=== PATIENT | female | born 1955 | race Caucasian/White ===

== ENCOUNTER → 2017-08-27 | Outpatient (REF) | payer MEDICARE, OTHER | LOC: M LAB REF 15:54 | PROVIDERS: ATTEND Nurse Practitioner Family | DX: L08.9 Local infection of the skin and subcutaneous tissue, unspecified (principal) ==

== ENCOUNTER → 2017-10-08 | Outpatient (REF) | payer MEDICARE, OTHER ==
[2017-10-08 20:52] LABS: ESTIMATED AVERAGE GLUCOSE 177 MG/DL (60-110); HEMOGLOBIN A1c 7.8 %
[2017-10-08 20:53] LABS: TOTAL 25(OH) VITAMIN D 22.1 NG/ML (30.0-100.0)
[2017-10-08 21:08] LABS: ALBUMIN 3.3 GM/DL (3.2-5.2); ALBUMIN/GLOBULIN RATIO 0.85 (1.00-1.93); ALKALINE PHOSPHATASE 124 U/L (45-117); ALT/SGPT 14 U/L (12-78); ANION GAP 9 MEQ/L (8-16); AST/SGOT 10 U/L (7-37); BILIRUBIN,TOTAL 0.2 MG/DL (0.2-1.0); BLOOD UREA NITROGEN 14 MG/DL (7-18); CARBON DIOXIDE LEVEL 25 MEQ/L (21-32); CHLORIDE LEVEL 110 MEQ/L (98-107); CHOLESTEROL LEVEL 192 MG/DL (<200); CHOLESTEROL RISK RATIO 3.764 (<5); CREATININE FOR GFR 0.84 MG/DL (0.55-1.02); FREE T4 1.27 NG/DL (0.76-1.46); GLOMERULAR FILTRATION RATE > 60.0 (>45); GLUCOSE, FASTING 120 MG/DL (80-110); HDL CHOLESTEROL 51 MG/DL (>40); NON-HDL-C 141 MG/DL; POTASSIUM SERUM 4.8 MEQ/L (3.5-5.1); SODIUM LEVEL 144 MEQ/L (136-145); TOTAL PROTEIN 7.2 GM/DL (6.4-8.2); TRIGLYCERIDES LEVEL 220 MG/DL (<150)
== END ==
LOC: M SFHCADAM 11:13
DX: E11.628 Type 2 diabetes mellitus with other skin complications (principal); E03.8 Other specified hypothyroidism; E55.9 Vitamin D deficiency, unspecified
CPT/HCPCS: 84443

== ENCOUNTER → 2017-11-28 | Outpatient (REF) | payer MEDICARE, OTHER | LOC: M LAB REF 15:46 | DX: L08.9 Local infection of the skin and subcutaneous tissue, unspecified (principal) | CPT/HCPCS: 87186 ==

== ENCOUNTER → 2018-03-20 | Outpatient (REF) | payer MEDICARE, OTHER | LOC: M LAB REF 16:49 | DX: L08.9 Local infection of the skin and subcutaneous tissue, unspecified (principal) | CPT/HCPCS: 87186 ==

== ENCOUNTER → 2018-04-17 | Outpatient (REF) | payer MEDICARE, OTHER | LOC: M LAB REF 16:13 | DX: L08.9 Local infection of the skin and subcutaneous tissue, unspecified (principal) | CPT/HCPCS: 87186 ==

== ENCOUNTER → 2018-06-13 | Outpatient (CLI) | payer MEDICARE, OTHER | LOC: M ADAMS 10:45 | DX: M25.551 Pain in right hip (principal) | CPT/HCPCS: 72110 ==

== ENCOUNTER 2018-06-18 15:08 | Inpatient (IN) | payer MEDICARE, OTHER ==
[2018-06-18 17:26] LABS: BEDSIDE GLUCOSE 154 MG/DL (80-115)
[2018-06-18 17:36] LABS: BASO % 0.2 % (0.0-1.0); EOS # 0.1 10^3/uL (0.0-0.50); EOS % 0.5 % (0.0-3.0); HEMOGLOBIN 13.4 g/dl (12.0-15.5); IMMATURE GRANULOCYTE % 0.5 % (0-3.0); LYMPH # 1.3 10^3/uL (1.5-4.5); LYMPH % 8.2 % (24.0-44.0); MEAN CORPUSCULAR HEMOGLOBIN 22.1 pg (27.0-33.0); MEAN CORPUSCULAR HGB CONC 31.2 g/dl (32.0-36.5); MONO # 0.8 10^3/uL (0.0-0.8); MONO % 5.2 % (0.0-5.0); NEUTROPHILS % 85.4 % (36.0-66.0); PLATELET COUNT, AUTOMATED 479 10^3/uL (150-450); RED BLOOD COUNT 6.06 10^6/uL (4.00-5.40); RED CELL DISTRIBUTION WIDTH 22.7 % (11.5-14.5); WHITE BLOOD COUNT 15.3 10^3/uL (4.0-10.0)
[2018-06-18 18:11] LABS: ANION GAP 8 MEQ/L (8-16); BLOOD UREA NITROGEN 15 MG/DL (7-18); C REACTIVE PROTEIN QUANTITATIV 7.74 MG/DL (0.00-0.30); CALCIUM LEVEL 9.1 MG/DL (8.8-10.2); CARBON DIOXIDE LEVEL 25 MEQ/L (21-32); CHLORIDE LEVEL 112 MEQ/L (98-107); CREATININE FOR GFR 0.81 MG/DL (0.55-1.30); GLOMERULAR FILTRATION RATE > 60.0 (>45); GLUCOSE, FASTING 145 MG/DL (70-100); POTASSIUM SERUM 4.8 MEQ/L (3.5-5.1); SODIUM LEVEL 145 MEQ/L (136-145)
[2018-06-18 18:17] LABS: ERYTHROCYTE SEDIMENTATION RATE 9 mm/hr (0-30)
[2018-06-19] MEDS: MORPHINE 4 MG/ML 1ML VIAL/SYRINGE (J2270) IV ×3 (01:54→12:33)
[2018-06-19] MEDS ORDERED: GLUCOSE 4 GM CHEW TABLET PO (03:30)
[2018-06-19] MEDS ORDERED: BISACODYL 10 MG SUPP PR (03:30)
[2018-06-19] MEDS ORDERED: GLUCAGON FOR INJ 1 MG VIAL (J1610) SC (03:30)
[2018-06-19] MEDS ORDERED: ONDANSETRON 4MG/2ML VIAL (J2405) IV (03:30)
[2018-06-19] MEDS ORDERED: DEXTROSE 50% 50 ML SYRINGE IV (03:30)
[2018-06-19] MEDS: D5W 1,000 ML IV ×2 (05:10→12:37)
[2018-06-19] MEDS: HEPARIN SOD (PORCINE) 5000 UNITS/ML VIAL SC ×3 (05:26→21:33)
[2018-06-19] MEDS: LEVOTHYROXINE 125MCG TABLET (0.125MG) PO (05:26)
[2018-06-19 08:02] LABS: BEDSIDE GLUCOSE 171 MG/DL (80-115)
[2018-06-19] MEDS: HumaLOG INSULIN (NovoLOG) PER UNIT SC ×3 (08:16→18:45)
[2018-06-19] MEDS: hydrOXYzine 25 MG TAB PO ×2 (08:17→21:32)
[2018-06-19] MEDS: SERTRALINE 100 MG TAB PO ×2 (08:17→21:32)
[2018-06-19] MEDS: DOCUSATE SODIUM 100 MG CAP PO ×2 (08:17→21:31)
[2018-06-19] MEDS: GABAPENTIN 100 MG CAP PO ×3 (08:17→21:31)
[2018-06-19] MEDS: cloZAPine 100 MG TAB (S0136) PO ×2 (09:23→21:32)
[2018-06-19] MEDS: NYSTATIN 100,000 UNITS/GM TOPICAL PWD 15 GM TOP ×2 (09:23→21:34)
[2018-06-19] MEDS: ZIPRASIDONE 20MG CAPSULE (GEODON) PO ×2 (09:23→21:31)
[2018-06-19 11:26] LABS: BASO % 0.3 % (0.0-1.0); EOS # 0.1 10^3/uL (0.0-0.50); EOS % 0.8 % (0.0-3.0); HEMATOCRIT 42.2 % (36.0-47.0); HEMOGLOBIN 12.9 g/dl (12.0-15.5); IMMATURE GRANULOCYTE % 0.5 % (0-3.0); LYMPH # 1.3 10^3/uL (1.5-4.5); MEAN CORPUSCULAR HGB CONC 30.6 g/dl (32.0-36.5); MONO # 0.8 10^3/uL (0.0-0.8); MONO % 6.6 % (0.0-5.0); NEUTROPHILS # 9.6 10^3/uL (1.8-7.7); NEUTROPHILS % 80.8 % (36.0-66.0); PLATELET COUNT, AUTOMATED 427 10^3/uL (150-450); RED BLOOD COUNT 5.86 10^6/uL (4.00-5.40); WHITE BLOOD COUNT 11.9 10^3/uL (4.0-10.0)
[2018-06-19 11:40] LABS: BEDSIDE GLUCOSE 222 MG/DL (80-115)
[2018-06-19 11:45] LABS: ANION GAP 7 MEQ/L (8-16); BLOOD UREA NITROGEN 11 MG/DL (7-18); CALCIUM LEVEL 8.6 MG/DL (8.8-10.2); CARBON DIOXIDE LEVEL 23 MEQ/L (21-32); CHLORIDE LEVEL 109 MEQ/L (98-107); GLOMERULAR FILTRATION RATE > 60.0 (>45); GLUCOSE, FASTING 217 MG/DL (70-100); SODIUM LEVEL 139 MEQ/L (136-145)
[2018-06-19] MEDS: ACETAMINOPHEN TAB 650MG DOSE (2X325MG) PO ×2 (14:39→21:33)
[2018-06-19 16:58] LABS: BEDSIDE GLUCOSE 211 MG/DL (80-115)
[2018-06-19] MEDS ORDERED: ISOVUE-370 76% 100ML VIAL (Q9967) As Ordered (17:57)
[2018-06-19 18:35] LABS: ALBUMIN 3.1 GM/DL (3.2-5.2); ALBUMIN/GLOBULIN RATIO 0.76 (1.00-1.93); ALKALINE PHOSPHATASE 93 U/L (45-117); ALT/SGPT 22 U/L (12-78); AST/SGOT 68 U/L (7-37); BILIRUBIN,DIRECT < 0.1 MG/DL (0.0-0.2); BILIRUBIN,TOTAL 0.4 MG/DL (0.2-1.0); TOTAL PROTEIN 7.2 GM/DL (6.4-8.2)
[2018-06-19] MEDS: PIPERACILLIN/TAZOBACTAM SOD 3.375 GM in D5W MINI-BAG PLUS 50 ML IV (18:45)
[2018-06-19] MEDS: FLUCONAZOLE 100 MG TAB PO (21:31)
[2018-06-19] MEDS: cloZAPine 25 MG TAB (S0136) PO (21:32)
[2018-06-19] MEDS: LEVEMIR (INSULIN DETEMIR) 1 UNITS/0.01ML SC (21:33)
[2018-06-20 00:19] LABS: BEDSIDE GLUCOSE 157 MG/DL (80-115)
[2018-06-20] MEDS: PIPERACILLIN/TAZOBACTAM SOD 3.375 GM in D5W MINI-BAG PLUS 50 ML IV ×3 (02:00→18:21)
[2018-06-20] MEDS: LEVOTHYROXINE 125MCG TABLET (0.125MG) PO (05:42)
[2018-06-20] MEDS: ACETAMINOPHEN TAB 650MG DOSE (2X325MG) PO ×3 (05:43→16:41)
[2018-06-20] MEDS: HEPARIN SOD (PORCINE) 5000 UNITS/ML VIAL SC ×3 (05:43→21:02)
[2018-06-20 05:50] LABS: BEDSIDE GLUCOSE 146 MG/DL (80-115)
[2018-06-20] MEDS: HumaLOG INSULIN (NovoLOG) PER UNIT SC ×6 (06:00→21:00)
[2018-06-20 06:03] LABS: BEDSIDE GLUCOSE 143 MG/DL (80-115)
[2018-06-20 07:24] LABS: HEMATOCRIT 40.7 % (36.0-47.0); HEMOGLOBIN 12.5 g/dl (12.0-15.5); MEAN CORPUSCULAR HEMOGLOBIN 22.2 pg (27.0-33.0); MEAN CORPUSCULAR HGB CONC 30.7 g/dl (32.0-36.5); MEAN CORPUSCULAR VOLUME 72.4 fl (80.0-96.0); PLATELET COUNT, AUTOMATED 450 10^3/uL (150-450); RED BLOOD COUNT 5.62 10^6/uL (4.00-5.40); RED CELL DISTRIBUTION WIDTH 22.3 % (11.5-14.5)
[2018-06-20 07:42] LABS: ESTIMATED AVERAGE GLUCOSE 146 MG/DL (60-110); HEMOGLOBIN A1c 6.7 %
[2018-06-20 07:51] LABS: ANION GAP 8 MEQ/L (8-16); BLOOD UREA NITROGEN 12 MG/DL (7-18); CALCIUM LEVEL 9.1 MG/DL (8.8-10.2); CARBON DIOXIDE LEVEL 24 MEQ/L (21-32); CHLORIDE LEVEL 112 MEQ/L (98-107); CREATININE FOR GFR 0.75 MG/DL (0.55-1.30); GLOMERULAR FILTRATION RATE > 60.0 (>45); GLUCOSE, FASTING 144 MG/DL (70-100); SODIUM LEVEL 144 MEQ/L (136-145)
[2018-06-20 08:03] LABS: IMMUNOGLOBULIN G 850 MG/DL (681-1648); IMMUNOGLOBULIN M 46 MG/DL (40-230)
[2018-06-20 08:05] LABS: ERYTHROCYTE SEDIMENTATION RATE 46 mm/hr (0-30)
[2018-06-20] MEDS: GABAPENTIN 100 MG CAP PO ×3 (09:36→21:03)
[2018-06-20] MEDS: ZIPRASIDONE 20MG CAPSULE (GEODON) PO ×2 (09:36→21:03)
[2018-06-20] MEDS: cloZAPine 100 MG TAB (S0136) PO ×2 (09:36→21:03)
[2018-06-20] MEDS: hydrOXYzine 25 MG TAB PO ×2 (09:36→21:03)
[2018-06-20] MEDS: DOCUSATE SODIUM 100 MG CAP PO ×2 (09:37→21:00)
[2018-06-20] MEDS: SERTRALINE 100 MG TAB PO ×2 (09:37→21:03)
[2018-06-20] MEDS: NYSTATIN 100,000 UNITS/GM TOPICAL PWD 15 GM TOP ×2 (09:37→21:05)
[2018-06-20] MEDS: MORPHINE 4 MG/ML 1ML VIAL/SYRINGE (J2270) IV ×2 (09:46→12:05)
[2018-06-20] MEDS: MIRALAX *UNIT DOSE* 17GM PACKET PO (11:07)
[2018-06-20 11:26] LABS: HEPATITIS B SURFACE ANTIGEN NEGATIVE (NEGATIVE)
[2018-06-20 11:26] LABS: HEPATITIS C VIRUS ABY INDEX 0.2 INDEX (<0.8)
[2018-06-20 11:46] LABS: BEDSIDE GLUCOSE 236 MG/DL (80-115)
[2018-06-20] MEDS ORDERED: HumaLOG INSULIN (NovoLOG) PER UNIT SC (12:00)
[2018-06-20 16:35] LABS: BEDSIDE GLUCOSE 144 MG/DL (80-115)
[2018-06-20 20:46] LABS: BEDSIDE GLUCOSE 203 MG/DL (80-115)
[2018-06-20] MEDS: BACLOFEN 5MG PER 1/2 TABLET PO (21:03)
[2018-06-20] MEDS: cloZAPine 25 MG TAB (S0136) PO (21:03)
[2018-06-20] MEDS: FLUCONAZOLE 100 MG TAB PO (21:04)
[2018-06-20] MEDS: LEVEMIR (INSULIN DETEMIR) 1 UNITS/0.01ML SC (21:05)
[2018-06-21] MEDS: PIPERACILLIN/TAZOBACTAM SOD 3.375 GM in D5W MINI-BAG PLUS 50 ML IV ×3 (01:42→17:53)
[2018-06-21] MEDS: LEVOTHYROXINE 125MCG TABLET (0.125MG) PO (05:20)
[2018-06-21] MEDS: HEPARIN SOD (PORCINE) 5000 UNITS/ML VIAL SC ×3 (05:20→20:09)
[2018-06-21] MEDS: ACETAMINOPHEN TAB 650MG DOSE (2X325MG) PO (05:21)
[2018-06-21 06:35] LABS: HEMOGLOBIN 12.6 g/dl (12.0-15.5); MEAN CORPUSCULAR HGB CONC 30.7 g/dl (32.0-36.5); MEAN CORPUSCULAR VOLUME 71.6 fl (80.0-96.0); PLATELET COUNT, AUTOMATED 461 10^3/uL (150-450); RED BLOOD COUNT 5.73 10^6/uL (4.00-5.40); RED CELL DISTRIBUTION WIDTH 22.4 % (11.5-14.5); WHITE BLOOD COUNT 9.1 10^3/uL (4.0-10.0)
[2018-06-21 07:00] LABS: ANION GAP 10 MEQ/L (8-16); BLOOD UREA NITROGEN 12 MG/DL (7-18); CALCIUM LEVEL 9.2 MG/DL (8.8-10.2); CARBON DIOXIDE LEVEL 23 MEQ/L (21-32); CHLORIDE LEVEL 112 MEQ/L (98-107); CREATININE FOR GFR 0.82 MG/DL (0.55-1.30); GLOMERULAR FILTRATION RATE > 60.0 (>45); GLUCOSE, FASTING 168 MG/DL (70-100); SODIUM LEVEL 145 MEQ/L (136-145)
[2018-06-21] MEDS: GABAPENTIN 100 MG CAP PO ×3 (08:57→20:10)
[2018-06-21] MEDS: HumaLOG INSULIN (NovoLOG) PER UNIT SC ×4 (08:57→20:11)
[2018-06-21] MEDS: SERTRALINE 100 MG TAB PO ×2 (08:58→20:10)
[2018-06-21] MEDS: NYSTATIN 100,000 UNITS/GM TOPICAL PWD 15 GM TOP ×2 (08:58→20:26)
[2018-06-21] MEDS: hydrOXYzine 25 MG TAB PO ×2 (08:58→20:10)
[2018-06-21] MEDS: ZIPRASIDONE 20MG CAPSULE (GEODON) PO ×2 (08:59→20:10)
[2018-06-21] MEDS: DOCUSATE SODIUM 100 MG CAP PO ×2 (08:59→20:11)
[2018-06-21] MEDS: BACLOFEN 5MG PER 1/2 TABLET PO ×3 (08:59→20:09)
[2018-06-21] MEDS: MIRALAX *UNIT DOSE* 17GM PACKET PO (08:59)
[2018-06-21] MEDS: cloZAPine 100 MG TAB (S0136) PO ×2 (09:09→20:10)
[2018-06-21] MEDS: NORCO, ANEXSIA 5/325MG TABLET (HYDROcodone/ACETAMINOPHEN) PO ×2 (10:50→14:45)
[2018-06-21 11:45] LABS: BEDSIDE GLUCOSE 184 MG/DL (80-115)
[2018-06-21 16:43] LABS: BEDSIDE GLUCOSE 182 MG/DL (80-115)
[2018-06-21] MEDS: cloZAPine 25 MG TAB (S0136) PO (20:10)
[2018-06-21] MEDS: FLUCONAZOLE 100 MG TAB PO (20:10)
[2018-06-21 20:18] LABS: BEDSIDE GLUCOSE 204 MG/DL (80-115)
[2018-06-21] MEDS: LEVEMIR (INSULIN DETEMIR) 1 UNITS/0.01ML SC (20:25)
[2018-06-22] MEDS: PIPERACILLIN/TAZOBACTAM SOD 3.375 GM in D5W MINI-BAG PLUS 50 ML IV ×3 (03:09→17:35)
[2018-06-22] MEDS: HEPARIN SOD (PORCINE) 5000 UNITS/ML VIAL SC ×3 (05:09→21:44)
[2018-06-22] MEDS: LEVOTHYROXINE 125MCG TABLET (0.125MG) PO (05:09)
[2018-06-22 05:52] LABS: HEMATOCRIT 41.4 % (36.0-47.0); HEMOGLOBIN 12.7 g/dl (12.0-15.5); MEAN CORPUSCULAR HEMOGLOBIN 21.9 pg (27.0-33.0); MEAN CORPUSCULAR HGB CONC 30.7 g/dl (32.0-36.5); MEAN CORPUSCULAR VOLUME 71.5 fl (80.0-96.0); PLATELET COUNT, AUTOMATED 454 10^3/uL (150-450); RED BLOOD COUNT 5.79 10^6/uL (4.00-5.40); RED CELL DISTRIBUTION WIDTH 22.4 % (11.5-14.5); WHITE BLOOD COUNT 8.4 10^3/uL (4.0-10.0)
[2018-06-22 06:16] LABS: ANION GAP 8 MEQ/L (8-16); BLOOD UREA NITROGEN 11 MG/DL (7-18); CALCIUM LEVEL 8.8 MG/DL (8.8-10.2); CARBON DIOXIDE LEVEL 25 MEQ/L (21-32); CHLORIDE LEVEL 110 MEQ/L (98-107); CREATININE FOR GFR 0.78 MG/DL (0.55-1.30); GLOMERULAR FILTRATION RATE > 60.0 (>45); GLUCOSE, FASTING 173 MG/DL (70-100); POTASSIUM SERUM 4.2 MEQ/L (3.5-5.1); SODIUM LEVEL 143 MEQ/L (136-145)
[2018-06-22] MEDS: INVOKANA 300 MG PO (07:30)
[2018-06-22] MEDS: SERTRALINE 100 MG TAB PO ×2 (08:15→21:42)
[2018-06-22] MEDS: BACLOFEN 5MG PER 1/2 TABLET PO ×3 (08:15→21:42)
[2018-06-22] MEDS: hydrOXYzine 25 MG TAB PO ×2 (08:15→21:43)
[2018-06-22] MEDS: GABAPENTIN 100 MG CAP PO ×3 (08:15→21:43)
[2018-06-22] MEDS: NORCO, ANEXSIA 5/325MG TABLET (HYDROcodone/ACETAMINOPHEN) PO ×4 (08:16→21:46)
[2018-06-22] MEDS: MIRALAX *UNIT DOSE* 17GM PACKET PO (08:16)
[2018-06-22] MEDS: DOCUSATE SODIUM 100 MG CAP PO ×2 (08:17→21:42)
[2018-06-22] MEDS: HumaLOG INSULIN (NovoLOG) PER UNIT SC ×4 (08:22→21:44)
[2018-06-22] MEDS: ZIPRASIDONE 20MG CAPSULE (GEODON) PO ×2 (08:38→21:42)
[2018-06-22] MEDS: cloZAPine 100 MG TAB (S0136) PO ×2 (08:38→21:43)
[2018-06-22] MEDS: NYSTATIN 100,000 UNITS/GM TOPICAL PWD 15 GM TOP ×3 (08:38→21:55)
[2018-06-22 11:57] LABS: BEDSIDE GLUCOSE 191 MG/DL (80-115)
[2018-06-22 17:12] LABS: BEDSIDE GLUCOSE 183 MG/DL (80-115)
[2018-06-22] MEDS: FLEET ENEMA PR (17:37)
[2018-06-22] MEDS: SENNA 8.6 MG TAB (SENOKOT) PO (21:41)
[2018-06-22] MEDS: FLUCONAZOLE 100 MG TAB PO (21:42)
[2018-06-22] MEDS: LEVEMIR (INSULIN DETEMIR) 1 UNITS/0.01ML SC (21:44)
[2018-06-22] MEDS: cloZAPine 25 MG TAB (S0136) PO (21:54)
[2018-06-23] MEDS: PIPERACILLIN/TAZOBACTAM SOD 3.375 GM in D5W MINI-BAG PLUS 50 ML IV ×2 (01:13→10:40)
[2018-06-23] MEDS: NORCO, ANEXSIA 5/325MG TABLET (HYDROcodone/ACETAMINOPHEN) PO ×3 (05:44→22:37)
[2018-06-23] MEDS: HEPARIN SOD (PORCINE) 5000 UNITS/ML VIAL SC ×3 (05:44→21:23)
[2018-06-23] MEDS: LEVOTHYROXINE 125MCG TABLET (0.125MG) PO (05:44)
[2018-06-23 06:03] LABS: BEDSIDE GLUCOSE 272 MG/DL (80-115)
[2018-06-23 07:51] LABS: HEMATOCRIT 39.4 % (36.0-47.0); MEAN CORPUSCULAR HEMOGLOBIN 21.9 pg (27.0-33.0); MEAN CORPUSCULAR HGB CONC 30.5 g/dl (32.0-36.5); MEAN CORPUSCULAR VOLUME 71.9 fl (80.0-96.0); PLATELET COUNT, AUTOMATED 455 10^3/uL (150-450); RED BLOOD COUNT 5.48 10^6/uL (4.00-5.40); RED CELL DISTRIBUTION WIDTH 22.2 % (11.5-14.5); WHITE BLOOD COUNT 9.2 10^3/uL (4.0-10.0)
[2018-06-23 08:25] LABS: ANION GAP 6 MEQ/L (8-16); BLOOD UREA NITROGEN 15 MG/DL (7-18); CALCIUM LEVEL 9.4 MG/DL (8.8-10.2); CARBON DIOXIDE LEVEL 28 MEQ/L (21-32); CHLORIDE LEVEL 112 MEQ/L (98-107); CREATININE FOR GFR 0.76 MG/DL (0.55-1.30); GLOMERULAR FILTRATION RATE > 60.0 (>45); GLUCOSE, FASTING 167 MG/DL (70-100); POTASSIUM SERUM 4.3 MEQ/L (3.5-5.1); SODIUM LEVEL 146 MEQ/L (136-145)
[2018-06-23] MEDS: MIRALAX *UNIT DOSE* 17GM PACKET PO (09:00)
[2018-06-23] MEDS: INVOKANA 300 MG PO (10:41)
[2018-06-23] MEDS: GABAPENTIN 100 MG CAP PO ×3 (10:42→21:23)
[2018-06-23] MEDS: ZIPRASIDONE 20MG CAPSULE (GEODON) PO ×2 (10:42→21:23)
[2018-06-23] MEDS: SENNA 8.6 MG TAB (SENOKOT) PO ×2 (10:42→21:23)
[2018-06-23] MEDS: DOCUSATE SODIUM 100 MG CAP PO ×2 (10:44→21:24)
[2018-06-23] MEDS: hydrOXYzine 25 MG TAB PO ×2 (10:45→21:23)
[2018-06-23] MEDS: BACLOFEN 5MG PER 1/2 TABLET PO ×3 (10:45→21:23)
[2018-06-23] MEDS: SERTRALINE 100 MG TAB PO ×2 (10:45→21:24)
[2018-06-23] MEDS: NYSTATIN 100,000 UNITS/GM TOPICAL PWD 15 GM TOP ×3 (10:47→21:25)
[2018-06-23] MEDS: HumaLOG INSULIN (NovoLOG) PER UNIT SC ×4 (10:47→21:58)
[2018-06-23 12:22] LABS: BEDSIDE GLUCOSE 211 MG/DL (80-115)
[2018-06-23] MEDS: cloZAPine 100 MG TAB (S0136) PO ×2 (13:33→21:24)
[2018-06-23] MEDS: BACTRIM 160MG/800MG DS TAB PO (13:33)
[2018-06-23 17:51] LABS: BEDSIDE GLUCOSE 148 MG/DL (80-115)
[2018-06-23 21:16] LABS: BEDSIDE GLUCOSE 274 MG/DL (80-115)
[2018-06-23] MEDS: FLUCONAZOLE 100 MG TAB PO (21:23)
[2018-06-23] MEDS: cloZAPine 25 MG TAB (S0136) PO (21:24)
[2018-06-23] MEDS: AUGMENTIN 875 MG TAB PO (21:24)
[2018-06-23] MEDS: CLINDAMYCIN TOP 1% SOLN 60 ML BTL TOP (21:25)
[2018-06-23] MEDS: LEVEMIR (INSULIN DETEMIR) 1 UNITS/0.01ML SC (21:57)
[2018-06-24] MEDS: HEPARIN SOD (PORCINE) 5000 UNITS/ML VIAL SC ×3 (05:45→21:49)
[2018-06-24] MEDS: LEVOTHYROXINE 125MCG TABLET (0.125MG) PO (05:45)
[2018-06-24 07:06] LABS: HEMATOCRIT 40.6 % (36.0-47.0); HEMOGLOBIN 12.3 g/dl (12.0-15.5); MEAN CORPUSCULAR HEMOGLOBIN 21.8 pg (27.0-33.0); MEAN CORPUSCULAR HGB CONC 30.3 g/dl (32.0-36.5); PLATELET COUNT, AUTOMATED 429 10^3/uL (150-450); RED BLOOD COUNT 5.64 10^6/uL (4.00-5.40); RED CELL DISTRIBUTION WIDTH 22.2 % (11.5-14.5); WHITE BLOOD COUNT 9.7 10^3/uL (4.0-10.0)
[2018-06-24 07:22] LABS: ANION GAP 8 MEQ/L (8-16); BLOOD UREA NITROGEN 12 MG/DL (7-18); CALCIUM LEVEL 8.8 MG/DL (8.8-10.2); CARBON DIOXIDE LEVEL 25 MEQ/L (21-32); CHLORIDE LEVEL 110 MEQ/L (98-107); CREATININE FOR GFR 0.81 MG/DL (0.55-1.30); GLOMERULAR FILTRATION RATE > 60.0 (>45); GLUCOSE, FASTING 161 MG/DL (70-100); POTASSIUM SERUM 4.1 MEQ/L (3.5-5.1); SODIUM LEVEL 143 MEQ/L (136-145)
[2018-06-24] MEDS: INVOKANA 300 MG PO (08:15)
[2018-06-24] MEDS: HumaLOG INSULIN (NovoLOG) PER UNIT SC ×4 (08:15→21:55)
[2018-06-24] MEDS: ZIPRASIDONE 20MG CAPSULE (GEODON) PO ×2 (08:45→21:48)
[2018-06-24] MEDS: BACLOFEN 5MG PER 1/2 TABLET PO ×3 (08:45→21:47)
[2018-06-24] MEDS: MIRALAX *UNIT DOSE* 17GM PACKET PO (08:45)
[2018-06-24] MEDS: cloZAPine 100 MG TAB (S0136) PO ×2 (08:46→21:48)
[2018-06-24] MEDS: GABAPENTIN 100 MG CAP PO ×3 (08:46→21:48)
[2018-06-24] MEDS: SENNA 8.6 MG TAB (SENOKOT) PO ×2 (08:46→21:48)
[2018-06-24] MEDS: hydrOXYzine 25 MG TAB PO ×2 (08:46→21:48)
[2018-06-24] MEDS: AUGMENTIN 875 MG TAB PO ×2 (08:46→21:47)
[2018-06-24] MEDS: SERTRALINE 100 MG TAB PO ×2 (08:47→21:48)
[2018-06-24] MEDS: DOCUSATE SODIUM 100 MG CAP PO ×2 (08:47→21:48)
[2018-06-24] MEDS: NYSTATIN 100,000 UNITS/GM TOPICAL PWD 15 GM TOP ×3 (08:48→21:49)
[2018-06-24] MEDS: NORCO, ANEXSIA 5/325MG TABLET (HYDROcodone/ACETAMINOPHEN) PO ×2 (10:46→15:10)
[2018-06-24 12:09] LABS: BEDSIDE GLUCOSE 235 MG/DL (80-115)
[2018-06-24 21:14] LABS: BEDSIDE GLUCOSE 187 MG/DL (80-115)
[2018-06-24] MEDS: cloZAPine 25 MG TAB (S0136) PO (21:48)
[2018-06-24] MEDS: CLINDAMYCIN TOP 1% SOLN 60 ML BTL TOP (21:49)
[2018-06-24] MEDS: LEVEMIR (INSULIN DETEMIR) 1 UNITS/0.01ML SC (21:50)
[2018-06-24] MEDS: ACETAMINOPHEN TAB 650MG DOSE (2X325MG) PO (22:51)
[2018-06-25 03:08] LABS: BEDSIDE GLUCOSE 236 MG/DL (80-115)
[2018-06-25] MEDS: LEVOTHYROXINE 125MCG TABLET (0.125MG) PO (05:20)
[2018-06-25] MEDS: HEPARIN SOD (PORCINE) 5000 UNITS/ML VIAL SC ×3 (05:20→20:34)
[2018-06-25 07:16] LABS: HEMATOCRIT 39.6 % (36.0-47.0); MEAN CORPUSCULAR HGB CONC 30.3 g/dl (32.0-36.5); MEAN CORPUSCULAR VOLUME 72.5 fl (80.0-96.0); PLATELET COUNT, AUTOMATED 444 10^3/uL (150-450); RED BLOOD COUNT 5.46 10^6/uL (4.00-5.40); RED CELL DISTRIBUTION WIDTH 22.2 % (11.5-14.5); WHITE BLOOD COUNT 9.6 10^3/uL (4.0-10.0)
[2018-06-25 07:40] LABS: ANION GAP 6 MEQ/L (8-16); BLOOD UREA NITROGEN 14 MG/DL (7-18); CALCIUM LEVEL 9.1 MG/DL (8.8-10.2); CARBON DIOXIDE LEVEL 28 MEQ/L (21-32); CHLORIDE LEVEL 109 MEQ/L (98-107); CREATININE FOR GFR 0.78 MG/DL (0.55-1.30); GLOMERULAR FILTRATION RATE > 60.0 (>45); GLUCOSE, FASTING 144 MG/DL (70-100); POTASSIUM SERUM 4.1 MEQ/L (3.5-5.1); SODIUM LEVEL 143 MEQ/L (136-145)
[2018-06-25] MEDS: INVOKANA 300 MG PO (07:55)
[2018-06-25] MEDS: HumaLOG INSULIN (NovoLOG) PER UNIT SC ×4 (07:56→21:00)
[2018-06-25] MEDS: NORCO, ANEXSIA 5/325MG TABLET (HYDROcodone/ACETAMINOPHEN) PO ×2 (07:56→20:13)
[2018-06-25] MEDS: MIRALAX *UNIT DOSE* 17GM PACKET PO (08:33)
[2018-06-25] MEDS: hydrOXYzine 25 MG TAB PO ×2 (08:33→20:13)
[2018-06-25] MEDS: FLEET ENEMA PR (08:33)
[2018-06-25] MEDS: DOCUSATE SODIUM 100 MG CAP PO ×2 (08:34→20:12)
[2018-06-25] MEDS: BACLOFEN 5MG PER 1/2 TABLET PO ×3 (08:34→20:12)
[2018-06-25] MEDS: cloZAPine 100 MG TAB (S0136) PO ×2 (08:34→20:13)
[2018-06-25] MEDS: AUGMENTIN 875 MG TAB PO ×2 (08:34→20:13)
[2018-06-25] MEDS: SERTRALINE 100 MG TAB PO ×2 (08:34→20:11)
[2018-06-25] MEDS: ZIPRASIDONE 20MG CAPSULE (GEODON) PO ×2 (08:35→20:13)
[2018-06-25] MEDS: GABAPENTIN 100 MG CAP PO ×3 (08:35→20:12)
[2018-06-25] MEDS: SENNA 8.6 MG TAB (SENOKOT) PO ×2 (08:35→20:11)
[2018-06-25] MEDS: NYSTATIN 100,000 UNITS/GM TOPICAL PWD 15 GM TOP ×3 (08:38→20:17)
[2018-06-25 11:48] LABS: BEDSIDE GLUCOSE 184 MG/DL (80-115)
[2018-06-25 17:23] LABS: BEDSIDE GLUCOSE 197 MG/DL (80-115)
[2018-06-25] MEDS: LEVEMIR (INSULIN DETEMIR) 1 UNITS/0.01ML SC (20:10)
[2018-06-25] MEDS: cloZAPine 25 MG TAB (S0136) PO (20:14)
[2018-06-25] MEDS: CLINDAMYCIN TOP 1% SOLN 60 ML BTL TOP (20:16)
[2018-06-25 20:19] LABS: BEDSIDE GLUCOSE 210 MG/DL (80-115)
[2018-06-26] MEDS: NORCO, ANEXSIA 5/325MG TABLET (HYDROcodone/ACETAMINOPHEN) PO ×2 (05:56→10:19)
[2018-06-26] MEDS: LEVOTHYROXINE 125MCG TABLET (0.125MG) PO (05:56)
[2018-06-26] MEDS: HEPARIN SOD (PORCINE) 5000 UNITS/ML VIAL SC (05:56)
[2018-06-26 07:09] LABS: HEMATOCRIT 40.6 % (36.0-47.0); HEMOGLOBIN 12.4 g/dl (12.0-15.5); MEAN CORPUSCULAR HEMOGLOBIN 22.3 pg (27.0-33.0); MEAN CORPUSCULAR HGB CONC 30.5 g/dl (32.0-36.5); PLATELET COUNT, AUTOMATED 404 10^3/uL (150-450); RED BLOOD COUNT 5.56 10^6/uL (4.00-5.40); RED CELL DISTRIBUTION WIDTH 21.8 % (11.5-14.5); WHITE BLOOD COUNT 9.2 10^3/uL (4.0-10.0)
[2018-06-26 07:24] LABS: ANION GAP 8 MEQ/L (8-16); BLOOD UREA NITROGEN 12 MG/DL (7-18); CARBON DIOXIDE LEVEL 26 MEQ/L (21-32); CHLORIDE LEVEL 111 MEQ/L (98-107); CREATININE FOR GFR 0.73 MG/DL (0.55-1.30); GLOMERULAR FILTRATION RATE > 60.0 (>45); GLUCOSE, FASTING 139 MG/DL (70-100); SODIUM LEVEL 145 MEQ/L (136-145)
[2018-06-26] MEDS: INVOKANA 300 MG PO (08:10)
[2018-06-26] MEDS: HumaLOG INSULIN (NovoLOG) PER UNIT SC ×2 (08:10→12:18)
[2018-06-26] MEDS: ZIPRASIDONE 20MG CAPSULE (GEODON) PO (09:04)
[2018-06-26] MEDS: SENNA 8.6 MG TAB (SENOKOT) PO (09:04)
[2018-06-26] MEDS: hydrOXYzine 25 MG TAB PO (09:04)
[2018-06-26] MEDS: BACLOFEN 5MG PER 1/2 TABLET PO (09:04)
[2018-06-26] MEDS: cloZAPine 100 MG TAB (S0136) PO (09:05)
[2018-06-26] MEDS: AUGMENTIN 875 MG TAB PO (09:05)
[2018-06-26] MEDS: GABAPENTIN 100 MG CAP PO (09:05)
[2018-06-26] MEDS: SERTRALINE 100 MG TAB PO (09:06)
[2018-06-26] MEDS: DOCUSATE SODIUM 100 MG CAP PO (09:07)
[2018-06-26] MEDS: MIRALAX *UNIT DOSE* 17GM PACKET PO (09:08)
[2018-06-26] MEDS: NYSTATIN 100,000 UNITS/GM TOPICAL PWD 15 GM TOP (09:09)
[2018-06-26 11:27] LABS: BEDSIDE GLUCOSE 173 MG/DL (80-115)
== END 2018-06-26 13:47 | disposition home health service (06) | DRG 552 ==
LOC: M ED INP 06-19 02:54 → M ED 15:08 → M MS5PR 06-19 04:04
DX: M48.061 Spinal stenosis, lumbar region without neurogenic claudication (principal); L03.114 Cellulitis of left upper limb; L03.312 Cellulitis of back [any part except buttock and flank]; E11.9 Type 2 diabetes mellitus without complications; L30.4 Erythema intertrigo; E03.9 Hypothyroidism, unspecified; B37.2 Candidiasis of skin and nail; E66.9 Obesity, unspecified; M51.26 Other intervertebral disc displacement, lumbar region; B95.1 Streptococcus, group B, as the cause of diseases classified elsewhere; T40.605A Adverse effect of unspecified narcotics, initial encounter; K59.03 Drug induced constipation; L73.2 Hidradenitis suppurativa; F41.9 Anxiety disorder, unspecified; R53.82 Chronic fatigue, unspecified; F25.9 Schizoaffective disorder, unspecified; Z88.1 Allergy status to other antibiotic agents; Z79.4 Long term (current) use of insulin; Z79.899 Other long term (current) drug therapy; Z68.34 Body mass index [BMI] 34.0-34.9, adult

== ENCOUNTER → 2018-07-02 | Outpatient (REF) | payer MEDICARE, OTHER | LOC: M LAB REF 18:30 | DX: L72.9 Follicular cyst of the skin and subcutaneous tissue, unspecified (principal) | CPT/HCPCS: 88305 ==

== ENCOUNTER 2018-07-05 09:32 | Inpatient (IN) | payer MEDICARE, OTHER ==
[2018-07-05 10:28] LABS: BEDSIDE GLUCOSE 163 MG/DL (80-115)
[2018-07-05] MEDS: ACETAMINOPHEN TAB 650MG DOSE (2X325MG) PO (10:46)
[2018-07-05 10:50] LABS: BASO % 0.3 % (0.0-1.0); EOS # 0.2 10^3/uL (0.0-0.50); EOS % 1.7 % (0.0-3.0); HEMATOCRIT 43.4 % (36.0-47.0); HEMOGLOBIN 13.4 g/dl (12.0-15.5); IMMATURE GRANULOCYTE % 0.5 % (0-3.0); LYMPH # 1.1 10^3/uL (1.5-4.5); LYMPH % 12.3 % (24.0-44.0); MEAN CORPUSCULAR HEMOGLOBIN 22.6 pg (27.0-33.0); MEAN CORPUSCULAR HGB CONC 30.9 g/dl (32.0-36.5); MEAN CORPUSCULAR VOLUME 73.3 fl (80.0-96.0); MONO # 0.6 10^3/uL (0.0-0.8); NEUTROPHILS # 7.4 10^3/uL (1.8-7.7); NEUTROPHILS % 79.2 % (36.0-66.0); PLATELET COUNT, AUTOMATED 448 10^3/uL (150-450); RED BLOOD COUNT 5.92 10^6/uL (4.00-5.40); RED CELL DISTRIBUTION WIDTH 23.4 % (11.5-14.5); WHITE BLOOD COUNT 9.3 10^3/uL (4.0-10.0)
[2018-07-05 11:04] LABS: INR 1.07; PARTIAL THROMBOPLASTIN TIME 27.8 SECONDS (25.4-37.6)
[2018-07-05 11:35] LABS: ANION GAP 9 MEQ/L (8-16); BLOOD UREA NITROGEN 12 MG/DL (7-18); CARBON DIOXIDE LEVEL 23 MEQ/L (21-32); CHLORIDE LEVEL 113 MEQ/L (98-107); CPK CREATINE PHOSPHOKINASE 1332 U/L (26-192); CREATININE FOR GFR 0.79 MG/DL (0.55-1.30); GLOMERULAR FILTRATION RATE > 60.0 (>45); GLUCOSE, FASTING 161 MG/DL (70-100); MAGNESIUM LEVEL 2.3 MG/DL (1.8-2.4); MB/CK RELATIVE INDEX 0.37 (< OR =4); POTASSIUM SERUM 4.2 MEQ/L (3.5-5.1); SODIUM LEVEL 145 MEQ/L (136-145); TROPONIN I 0.03 NG/ML (< 0.10)
[2018-07-05] MEDS: NS 1,000 ML IV ×3 (12:07→18:46)
[2018-07-05] MEDS ORDERED: DEXTROSE 50% 50 ML SYRINGE IV (13:15)
[2018-07-05] MEDS ORDERED: GLUCOSE 4 GM CHEW TABLET PO (13:15)
[2018-07-05] MEDS ORDERED: GLUCAGON FOR INJ 1 MG VIAL (J1610) SC (13:15)
[2018-07-05 18:02] LABS: BEDSIDE GLUCOSE 110 MG/DL (80-115)
[2018-07-05] MEDS: HumaLOG INSULIN (NovoLOG) PER UNIT SC ×3 (18:46→21:00)
[2018-07-05] MEDS: NAPROXEN 250 MG TAB PO (18:48)
[2018-07-05 20:18] LABS: ANION GAP 8 MEQ/L (8-16); BLOOD UREA NITROGEN 11 MG/DL (7-18); CALCIUM LEVEL 8.4 MG/DL (8.8-10.2); CARBON DIOXIDE LEVEL 24 MEQ/L (21-32); CHLORIDE LEVEL 113 MEQ/L (98-107); CPK CREATINE PHOSPHOKINASE 1594 U/L (26-192); CREATININE FOR GFR 0.87 MG/DL (0.55-1.30); GLOMERULAR FILTRATION RATE > 60.0 (>45); GLUCOSE, FASTING 142 MG/DL (70-100); POTASSIUM SERUM 3.9 MEQ/L (3.5-5.1); SODIUM LEVEL 145 MEQ/L (136-145)
[2018-07-05 20:29] LABS: BEDSIDE GLUCOSE 61 MG/DL (80-115)
[2018-07-05] MEDS ORDERED: ENOXAPARIN 40 MG/0.4 ML SYRINGE (J1650) SC (21:00)
[2018-07-05] MEDS: cloZAPine 100 MG TAB (S0136) PO (21:42)
[2018-07-05] MEDS: cloZAPine 25 MG TAB (S0136) PO (21:42)
[2018-07-05] MEDS: ENOXAPARIN 40 MG/0.4 ML SYRINGE (J1650) SC (21:42)
[2018-07-05] MEDS: ZIPRASIDONE 20MG CAPSULE (GEODON) PO (21:42)
[2018-07-05] MEDS: hydrOXYzine 25 MG TAB PO (21:42)
[2018-07-05] MEDS: DOXYCYCLINE HYCLATE 100 MG TAB PO (21:42)
[2018-07-05 21:50] LABS: BEDSIDE GLUCOSE 111 MG/DL (80-115)
[2018-07-05] MEDS: NS 0.45% 1,000 ML IV (23:21)
[2018-07-06 01:27] LABS: BEDSIDE GLUCOSE 138 MG/DL (80-115)
[2018-07-06] MEDS: NAPROXEN 250 MG TAB PO ×2 (02:12→21:27)
[2018-07-06] MEDS: NS 0.45% 1,000 ML IV ×4 (04:22→23:47)
[2018-07-06] MEDS: LEVOTHYROXINE 125MCG TABLET (0.125MG) PO (05:43)
[2018-07-06 06:54] LABS: HEMATOCRIT 36.4 % (36.0-47.0); MEAN CORPUSCULAR HEMOGLOBIN 22.6 pg (27.0-33.0); MEAN CORPUSCULAR HGB CONC 30.2 g/dl (32.0-36.5); MEAN CORPUSCULAR VOLUME 74.7 fl (80.0-96.0); PLATELET COUNT, AUTOMATED 434 10^3/uL (150-450); RED BLOOD COUNT 4.87 10^6/uL (4.00-5.40); WHITE BLOOD COUNT 9.7 10^3/uL (4.0-10.0)
[2018-07-06] MEDS: HumaLOG INSULIN (NovoLOG) PER UNIT SC ×6 (07:30→21:00)
[2018-07-06 07:41] LABS: ANION GAP 6 MEQ/L (8-16); BLOOD UREA NITROGEN 7 MG/DL (7-18); CALCIUM LEVEL 8.3 MG/DL (8.8-10.2); CARBON DIOXIDE LEVEL 23 MEQ/L (21-32); CHLORIDE LEVEL 119 MEQ/L (98-107); CPK CREATINE PHOSPHOKINASE 2386 U/L (26-192); CREATININE FOR GFR 0.76 MG/DL (0.55-1.30); GLOMERULAR FILTRATION RATE > 60.0 (>45); GLUCOSE, FASTING 108 MG/DL (70-100); POTASSIUM SERUM 3.9 MEQ/L (3.5-5.1); SODIUM LEVEL 148 MEQ/L (136-145)
[2018-07-06] MEDS: ASPIRIN 81 MG ENTERIC TAB PO (09:10)
[2018-07-06] MEDS: ZIPRASIDONE 20MG CAPSULE (GEODON) PO ×2 (09:10→21:28)
[2018-07-06] MEDS: SERTRALINE 100 MG TAB PO (09:10)
[2018-07-06] MEDS: DOXYCYCLINE HYCLATE 100 MG TAB PO ×2 (09:11→21:28)
[2018-07-06] MEDS: hydrOXYzine 25 MG TAB PO ×2 (09:14→21:28)
[2018-07-06] MEDS: FLUBLOK(EGG FREE)(QUAD)INFLUENZA VACC 0.5ML SYRINGE (90682)18YRS&OLDER IM (09:23)
[2018-07-06] MEDS: cloZAPine 100 MG TAB (S0136) PO ×2 (09:23→21:28)
[2018-07-06 12:17] LABS: BEDSIDE GLUCOSE 129 MG/DL (80-115)
[2018-07-06 16:38] LABS: BEDSIDE GLUCOSE 172 MG/DL (80-115)
[2018-07-06 20:55] LABS: BEDSIDE GLUCOSE 152 MG/DL (80-115)
[2018-07-06] MEDS: cloZAPine 25 MG TAB (S0136) PO (21:28)
[2018-07-06] MEDS: ENOXAPARIN 40 MG/0.4 ML SYRINGE (J1650) SC (21:29)
[2018-07-07] MEDS: LEVOTHYROXINE 125MCG TABLET (0.125MG) PO (05:50)
[2018-07-07] MEDS: NS 0.45% 1,000 ML IV (05:50)
[2018-07-07 06:05] LABS: HEMATOCRIT 38.4 % (36.0-47.0); HEMOGLOBIN 11.4 g/dl (12.0-15.5); MEAN CORPUSCULAR HEMOGLOBIN 22.2 pg (27.0-33.0); MEAN CORPUSCULAR HGB CONC 29.7 g/dl (32.0-36.5); MEAN CORPUSCULAR VOLUME 74.7 fl (80.0-96.0); PLATELET COUNT, AUTOMATED 456 10^3/uL (150-450); RED BLOOD COUNT 5.14 10^6/uL (4.00-5.40); RED CELL DISTRIBUTION WIDTH 23.5 % (11.5-14.5); WHITE BLOOD COUNT 8.5 10^3/uL (4.0-10.0)
[2018-07-07 06:29] LABS: ANION GAP 7 MEQ/L (8-16); BLOOD UREA NITROGEN 10 MG/DL (7-18); CALCIUM LEVEL 8.3 MG/DL (8.8-10.2); CARBON DIOXIDE LEVEL 23 MEQ/L (21-32); CHLORIDE LEVEL 117 MEQ/L (98-107); CREATININE FOR GFR 0.73 MG/DL (0.55-1.30); GLOMERULAR FILTRATION RATE > 60.0 (>45); GLUCOSE, FASTING 141 MG/DL (70-100); POTASSIUM SERUM 4.2 MEQ/L (3.5-5.1); SODIUM LEVEL 147 MEQ/L (136-145)
[2018-07-07 06:53] LABS: CPK CREATINE PHOSPHOKINASE 2681 U/L (26-192)
[2018-07-07] MEDS: HumaLOG INSULIN (NovoLOG) PER UNIT SC ×5 (07:30→21:00)
[2018-07-07] MEDS: DOXYCYCLINE HYCLATE 100 MG TAB PO ×2 (08:20→21:41)
[2018-07-07] MEDS: ASPIRIN 81 MG ENTERIC TAB PO (08:20)
[2018-07-07] MEDS: hydrOXYzine 25 MG TAB PO ×2 (08:20→21:41)
[2018-07-07] MEDS: ZIPRASIDONE 20MG CAPSULE (GEODON) PO ×2 (08:21→21:41)
[2018-07-07] MEDS: SERTRALINE 100 MG TAB PO (08:21)
[2018-07-07] MEDS: cloZAPine 100 MG TAB (S0136) PO ×2 (08:23→21:41)
[2018-07-07] MEDS: LR 1,000 ML IV ×2 (11:25→18:16)
[2018-07-07] MEDS: NAPROXEN 250 MG TAB PO (11:26)
[2018-07-07 11:49] LABS: BEDSIDE GLUCOSE 167 MG/DL (80-115)
[2018-07-07 16:44] LABS: BEDSIDE GLUCOSE 153 MG/DL (80-115)
[2018-07-07 18:53] LABS: ALBUMIN 3.3 GM/DL (3.2-5.2); ANION GAP 6 MEQ/L (8-16); BLOOD UREA NITROGEN 9 MG/DL (7-18); CALCIUM LEVEL 8.9 MG/DL (8.8-10.2); CARBON DIOXIDE LEVEL 25 MEQ/L (21-32); CHLORIDE LEVEL 113 MEQ/L (98-107); CPK CREATINE PHOSPHOKINASE 2205 U/L (26-192); CREATININE FOR GFR 0.82 MG/DL (0.55-1.30); GLOMERULAR FILTRATION RATE > 60.0 (>45); GLUCOSE, FASTING 189 MG/DL (70-100); NT-PRO BNP 367 PG/ML (<125); PHOSPHORUS LEVEL 3.1 MG/DL (2.5-4.9); POTASSIUM SERUM 4.6 MEQ/L (3.5-5.1); SODIUM LEVEL 144 MEQ/L (136-145)
[2018-07-07 20:39] LABS: BEDSIDE GLUCOSE 234 MG/DL (80-115)
[2018-07-07] MEDS: ENOXAPARIN 40 MG/0.4 ML SYRINGE (J1650) SC (21:41)
[2018-07-07] MEDS: cloZAPine 25 MG TAB (S0136) PO (21:41)
[2018-07-08] MEDS: LR 1,000 ML IV (04:45)
[2018-07-08 05:58] LABS: HEMATOCRIT 36.1 % (36.0-47.0); MEAN CORPUSCULAR HEMOGLOBIN 22.4 pg (27.0-33.0); MEAN CORPUSCULAR HGB CONC 30.5 g/dl (32.0-36.5); MEAN CORPUSCULAR VOLUME 73.4 fl (80.0-96.0); PLATELET COUNT, AUTOMATED 430 10^3/uL (150-450); RED BLOOD COUNT 4.92 10^6/uL (4.00-5.40); RED CELL DISTRIBUTION WIDTH 23.4 % (11.5-14.5); WHITE BLOOD COUNT 11.4 10^3/uL (4.0-10.0)
[2018-07-08] MEDS: LEVOTHYROXINE 125MCG TABLET (0.125MG) PO (06:35)
[2018-07-08 06:40] LABS: ANION GAP 5 MEQ/L (8-16); BLOOD UREA NITROGEN 8 MG/DL (7-18); CALCIUM LEVEL 8.7 MG/DL (8.8-10.2); CARBON DIOXIDE LEVEL 25 MEQ/L (21-32); CHLORIDE LEVEL 117 MEQ/L (98-107); CPK CREATINE PHOSPHOKINASE 1364 U/L (26-192); GLOMERULAR FILTRATION RATE > 60.0 (>45); GLUCOSE, FASTING 157 MG/DL (70-100); POTASSIUM SERUM 4.1 MEQ/L (3.5-5.1); SODIUM LEVEL 147 MEQ/L (136-145)
[2018-07-08] MEDS: SERTRALINE 100 MG TAB PO (08:13)
[2018-07-08] MEDS: DOXYCYCLINE HYCLATE 100 MG TAB PO ×2 (08:13→21:46)
[2018-07-08] MEDS: ZIPRASIDONE 20MG CAPSULE (GEODON) PO ×2 (08:13→21:46)
[2018-07-08] MEDS: cloZAPine 100 MG TAB (S0136) PO ×2 (08:13→21:46)
[2018-07-08] MEDS: ASPIRIN 81 MG ENTERIC TAB PO (08:13)
[2018-07-08] MEDS: hydrOXYzine 25 MG TAB PO ×2 (08:13→21:47)
[2018-07-08] MEDS: HumaLOG INSULIN (NovoLOG) PER UNIT SC ×4 (08:14→21:00)
[2018-07-08 11:17] LABS: BEDSIDE GLUCOSE 190 MG/DL (80-115)
[2018-07-08 16:34] LABS: BEDSIDE GLUCOSE 179 MG/DL (80-115)
[2018-07-08 21:09] LABS: BEDSIDE GLUCOSE 235 MG/DL (80-115)
[2018-07-08] MEDS: ENOXAPARIN 40 MG/0.4 ML SYRINGE (J1650) SC (21:47)
[2018-07-08] MEDS: cloZAPine 25 MG TAB (S0136) PO (21:47)
[2018-07-09] MEDS: LEVOTHYROXINE 125MCG TABLET (0.125MG) PO (05:47)
[2018-07-09 06:14] LABS: BEDSIDE GLUCOSE 174 MG/DL (80-115)
[2018-07-09] MEDS: SERTRALINE 100 MG TAB PO (09:04)
[2018-07-09] MEDS: hydrOXYzine 25 MG TAB PO ×2 (09:04→21:25)
[2018-07-09] MEDS: cloZAPine 100 MG TAB (S0136) PO ×2 (09:04→21:25)
[2018-07-09] MEDS: DOXYCYCLINE HYCLATE 100 MG TAB PO ×2 (09:04→21:25)
[2018-07-09] MEDS: ASPIRIN 81 MG ENTERIC TAB PO (09:04)
[2018-07-09] MEDS: HumaLOG INSULIN (NovoLOG) PER UNIT SC ×4 (09:05→21:00)
[2018-07-09] MEDS: ZIPRASIDONE 20MG CAPSULE (GEODON) PO ×2 (09:05→21:25)
[2018-07-09 10:45] LABS: HEMATOCRIT 39.6 % (36.0-47.0); HEMOGLOBIN 11.9 g/dl (12.0-15.5); MEAN CORPUSCULAR HEMOGLOBIN 22.6 pg (27.0-33.0); MEAN CORPUSCULAR HGB CONC 30.1 g/dl (32.0-36.5); MEAN CORPUSCULAR VOLUME 75.1 fl (80.0-96.0); PLATELET COUNT, AUTOMATED 434 10^3/uL (150-450); RED BLOOD COUNT 5.27 10^6/uL (4.00-5.40); RED CELL DISTRIBUTION WIDTH 23.9 % (11.5-14.5); WHITE BLOOD COUNT 10.1 10^3/uL (4.0-10.0)
[2018-07-09 11:14] LABS: ALBUMIN 3.2 GM/DL (3.2-5.2); ALBUMIN/GLOBULIN RATIO 0.97 (1.00-1.93); ALKALINE PHOSPHATASE 98 U/L (45-117); ALT/SGPT 39 U/L (12-78); ANION GAP 8 MEQ/L (8-16); AST/SGOT 44 U/L (7-37); BILIRUBIN,TOTAL 0.3 MG/DL (0.2-1.0); BLOOD UREA NITROGEN 12 MG/DL (7-18); CARBON DIOXIDE LEVEL 24 MEQ/L (21-32); CHLORIDE LEVEL 113 MEQ/L (98-107); CPK CREATINE PHOSPHOKINASE 454 U/L (26-192); CREATININE FOR GFR 0.77 MG/DL (0.55-1.30); GLOMERULAR FILTRATION RATE > 60.0 (>45); GLUCOSE, FASTING 223 MG/DL (70-100); POTASSIUM SERUM 4.2 MEQ/L (3.5-5.1); SODIUM LEVEL 145 MEQ/L (136-145); TOTAL PROTEIN 6.5 GM/DL (6.4-8.2)
[2018-07-09 12:44] LABS: BEDSIDE GLUCOSE 182 MG/DL (80-115)
[2018-07-09 16:47] LABS: BEDSIDE GLUCOSE 135 MG/DL (80-115)
[2018-07-09 20:33] LABS: BEDSIDE GLUCOSE 195 MG/DL (80-115)
[2018-07-09] MEDS: ENOXAPARIN 40 MG/0.4 ML SYRINGE (J1650) SC (21:25)
[2018-07-09] MEDS: cloZAPine 25 MG TAB (S0136) PO (21:25)
[2018-07-10] MEDS: LEVOTHYROXINE 125MCG TABLET (0.125MG) PO (05:50)
[2018-07-10 06:45] LABS: BEDSIDE GLUCOSE 199 MG/DL (80-115)
[2018-07-10] MEDS: DOXYCYCLINE HYCLATE 100 MG TAB PO (08:03)
[2018-07-10] MEDS: hydrOXYzine 25 MG TAB PO (08:03)
[2018-07-10] MEDS: SERTRALINE 100 MG TAB PO (08:03)
[2018-07-10] MEDS: HumaLOG INSULIN (NovoLOG) PER UNIT SC ×2 (08:03→12:51)
[2018-07-10] MEDS: ASPIRIN 81 MG ENTERIC TAB PO (08:03)
[2018-07-10] MEDS: ZIPRASIDONE 20MG CAPSULE (GEODON) PO (08:04)
[2018-07-10] MEDS: cloZAPine 100 MG TAB (S0136) PO (08:08)
[2018-07-10] MEDS: LORazepam 2 MG/ML VIAL (J2060) IV (10:27)
[2018-07-10 11:02] LABS: ALBUMIN 3.1 GM/DL (3.2-5.2); ALBUMIN/GLOBULIN RATIO 0.97 (1.00-1.93); ALKALINE PHOSPHATASE 97 U/L (45-117); ALT/SGPT 36 U/L (12-78); ANION GAP 6 MEQ/L (8-16); AST/SGOT 26 U/L (7-37); BILIRUBIN,TOTAL 0.3 MG/DL (0.2-1.0); BLOOD UREA NITROGEN 13 MG/DL (7-18); CALCIUM LEVEL 8.9 MG/DL (8.8-10.2); CARBON DIOXIDE LEVEL 24 MEQ/L (21-32); CHLORIDE LEVEL 112 MEQ/L (98-107); CPK CREATINE PHOSPHOKINASE 221 U/L (26-192); CREATININE FOR GFR 0.73 MG/DL (0.55-1.30); GLOMERULAR FILTRATION RATE > 60.0 (>45); GLUCOSE, FASTING 193 MG/DL (70-100); POTASSIUM SERUM 4.4 MEQ/L (3.5-5.1); SODIUM LEVEL 142 MEQ/L (136-145); TOTAL PROTEIN 6.3 GM/DL (6.4-8.2)
[2018-07-10 11:46] LABS: ESTIMATED AVERAGE GLUCOSE 148 MG/DL (60-110); HEMOGLOBIN A1c 6.8 %
[2018-07-10 12:17] LABS: BEDSIDE GLUCOSE 161 MG/DL (80-115)
== END 2018-07-10 13:38 | DRG 92 ==
LOC: M ED 09:32 → M ED INP 16:41 → M MSPAV 17:39
PROVIDERS: Family Medicine
DX: R29.6 Repeated falls (principal); L03.312 Cellulitis of back [any part except buttock and flank]; M62.82 Rhabdomyolysis; M48.061 Spinal stenosis, lumbar region without neurogenic claudication; E11.42 Type 2 diabetes mellitus with diabetic polyneuropathy; E78.5 Hyperlipidemia, unspecified; M62.81 Muscle weakness (generalized); F41.9 Anxiety disorder, unspecified; F60.1 Schizoid personality disorder; L73.2 Hidradenitis suppurativa; E11.649 Type 2 diabetes mellitus with hypoglycemia without coma; E03.9 Hypothyroidism, unspecified; Z79.4 Long term (current) use of insulin; Z79.899 Other long term (current) drug therapy; Z88.8 Allergy status to other drugs, medicaments and biological substances

== ENCOUNTER 2018-07-10 13:45 | Inpatient (IN) | payer MEDICARE, OTHER ==
[2018-07-10] MEDS ORDERED: DEXTROSE 50% 50 ML SYRINGE IV (15:00)
[2018-07-10] MEDS ORDERED: GLUCOSE 4 GM CHEW TABLET PO (15:00)
[2018-07-10] MEDS ORDERED: GLUCAGON FOR INJ 1 MG VIAL (J1610) SC (15:00)
[2018-07-10] MEDS ORDERED: LORazepam 2 MG/ML VIAL (J2060) IM (15:00)
[2018-07-10] MEDS ORDERED: PILL CRUSHER/CUTTER 1 EACH XX (15:30)
[2018-07-10] MEDS: ACETAMINOPHEN TAB 650MG DOSE (2X325MG) PO ×2 (15:41→20:41)
[2018-07-10 17:12] LABS: BEDSIDE GLUCOSE 152 MG/DL (80-115)
[2018-07-10] MEDS: HumaLOG INSULIN (NovoLOG) PER UNIT SC (17:42)
[2018-07-10] MEDS: ZIPRASIDONE 20MG CAPSULE (GEODON) PO (17:46)
[2018-07-10] MEDS: cloZAPine 100 MG TAB (S0136) PO (20:40)
[2018-07-10] MEDS: PANTOPRAZOLE 40MG TAB (PROTONIX) PO (20:40)
[2018-07-10 20:41] LABS: BEDSIDE GLUCOSE 210 MG/DL (80-115)
[2018-07-10] MEDS: SENNA 8.6 MG TAB (SENOKOT) PO (20:41)
[2018-07-10] MEDS: ENOXAPARIN 40 MG/0.4 ML SYRINGE (J1650) SC (20:41)
[2018-07-10] MEDS: hydrOXYzine 25 MG TAB PO (20:41)
[2018-07-10] MEDS: DOXYCYCLINE HYCLATE 100 MG TAB PO (20:41)
[2018-07-10] MEDS: DOCUSATE SODIUM 100 MG CAP PO (20:41)
[2018-07-10] MEDS ORDERED: cloZAPine 100 MG TAB (S0136) PO (21:00)
[2018-07-11] MEDS: LEVOTHYROXINE 125MCG TABLET (0.125MG) PO (06:10)
[2018-07-11] MEDS: ACETAMINOPHEN TAB 650MG DOSE (2X325MG) PO ×4 (06:10→22:17)
[2018-07-11 06:47] LABS: APPEARANCE, URINE HAZY (CLEAR); BACTERIA, URINE AUTO 1+ (NEGATIVE); BILIRUBIN, URINE AUTO NEGATIVE (NEGATIVE); BLOOD, URINE BLOOD NEGATIVE (NEGATIVE); COLOR, URINE YELLOW (YELLOW); GLUCOSE, URINE (UA) AUTO 3+ mg/dL (NEGATIVE); KETONE, URINE AUTO NEGATIVE (NEGATIVE); LEUKOCYTE ESTERASE, URINE AUTO 2+ (NEGATIVE); NITRITE, URINE AUTO NEGATIVE (NEGATIVE); PROTEIN, URINE AUTO NEGATIVE (NEGATIVE); RBC, URINE AUTO 4 /HPF (0-3); SPECIFIC GRAVITY URINE AUTO 1.021 (1.002-1.035); SQUAMOUS EPITHELIAL CELL UR AU 3 /HPF (0-6); UROBILINOGEN, URINE AUTO 0.2 mg/dL (0.0-2.0); WBC, URINE AUTO 18 /HPF (0-3)
[2018-07-11 07:02] LABS: BASO % 0.5 % (0.0-1.0); EOS # 0.3 10^3/uL (0.0-0.50); EOS % 3.3 % (0.0-3.0); HEMATOCRIT 39.7 % (36.0-47.0); HEMOGLOBIN 11.9 g/dl (12.0-15.5); IMMATURE GRANULOCYTE % 0.6 % (0-3.0); LYMPH # 1.9 10^3/uL (1.5-4.5); LYMPH % 22.5 % (24.0-44.0); MEAN CORPUSCULAR HEMOGLOBIN 22.6 pg (27.0-33.0); MEAN CORPUSCULAR VOLUME 75.3 fl (80.0-96.0); MONO # 0.5 10^3/uL (0.0-0.8); MONO % 6.1 % (0.0-5.0); NEUTROPHILS # 5.5 10^3/uL (1.8-7.7); PLATELET COUNT, AUTOMATED 414 10^3/uL (150-450); RED BLOOD COUNT 5.27 10^6/uL (4.00-5.40); RED CELL DISTRIBUTION WIDTH 23.5 % (11.5-14.5); WHITE BLOOD COUNT 8.2 10^3/uL (4.0-10.0)
[2018-07-11 07:32] LABS: ALBUMIN 2.9 GM/DL (3.2-5.2); ALBUMIN/GLOBULIN RATIO 0.74 (1.00-1.93); ALKALINE PHOSPHATASE 88 U/L (45-117); ALT/SGPT 29 U/L (12-78); ANION GAP 6 MEQ/L (8-16); AST/SGOT 15 U/L (7-37); BILIRUBIN,TOTAL 0.4 MG/DL (0.2-1.0); BLOOD UREA NITROGEN 12 MG/DL (7-18); CALCIUM LEVEL 8.9 MG/DL (8.8-10.2); CARBON DIOXIDE LEVEL 25 MEQ/L (21-32); CHLORIDE LEVEL 113 MEQ/L (98-107); CREATININE FOR GFR 0.79 MG/DL (0.55-1.30); GLOMERULAR FILTRATION RATE > 60.0 (>45); GLUCOSE, FASTING 192 MG/DL (70-100); POTASSIUM SERUM 4.1 MEQ/L (3.5-5.1); SODIUM LEVEL 144 MEQ/L (136-145); TOTAL PROTEIN 6.8 GM/DL (6.4-8.2)
[2018-07-11] MEDS: DOCUSATE SODIUM 100 MG CAP PO ×2 (08:35→22:16)
[2018-07-11] MEDS: ENOXAPARIN 40 MG/0.4 ML SYRINGE (J1650) SC (08:35)
[2018-07-11] MEDS: ZINC SULFATE 220 MG CAP PO (08:35)
[2018-07-11] MEDS: ZIPRASIDONE 20MG CAPSULE (GEODON) PO ×2 (08:35→17:20)
[2018-07-11] MEDS: cloZAPine 100 MG TAB (S0136) PO ×2 (08:35→22:16)
[2018-07-11] MEDS: HumaLOG INSULIN (NovoLOG) PER UNIT SC ×3 (08:35→17:22)
[2018-07-11] MEDS: hydrOXYzine 25 MG TAB PO ×2 (08:36→22:17)
[2018-07-11] MEDS: ASPIRIN 81 MG ENTERIC TAB PO (08:36)
[2018-07-11] MEDS: PANTOPRAZOLE 40MG TAB (PROTONIX) PO (08:36)
[2018-07-11] MEDS: DOXYCYCLINE HYCLATE 100 MG TAB PO ×2 (08:36→22:16)
[2018-07-11] MEDS: SERTRALINE 100 MG TAB PO (08:36)
[2018-07-11 12:00] LABS: BEDSIDE GLUCOSE 177 MG/DL (80-115)
[2018-07-11 16:36] LABS: BEDSIDE GLUCOSE 155 MG/DL (80-115)
[2018-07-11 19:30] LABS: BEDSIDE GLUCOSE 192 MG/DL (80-115)
[2018-07-11] MEDS: SENNA 8.6 MG TAB (SENOKOT) PO (22:17)
[2018-07-12] MEDS: LEVOTHYROXINE 125MCG TABLET (0.125MG) PO (05:20)
[2018-07-12] MEDS: ACETAMINOPHEN TAB 650MG DOSE (2X325MG) PO ×3 (05:47→17:32)
[2018-07-12 07:14] LABS: BEDSIDE GLUCOSE 190 MG/DL (80-115)
[2018-07-12] MEDS: ENOXAPARIN 40 MG/0.4 ML SYRINGE (J1650) SC (08:04)
[2018-07-12] MEDS: ZINC SULFATE 220 MG CAP PO (08:04)
[2018-07-12] MEDS: HumaLOG INSULIN (NovoLOG) PER UNIT SC ×3 (08:04→17:28)
[2018-07-12] MEDS: hydrOXYzine 25 MG TAB PO ×2 (08:06→20:14)
[2018-07-12] MEDS: DOXYCYCLINE HYCLATE 100 MG TAB PO ×2 (08:07→20:14)
[2018-07-12] MEDS: PANTOPRAZOLE 40MG TAB (PROTONIX) PO (08:07)
[2018-07-12] MEDS: cloZAPine 100 MG TAB (S0136) PO ×2 (08:07→20:15)
[2018-07-12] MEDS: DOCUSATE SODIUM 100 MG CAP PO ×2 (08:07→20:14)
[2018-07-12] MEDS: ASPIRIN 81 MG ENTERIC TAB PO (08:07)
[2018-07-12] MEDS: ZIPRASIDONE 20MG CAPSULE (GEODON) PO ×2 (08:07→17:28)
[2018-07-12] MEDS: SERTRALINE 100 MG TAB PO (08:07)
[2018-07-12 11:28] LABS: BEDSIDE GLUCOSE 190 MG/DL (80-115)
[2018-07-12 16:27] LABS: BEDSIDE GLUCOSE 218 MG/DL (80-115)
[2018-07-12 19:25] LABS: BEDSIDE GLUCOSE 197 MG/DL (80-115)
[2018-07-12] MEDS: SENNA 8.6 MG TAB (SENOKOT) PO (20:14)
[2018-07-13] MEDS: ACETAMINOPHEN TAB 650MG DOSE (2X325MG) PO ×4 (03:16→20:42)
[2018-07-13] MEDS: LEVOTHYROXINE 125MCG TABLET (0.125MG) PO (05:21)
[2018-07-13 07:04] LABS: BEDSIDE GLUCOSE 171 MG/DL (80-115)
[2018-07-13] MEDS: DOXYCYCLINE HYCLATE 100 MG TAB PO ×2 (08:12→20:43)
[2018-07-13] MEDS: ENOXAPARIN 40 MG/0.4 ML SYRINGE (J1650) SC (08:12)
[2018-07-13] MEDS: ZIPRASIDONE 20MG CAPSULE (GEODON) PO ×2 (08:12→17:36)
[2018-07-13] MEDS: cloZAPine 100 MG TAB (S0136) PO ×2 (08:13→20:43)
[2018-07-13] MEDS: DOCUSATE SODIUM 100 MG CAP PO ×2 (08:13→20:43)
[2018-07-13] MEDS: ASPIRIN 81 MG ENTERIC TAB PO (08:13)
[2018-07-13] MEDS: ZINC SULFATE 220 MG CAP PO (08:13)
[2018-07-13] MEDS: HumaLOG INSULIN (NovoLOG) PER UNIT SC ×3 (08:13→17:36)
[2018-07-13] MEDS: hydrOXYzine 25 MG TAB PO ×2 (08:13→20:43)
[2018-07-13] MEDS: SERTRALINE 100 MG TAB PO (08:14)
[2018-07-13] MEDS: PANTOPRAZOLE 40MG TAB (PROTONIX) PO (08:14)
[2018-07-13 11:37] LABS: BEDSIDE GLUCOSE 239 MG/DL (80-115)
[2018-07-13] MEDS: BACTRIM 160MG/800MG DS TAB PO ×2 (13:10→20:43)
[2018-07-13 16:51] LABS: BEDSIDE GLUCOSE 234 MG/DL (80-115)
[2018-07-13 20:09] LABS: BEDSIDE GLUCOSE 207 MG/DL (80-115)
[2018-07-13] MEDS: SENNA 8.6 MG TAB (SENOKOT) PO (20:43)
[2018-07-14] MEDS: LEVOTHYROXINE 125MCG TABLET (0.125MG) PO (06:07)
[2018-07-14 06:08] LABS: BEDSIDE GLUCOSE 191 MG/DL (80-115)
[2018-07-14] MEDS: ACETAMINOPHEN TAB 650MG DOSE (2X325MG) PO ×4 (06:08→20:21)
[2018-07-14] MEDS: DOCUSATE SODIUM 100 MG CAP PO ×2 (07:43→20:20)
[2018-07-14] MEDS: ZINC SULFATE 220 MG CAP PO (07:43)
[2018-07-14] MEDS: SERTRALINE 100 MG TAB PO (07:43)
[2018-07-14] MEDS: ASPIRIN 81 MG ENTERIC TAB PO (07:43)
[2018-07-14] MEDS: DOXYCYCLINE HYCLATE 100 MG TAB PO ×2 (07:43→20:20)
[2018-07-14] MEDS: hydrOXYzine 25 MG TAB PO ×2 (07:43→20:20)
[2018-07-14] MEDS: PANTOPRAZOLE 40MG TAB (PROTONIX) PO (07:44)
[2018-07-14] MEDS: BACTRIM 160MG/800MG DS TAB PO ×2 (07:44→20:20)
[2018-07-14] MEDS: HumaLOG INSULIN (NovoLOG) PER UNIT SC ×3 (07:44→17:36)
[2018-07-14] MEDS: ZIPRASIDONE 20MG CAPSULE (GEODON) PO ×2 (07:44→17:38)
[2018-07-14] MEDS: cloZAPine 100 MG TAB (S0136) PO ×2 (07:44→20:20)
[2018-07-14] MEDS: ENOXAPARIN 40 MG/0.4 ML SYRINGE (J1650) SC (07:45)
[2018-07-14 12:44] LABS: BEDSIDE GLUCOSE 297 MG/DL (80-115)
[2018-07-14 17:19] LABS: BEDSIDE GLUCOSE 219 MG/DL (80-115)
[2018-07-14 20:15] LABS: BEDSIDE GLUCOSE 214 MG/DL (80-115)
[2018-07-14] MEDS: LEVEMIR (INSULIN DETEMIR) 1 UNITS/0.01ML SC (20:20)
[2018-07-14] MEDS: SENNA 8.6 MG TAB (SENOKOT) PO (20:20)
[2018-07-15] MEDS: CLINDAMYCIN 1% TOP ×3 (00:22→20:36)
[2018-07-15] MEDS: ACETAMINOPHEN TAB 650MG DOSE (2X325MG) PO ×5 (00:40→20:33)
[2018-07-15] MEDS: LEVOTHYROXINE 125MCG TABLET (0.125MG) PO (05:59)
[2018-07-15 07:15] LABS: BASO % 0.4 % (0.0-1.0); EOS # 0.2 10^3/uL (0.0-0.50); EOS % 2.8 % (0.0-3.0); HEMATOCRIT 39.8 % (36.0-47.0); HEMOGLOBIN 11.8 g/dl (12.0-15.5); IMMATURE GRANULOCYTE % 0.3 % (0-3.0); LYMPH # 1.5 10^3/uL (1.5-4.5); LYMPH % 19.6 % (24.0-44.0); MEAN CORPUSCULAR HEMOGLOBIN 22.6 pg (27.0-33.0); MEAN CORPUSCULAR HGB CONC 29.6 g/dl (32.0-36.5); MEAN CORPUSCULAR VOLUME 76.1 fl (80.0-96.0); MONO # 0.4 10^3/uL (0.0-0.8); MONO % 5.7 % (0.0-5.0); NEUTROPHILS # 5.4 10^3/uL (1.8-7.7); NEUTROPHILS % 71.2 % (36.0-66.0); PLATELET COUNT, AUTOMATED 340 10^3/uL (150-450); RED BLOOD COUNT 5.23 10^6/uL (4.00-5.40); RED CELL DISTRIBUTION WIDTH 23.4 % (11.5-14.5); WHITE BLOOD COUNT 7.6 10^3/uL (4.0-10.0)
[2018-07-15 07:29] LABS: ANION GAP 4 MEQ/L (8-16); BLOOD UREA NITROGEN 7 MG/DL (7-18); CALCIUM LEVEL 9.3 MG/DL (8.8-10.2); CARBON DIOXIDE LEVEL 27 MEQ/L (21-32); CHLORIDE LEVEL 111 MEQ/L (98-107); CREATININE FOR GFR 0.78 MG/DL (0.55-1.30); GLOMERULAR FILTRATION RATE > 60.0 (>45); GLUCOSE, FASTING 222 MG/DL (70-100); POTASSIUM SERUM 4.2 MEQ/L (3.5-5.1); SODIUM LEVEL 142 MEQ/L (136-145)
[2018-07-15] MEDS: ENOXAPARIN 40 MG/0.4 ML SYRINGE (J1650) SC (08:45)
[2018-07-15] MEDS: PANTOPRAZOLE 40MG TAB (PROTONIX) PO (08:46)
[2018-07-15] MEDS: hydrOXYzine 25 MG TAB PO ×2 (08:46→20:32)
[2018-07-15] MEDS: HumaLOG INSULIN (NovoLOG) PER UNIT SC ×3 (08:46→17:12)
[2018-07-15] MEDS: ZIPRASIDONE 20MG CAPSULE (GEODON) PO ×2 (08:46→17:11)
[2018-07-15] MEDS: ZINC SULFATE 220 MG CAP PO (08:47)
[2018-07-15] MEDS: cloZAPine 100 MG TAB (S0136) PO ×2 (08:47→20:33)
[2018-07-15] MEDS: DOXYCYCLINE HYCLATE 100 MG TAB PO ×2 (08:47→20:32)
[2018-07-15] MEDS: DOCUSATE SODIUM 100 MG CAP PO ×2 (08:47→20:32)
[2018-07-15] MEDS: ASPIRIN 81 MG ENTERIC TAB PO (08:47)
[2018-07-15] MEDS: BACTRIM 160MG/800MG DS TAB PO ×2 (08:47→20:33)
[2018-07-15] MEDS: SERTRALINE 100 MG TAB PO (08:48)
[2018-07-15 12:26] LABS: BEDSIDE GLUCOSE 196 MG/DL (80-115)
[2018-07-15 16:39] LABS: BEDSIDE GLUCOSE 260 MG/DL (80-115)
[2018-07-15 19:51] LABS: BEDSIDE GLUCOSE 179 MG/DL (80-115)
[2018-07-15] MEDS: SENNA 8.6 MG TAB (SENOKOT) PO (20:32)
[2018-07-15] MEDS: LEVEMIR (INSULIN DETEMIR) 1 UNITS/0.01ML SC (20:34)
[2018-07-16] MEDS: ACETAMINOPHEN TAB 650MG DOSE (2X325MG) PO ×6 (01:25→21:45)
[2018-07-16] MEDS: LEVOTHYROXINE 125MCG TABLET (0.125MG) PO (05:45)
[2018-07-16 06:27] LABS: BEDSIDE GLUCOSE 232 MG/DL (80-115)
[2018-07-16] MEDS: HumaLOG INSULIN (NovoLOG) PER UNIT SC ×3 (08:17→17:11)
[2018-07-16] MEDS: hydrOXYzine 25 MG TAB PO ×2 (08:17→21:47)
[2018-07-16] MEDS: ZINC SULFATE 220 MG CAP PO (08:18)
[2018-07-16] MEDS: DOXYCYCLINE HYCLATE 100 MG TAB PO ×2 (08:18→21:47)
[2018-07-16] MEDS: SERTRALINE 100 MG TAB PO (08:18)
[2018-07-16] MEDS: PANTOPRAZOLE 40MG TAB (PROTONIX) PO (08:18)
[2018-07-16] MEDS: DOCUSATE SODIUM 100 MG CAP PO ×2 (08:18→21:47)
[2018-07-16] MEDS: cloZAPine 100 MG TAB (S0136) PO ×2 (08:18→21:47)
[2018-07-16] MEDS: ASPIRIN 81 MG ENTERIC TAB PO (08:18)
[2018-07-16] MEDS: ZIPRASIDONE 20MG CAPSULE (GEODON) PO ×2 (08:18→17:11)
[2018-07-16] MEDS: ENOXAPARIN 40 MG/0.4 ML SYRINGE (J1650) SC (08:19)
[2018-07-16] MEDS: CLINDAMYCIN 1% TOP ×2 (08:19→21:00)
[2018-07-16 12:22] LABS: BEDSIDE GLUCOSE 284 MG/DL (80-115)
[2018-07-16 17:07] LABS: BEDSIDE GLUCOSE 222 MG/DL (80-115)
[2018-07-16] MEDS: SENNA 8.6 MG TAB (SENOKOT) PO (21:47)
[2018-07-16] MEDS: LEVEMIR (INSULIN DETEMIR) 1 UNITS/0.01ML SC (21:48)
[2018-07-16 21:51] LABS: BEDSIDE GLUCOSE 233 MG/DL (80-115)
[2018-07-17 05:42] LABS: BEDSIDE GLUCOSE 190 MG/DL (80-115)
[2018-07-17] MEDS: LEVOTHYROXINE 125MCG TABLET (0.125MG) PO (06:38)
[2018-07-17] MEDS: HumaLOG INSULIN (NovoLOG) PER UNIT SC (07:51)
[2018-07-17] MEDS: ZIPRASIDONE 20MG CAPSULE (GEODON) PO ×2 (07:51→17:35)
[2018-07-17] MEDS: DOXYCYCLINE HYCLATE 100 MG TAB PO ×2 (08:57→20:49)
[2018-07-17] MEDS: ENOXAPARIN 40 MG/0.4 ML SYRINGE (J1650) SC (08:57)
[2018-07-17] MEDS: SERTRALINE 100 MG TAB PO (08:57)
[2018-07-17] MEDS: cloZAPine 100 MG TAB (S0136) PO ×2 (08:58→20:46)
[2018-07-17] MEDS: ASPIRIN 81 MG ENTERIC TAB PO (08:58)
[2018-07-17] MEDS: DOCUSATE SODIUM 100 MG CAP PO ×2 (08:58→20:49)
[2018-07-17] MEDS: ZINC SULFATE 220 MG CAP PO (08:58)
[2018-07-17] MEDS: PANTOPRAZOLE 40MG TAB (PROTONIX) PO (08:58)
[2018-07-17] MEDS: CLINDAMYCIN 1% TOP ×2 (08:58→20:51)
[2018-07-17] MEDS: hydrOXYzine 25 MG TAB PO ×2 (08:59→20:48)
[2018-07-17] MEDS: ACETAMINOPHEN TAB 650MG DOSE (2X325MG) PO ×3 (09:17→20:48)
[2018-07-17 11:35] LABS: BEDSIDE GLUCOSE 332 MG/DL (80-115)
[2018-07-17] MEDS: NovoLOG MIX 70/30 PER UNIT SC ×2 (12:33→17:34)
[2018-07-17 16:58] LABS: BEDSIDE GLUCOSE 306 MG/DL (80-115)
[2018-07-17] MEDS: SENNA 8.6 MG TAB (SENOKOT) PO (20:49)
[2018-07-17] MEDS: LEVEMIR (INSULIN DETEMIR) 1 UNITS/0.01ML SC (20:50)
[2018-07-17 21:08] LABS: BEDSIDE GLUCOSE 238 MG/DL (80-115)
[2018-07-18] MEDS: ACETAMINOPHEN TAB 650MG DOSE (2X325MG) PO ×5 (02:58→22:30)
[2018-07-18 05:34] LABS: BEDSIDE GLUCOSE 245 MG/DL (80-115)
[2018-07-18] MEDS: LEVOTHYROXINE 125MCG TABLET (0.125MG) PO (06:03)
[2018-07-18] MEDS: SERTRALINE 100 MG TAB PO (09:03)
[2018-07-18] MEDS: NovoLOG MIX 70/30 PER UNIT SC ×3 (09:03→18:06)
[2018-07-18] MEDS: ZINC SULFATE 220 MG CAP PO (09:04)
[2018-07-18] MEDS: hydrOXYzine 25 MG TAB PO ×2 (09:04→20:44)
[2018-07-18] MEDS: DOXYCYCLINE HYCLATE 100 MG TAB PO ×2 (09:04→20:44)
[2018-07-18] MEDS: ASPIRIN 81 MG ENTERIC TAB PO (09:04)
[2018-07-18] MEDS: DOCUSATE SODIUM 100 MG CAP PO ×2 (09:04→20:44)
[2018-07-18] MEDS: PANTOPRAZOLE 40MG TAB (PROTONIX) PO (09:04)
[2018-07-18] MEDS: cloZAPine 100 MG TAB (S0136) PO ×2 (09:04→20:44)
[2018-07-18] MEDS: ZIPRASIDONE 20MG CAPSULE (GEODON) PO ×2 (09:05→18:06)
[2018-07-18] MEDS: ENOXAPARIN 40 MG/0.4 ML SYRINGE (J1650) SC (09:05)
[2018-07-18] MEDS: CLINDAMYCIN 1% TOP ×2 (09:06→20:45)
[2018-07-18 12:34] LABS: BEDSIDE GLUCOSE 316 MG/DL (80-115)
[2018-07-18 16:56] LABS: BEDSIDE GLUCOSE 240 MG/DL (80-115)
[2018-07-18 19:56] LABS: BEDSIDE GLUCOSE 273 MG/DL (80-115)
[2018-07-18] MEDS: LEVEMIR (INSULIN DETEMIR) 1 UNITS/0.01ML SC (20:44)
[2018-07-18] MEDS: SENNA 8.6 MG TAB (SENOKOT) PO (20:44)
[2018-07-19 05:21] LABS: BEDSIDE GLUCOSE 228 MG/DL (80-115)
[2018-07-19] MEDS: ACETAMINOPHEN TAB 650MG DOSE (2X325MG) PO ×4 (05:28→22:06)
[2018-07-19] MEDS: LEVOTHYROXINE 125MCG TABLET (0.125MG) PO (05:30)
[2018-07-19] MEDS: ENOXAPARIN 40 MG/0.4 ML SYRINGE (J1650) SC (08:31)
[2018-07-19] MEDS: SERTRALINE 100 MG TAB PO (08:32)
[2018-07-19] MEDS: DOXYCYCLINE HYCLATE 100 MG TAB PO ×2 (08:32→21:39)
[2018-07-19] MEDS: ZIPRASIDONE 20MG CAPSULE (GEODON) PO ×2 (08:32→17:58)
[2018-07-19] MEDS: NovoLOG MIX 70/30 PER UNIT SC ×3 (08:32→17:58)
[2018-07-19] MEDS: hydrOXYzine 25 MG TAB PO ×2 (08:32→21:39)
[2018-07-19] MEDS: ASPIRIN 81 MG ENTERIC TAB PO (08:33)
[2018-07-19] MEDS: cloZAPine 100 MG TAB (S0136) PO ×2 (08:33→21:38)
[2018-07-19] MEDS: ZINC SULFATE 220 MG CAP PO (08:33)
[2018-07-19] MEDS: PANTOPRAZOLE 40MG TAB (PROTONIX) PO (08:33)
[2018-07-19] MEDS: DOCUSATE SODIUM 100 MG CAP PO ×2 (08:33→21:39)
[2018-07-19] MEDS: CLINDAMYCIN 1% TOP ×2 (08:33→21:40)
[2018-07-19 11:34] LABS: BEDSIDE GLUCOSE 276 MG/DL (80-115)
[2018-07-19] MEDS ORDERED: GLUCAGON FOR INJ 1 MG VIAL (J1610) SC (12:45)
[2018-07-19] MEDS ORDERED: GLUCOSE 4 GM CHEW TABLET PO (12:45)
[2018-07-19] MEDS ORDERED: DEXTROSE 50% 50 ML SYRINGE IV (12:45)
[2018-07-19] MEDS: HumaLOG INSULIN (NovoLOG) PER UNIT SC ×2 (13:09→17:57)
[2018-07-19 16:34] LABS: BEDSIDE GLUCOSE 278 MG/DL (80-115)
[2018-07-19 20:26] LABS: BEDSIDE GLUCOSE 203 MG/DL (80-115)
[2018-07-19] MEDS: SENNA 8.6 MG TAB (SENOKOT) PO (21:39)
[2018-07-19] MEDS: LEVEMIR (INSULIN DETEMIR) 1 UNITS/0.01ML SC (21:39)
[2018-07-20] MEDS: ACETAMINOPHEN TAB 650MG DOSE (2X325MG) PO ×5 (02:19→20:30)
[2018-07-20] MEDS: LEVOTHYROXINE 125MCG TABLET (0.125MG) PO (06:26)
[2018-07-20 06:30] LABS: BEDSIDE GLUCOSE 221 MG/DL (80-115)
[2018-07-20] MEDS: NovoLOG MIX 70/30 PER UNIT SC ×3 (09:21→17:20)
[2018-07-20] MEDS: ENOXAPARIN 40 MG/0.4 ML SYRINGE (J1650) SC (09:22)
[2018-07-20] MEDS: ZIPRASIDONE 20MG CAPSULE (GEODON) PO ×2 (09:22→17:20)
[2018-07-20] MEDS: DOCUSATE SODIUM 100 MG CAP PO ×2 (09:22→20:11)
[2018-07-20] MEDS: HumaLOG INSULIN (NovoLOG) PER UNIT SC ×3 (09:22→17:20)
[2018-07-20] MEDS: ZINC SULFATE 220 MG CAP PO (09:22)
[2018-07-20] MEDS: ASPIRIN 81 MG ENTERIC TAB PO (09:23)
[2018-07-20] MEDS: CLINDAMYCIN 1% TOP ×2 (09:23→20:33)
[2018-07-20] MEDS: hydrOXYzine 25 MG TAB PO ×2 (09:23→20:29)
[2018-07-20] MEDS: PANTOPRAZOLE 40MG TAB (PROTONIX) PO (09:23)
[2018-07-20] MEDS: cloZAPine 100 MG TAB (S0136) PO ×2 (09:23→20:29)
[2018-07-20] MEDS: DOXYCYCLINE HYCLATE 100 MG TAB PO ×2 (09:23→20:30)
[2018-07-20] MEDS: SERTRALINE 100 MG TAB PO (09:23)
[2018-07-20 11:41] LABS: BEDSIDE GLUCOSE 217 MG/DL (80-115)
[2018-07-20 16:42] LABS: BEDSIDE GLUCOSE 169 MG/DL (80-115)
[2018-07-20] MEDS: SENNA 8.6 MG TAB (SENOKOT) PO (20:12)
[2018-07-20 20:19] LABS: BEDSIDE GLUCOSE 207 MG/DL (80-115)
[2018-07-20] MEDS: LEVEMIR (INSULIN DETEMIR) 1 UNITS/0.01ML SC (20:29)
[2018-07-21] MEDS: LEVOTHYROXINE 125MCG TABLET (0.125MG) PO (06:07)
[2018-07-21] MEDS: ACETAMINOPHEN TAB 650MG DOSE (2X325MG) PO ×2 (06:08→10:26)
[2018-07-21 06:58] LABS: BEDSIDE GLUCOSE 177 MG/DL (80-115)
[2018-07-21] MEDS: ZIPRASIDONE 20MG CAPSULE (GEODON) PO (07:46)
[2018-07-21] MEDS: ZINC SULFATE 220 MG CAP PO (07:47)
[2018-07-21] MEDS: DOCUSATE SODIUM 100 MG CAP PO (07:47)
[2018-07-21] MEDS: PANTOPRAZOLE 40MG TAB (PROTONIX) PO (07:47)
[2018-07-21] MEDS: hydrOXYzine 25 MG TAB PO (07:47)
[2018-07-21] MEDS: DOXYCYCLINE HYCLATE 100 MG TAB PO (07:47)
[2018-07-21] MEDS: SERTRALINE 100 MG TAB PO (07:47)
[2018-07-21] MEDS: ASPIRIN 81 MG ENTERIC TAB PO (07:47)
[2018-07-21] MEDS: cloZAPine 100 MG TAB (S0136) PO (07:47)
[2018-07-21] MEDS: NovoLOG MIX 70/30 PER UNIT SC ×2 (07:48→12:11)
[2018-07-21] MEDS: ENOXAPARIN 40 MG/0.4 ML SYRINGE (J1650) SC (07:48)
[2018-07-21] MEDS: HumaLOG INSULIN (NovoLOG) PER UNIT SC ×2 (07:48→12:11)
[2018-07-21] MEDS: CLINDAMYCIN 1% TOP (07:49)
[2018-07-21 11:36] LABS: BEDSIDE GLUCOSE 254 MG/DL (80-115)
== END 2018-07-21 13:35 | disposition home health service (06) | DRG 948 ==
LOC: M PM&R 13:45
PROVIDERS: Physical Medicine & Rehabilitation
DX: R53.81 Other malaise (principal); F60.1 Schizoid personality disorder; M48.061 Spinal stenosis, lumbar region without neurogenic claudication; E11.42 Type 2 diabetes mellitus with diabetic polyneuropathy; E03.9 Hypothyroidism, unspecified; M48.02 Spinal stenosis, cervical region; L73.2 Hidradenitis suppurativa; Z79.82 Long term (current) use of aspirin; Z79.4 Long term (current) use of insulin; Z79.899 Other long term (current) drug therapy; Z88.1 Allergy status to other antibiotic agents; Z88.8 Allergy status to other drugs, medicaments and biological substances

== ENCOUNTER → 2018-11-20 | Outpatient (CLI) | payer MEDICARE, OTHER ==
[~2018-11-20] MED LIST: ACET500L PO; AMOX875T2 PO; ASPI81TAEC PO; BACL10TA2 PO; BACT800T5 PO; CLIN1SOL TOP; CLOZ100T2 PO; CLOZ25TA24 PO; CLOZ25TA3 PO; COLA100C5 PO; DOXY100T16 PO; EQL50TAB4 PO; GABA-1171 PO; GEOD60CA PO; GLYB1TAB67 PO; HUMA100I3 SC; HYDR-3363 PO; INSUDET SC; INSUH10VL SC; INSUHUMDS SC; INSULADS INJ; INSULADS SC; INVO100T PO; INVO300T PO; LANTINJ4 SC; LEVO125T4 PO; LOVE1INJ SC; METRCRM TOP; NAPR-855 PO; NAPR-885 PO; NORCOTAB PO; NOVO70VL SC; NYAM10003 TOP; PANT40TA3 PO; PEG1POW PO; SERT-138 PO; SERT50TA PO; SULF-216 XX; SYNT125T PO; ZINC50TA PO; ZIPR60CA11 PO; [UNRECOGNIZED DRUG - CODE] PO
--- NOTE | 2018-11-20 14:30 | REP ---
Clinical: Hidradenitis. Technique: Real time [place] scale ultrasound examination using linear high frequency transducer. Findings: Directed ultrasound examination along the left gluteal region at the area of maximal swelling demonstrates too small abscess collections connected by a sinus tract which also appears to extend to the skin surface. Focal collections measure 10 x 8 x 23 mm and 27 x 13 x 30 cm. Small amounts of adjacent subcutaneous emphysema and edema noted. Impression: Small abscess collections with sinus tract to the skin with small amount of adjacent edema and emphysema. Electronically Signed by Ayaz Rodriguez MD 11/20/2018 02:20 P
== END ==
LOC: M RAD 13:30
PROVIDERS: ATTEND Dermatology
DX: L02.31 Cutaneous abscess of buttock (principal); L73.2 Hidradenitis suppurativa; R22.2 Localized swelling, mass and lump, trunk

== ENCOUNTER → 2018-11-27 | Outpatient (REF) | payer MEDICARE, OTHER ==
[2018-11-28 11:01] LABS: HEPATITIS B SURFACE ANTIBODY NEGATIVE (POSITIVE); HEPATITIS B SURFACE ANTIGEN NEGATIVE (NEGATIVE); HEPATITIS C VIRUS ABY INDEX < 0.0 INDEX (<0.8)
== END ==
LOC: M SFHCPLAZ 15:40
PROVIDERS: ATTEND Dermatology
DX: Z79.899 Other long term (current) drug therapy (principal)

== ENCOUNTER → 2018-12-10 | Outpatient (REF) | payer MEDICARE, OTHER ==
[2018-12-12 11:51] LABS: HEPATITIS B SURFACE ANTIBODY NEGATIVE (POSITIVE); HEPATITIS B SURFACE ANTIGEN NEGATIVE (NEGATIVE); HEPATITIS C VIRUS ABY INDEX 0.1 INDEX (<0.8); HIV 1&2 SCREEN CENTAUR NEGATIVE (NEGATIVE)
[2018-12-16 00:06] LABS: ANTI-SACCHAROMYCES CEREV. IgA 191.1 Units (0.0-24.9); ANTI-SACCHAROMYCES CEREV. IgG 52.7 Units (0.0-24.9); HEPATITIS B CORE ANTIBODY IGG Negative (Negative)
== END ==
LOC: M SFHCPLAZ 13:22
PROVIDERS: ATTEND Dermatology
DX: Z79.899 Other long term (current) drug therapy (principal); L73.2 Hidradenitis suppurativa

== ENCOUNTER → 2019-01-29 | Outpatient (CLI) | payer MEDICARE, OTHER ==
[~2019-01-29] MED LIST changes: +E-Z-GAS II EFFERVESCENT PACKET (SODIUM BICARB./CITRIC ACID/SIMETHICONE) As Ordered ONE; +E-Z-HD 98% w/w 340GM SUSP BTL As Ordered ONE; +E-Z-PAQUE 96% w/w SUSP 176GM BTL As Ordered ONE; -EQL50TAB4 PO; +HYDR-3715 PO; -NORCOTAB PO; +SERT-141 PO; -SERT50TA PO; +ZINC1TAB2 PO
--- NOTE | 2019-01-30 08:09 | REP ---
Upper GI with SBFT The procedure was performed by TIGIST Salinas, under the direct supervision of Dr. Mcclure. The images were reviewed with Dr. Mcclure. The district leader film shows normal organomegaly or pathological masses. The intestinal gas pattern appears normal. Due to lack of mobility, liquid barium was given in the prone oblique position in order to perform a upper GI examination. During oral and pharyngeal stages of deglutition aspiration with coughing was observed, as well as tertiary contractions. Esophageal transport is efficient and there is no esophagitis, stricture, or mucosal ring noted. There is no evidence of a hiatal hernia, and no gastroesophageal reflux was as are observed. The stomach naranjo are normally outlined. The rugal folds are smooth and regular. There is no gastritis, neoplasm, ulcer disease noted. The duodenal naranjo are normally outlined. The mucosal folds are smooth and regular. There is no duodenitis, peptic ulcer disease, or neoplasm noted. The visualized portion of the proximal small bowel appears normal in course and caliber. The barium column was followed through the small bowel to the level of the terminal ileum. Small bowel transit time was approximately 60 minutes. During fluoroscopy gentle palpation shows all loops are freely mobile and pliable. There are no fixed or angulated loops. The small bowel mucosal pattern is normal in course and caliber. There is no transition to set suggest a partial small-bowel obstruction. Spot filming of the terminal ileum shows it to be unremarkable. Impression; 1. Aspiration with coughing was observed 2. Unremarkable small-bowel follow-through 0.8 minutes of fluoroscopy time was utilized for this procedure. Reviewed by TIGIST Martini 01/29/2019 06:17 P Electronically Signed by Devyn Mcclure MD 01/30/2019 08:00 A
== END ==
LOC: M RAD 09:41
PROVIDERS: ATTEND Internal Medicine Gastroenterology
DX: K50.90 Crohn's disease, unspecified, without complications (principal); R05 Cough

== ENCOUNTER → 2019-10-07 | Outpatient (CLI) | payer MEDICARE, OTHER ==
[~2019-10-07] MED LIST changes: -DOXY100T16 PO; +DOXY100T27 PO; -E-Z-GAS II EFFERVESCENT PACKET (SODIUM BICARB./CITRIC ACID/SIMETHICONE) As Ordered ONE; -E-Z-HD 98% w/w 340GM SUSP BTL As Ordered ONE; -E-Z-PAQUE 96% w/w SUSP 176GM BTL As Ordered ONE; -GLYB1TAB67 PO; +GLYB5TAB12 PO
== END ==
LOC: M LAB 14:06
PROVIDERS: ATTEND Dermatology
DX: Z79.899 Other long term (current) drug therapy (principal)

== ENCOUNTER → 2020-05-06 | Outpatient (REF) | payer MEDICARE, OTHER ==
[~2020-05-06] MED LIST changes: +PANT40TA29 PO; -PANT40TA3 PO
[2020-06-29 18:41] LABS: BLOOD UREA NITROGEN 15 MG/DL (7-18); CALCIUM LEVEL 9.5 MG/DL (8.8-10.2); CARBON DIOXIDE LEVEL 25 MEQ/L (21-32); CHLORIDE LEVEL 110 MEQ/L (98-107); CREATININE FOR GFR 0.98 MG/DL (0.55-1.30); GLOMERULAR FILTRATION RATE > 60.0 (>45); GLUCOSE, FASTING 221 MG/DL (70-100); POTASSIUM SERUM 4.6 MEQ/L (3.5-5.1); SODIUM LEVEL 143 MEQ/L (136-145)
== END ==
LOC: M LABDRWAD 17:20
PROVIDERS: ATTEND Internal Medicine Endocrinology, Diabetes & Metabolism
DX: E11.9 Type 2 diabetes mellitus without complications (principal)

== ENCOUNTER 2020-08-17 11:33 | Inpatient (IN) | payer MEDICARE, OTHER ==
[~2020-08-17] VITALS: Ht 162.6 cm; Wt 124.0 kg
[2020-08-17 12:17] LABS: BASO # 0.1 10^3/uL (0.0-0.2); BASO % 0.7 % (0.0-1.0); EOS % 0.6 % (0.0-3.0); HEMATOCRIT 47.5 % (36.0-47.0); HEMOGLOBIN 14.3 g/dl (12.0-15.5); LYMPH # 1.5 10^3/uL (1.5-5.0); LYMPH % 21.7 % (24.0-44.0); MEAN CORPUSCULAR HEMOGLOBIN 24.7 pg (27.0-33.0); MEAN CORPUSCULAR HGB CONC 30.1 g/dl (32.0-36.5); MONO # 0.5 10^3/uL (0.0-0.8); NEUTROPHILS # 4.7 10^3/uL (1.5-8.5); NEUTROPHILS % 67.6 % (36.0-66.0); PLATELET COUNT, AUTOMATED 154 10^3/uL (150-450); RED BLOOD COUNT 5.79 10^6/uL (4.00-5.40)
--- NOTE | 2020-08-17 12:40 | REP ---
INDICATION: DYSPNEA/COUGH COMPARISON: None. TECHNIQUE: Portable AP view of the chest FINDINGS: Examination is limited by portable technique, underpenetration, and poor inspiratory effort. However, diffuse subtle bilateral interstitial and alveolar infiltrates are suspected. No effusion. No pneumothorax. Skeletal structures intact. IMPRESSION: Subtle diffuse bilateral interstitial and alveolar infiltrates suspected. <Electronically signed by Ayaz Rodriguez > 08/17/20 [id number]
[2020-08-17] MEDS ORDERED: FUROSEMIDE 40MG/4ML VIAL (J1940) IV ONE (13:15)
[2020-08-17] MEDS ORDERED: COMBIVENT RESPIMAT 100-20MCG INHALER 4GM INH ONE (13:15)
[2020-08-17 13:26] LABS: ALBUMIN 2.6 GM/DL (3.2-5.2); ALT/SGPT 55 U/L (12-78); BILIRUBIN,DIRECT 2.5 MG/DL (0.0-0.2); BILIRUBIN,TOTAL 2.9 MG/DL (0.2-1.0); BLOOD UREA NITROGEN 21 MG/DL (7-18); CALCIUM LEVEL 8.9 MG/DL (8.8-10.2); CARBON DIOXIDE LEVEL 28 MEQ/L (21-32); CHLORIDE LEVEL 105 MEQ/L (98-107); CK-MB VALUE MASS 1.3 NG/ML (<3.6); CPK CREATINE PHOSPHOKINASE 60 U/L (26-192); CREATININE FOR GFR 0.96 MG/DL (0.55-1.30); GLOMERULAR FILTRATION RATE > 60.0 (>45); GLUCOSE, FASTING 193 MG/DL (70-100); MB/CK RELATIVE INDEX 2.17 (< OR =4); NT-PRO BNP 1556 PG/ML (<125); POTASSIUM SERUM 3.9 MEQ/L (3.5-5.1); SODIUM LEVEL 141 MEQ/L (136-145); TOTAL PROTEIN 6.7 GM/DL (6.4-8.2); TROPONIN I 0.05 NG/ML (< 0.10)
--- NOTE | 2020-08-17 17:27 | REP ---
INDICATION: constipation COMPARISON: None. TECHNIQUE: Supine views of the abdomen and pelvis. FINDINGS: Bowel gas pattern is nonspecific and without obstruction or perforation. No organomegaly. No abnormal calcifications. Skeletal structures intact. IMPRESSION: Normal abdominal radiograph. <Electronically signed by Ayaz Rodriguez > 08/17/20 [id number]
[2020-08-17] MEDS ORDERED: MAALOX 30 ML SUSP *UDC PO PRN (17:30)
[2020-08-17] MEDS ORDERED: MOM 30ML SUSPENSION UDC PO PRN (17:30)
--- NOTE | 2020-08-17 17:42 | HPEPDOC ---
[facility] [place] Medical History & Physical Date of Admission Aug 17, 2020 Date of Service: Aug 17, 2020 History and Physical CHIEF COMPLAINT: recurrent falls, gait instability HISTORY OF PRESENT ILLNESS: 65 yo F with a hx of DM2, lumbar stenosis (severe at L4/L5), HLD, presenting to ER with recurrent BLE weakness and frequent falls. Per patient she uses a wheelchair and RW at home, but is largely immobile. She has been sliding out of the wheelchair more frequently. She denies trauma, LOC. Patient has a significant history of L4/L5 severe spinal stenosis, was previously seen by Dr. Mena and was referred to specialist in [place] but patient did not follow up. Patient also reports being significantly dyspneic at rest, but does not endorse chest pain, palpitations, subjective fevers, chills, n/v/d. PAST MEDICAL HISTORY: 1. Type 2 DM 2. Hyperlipidemia 3. Anxiety 4. Hypothyroid 5. Schizoid personality disorder 6. Chronic fatigue 7. Lumbar stenosis, severe L4-L5 8. Diabetic neuropathy 9. Sacral pressure injury 10. Hidradenitis suppurative PAST SURGICAL HISTORY: 1. Total hysterectomy 1994 2. Tonsils and adenoids 3. skin biopsy right breast tissue 2007 4. skin biopsy left breast skin, dermatology, 2018 SOCIAL HISTORY: Marital status: . Lives at home Tobacco use:former smoker ETOH: denies Denies illicit drug use FAMILY HISTORY: Father: , kidney disease 78 yo Mother: , 88 yo, crohns, lung cancer 1 brother kidney transplant, 1 sister aneurysm ALLERGIES: Please see below. REVIEW OF SYSTEMS: CONSTITUTIONAL: patient denies fevers, chills HEENT: patient denies blurred vision, loss of vision, headache,. CARDIOVASCULAR: patient denies chest pain, palpitations. RESPIRATORY: Reports shortness of breath at rest. No cough. No sputum. GASTROINTESTINAL: Reports constipation. No BM for 4 days. Passing gas. No abdominal pain GENITOURINARY: patient denies dysuria, discharge. SKIN: She reports sacral pressure ulcers. Hidradenitis supurativa. MUSCULOSKELETAL: patient denies joint pain, neck pain. NEUROLOGICAL: Reports numbness in her bilateral feet. He describes muscle weakness and lower left extremities, left worse than right. This is consistent with prior admissions. PSYCHIATRIC: patient denies SI/HI. ENDOCRINE: patient denies polyuria, heat intolerance, cold intolerance. HEMATOLOGIC/LYMPHATIC: patient denies easy bruising. HOME MEDICATIONS: Please see below. PHYSICAL EXAMINATION: VITAL SIGNS: please see below General: Short of breath at rest HEENT: PERRLA, EOMI, sclerae clear Neck: supple, normal ROM, no JVD Respiratory: lungs CTAB, no wheeze, no rales, no crackles CVS: RRR, normal S1, S2, no murmurs, hypertensive Abdo: soft, no masses, no hepatosplenomegaly, BS+, no rebound tenderness, obese Rectal: absent rectal tone. No perineal anesthesia. Extremities: no edema, pulses 2+, no cyanosis, no heel ulcers MSK: no joint deformities, normal ROM Neuro: Cranial nerves 3-12 intact bilaterally. Muscle strength diminished in the LLE vs RLE at S1. Psych: calm, cooperative, AAO x 3 LABORATORY DATA: See below. IMAGING: CTA PE (08/17/20): IMPRESSION: 1. Bilateral ground-glass pulmonary parenchymal opacities in the upper lung zones bilaterally. Clinical correlation to exclude multifocal pneumonitis, likely viral, suggested. 2. There is no aortic dissection or aneurysm. 3. Mediastinal lymphadenopathy measuring up to 1.2 cm in the left periaortic region. 4. There are no pulmonary emboli. Evaluation limited by suboptimal inspiratory effort. CT abdo pelvis w contrast (08/17/20): IMPRESSION: 1. There is enlargement of the left and caudate lobes of the liver as well as a lobular surface contour of the liver. Findings may indicate the presence of cirrhosis in this patient with no reported history of chronic liver disease. No focal abnormality demonstrated. Hepatomegaly. Hepatic steatosis. 2. There are gallstones present. No evidence of cholecystitis demonstrated. 3. There is moderate splenomegaly with a maximum span of 17 centimeters. No focal abnormalities demonstrated. 4. There is increased feces throughout the colon consistent with constipation. Also noted is diffuse dilatation of the colon to the level of the rectum suggesting partial colonic obstruction versus changes related to chronic fecal retention. 5. There has been a hysterectomy. 6. Mild anasarca. Liver US (08/17/20): IMPRESSION: 1. Hepatic steatosis. 2. Mild thickening of the gallbladder wall appears related to abundant pericholecystic fat. Increased density demonstrated intraluminal at the neck of the gallbladder may represent gravel versus echogenic sludge. No definite calculi demonstrated. Clinical correlation to exclude cholecystitis suggested. 3. Nonvisualized pancreas. CXR (08/17/20): FINDINGS: Examination is limited by portable technique, underpenetration, and poor inspiratory effort. However, diffuse subtle bilateral interstitial and alveolar infiltrates are suspected. No effusion. No pneumothorax. Skeletal structures intact. IMPRESSION: Subtle diffuse bilateral interstitial and alveolar infiltrates suspected. MICROBIOLOGY: Please see below. ASSESSMENT: 65 yo F with a hx of DM2, lumbar stenosis (severe at L4/L5), HLD, presenting to ER with recurrent BLE weakness and frequent falls. PLAN: #Recurrent falls: deem high risk for falls in ER by PT. Unsafe for DC home. PT/OT eval. Check B12, folate, Vit D. #dyspnea: BNP elevated 1600. Tachycardic. Consider fluid overload. Concern for PE given chronically low level of activity/immobilization. 2D echo ordered. Will check CTA/PE - negative for pulmonary embolism. However ground glass opacities, possible pneumonitis. IV diuresis lasix 40 mg BID IV. #DM2: ISS, FSBS AC and HS. Hypoglycemic precautions. Check a1c. #Sacral pressure ulcers: frequent turning. wound care. clean with vashe. foam dressing. Heel float boots (no heel ulceration noted on admission). #ALP elevation/hyperbilirubinemia: liver US. trend liver enzymes. No pain. Possible choledocholithiasis. Afebrile. #Spinal stenosis: being followed by Dr. Mena. Was seen by specialist in [place]. Outpatient follow up. No urinary retention. No bowel incontinence. #Urinary retention: check bladder scan. straight cath if > 250 cc. #vaginal candidiasis: diflucan 150 mg PO once. miconazole. #Lumbar spinal stenosis; severe at L4/L5. Has been seen by Dr. Mena, and was referred to specialist in [place]. OR delayed given uncontrolled DM2, patient was asked to return this but did not follow up. Reports bilateral LE weakness L > R. Recurrent falls. Absent/minimal rectal tone. Discussed with Dr. Sheppard, he will come assess patient in am, which is greatly appreciated. #Schizoid personality disorder,anxiety: continue home meds #Hydradenitis suppurativa: resume home meds. wound care consult #abdo distension: CT reading mild anasarca, heavy stool burden vs partial large bowel obs. Will trial bowel regimen, to attempt BM, if no improvement will call surgery. Passing gas. No abdo pain. No vomiting. DVT ppx: lovenox Dispo: admission expected to span > 2 midnights. PT/OT assessment pending, may require rehab. Vital Signs Vital Signs Date Time Temp Pulse Resp B/P (MAP) Pulse Ox O2 Delivery O2 Flow Rate FiO2 08/17/20 17:04 96.9 08/17/20 15:30 116 145/75 (98) 08/17/20 14:00 90 08/17/20 11:36 28 Nasal Cannula 2.0 Laboratory Data Labs 24H Laboratory Tests 2 08/17/20 12:03: Immature Granulocyte % (Auto) 2.4, Neutrophils (%) (Auto) 67.6H, Lymphocytes (%) (Auto) 21.7L, Monocytes (%) (Auto) 7.0H, Eosinophils (%) (Auto) 0.6, Basophils (%) (Auto) 0.7, Neutrophils # (Auto) 4.7, Lymphocytes # (Auto) 1.5, Monocytes # (Auto) 0.5, Eosinophils # (Auto) 0.0, Basophils # (Auto) 0.1, Nucleated Red Blood Cells % (auto) 0.3H, Anion Gap 8, Glomerular Filtration Rate > 60.0, Calcium Level 8.9, Total Bilirubin 2.9H, Direct Bilirubin 2.5H, Aspartate Amino Transf (AST/SGOT) 51H, Alanine Aminotransferase (ALT/SGPT) 55, Alkaline Phosphatase 586H, Total Creatine Kinase 60, Creatine Kinase MB 1.3, Creatine Kinase MB Relative Index 2.17, Troponin I 0.05, GR-Nbp-M-Type Natriuretic Peptide 1556H, Total Protein 6.7, Albumin 2.6L, Albumin/Globulin Ratio 0.6L 08/17/20 14:04: Bedside Glucose (Misc Panel) 141H 08/17/20 15:04: Coronavirus (COVID-19)(PCR) NEGATIVE CBC/BMP Laboratory Tests 08/17/20 12:03 Home Medications Scheduled Adalimumab (Humira) 40 Mg/0.8 Ml Syringekit, 40 MG SC QWEEK FRIDAYS Canagliflozin (Invokana) 300 Mg Tab, 300 MG PO DAILY Clozapine (Clozapine) 25 Mg Tab, 50 MG PO QHS TAKES WITH SECOND DOSE OF 100MG FOR 150MG TOTAL Clozapine (Clozapine) 100 Mg Tab, 100 MG PO BID Docusate Sodium (Colace) 100 Mg Cap, 100 MG PO DAILY Gabapentin (Gabapentin) 100 Mg Capsule, 200 MG PO TID Hydroxyzine HCl (Hydroxyzine HCl) 25 Mg Tab, 25 MG PO BID Insulin Glargine,Hum.rec.anlog (Lantus Solostar) 100 Unit/Ml Inj, 50 UNITS SC QAM Insulin Human Lispro (Novolog) 100 U/Ml Inj, 1 DOSE SC AC PER SLIDING SCALE Levothyroxine Sodium (Levothyroxine Sodium) 125 Mcg Tab, 125 MCG PO DAILY Metformin HCl (Metformin HCl ER) 500 Mg Tab.er.24h, 1,000 MG PO BID Sertraline HCl (Sertraline HCl) 100 Mg Tab, 100 MG PO BID Zinc (Zinc) 50 Mg Tab, 50 MG PO DAILY Ziprasidone HCl (Ziprasidone HCl) 60 Mg Cap, 60 MG PO BID Scheduled PRN Acetaminophen (Acetaminophen) 500 Mg Tablet, 500 MG PO Q6H PRN for PAIN Naproxen (Naproxen) 500 Mg Tablet.dr, 500 MG PO BID PRN for PAIN Nystatin (Nystatin) 15 Gm Cream..g., 1 APLCT TOP ASDIRECTED PRN for RASH/ITCHING APPLY UNDER BREASTS AND GROIN AFTER BATHING Polyethylene Glycol 3350 (Miralax) 119 Gm Powder, 17 GM PO DAILY PRN for CONSTIPATION dilute in 8 ounces of water or juice Allergies Coded Allergies: minocycline (Verified Allergy, Unknown, hives, 08/17/20) tetracycline (Verified Allergy, Unknown, hives, 08/17/20) aripiprazole (Verified Adverse Reaction, Unknown, psychosis, 08/17/20) A-FIB/CHADSVASC A-FIB History Current/History of A-Fib/PAF?: No Current PO Anticoag Therapy: No RAMON LANZA MD Aug 17, 2020 17:42
[2020-08-17] MEDS ORDERED: GLUCOSE 4GM CHEW TABLET PO PRN (17:45)
[2020-08-17] MEDS ORDERED: GLUCAGON INJ 1MG VIAL SC PRN (17:45)
[2020-08-17] MEDS ORDERED: ISOVUE-370 76% 100ML VIAL As Ordered ONE (17:48)
[2020-08-17] MEDS ORDERED: ACET-683 PO (17:54)
[2020-08-17] MEDS ORDERED: METF-838 PO (17:54)
[2020-08-17] MEDS ORDERED: CLIN1SOL TOP (17:54)
[2020-08-17] MEDS ORDERED: HUMI40KI SC (17:54)
[2020-08-17] MEDS ORDERED: GABA-1171 PO (17:54)
[2020-08-17] MEDS ORDERED: NAPR500T6 PO (17:54)
[2020-08-17] MEDS ORDERED: MIRA3350 PO (17:54)
[2020-08-17] MEDS ORDERED: NYST10CR TOP (17:55)
--- NOTE | 2020-08-17 18:43 | REPVR ---
PROCEDURE INFORMATION: Exam: CT Angiography Chest With Contrast Exam date and time: 08/17/2020 6:06 PM Age: 65 years old Clinical indication: Chest pain; Additional info: R/O pe. Dyspnea, tachycardia. Metformin at home, held TECHNIQUE: Imaging protocol: Computed tomographic angiography of the chest with intravenous contrast. 3D rendering (Not supervised by radiologist): MIP and/or 3D reconstructed images were created by the technologist. Radiation optimization: All CT scans at this facility use at least one of these dose optimization techniques: automated exposure control; mA and/or kV adjustment per patient size (includes targeted exams where dose is matched to clinical indication); or iterative reconstruction. Contrast material: ISO 370; Contrast volume: 100 ml; Contrast route: INTRAVENOUS (IV); COMPARISON: CR PORTABLE CHEST X-RAY 08/17/2020 12:24 PM FINDINGS: Pulmonary arteries: There are no pulmonary emboli. Evaluation limited by suboptimal inspiratory effort. Aorta: There is no aortic dissection or aneurysm. Lungs: Bibasilar atelectasis. Bilateral ground-glass pulmonary parenchymal opacities in the upper lung zones bilaterally. Clinical correlation to exclude multifocal pneumonitis, likely viral, suggested. Pleural space: Unremarkable. No pneumothorax. No pleural effusion. Heart: Unremarkable. No cardiomegaly. No pericardial effusion. Lymph nodes: Mediastinal lymphadenopathy measuring up to 1.2 cm in the left periaortic region. Bones/joints: The spine demonstrates mild degenerative changes. Soft tissues: Splenomegaly (please refer to accompanying abdominopelvic CT report). Otherwise unremarkable. IMPRESSION: 1. Bilateral ground-glass pulmonary parenchymal opacities in the upper lung zones bilaterally. Clinical correlation to exclude multifocal pneumonitis, likely viral, suggested. 2. There is no aortic dissection or aneurysm. 3. Mediastinal lymphadenopathy measuring up to 1.2 cm in the left periaortic region. 4. There are no pulmonary emboli. Evaluation limited by suboptimal inspiratory effort. Electronically signed by: Dillon Payne On 08/17/2020 18:43:39 PM
--- NOTE | 2020-08-17 18:49 | REPVR ---
PROCEDURE INFORMATION: Exam: CT Abdomen And Pelvis With Contrast Exam date and time: 08/17/2020 6:06 PM Age: 65 years old Clinical indication: Abdominal pain; Additional info: Distension, hyperbilirubinemia. Metformin at home, held TECHNIQUE: Imaging protocol: Computed tomography of the abdomen and pelvis with intravenous contrast. Radiation optimization: All CT scans at this facility use at least one of these dose optimization techniques: automated exposure control; mA and/or kV adjustment per patient size (includes targeted exams where dose is matched to clinical indication); or iterative reconstruction. Contrast material: ISO 370; Contrast volume: 100 ml; Contrast route: INTRAVENOUS (IV); COMPARISON: CT ABD PELVIS WITH CONTRAST 06/19/2018 6:26 PM FINDINGS: Liver: There is enlargement of the left and caudate lobes of the liver as well as a lobular surface contour of the liver. Findings may indicate the presence of cirrhosis in this patient with no reported history of chronic liver disease. No focal abnormality demonstrated. Hepatomegaly. Hepatic steatosis. Gallbladder and bile ducts: There are gallstones present. No evidence of cholecystitis demonstrated. Pancreas: Normal. No ductal dilation. Spleen: There is moderate splenomegaly with a maximum span of 17 centimeters. No focal abnormalities demonstrated. Adrenal glands: Normal. No mass. Kidneys and ureters: 10 mm simple appearing cyst in the right kidney. No follow-up suggested. Kidneys otherwise unremarkable. Stomach and bowel: Circumferential thickening of the wall of the rectum measuring up to 1.3 cm. Clinical correlation to exclude a rectal carcinoma suggested. There is increased feces throughout the colon consistent with constipation. Also noted is diffuse dilatation of the colon to the level of the rectum suggesting partial colonic obstruction versus changes related to chronic fecal retention. Appendix: No evidence of appendicitis. Intraperitoneal space: Unremarkable. No free air. No significant fluid collection. Vasculature: Unremarkable. No abdominal aortic aneurysm. Lymph nodes: Unremarkable. No enlarged lymph nodes. Urinary bladder: Unremarkable as visualized. Reproductive: There has been a hysterectomy. Bones/joints: Small sclerotic focus in the left side of the sacrum. Mild anterolisthesis of L4 on L5. Moderate central spinal stenosis L2-L3, severe central spinal stenosis L3-L4 and L4-L5. Soft tissues: There is mild soft tissue edema demonstrated in the abdominal wall, flanks and buttock regions consistent with anasarca. IMPRESSION: 1. There is enlargement of the left and caudate lobes of the liver as well as a lobular surface contour of the liver. Findings may indicate the presence of cirrhosis in this patient with no reported history of chronic liver disease. No focal abnormality demonstrated. Hepatomegaly. Hepatic steatosis. 2. There are gallstones present. No evidence of cholecystitis demonstrated. 3. There is moderate splenomegaly with a maximum span of 17 centimeters. No focal abnormalities demonstrated. 4. There is increased feces throughout the colon consistent with constipation. Also noted is diffuse dilatation of the colon to the level of the rectum suggesting partial colonic obstruction versus changes related to chronic fecal retention. 5. There has been a hysterectomy. 6. Mild anasarca. COMMENTS: Consistent with the [employer]'s Incidental Findings Committee white paper (J Am Devon Radiol 2018): Any incidental renal lesion less than 1 cm or classified as too small to characterize, or any incidental cystic renal lesion characterized as simple-appearing, is likely benign. No follow-up imaging is recommended for these lesions per consensus recommendations based on imaging criteria. Electronically signed by: Dillon Payne On 08/17/2020 18:49:36 PM
--- NOTE | 2020-08-17 18:52 | REPVR ---
PROCEDURE INFORMATION: Exam: US Abdomen, Limited; Right Upper Quadrant Exam date and time: 08/17/2020 6:37 PM Age: 65 years old Clinical indication: Abdominal pain; Acute; Additional info: Req TECHNIQUE: Imaging protocol: US abdomen. Real time ultrasound with image documentation. Limited exam focused on the right upper quadrant. COMPARISON: CT ABD PELVIS WITH CONTRAST 08/17/2020 5:58 PM FINDINGS: Liver: The liver is diffusely echogenic relative to the right kidney, findings consistent with steatosis. Gallbladder: Mild thickening of the gallbladder wall appears related to abundant pericholecystic fat. Increased density demonstrated intraluminal at the neck of the gallbladder may represent gravel versus echogenic sludge. No definite calculi demonstrated. Clinical correlation to exclude cholecystitis suggested. Common bile duct: The common bile duct measures 5.4 mm. No mass or choledocholithiasis. Pancreas: Pancreas obscured by overlying bowel gas. Right kidney: Right kidney measures 11.5 x 4.1 x 4.6 cm. Other findings: Examination limited by large patient body habitus and poor acoustic characteristics as well as patient's inability to adequate suspend respiration. IMPRESSION: 1. Hepatic steatosis. 2. Mild thickening of the gallbladder wall appears related to abundant pericholecystic fat. Increased density demonstrated intraluminal at the neck of the gallbladder may represent gravel versus echogenic sludge. No definite calculi demonstrated. Clinical correlation to exclude cholecystitis suggested. 3. Nonvisualized pancreas. Electronically signed by: Dillon Payne On 08/17/2020 18:52:47 PM
[2020-08-17] MEDS ORDERED: MAGNESIUM CITRATE 300 ML BTL PO ONE (19:30)
[2020-08-17 20:18] VITALS: BP 122/81
[2020-08-17] MEDS: FUROSEMIDE 40MG/4ML VIAL (J1940) IV SCH (22:06)
[2020-08-17] MEDS: DOCUSATE SODIUM 100MG CAPSULE PO SCH (22:17)
[2020-08-17] MEDS: HumaLOG INSULIN (NovoLOG) PER UNIT SC SCH (22:18)
[2020-08-18] MEDS: NYSTATIN 100,000 UNITS/GM TOPICAL PWD 15 GM TOP SCH ×3 (02:02→21:53)
[2020-08-18] MEDS: MICONAZOLE-7 VAGINAL 2% CREAM 47.7 GM PV SCH ×2 (02:03→21:52)
[2020-08-18 06:00] VITALS: BP 126/81
[2020-08-18 06:47] LABS: BASO # 0.1 10^3/uL (0.0-0.2); BASO % 0.8 % (0.0-1.0); EOS # 0.1 10^3/uL (0.0-0.5); HEMATOCRIT 46.9 % (36.0-47.0); HEMOGLOBIN 14.5 g/dl (12.0-15.5); LYMPH # 1.7 10^3/uL (1.5-5.0); LYMPH % 28.5 % (24.0-44.0); MEAN CORPUSCULAR HEMOGLOBIN 24.9 pg (27.0-33.0); MEAN CORPUSCULAR HGB CONC 30.9 g/dl (32.0-36.5); MEAN CORPUSCULAR VOLUME 80.4 fl (80.0-96.0); MONO # 0.5 10^3/uL (0.0-0.8); MONO % 7.7 % (0.0-5.0); NEUTROPHILS # 3.6 10^3/uL (1.5-8.5); NEUTROPHILS % 59.7 % (36.0-66.0); PLATELET COUNT, AUTOMATED 164 10^3/uL (150-450); RED BLOOD COUNT 5.83 10^6/uL (4.00-5.40)
[2020-08-18 07:06] LABS: ALBUMIN 2.3 GM/DL (3.2-5.2); ALT/SGPT 48 U/L (12-78); BILIRUBIN,TOTAL 2.2 MG/DL (0.2-1.0); BLOOD UREA NITROGEN 22 MG/DL (7-18); CALCIUM LEVEL 8.3 MG/DL (8.8-10.2); CARBON DIOXIDE LEVEL 32 MEQ/L (21-32); CHLORIDE LEVEL 104 MEQ/L (98-107); CREATININE FOR GFR 1.02 MG/DL (0.55-1.30); GLOMERULAR FILTRATION RATE 58.1 (>45); GLUCOSE, FASTING 202 MG/DL (70-100); MAGNESIUM LEVEL 2.6 MG/DL (1.8-2.4); POTASSIUM SERUM 3.4 MEQ/L (3.5-5.1); SODIUM LEVEL 142 MEQ/L (136-145); TOTAL PROTEIN 6.5 GM/DL (6.4-8.2)
--- NOTE | 2020-08-18 07:31 | ECGEPIP ---
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
[2020-08-18] MEDS: GABAPENTIN 100 MG CAP PO SCH ×3 (08:44→21:55)
[2020-08-18] MEDS: SERTRALINE 100 MG TAB PO SCH ×2 (08:44→21:56)
[2020-08-18] MEDS: hydrOXYzine 25 MG TAB PO SCH ×2 (08:44→21:59)
[2020-08-18] MEDS: ZIPRASIDONE 20MG CAPSULE (GEODON) PO SCH ×2 (08:44→21:56)
[2020-08-18] MEDS: DOCUSATE SODIUM 100MG CAPSULE PO SCH ×2 (08:45→21:54)
[2020-08-18] MEDS: MIRALAX *UNIT DOSE* 17GM PACKET PO SCH (08:45)
[2020-08-18] MEDS: cloZAPine 100 MG TAB (S0136) PO SCH ×2 (08:45→21:59)
[2020-08-18] MEDS: FUROSEMIDE 40MG/4ML VIAL (J1940) IV SCH ×2 (08:46→17:25)
[2020-08-18] MEDS: ENOXAPARIN 40MG/0.4ML SYRINGE (J1650 PER 10MG) SC SCH (08:46)
[2020-08-18] MEDS: LEVOTHYROXINE 125MCG TABLET (0.125MG) PO SCH (08:47)
[2020-08-18] MEDS: LEVEMIR (INSULIN DETEMIR) 1 UNITS/0.01ML SC SCH ×2 (08:47→21:58)
[2020-08-18] MEDS: HumaLOG INSULIN (NovoLOG) PER UNIT SC SCH ×4 (08:47→21:52)
[2020-08-18] MEDS ORDERED: DOCUSATE SODIUM 100MG CAPSULE PO SCH (09:00)
[2020-08-18 11:27] LABS: HEMOGLOBIN A1c 9.2 %
[2020-08-18 14:00] VITALS: BP 137/85
--- NOTE | 2020-08-18 16:28 | IPNPDOC ---
Date Seen The patient was seen on 08/18/20. Progress Note SUBJECTIVE: Patient was seen and examined at bedside. States that she is doing well. Had 2 bowel movements today. Denies abdominal pain. Denies fevers, chills, vomiting. No chest pain, shortness of breath or palpitations. She is producing significant amounts of urine and fluid balance is -1500 today. Continue with diuresis. OBJECTIVE PHYSICAL EXAMINATION: VITAL SIGNS: Please see below. General: Short of breath at rest HEENT: PERRLA, EOMI, sclerae clear Neck: supple, normal ROM, no JVD Respiratory: lungs CTAB, no wheeze, no rales, no crackles CVS: RRR, normal S1, S2, no murmurs, hypertensive Abdo: soft, no masses, no hepatosplenomegaly, BS+, no rebound tenderness, obese Rectal: absent rectal tone. No perineal anesthesia. Extremities: no edema, pulses 2+, no cyanosis, no heel ulcers MSK: no joint deformities, normal ROM Neuro: Cranial nerves 3-12 intact bilaterally. Muscle strength diminished in the LLE vs RLE at S1. Psych: calm, cooperative, AAO x 3 LABORATORY DATA, IMAGING STUDIES, MICROBIOLOGY: Please see below. Echocardiogram: Ordered. CTA PE (08/17/20): IMPRESSION: 1. Bilateral ground-glass pulmonary parenchymal opacities in the upper lung zones bilaterally. Clinical correlation to exclude multifocal pneumonitis, likely viral, suggested. 2. There is no aortic dissection or aneurysm. 3. Mediastinal lymphadenopathy measuring up to 1.2 cm in the left periaortic region. 4. There are no pulmonary emboli. Evaluation limited by suboptimal inspiratory effort. CT abdo pelvis w contrast (08/17/20): IMPRESSION: 1. There is enlargement of the left and caudate lobes of the liver as well as a lobular surface contour of the liver. Findings may indicate the presence of cirrhosis in this patient with no reported history of chronic liver disease. No focal abnormality demonstrated. Hepatomegaly. Hepatic steatosis. 2. There are gallstones present. No evidence of cholecystitis demonstrated. 3. There is moderate splenomegaly with a maximum span of 17 centimeters. No focal abnormalities demonstrated. 4. There is increased feces throughout the colon consistent with constipation. Also noted is diffuse dilatation of the colon to the level of the rectum suggesting partial colonic obstruction versus changes related to chronic fecal retention. 5. There has been a hysterectomy. 6. Mild anasarca. Liver US (08/17/20): IMPRESSION: 1. Hepatic steatosis. 2. Mild thickening of the gallbladder wall appears related to abundant pericholecystic fat. Increased density demonstrated intraluminal at the neck of the gallbladder may represent gravel versus echogenic sludge. No definite calculi demonstrated. Clinical correlation to exclude cholecystitis suggested. 3. Nonvisualized pancreas. CXR (08/17/20): FINDINGS: Examination is limited by portable technique, underpenetration, and poor inspiratory effort. However, diffuse subtle bilateral interstitial and alveolar infiltrates are suspected. No effusion. No pneumothorax. Skeletal structures intact. IMPRESSION: Subtle diffuse bilateral interstitial and alveolar infiltrates suspected. MICROBIOLOGY: Please see below. ASSESSMENT: 65 yo F with a hx of DM2, lumbar stenosis (severe at L4/L5), HLD, presenting to ER with recurrent BLE weakness and frequent falls. PLAN: #Recurrent falls: deem high risk for falls in ER by PT. PT/OT eval. Check B12, folate, Vit D. #dyspnea: BNP elevated 1600. Tachycardic. Requires 1L NC. Likely fluid overloaded. Concern for PE given chronically low level of activity/immobilization. 2D echo ordered. CTA/PE - negative for pulmonary embolism. D/w Dr. Chamorro, pulmonary edema. Will continue with IV diuresis lasix 40 mg BID IV. #DM2: ISS, FSBS AC and HS. Hypoglycemic precautions. A1c 9.2. BG > 250s. takes 50 units levemir qam. Will add 20 units levemir qhs. #Sacral pressure ulcers: frequent turning. wound care. clean with vashe. foam dressing. Heel float boots (no heel ulceration noted on admission). #ALP elevation/hyperbilirubinemia: CT abdo. liver US. Hepatomegaly , concern for cirrosis. Hepatic steatosis. Mild anasarca. Splenomegaly. Suspect SEGURA. US showing possible sludge. Patient is pain free. #tachycardia: negative for PE. Check TSH. sinus tach on tele. Check EKG. #Urinary retention: check bladder scan. straight cath if > 250 cc. #vaginal candidiasis: diflucan 150 mg PO once. miconazole. #Lumbar spinal stenosis; severe at L4/L5. Has been seen by Dr. Mena, and was referred to specialist in [place]. OR delayed given uncontrolled DM2, patient was asked to return this but did not follow up. Reports bilateral LE weakness L > R. Recurrent falls. Absent/minimal rectal tone. Discussed with Dr. Sheppard, he will come assess patient in am, which is greatly appreciated. #Schizoid personality disorder,anxiety: continue home meds #Hydradenitis suppurativa: resume home meds. wound care consult #abdo distension: CT reading mild anasarca, heavy stool burden vs partial large bowel obs. Had 2 BMs on 07/25/20. DVT ppx: lovenox Dispo: admission expected to span > 2 midnights. PT/OT assessment pending, may require rehab. VS, I&O, 24H, Fishbone Vital Signs/I&O Vital Signs Date Time Temp Pulse Resp B/P (MAP) Pulse Ox O2 Delivery O2 Flow Rate FiO2 08/18/20 14:00 97.8 127 21 137/85 (102) 91 Nasal Cannula 1.0 I&O- Last 24 Hours up to 6 AM 08/18/20 06:00 Intake Total 400 ml Output Total 1100 ml Balance -700 ml Laboratory Data 24H LABS Laboratory Tests 2 08/17/20 21:47: Bedside Glucose (Misc Panel) 317H 08/18/20 06:14: Immature Granulocyte % (Auto) 2.3, Neutrophils (%) (Auto) 59.7, Lymphocytes (%) (Auto) 28.5, Monocytes (%) (Auto) 7.7H, Eosinophils (%) (Auto) 1.0, Basophils (%) (Auto) 0.8, Neutrophils # (Auto) 3.6, Lymphocytes # (Auto) 1.7, Monocytes # (Auto) 0.5, Eosinophils # (Auto) 0.1, Basophils # (Auto) 0.1, Nucleated Red Blood Cells % (auto) 0.0, Anion Gap 6L, Glomerular Filtration Rate 58.1, Estimated Mean Plasma Glucose 217H, Hemoglobin A1c 9.2, Calcium Level 8.3L, Magnesium Level 2.6H, Total Bilirubin 2.2H, Aspartate Amino Transf (AST/SGOT) 42H, Alanine Aminotransferase (ALT/SGPT) 48, Alkaline Phosphatase 613H, Total Protein 6.5, Albumin 2.3L, Albumin/Globulin Ratio 0.5L 08/18/20 11:18: Bedside Glucose (Misc Panel) 267H CBC/BMP Laboratory Tests 08/18/20 06:14 RAMON LANZA MD Aug 18, 2020 16:28
[2020-08-18] MEDS ORDERED: POTASSIUM CHLORIDE 10 MEQ SR TABLET PO ONE (17:00)
[2020-08-18 17:56] LABS: FREE T4 1.21 NG/DL (0.76-1.46); THYROID STIMULATING HORMONE 0.972 uIU/ML (0.358-3.740)
[2020-08-18] MEDS: cloZAPine 25 MG TAB (S0136) PO SCH (21:54)
[2020-08-18 22:00] VITALS: BP 137/86
[2020-08-18] MEDS: METOPROLOL SUCC *XL* 25MG TAB (TopROL *XL*) PO SCH (22:01)
[2020-08-19] MEDS: LEVOTHYROXINE 125MCG TABLET (0.125MG) PO SCH (05:30)
[2020-08-19 06:17] LABS: HEMATOCRIT 47.6 % (36.0-47.0); HEMOGLOBIN 14.5 g/dl (12.0-15.5); MEAN CORPUSCULAR HEMOGLOBIN 24.4 pg (27.0-33.0); MEAN CORPUSCULAR HGB CONC 30.5 g/dl (32.0-36.5); MEAN CORPUSCULAR VOLUME 80.1 fl (80.0-96.0); PLATELET COUNT, AUTOMATED 171 10^3/uL (150-450); RED BLOOD COUNT 5.94 10^6/uL (4.00-5.40)
[2020-08-19 06:27] LABS: INR 0.94; PROTHROMBIN TIME 12.8 SECONDS (12.5-14.3)
[2020-08-19 06:31] VITALS: BP 136/84
[2020-08-19 06:45] LABS: ATYPICAL LYMPH 6 % (0-5); BASOPHILS 1 % (0-1); LYMPHOCYTES 34 % (16-44); MONOCYTES 7 % (0-5); NEUTROPHILS 51 % (28-66)
[2020-08-19 06:46] LABS: ANISOCYTOSIS 2+; PLATELET ESTIMATE NORMAL (NORMAL)
[2020-08-19 06:47] LABS: HYPOCHROMASIA 1+; STOMATOCYTES 1+
[2020-08-19 06:53] LABS: ALBUMIN 2.5 GM/DL (3.2-5.2); ALT/SGPT 41 U/L (12-78); BILIRUBIN,TOTAL 1.8 MG/DL (0.2-1.0); BLOOD UREA NITROGEN 29 MG/DL (7-18); CALCIUM LEVEL 8.9 MG/DL (8.8-10.2); CARBON DIOXIDE LEVEL 34 MEQ/L (21-32); CHLORIDE LEVEL 106 MEQ/L (98-107); CHOLESTEROL LEVEL 281 MG/DL (<200); CHOLESTEROL RISK RATIO 14.789 (<5); CREATININE FOR GFR 1.05 MG/DL (0.55-1.30); FERRITIN 161 NG/ML (8-252); GLOMERULAR FILTRATION RATE 56.2 (>45); GLUCOSE, FASTING 198 MG/DL (70-100); HDL CHOLESTEROL 19 MG/DL (>40); IRON (FE) 43 UG/DL (50-170); LDL CHOLESTEROL 190 MG/DL (<100); MAGNESIUM LEVEL 2.6 MG/DL (1.8-2.4); NON-HDL-C 262 MG/DL; POTASSIUM SERUM 3.7 MEQ/L (3.5-5.1); SODIUM LEVEL 145 MEQ/L (136-145); TOTAL IRON BINDING CAPACITY 392 UG/DL (250-450); TOTAL PROTEIN 6.9 GM/DL (6.4-8.2); TRIGLYCERIDES LEVEL 361 MG/DL (<150); TROPONIN I < 0.02 NG/ML (< 0.10)
[2020-08-19] MEDS: FUROSEMIDE 40MG/4ML VIAL (J1940) IV SCH ×2 (08:11→18:08)
[2020-08-19] MEDS: ENOXAPARIN 40MG/0.4ML SYRINGE (J1650 PER 10MG) SC SCH (08:11)
[2020-08-19] MEDS: METOPROLOL SUCC *XL* 25MG TAB (TopROL *XL*) PO SCH ×2 (08:12→21:00)
[2020-08-19] MEDS: GABAPENTIN 100 MG CAP PO SCH ×2 (08:12→18:08)
[2020-08-19] MEDS: hydrOXYzine 25 MG TAB PO SCH ×2 (08:12→21:00)
[2020-08-19] MEDS: cloZAPine 100 MG TAB (S0136) PO SCH ×2 (08:12→21:00)
[2020-08-19] MEDS: SERTRALINE 100 MG TAB PO SCH (08:12)
[2020-08-19] MEDS: DOCUSATE SODIUM 100MG CAPSULE PO SCH ×2 (08:12→21:00)
[2020-08-19] MEDS: ZIPRASIDONE 20MG CAPSULE (GEODON) PO SCH (08:12)
[2020-08-19] MEDS: MIRALAX *UNIT DOSE* 17GM PACKET PO SCH (08:13)
[2020-08-19] MEDS: LEVEMIR (INSULIN DETEMIR) 1 UNITS/0.01ML SC SCH ×2 (08:13→21:00)
[2020-08-19] MEDS: HumaLOG INSULIN (NovoLOG) PER UNIT SC SCH ×3 (08:14→18:09)
[2020-08-19] MEDS: NYSTATIN 100,000 UNITS/GM TOPICAL PWD 15 GM TOP SCH (08:15)
--- NOTE | 2020-08-19 10:04 | CR ---
CONSULTATION CONSULTING SERVICE: Orthopedic surgery, Heber Sheppard MD. CONSULTING HISTORY OF PRESENT ILLNESS: This is a 65-year-old female who was admitted on 08/17/2020, for increased difficulty with transfers to wheelchair and reported falls over the last several weeks. The patient has a past medical history of diabetes, lumbar stenosis severe L4-L5, hyperlipidemia, as well as schizoid personality disorder, diabetic neuropathy, and sacral pressure ulceration who presented to the [facility] ER with recurrent bilateral lower extremity weakness, left worse than right, and the self-reported increase in falls and difficulty transferring to her wheelchair. The patient is largely immobile. She denies any trauma or loss of consciousness. The patient does have a chronic history of L4-L5 severe spinal stenosis for which she was seen by Dr. Mena at [facility] and also a specialist in [place]. While there were recommendations for potential surgical intervention for decompression of her L4-L5 stenosis and spondylolisthesis, the patient has not been compliant in follow-up due to her desires to prevent any type of surgical intervention. Orthopedics was consulted for cauda equina rule out, as well as documentation of natural progression of her L4-L5 spondylolisthesis and lumbar stenosis. PAST MEDICAL HISTORY: 1. Type 2 diabetes. 2. Hyperlipidemia. 3. Anxiety. 4. Hypothyroidism. 5. Schizoid personality disorder. 6. Chronic fatigue. 7. Lumbar stenosis, severe L4-L5. 8. Diabetic neuropathy. 9. Sacral pressure ulcer. PAST SURGICAL HISTORY: 1. Total hysterectomy in 1994. 2. Tonsillectomy. 3. Skin biopsy right breast tissue 2007. 4. Skin biopsy left breast tissue 2017. SOCIAL HISTORY: , lives at home. Former smoker. Denies alcohol use. Denies illicit drug activity. ALLERGIES: Please see internal medicine note. REVIEW OF SYSTEMS: 14-point review of systems negative unless is otherwise described in HPI. PHYSICAL EXAMINATION: The patient was comfortably sitting in bed. She was alert to person, time, and place. She did have intact breathal tone; however, this was slightly decreased on command. She did have 4/5 strength to the left lower extremity to the EHL, FHL, tibialis, and gastroc. Her L4 quad reflex was intact and her L5 EHL was intact; however, strength was 4/5. Sensation was intact to the deep and superficial peroneal, sural, saphenous, and tibial nerve distributions. She did have mildly decreased sensation to the L4-L5 dermatomes; however, these were intact. She had a 2+ dorsalis pedis and posterior tibial arterial pulse. The patient described a chronic mild saddle anesthesia that was consistent with baseline for several years. Regarding her right lower extremity, her L4 quadriceps strength was intact, and her L5 distribution was intact with 5/5 EHL strength. She otherwise had 5/5 strength to the EHL, FHL, tibialis, and gastrocsoleus complex. Sensation was intact to the deep and superficial peroneal, sural, saphenous, and tibial nerve distributions. She had sensation to the L1, L2, L3, L4, and L5 nerve distributions. IMAGING: The patient did obtain imaging at today's visit, which included CT abdominopelvic with contrast, as well as abdominal flat plate. In the flat plate abdominal x-ray, I was able to appreciate the pelvis in its entirety which demonstrated no fracture or osseous abnormality of her pelvis. I did not appreciate any fractures involving the proximal femur or hip of the right or left side. Her CT scan was not significant for any changes. There did appear to be spondylolisthesis at L4-L5, which is consistent with previous MRI. I was able to appreciate 2018 MRI, which is indicative of an L4 and L5 spondylolisthesis with disk herniation, which was previously reported; however, there were no acute changes that I could appreciate on her most recent imaging compared to that of 2018. IMPRESSION: This is a 65-year-old female with chronic L4 and L5 lumbar spinal stenosis with mild increase in weakening of the left lower extremity consistent with a chronic lumbar stenosis and spondylolisthesis. PLAN: At this point in time, we do recommend continued follow-up for her chronic lumbar stenosis. It has been continually declining. This is not a cauda equina; however, it is a natural progression of her lumbar stenosis secondary to spondylolisthesis and we do continue to recommend follow-up with her spine surgeon in [place] for further evaluation and treatment. The patient did voice her desire not to pursue follow-up at this point in time, given her satisfaction with her current mobility baseline. The patient states that she is satisfied with wheelchair mobility and that she does not desire surgery or any other interventions at this point in time. Given this patient's desires, I would recommend home health to help facilitate the patient's activities of daily living. I would recommend physical therapy to work with the patient to maintain and possibly improve her conditioning, so that she is able to transfer to her wheelchair more efficiently and safely. Thank you for this interesting consult. Please consult orthopedic surgery for any further questions providing these recommendations. Of note, I would also recommend wound care for her sacral ulcerations, and I do feel that home health may provide services that may help with her positioning to decrease the severity of her sacral ulcers. JACQUELYN
[2020-08-19 10:06] LABS: VITAMIN B12 LEVEL > 2000 PG/ML
--- NOTE | 2020-08-19 12:37 | IPNPDOC ---
Date Seen The patient was seen on 08/19/20. Progress Note SUBJECTIVE: Patient was seen and examined at bedside. States that she is doing well, having regular bowel movements. Denies abdominal pain. Denies fevers, chills, vomiting. No chest pain, shortness of breath or palpitations. She is producing significant amounts of urine and fluid balance ~-1kg, however per RN patient is having trouble complying with fluid restriction. OBJECTIVE PHYSICAL EXAMINATION: VITAL SIGNS: Please see below. General: Short of breath at rest HEENT: PERRLA, EOMI, sclerae clear Neck: supple, normal ROM, no JVD Respiratory: lungs CTAB, no wheeze, no rales, no crackles CVS: RRR, normal S1, S2, no murmurs, hypertensive Abdo: soft, no masses, no hepatosplenomegaly, BS+, no rebound tenderness, obese Rectal: absent rectal tone. No perineal anesthesia. Extremities: no edema, pulses 2+, no cyanosis, no heel ulcers MSK: no joint deformities, normal ROM Neuro: Cranial nerves 3-12 intact bilaterally. Muscle strength diminished in the LLE vs RLE at S1. Psych: calm, cooperative, AAO x 3 LABORATORY DATA, IMAGING STUDIES, MICROBIOLOGY: Please see below. Echocardiogram: Ordered. CTA PE (08/17/20): IMPRESSION: 1. Bilateral ground-glass pulmonary parenchymal opacities in the upper lung zones bilaterally. Clinical correlation to exclude multifocal pneumonitis, likely viral, suggested. 2. There is no aortic dissection or aneurysm. 3. Mediastinal lymphadenopathy measuring up to 1.2 cm in the left periaortic region. 4. There are no pulmonary emboli. Evaluation limited by suboptimal inspiratory effort. CT abdo pelvis w contrast (08/17/20): IMPRESSION: 1. There is enlargement of the left and caudate lobes of the liver as well as a lobular surface contour of the liver. Findings may indicate the presence of cirrhosis in this patient with no reported history of chronic liver disease. No focal abnormality demonstrated. Hepatomegaly. Hepatic steatosis. 2. There are gallstones present. No evidence of cholecystitis demonstrated. 3. There is moderate splenomegaly with a maximum span of 17 centimeters. No focal abnormalities demonstrated. 4. There is increased feces throughout the colon consistent with constipation. Also noted is diffuse dilatation of the colon to the level of the rectum suggesting partial colonic obstruction versus changes related to chronic fecal retention. 5. There has been a hysterectomy. 6. Mild anasarca. Liver US (08/17/20): IMPRESSION: 1. Hepatic steatosis. 2. Mild thickening of the gallbladder wall appears related to abundant pericholecystic fat. Increased density demonstrated intraluminal at the neck of the gallbladder may represent gravel versus echogenic sludge. No definite calculi demonstrated. Clinical correlation to exclude cholecystitis suggested. 3. Nonvisualized pancreas. CXR (08/17/20): FINDINGS: Examination is limited by portable technique, underpenetration, and poor inspiratory effort. However, diffuse subtle bilateral interstitial and alveolar infiltrates are suspected. No effusion. No pneumothorax. Skeletal structures intact. IMPRESSION: Subtle diffuse bilateral interstitial and alveolar infiltrates suspected. MICROBIOLOGY: Please see below. ASSESSMENT: 65 yo F with a hx of DM2, lumbar stenosis (severe at L4/L5), HLD, presenting to ER with recurrent BLE weakness and frequent falls. PLAN: #Recurrent falls: advanced and progressing spinal stenosis. PT/OT eval. B12, folate wnl. #dyspnea: BNP elevated 1600. Tachycardic. Likely fluid overloaded. 2D echo ordered. CTA/PE - negative for pulmonary embolism. D/w Dr. Chamorro, pulmonary edema. Will continue with IV diuresis lasix 40 mg BID IV. Poor compliance with fluid restriction. #sinus tachycardia: negative for PE. TSH/FT4 wnl. sinus tach on tele. Overnight HR 150s. Cardiology consult, discussed with Dr. Holcomb. Patient's tachycardiac likely related to pulmonary hypertesion/AUDRA. Will keep metoprolol 25 mg bid. #DM2: ISS, FSBS AC and HS. Hypoglycemic precautions. A1c 9.2. BG > 250s. takes 50 units levemir qam. Will add 20 units levemir qhs. #Sacral pressure ulcers: frequent turning. wound care. clean with vashe. foam dressing. Heel float boots (no heel ulceration noted on admission). Informed Dr. Haynes, she is well known to the wound care service. He will follow up with her on DC. #ALP elevation/hyperbilirubinemia: CT abdo. liver US. Hepatomegaly , concern for cirrosis. Hepatic steatosis. Mild anasarca. Splenomegaly. Suspect SEGURA. US showing possible sludge. Discussed with Dr. Hope. Possible cardiac hepatopathy secondary to CHF vs Pulmonary HTN, although SEGURA cirrhosis not excluded. Re commends to proceed with MRCP. Ordered. Pending PATRICK and anti-mitochondrial ab screen to r/o primary biliary cirrhosis. #Urinary retention: check bladder scan. straight cath if > 250 cc. #vaginal candidiasis: diflucan 150 mg PO once. miconazole. #Lumbar spinal stenosis; severe at L4/L5. Has been seen by Dr. Mena, and was referred to specialist in [place]. OR delayed given uncontrolled DM2, patient was asked to return this but did not follow up. Reports bilateral LE weakness L > R. Recurrent falls. Absent/minimal rectal tone. Discussed with Dr. Sheppard, assess patient. This is not cauda equina. Progression of spinal stenosis. Recommends ongoing outpatient follow up, although patient states that she is happy with her level of mobility. #Schizoid personality disorder,anxiety: continue home meds #Hydradenitis suppurativa: resume home meds. wound care consult #abdo distension: CT reading mild anasarca, heavy stool burden vs partial large bowel obs. Had 2 BMs on 07/25/20. 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 Needs outpatient sleep study. DVT ppx: lovenox Dispo: admission expected to span > 2 midnights. PT/OT assessment pending, may require rehab. VS, I&O, 24H, [facility] Vital Signs/I&O Vital Signs Date Time Temp Pulse Resp B/P (MAP) Pulse Ox O2 Delivery O2 Flow Rate FiO2 08/19/20 08:12 115 143/85 08/19/20 06:31 98.6 22 92 Nasal Cannula 2.0 I&O- Last 24 Hours up to 6 AM 08/19/20 06:00 Intake Total 1800 ml Output Total 2675 ml Balance -875 ml Laboratory Data 24H LABS Laboratory Tests 2 08/18/20 16:58: Bedside Glucose (Misc Panel) 181H 08/18/20 18:06: Troponin I < 0.02# 08/18/20 21:37: Bedside Glucose (Misc Panel) 336H 08/19/20 05:52: Troponin I < 0.02, Neutrophils (%) (Auto) , Nucleated Red Blood Cells % (auto) 0.3H, Neutrophils 51, Band Neutrophils 1, Lymphocytes (Manual) 34, Monocytes (Manual) 7H, Basophils (Manual) 1, Atypical Lymphocytes 6H, Hypochromasia 1+, Anisocytosis 2+, Stomatocytes 1+, Platelet Estimate NORMAL, Prothrombin Time 12.8, Prothromb Time International Ratio 0.94, Anion Gap 5L, Glomerular Filtration Rate 56.2, Calcium Level 8.9, Magnesium Level 2.6H, Iron Level 43L, Total Iron Binding Capacity 392, Transferrin % Saturation 11.0L, Ferritin 161, Total Bilirubin 1.8H, Aspartate Amino Transf (AST/SGOT) 38H, Alanine Aminotransferase (ALT/SGPT) 41, Alkaline Phosphatase 626H, Total Protein 6.9, Albumin 2.5L, Albumin/Globulin Ratio 0.6L, Triglycerides Level 361H, Total Cholesterol 281H, LDL Cholesterol 190H, Non-HDL Cholesterol (LDL + VLDL) 262, Total HDL Cholesterol 19L, Cholesterol/HDL Ratio 14.789H, Tumor Marker Alpha Fetoprotein < 1.3 08/19/20 07:04: Bedside Glucose (Misc Panel) 190H CBC/BMP Laboratory Tests 08/19/20 05:52 RAMON LANZA MD Aug 19, 2020 12:37
[2020-08-19 14:00] VITALS: BP 135/107
[2020-08-19] MEDS: cloZAPine 25 MG TAB (S0136) PO SCH (21:00)
[2020-08-19 21:26] VITALS: BP 120/78
[2020-08-19] MEDS ORDERED: NS 500 ML IV ONE (21:45)
--- NOTE | 2020-08-19 21:52 | IPNPDOC ---
Text Note Date of Service The patient was seen on 08/19/20. NOTE TIME OF SERVICE 945PM CODE PURPLE NOTE S: the patient reported feeling warm and a bit more short of breath O2 87% on 3L NC / HR 121 / T 104.3 rectal / BP 120/78 / glucose 179 PE: flushed, diaphoretic NC in place, tachycardic, NMRG, tachycardic, lungs CTAB on RA, capillary refill <3 sec #SIRS vs Sepsis of unclear source Plan: CBC, CMP, lactic acid, blood cx, 500ml NS, chest xray, UA, transfer to PCU for Vitals Q2H VS,Fishbone, I+O VS, Fishbone, I+O Laboratory Tests 08/19/20 05:52 Vital Signs Date Time Temp Pulse Resp B/P (MAP) Pulse Ox O2 Delivery O2 Flow Rate FiO2 08/19/20 14:00 98.7 112 16 135/107 (116) 89 Nasal Cannula 2.0 I&O- Last 24 Hours up to 6 AM 08/19/20 06:00 Intake Total 1800 ml Output Total 2675 ml Balance -875 ml NANY BECERRA MD Aug 19, 2020 21:52
[2020-08-19 22:06] VITALS: BP 108/78
[2020-08-19 22:20] VITALS: BP 105/54
[2020-08-19 22:28] LABS: HEMATOCRIT 47.5 % (36.0-47.0); HEMOGLOBIN 14.4 g/dl (12.0-15.5); MEAN CORPUSCULAR HEMOGLOBIN 24.4 pg (27.0-33.0); MEAN CORPUSCULAR HGB CONC 30.3 g/dl (32.0-36.5); MEAN CORPUSCULAR VOLUME 80.6 fl (80.0-96.0); PLATELET COUNT, AUTOMATED 154 10^3/uL (150-450); RED BLOOD COUNT 5.89 10^6/uL (4.00-5.40); WHITE BLOOD COUNT 7.1 10^3/uL (4.0-10.0)
--- NOTE | 2020-08-19 22:30 | REPVR ---
PROCEDURE INFORMATION: Exam: XR Chest, 1 View Exam date and time: 08/19/2020 10:12 PM Age: 65 years old Clinical indication: Other: Sepsis TECHNIQUE: Imaging protocol: XR of the chest Views: 1 view. COMPARISON: CR PORTABLE CHEST X-RAY 08/17/2020 12:24 PM FINDINGS: Lungs: There is decreased inflation of the lungs. Decreased right lung infiltrates since the prior study. There is mildly increased lateral left base infiltrate or atelectasis. Perihilar changes are similar. Pleural space: Unremarkable. No pleural effusion. No pneumothorax. Heart/Mediastinum: The heart and mediastinum are unchanged. Bones/joints: Unremarkable. IMPRESSION: 1. Decreased right lung infiltrates since 08/17/2020. 2. Mildly increased lateral left base infiltrate or atelectasis. 3. Otherwise stable poor inspiratory chest Electronically signed by: Yariel Vallejo On 08/19/2020 22:30:35 PM
[2020-08-19] MEDS ORDERED: SODIUM CHLORIDE 0.9% 1000ML IV STA (22:40)
[2020-08-19] MEDS: ACETAMINOPHEN TAB 650MG DOSE (2X325MG) PO PRN (22:41)
[2020-08-19 22:53] LABS: ALBUMIN 2.4 GM/DL (3.2-5.2); BILIRUBIN,TOTAL 1.6 MG/DL (0.2-1.0); CALCIUM LEVEL 8.6 MG/DL (8.8-10.2); CREATININE FOR GFR 1.16 MG/DL (0.55-1.30); GLOMERULAR FILTRATION RATE 50.1 (>45); POTASSIUM SERUM 3.3 MEQ/L (3.5-5.1); TOTAL PROTEIN 6.6 GM/DL (6.4-8.2)
[2020-08-20] VITALS (19 sets, daily range): BP systolic 92–130; BP diastolic 50–80; O2SAT 93–97
[2020-08-20] MEDS: ZIPRASIDONE 20MG CAPSULE (GEODON) PO SCH ×3 (01:28→22:00)
[2020-08-20] MEDS: NYSTATIN 100,000 UNITS/GM TOPICAL PWD 15 GM TOP SCH ×2 (01:28→09:22)
[2020-08-20] MEDS: MICONAZOLE-7 VAGINAL 2% CREAM 47.7 GM PV SCH ×2 (01:28→21:00)
[2020-08-20] MEDS: SERTRALINE 100 MG TAB PO SCH ×3 (01:29→21:58)
[2020-08-20] MEDS: GABAPENTIN 100 MG CAP PO SCH ×4 (01:29→21:58)
[2020-08-20] MEDS ORDERED: ACETAMINOPHEN TAB 650MG DOSE (2X325MG) PO ONE (01:30)
[2020-08-20] MEDS ORDERED: VANCOMYCIN HCL 1,000 MG, VIAL MATE ADAPTER 1 EACH in D5W 250 ML IV ONE ×2 (01:30→02:30)
[2020-08-20 02:31] LABS: APPEARANCE, URINE HAZY (CLEAR); BACTERIA, URINE AUTO 3+ (NEGATIVE); BILIRUBIN, URINE AUTO 1+ (NEGATIVE); BLOOD, URINE BLOOD 2+ (NEGATIVE); COLOR, URINE AMBER (YELLOW); GLUCOSE, URINE (UA) AUTO 3+ mg/dL (NEGATIVE); KETONE, URINE AUTO NEGATIVE (NEGATIVE); LEUKOCYTE ESTERASE, URINE AUTO TRACE (NEGATIVE); MUCUS, URINE MODERATE (NEGATIVE); NITRITE, URINE AUTO NEGATIVE (NEGATIVE); PROTEIN, URINE AUTO 1+ mg/dL (NEGATIVE); RBC, URINE AUTO 12 /HPF (0-3); SPECIFIC GRAVITY URINE AUTO 1.025 (1.002-1.035); SQUAMOUS EPITHELIAL CELL UR AU 1 /HPF (0-6); WBC, URINE AUTO 18 /HPF (0-3)
[2020-08-20] MEDS: LEVEMIR (INSULIN DETEMIR) 1 UNITS/0.01ML SC SCH ×3 (03:34→22:01)
[2020-08-20 03:54] LABS: VENOUS BASE EXCESS 5.5 (-2.0-2.0); VENOUS HCO3 31.9 MEQ/L (23.0-27.0); VENOUS PARTIAL PRESSURE CO2 53.6 mmHg (38.0-50.0); VENOUS PARTIAL PRESSURE O2 210.1 mmHg (30.0-50.0); VENOUS PH 7.392 UNITS (7.330-7.430); VENOUS STANDARD HCO3 29.5 MEQ/L; VENOUS TOTAL CO2 33.5 MEQ/L (24.0-28.0)
[2020-08-20 04:00] LABS: HEMATOCRIT 44.5 % (36.0-47.0); HEMOGLOBIN 13.1 g/dl (12.0-15.5); MEAN CORPUSCULAR HEMOGLOBIN 24.3 pg (27.0-33.0); MEAN CORPUSCULAR HGB CONC 29.4 g/dl (32.0-36.5); MEAN CORPUSCULAR VOLUME 82.7 fl (80.0-96.0); PLATELET COUNT, AUTOMATED 133 10^3/uL (150-450); RED BLOOD COUNT 5.38 10^6/uL (4.00-5.40); WHITE BLOOD COUNT 6.2 10^3/uL (4.0-10.0)
[2020-08-20] MEDS: cefTRIAXone SOD 1 GM in D5W MINI-BAG PLUS 50 ML IV SCH (04:00)
[2020-08-20] MEDS ORDERED: AZITHROMYCIN INJ 500 MG, VIAL MATE ADAPTER 1 EACH in D5W 250 ML IV SCH (04:00)
[2020-08-20 04:23] LABS: ANISOCYTOSIS 2+; ATYPICAL LYMPH 2 % (0-5); EOSINOPHILS 1 % (0-3); LYMPHOCYTES 16 % (16-44); MONOCYTES 4 % (0-5); NEUTROPHILS 75 % (28-66); PLATELET ESTIMATE NORMAL (NORMAL); POLYCHROMASIA 1+
[2020-08-20] MEDS: AZITHROMYCIN INJ 500 MG, VIAL MATE ADAPTER 1 EACH in D5W 250 ML IV SCH (04:38)
[2020-08-20 04:39] LABS: ALBUMIN 2.2 GM/DL (3.2-5.2); BILIRUBIN,TOTAL 1.7 MG/DL (0.2-1.0); CREATININE FOR GFR 1.06 MG/DL (0.55-1.30); GLOMERULAR FILTRATION RATE 55.6 (>45); MAGNESIUM LEVEL 2.2 MG/DL (1.8-2.4); POTASSIUM SERUM 3.1 MEQ/L (3.5-5.1)
[2020-08-20] MEDS: LEVOTHYROXINE 125MCG TABLET (0.125MG) PO SCH (05:15)
[2020-08-20] MEDS ORDERED: NS 1,000 ML IV SCH (05:30)
[2020-08-20] MEDS ORDERED: POTASSIUM CHLORIDE 10 MEQ SR TABLET PO ONE ×2 (05:45→09:00)
[2020-08-20] MEDS ORDERED: KCL 40MEQ in NS 1000ML 1,000 ML IV SCH (05:45)
[2020-08-20] MEDS ORDERED: POTASSIUM CHLORIDE 10% LIQ 20 MEQ/15 ML UDC PO ONE (06:30)
[2020-08-20] MEDS: ENOXAPARIN 40MG/0.4ML SYRINGE (J1650 PER 10MG) SC SCH (09:18)
[2020-08-20] MEDS: KCL 10MEQ/100ML SWI (KRUN) 10 MEQ in IV 1 EA IV SCH ×2 (09:19→13:18)
[2020-08-20] MEDS: METOPROLOL SUCC *XL* 25MG TAB (TopROL *XL*) PO SCH ×2 (09:21→21:00)
[2020-08-20] MEDS: cloZAPine 100 MG TAB (S0136) PO SCH ×2 (09:21→21:58)
[2020-08-20] MEDS: DOCUSATE SODIUM 100MG CAPSULE PO SCH ×2 (09:22→21:59)
[2020-08-20] MEDS: hydrOXYzine 25 MG TAB PO SCH ×2 (09:22→21:59)
[2020-08-20] MEDS: MIRALAX *UNIT DOSE* 17GM PACKET PO SCH (09:22)
[2020-08-20] MEDS: ACETAMINOPHEN TAB 650MG DOSE (2X325MG) PO PRN ×2 (13:41→22:02)
--- NOTE | 2020-08-20 13:45 | REP ---
INDICATION: elevated bilirubin COMPARISON: None. TECHNIQUE: Standard MRCP sequencing without contrast to include heavily weighted T2 axial and coronal sequences with single slice and multi-rotational MIP reconstructions. FINDINGS: Standard MRCP sequencing without contrast was performed and demonstrates a normal gallbladder without filling defects to suggest cholelithiasis or other obvious abnormality. The biliary ductal system including intrahepatic radicals, hepatic ducts, cystic duct and common bile duct demonstrate normal caliber and appearance without dilatation/obstruction, filling defect or obvious irregularities. Incidental 1.1 cm right renal simple cyst noted. IMPRESSION: Normal gallbladder and biliary ductal system. <Electronically signed by Ayaz Rodriguez > 08/20/20 [id number]
[2020-08-20] MEDS: VANCOMYCIN HCL 1,000 MG, VIAL MATE ADAPTER 1 EACH in D5W 250 ML IV SCH (14:12)
[2020-08-20 16:07] LABS: ANTI DOUBLE STRAND-DNA AB <1 IU/mL (0-9); ANTI-MITOCHONDRIAL ANTIBODY <20.0 Units (0.0-20.0); ANTINUCLEAR ANTIBODIES DIRECT Positive (Negative); RNP ANTIBODIES <0.2 AI (0.0-0.9); SJOGREN'S ANTI SS-A 0.9 AI (0.0-0.9); SJOGREN'S ANTI SS-B <0.2 AI (0.0-0.9); SMITH ANTIBODIES 0.2 AI (0.0-0.9)
[2020-08-20] MEDS ORDERED: NS 1,000 ML IV ONE (16:45)
[2020-08-20 17:54] LABS: BASO % 0.6 % (0.0-1.0); EOS # 0.1 10^3/uL (0.0-0.5); EOS % 1.9 % (0.0-3.0); HEMATOCRIT 42.6 % (36.0-47.0); HEMOGLOBIN 12.8 g/dl (12.0-15.5); LYMPH # 1.1 10^3/uL (1.5-5.0); LYMPH % 24.1 % (24.0-44.0); MEAN CORPUSCULAR HEMOGLOBIN 25.1 pg (27.0-33.0); MEAN CORPUSCULAR VOLUME 83.7 fl (80.0-96.0); MONO # 0.3 10^3/uL (0.0-0.8); MONO % 7.2 % (0.0-5.0); NEUTROPHILS # 3.1 10^3/uL (1.5-8.5); NEUTROPHILS % 65.1 % (36.0-66.0); PLATELET COUNT, AUTOMATED 119 10^3/uL (150-450); RED BLOOD COUNT 5.09 10^6/uL (4.00-5.40); WHITE BLOOD COUNT 4.7 10^3/uL (4.0-10.0)
--- NOTE | 2020-08-20 18:30 | REPVR ---
PROCEDURE INFORMATION: Exam: CT Head Without Contrast Exam date and time: 08/20/2020 6:17 PM Age: 65 years old Clinical indication: Altered mental status/memory loss; Additional info: AMS TECHNIQUE: Imaging protocol: Computed tomography of the head without contrast. Axial and coronal reformatted images were created and reviewed. Radiation optimization: All CT scans at this facility use at least one of these dose optimization techniques: automated exposure control; mA and/or kV adjustment per patient size (includes targeted exams where dose is matched to clinical indication); or iterative reconstruction. COMPARISON: CT Head without contrast 07/05/2018 10:07 AM FINDINGS: Brain: Subtle, patchy areas of hypoattenuation in the periventricular and subcortical white matter, nonspecific but suggestive of mild chronic small vessel ischemic disease. No CT evidence of acute intracranial hemorrhage or acute territorial infarction. No significant mass effect or midline shift. Basal cisterns patent. Cerebral ventricles: Prominence of the cortical sulci, cisterns and ventricular system, consistent with cerebral and cerebellar volume loss. Bones/joints: No acute osseous abnormality. Paranasal sinuses: Unremarkable. No fluid levels. Mastoid air cells: Grossly unremarkable. Soft tissues: Grossly unremarkable. IMPRESSION: 1. No CT evidence of acute intracranial pathology. 2. Additional findings, as above. Electronically signed by: Martín Fenton On 08/20/2020 18:29:30 PM
[2020-08-20 18:32] LABS: ABG BASE EXCESS 2.8 (-2.0-2.0); ABG HCO3 29.2 MEQ/L (22.0-26.0); ABG O2 SATURATION 95.7 % (95.0-99.0); ABG PARTIAL PRESSURE CO2 52.7 mmHg (35.0-45.0); ABG PARTIAL PRESSURE O2 79.9 mmHg (75.0-100.0); ABG STANDARD HCO3 26.9 MEQ/L (22.0-26.0); ABG TOTAL CO2 30.9 MEQ/L (23.0-31.0); ABG pH (ARTERIAL) 7.362 UNITS (7.350-7.450)
[2020-08-20 18:39] LABS: ALT/SGPT 35 U/L (12-78); BILIRUBIN,TOTAL 1.3 MG/DL (0.2-1.0); BLOOD UREA NITROGEN 25 MG/DL (7-18); CALCIUM LEVEL 7.7 MG/DL (8.8-10.2); CARBON DIOXIDE LEVEL 30 MEQ/L (21-32); CHLORIDE LEVEL 110 MEQ/L (98-107); CREATININE FOR GFR 0.74 MG/DL (0.55-1.30); GLOMERULAR FILTRATION RATE > 60.0 (>45); GLUCOSE, FASTING 127 MG/DL (70-100); POTASSIUM SERUM 4.5 MEQ/L (3.5-5.1); SODIUM LEVEL 144 MEQ/L (136-145); TOTAL PROTEIN 5.6 GM/DL (6.4-8.2); TROPONIN I 0.02 NG/ML (< 0.10)
[2020-08-20] MEDS: cloZAPine 25 MG TAB (S0136) PO SCH (21:57)
--- NOTE | 2020-08-20 22:18 | IPNPDOC ---
Date Seen The patient was seen on 08/20/20. Progress Note SUBJECTIVE: Patient was seen and examined at bedside. Spiking fevers overnight and throughout the day. Suspect from UTI. Was altered throughout the day. Normal ammonia, normal lactate, normal trop. CT head wo acut echanges. OBJECTIVE PHYSICAL EXAMINATION: VITAL SIGNS: Please see below. General: Short of breath at rest HEENT: PERRLA, EOMI, sclerae clear Neck: supple, normal ROM, no JVD Respiratory: lungs CTAB, no wheeze, no rales, no crackles CVS: RRR, normal S1, S2, no murmurs, hypertensive Abdo: soft, no masses, no hepatosplenomegaly, BS+, no rebound tenderness, obese Rectal: absent rectal tone. No perineal anesthesia. Extremities: no edema, pulses 2+, no cyanosis, no heel ulcers MSK: no joint deformities, normal ROM Neuro: Cranial nerves 3-12 intact bilaterally. Muscle strength diminished in the LLE vs RLE at S1. Psych: calm, cooperative, AAO x 3 LABORATORY DATA, IMAGING STUDIES, MICROBIOLOGY: Please see below. Echocardiogram: Ordered. CTA PE (08/17/20): IMPRESSION: 1. Bilateral ground-glass pulmonary parenchymal opacities in the upper lung zones bilaterally. Clinical correlation to exclude multifocal pneumonitis, likely viral, suggested. 2. There is no aortic dissection or aneurysm. 3. Mediastinal lymphadenopathy measuring up to 1.2 cm in the left periaortic region. 4. There are no pulmonary emboli. Evaluation limited by suboptimal inspiratory effort. CT abdo pelvis w contrast (08/17/20): IMPRESSION: 1. There is enlargement of the left and caudate lobes of the liver as well as a lobular surface contour of the liver. Findings may indicate the presence of cirrhosis in this patient with no reported history of chronic liver disease. No focal abnormality demonstrated. Hepatomegaly. Hepatic steatosis. 2. There are gallstones present. No evidence of cholecystitis demonstrated. 3. There is moderate splenomegaly with a maximum span of 17 centimeters. No focal abnormalities demonstrated. 4. There is increased feces throughout the colon consistent with constipation. Also noted is diffuse dilatation of the colon to the level of the rectum suggesting partial colonic obstruction versus changes related to chronic fecal retention. 5. There has been a hysterectomy. 6. Mild anasarca. Liver US (08/17/20): IMPRESSION: 1. Hepatic steatosis. 2. Mild thickening of the gallbladder wall appears related to abundant pericholecystic fat. Increased density demonstrated intraluminal at the neck of the gallbladder may represent gravel versus echogenic sludge. No definite calculi demonstrated. Clinical correlation to exclude cholecystitis suggested. 3. Nonvisualized pancreas. CXR (08/17/20): FINDINGS: Examination is limited by portable technique, underpenetration, and poor inspiratory effort. However, diffuse subtle bilateral interstitial and alveolar infiltrates are suspected. No effusion. No pneumothorax. Skeletal structures intact. IMPRESSION: Subtle diffuse bilateral interstitial and alveolar infiltrates suspected. MICROBIOLOGY: Please see below. ASSESSMENT: 65 yo F with a hx of DM2, lumbar stenosis (severe at L4/L5), HLD, presenting to ER with recurrent BLE weakness and frequent falls. PLAN: #SIRS: likely UTI. LA wnl. C/w vanc, azithro, ceftriaxone. Cultures pending. #Recurrent falls: advanced and progressing spinal stenosis. PT/OT eval. B12, folate wnl. #dyspnea: BNP elevated 1600. Tachycardic. Likely fluid overloaded, s/p IV diuresis. 2D echo ordered. CTA/PE - negative for pulmonary embolism. #sinus tachycardia: negative for PE. TSH/FT4 wnl. sinus tach on tele. Overnight HR 150s. Cardiology consult, discussed with Dr. Holcomb. Patient's tachycardiac likely related to pulmonary hypertesion/AUDRA. Will keep metoprolol 25 mg bid. F/u 2D echo. #DM2: ISS, FSBS AC and HS. Hypoglycemic precautions. A1c 9.2. BG > 250s. takes 50 units levemir qam. Will add 20 units levemir qhs. #Sacral pressure ulcers: frequent turning. wound care. clean with vashe. foam dressing. Heel float boots (no heel ulceration noted on admission). Informed Dr. Haynes, she is well known to the wound care service. He will follow up with her on DC. #ALP elevation/hyperbilirubinemia: CT abdo. liver US. Hepatomegaly , concern for cirrosis. Hepatic steatosis. Mild anasarca. Splenomegaly. Suspect SEGURA. US showing possible sludge. Discussed with Dr. Hope. Possible cardiac hepatopathy secondary to CHF vs Pulmonary HTN, although SEGURA cirrhosis not excluded. Recommends to proceed with MRCP. Ordered. Pending PATRICK and anti-mitochondrial ab screen to r/o primary biliary cirrhosis. #Urinary retention: check bladder scan. straight cath if > 250 cc. #vaginal candidiasis: diflucan 150 mg PO once. miconazole. #Lumbar spinal stenosis; severe at L4/L5. Has been seen by Dr. Mena, and was referred to specialist in [place]. OR delayed given uncontrolled DM2, patient was asked to return this but did not follow up. Reports bilateral LE weakness L > R. Recurrent falls. Absent/minimal rectal tone. Discussed with Dr. Sheppard, assess patient. This is not cauda equina. Progression of spinal stenosis. Recommends ongoing outpatient follow up, although patient states that she is happy with her level of mobility. #Schizoid personality disorder,anxiety: continue home meds #Hydradenitis suppurativa: resume home meds. wound care consult #abdo distension: CT reading mild anasarca, heavy stool burden vs partial large bowel obs. Had 2 BMs on 07/25/20. 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 Needs outpatient sleep study. DVT ppx: lovenox Dispo: admission expected to span > 2 midnights. PT/OT assessment pending, may require rehab. VS, I&O, 24H, Fishbone Vital Signs/I&O Vital Signs Date Time Temp Pulse Resp B/P (MAP) Pulse Ox O2 Delivery O2 Flow Rate FiO2 08/20/20 21:00 96 99/53 08/20/20 20:00 100.4 20 94 Nasal Cannula 5.0 I&O- Last 24 Hours up to 6 AM 08/20/20 06:00 Intake Total 1320 ml Output Total 1800 ml Balance -480 ml Laboratory Data 24H LABS Laboratory Tests 2 08/20/20 00:43: Bedside Glucose (Misc Panel) 155H 08/20/20 02:04: Urine Color RONY, Urine Appearance HAZY, Urine pH 5.0, Urine Specific [place] 1.025, Urine Protein 1+H, Urine Glucose (Auto)(UA) 3+H, Urine Ketones (Auto) NEGATIVE, Urine Blood 2+H, Urine Nitrite NEGATIVE, Urine Bilirubin 1+H, Urine Urobilinogen 4.0H, Urine Leukocyte Esterase (Auto) TRACEH, Urine WBC (Auto) 18H, Urine RBC (Auto) 12H, Urine Hyaline Casts (Auto) 1, Urine Bacteria (Auto) 3+H, Urine Squamous Epithelial Cells 1, Urine Mucus (Auto) MODERATE, Urine Sperm (Auto) 08/20/20 03:06: Bedside Glucose (Misc Panel) 211H 08/20/20 03:47: Neutrophils (%) (Auto) , Nucleated Red Blood Cells % (auto) 0.0, Neutrophils 75H, Band Neutrophils 2, Lymphocytes (Manual) 16, Monocytes (Manual) 4, Eosinophils (Manual) 1, Atypical Lymphocytes 2, Polychromasia 1+, Basophilic Stippling 1+, Anisocytosis 2+, Platelet Estimate NORMAL 08/20/20 03:48: Blood Gas Bicarbonate Standard 29.5, Venous Blood pH 7.392, Venous Blood Partial Pressure CO2 53.6H, Venous Blood Partial Pressure O2 210.1H, Venous Blood Total Carbon Dioxide 33.5H, Venous Blood HCO3 31.9H, Venous Blood Oxygen Saturation 99.0H, Venous Blood Base Excess 5.5H, Anion Gap 6L, Glomerular Filtration Rate 55.6, Calcium Level 8.0L, Magnesium Level 2.2, Total Bilirubin 1.7H, Aspartate Amino Transf (AST/SGOT) 56H, Alanine Aminotransferase (ALT/SGPT) 34, Alkaline Phosphatase 486H, Ammonia < 10, Total Protein 6.0L, Albumin 2.2L, Albumin/Globulin Ratio 0.6L 08/20/20 13:08: Bedside Glucose (Misc Panel) 147H 08/20/20 13:30: Methicillin-Resist S.aureus DNA PCR NOT DETECTED 08/20/20 17:20: Anion Gap 4L, Glomerular Filtration Rate > 60.0, Calcium Level 7.7L, Total Bilirubin 1.3H, Aspartate Amino Transf (AST/SGOT) 72H, Alanine Aminotransferase (ALT/SGPT) 35, Alkaline Phosphatase 440H, Ammonia < 10, Total Protein 5.6L, Albumin 2.0L, Albumin/Globulin Ratio 0.6L, Immature Granulocyte % (Auto) 1.1, Neutrophils (%) (Auto) 65.1, Lymphocytes (%) (Auto) 24.1, Monocytes (%) (Auto) 7.2H, Eosinophils (%) (Auto) 1.9, Basophils (%) (Auto) 0.6, Neutrophils # (Auto) 3.1, Lymphocytes # (Auto) 1.1L, Monocytes # (Auto) 0.3, Eosinophils # (Auto) 0.1, Basophils # (Auto) 0.0, Nucleated Red Blood Cells % (auto) 0.0, Lactic Acid Level 0.8, Troponin I 0.02 08/20/20 18:23: Blood Gas Bicarbonate Standard 26.9H, Arterial Blood pH 7.362, Arterial Blood Partial Pressure CO2 52.7H, Arterial Blood Partial Pressure O2 79.9, Arterial Blood Total CO2 30.9, Arterial Blood HCO3 29.2H, Arterial Blood Base Excess 2.8H, Arterial Blood Oxygen Saturation 95.7 08/20/20 21:26: Bedside Glucose (Misc Panel) 156H CBC/BMP Laboratory Tests 08/20/20 03:47 08/20/20 03:48 08/20/20 17:20 Microbiology Microbiology 08/20/20 Urine Culture, Received Pending 08/19/20 Respiratory Virus Panel (PCR) ([facility]) - Final, Complete 08/19/20 Blood Culture, Received Pending 08/19/20 Urine Culture, Received Pending RAMON LANZA MD Aug 20, 2020 22:18
[2020-08-21] VITALS (7 sets, daily range): BP systolic 94–120; BP diastolic 58–68
[2020-08-21] MEDS: NYSTATIN 100,000 UNITS/GM TOPICAL PWD 15 GM TOP SCH ×3 (01:05→21:30)
[2020-08-21] MEDS: VANCOMYCIN HCL 1,000 MG, VIAL MATE ADAPTER 1 EACH in D5W 250 ML IV SCH (01:06)
[2020-08-21] MEDS: cefTRIAXone SOD 1 GM in D5W MINI-BAG PLUS 50 ML IV SCH (03:33)
[2020-08-21 05:20] LABS: BASO % 0.8 % (0.0-1.0); EOS # 0.1 10^3/uL (0.0-0.5); EOS % 2.5 % (0.0-3.0); HEMATOCRIT 44.2 % (36.0-47.0); LYMPH # 1.3 10^3/uL (1.5-5.0); LYMPH % 26.7 % (24.0-44.0); MEAN CORPUSCULAR HEMOGLOBIN 24.5 pg (27.0-33.0); MEAN CORPUSCULAR HGB CONC 29.4 g/dl (32.0-36.5); MEAN CORPUSCULAR VOLUME 83.4 fl (80.0-96.0); MONO # 0.3 10^3/uL (0.0-0.8); MONO % 6.6 % (0.0-5.0); NEUTROPHILS % 62.4 % (36.0-66.0); PLATELET COUNT, AUTOMATED 126 10^3/uL (150-450); WHITE BLOOD COUNT 4.9 10^3/uL (4.0-10.0)
[2020-08-21] MEDS: LEVOTHYROXINE 125MCG TABLET (0.125MG) PO SCH (05:35)
[2020-08-21] MEDS: AZITHROMYCIN INJ 500 MG, VIAL MATE ADAPTER 1 EACH in D5W 250 ML IV SCH (05:35)
[2020-08-21] MEDS: ACETAMINOPHEN TAB 650MG DOSE (2X325MG) PO PRN (05:40)
[2020-08-21 05:42] LABS: ALBUMIN 2.1 GM/DL (3.2-5.2); ALT/SGPT 39 U/L (12-78); BILIRUBIN,TOTAL 1.3 MG/DL (0.2-1.0); BLOOD UREA NITROGEN 22 MG/DL (7-18); CALCIUM LEVEL 8.2 MG/DL (8.8-10.2); CARBON DIOXIDE LEVEL 30 MEQ/L (21-32); CHLORIDE LEVEL 109 MEQ/L (98-107); GLOMERULAR FILTRATION RATE > 60.0 (>45); GLUCOSE, FASTING 98 MG/DL (70-100); MAGNESIUM LEVEL 2.3 MG/DL (1.8-2.4); SODIUM LEVEL 143 MEQ/L (136-145); TOTAL PROTEIN 6.1 GM/DL (6.4-8.2)
[2020-08-21] MEDS: LEVEMIR (INSULIN DETEMIR) 1 UNITS/0.01ML SC SCH ×2 (08:00→21:29)
[2020-08-21] MEDS: MIRALAX *UNIT DOSE* 17GM PACKET PO SCH (08:34)
[2020-08-21] MEDS: hydrOXYzine 25 MG TAB PO SCH ×2 (08:35→21:06)
[2020-08-21] MEDS: SERTRALINE 100 MG TAB PO SCH ×2 (08:35→21:03)
[2020-08-21] MEDS: DOCUSATE SODIUM 100MG CAPSULE PO SCH ×2 (08:35→21:20)
[2020-08-21] MEDS: ENOXAPARIN 40MG/0.4ML SYRINGE (J1650 PER 10MG) SC SCH (08:35)
[2020-08-21] MEDS: ZIPRASIDONE 20MG CAPSULE (GEODON) PO SCH ×2 (08:36→21:09)
[2020-08-21] MEDS: GABAPENTIN 100 MG CAP PO SCH ×3 (08:36→21:02)
[2020-08-21] MEDS: cloZAPine 100 MG TAB (S0136) PO SCH ×2 (08:38→21:29)
[2020-08-21] MEDS: METOPROLOL SUCC *XL* 25MG TAB (TopROL *XL*) PO SCH ×2 (08:49→21:05)
[2020-08-21] MEDS ORDERED: LEVEMIR (INSULIN DETEMIR) 1 UNITS/0.01ML SC ONE (09:00)
[2020-08-21 12:45] LABS: ABG BASE EXCESS -0.7 (-2.0-2.0); ABG O2 SATURATION 96.4 % (95.0-99.0); ABG PARTIAL PRESSURE CO2 45.2 mmHg (35.0-45.0); ABG PARTIAL PRESSURE O2 84.1 mmHg (75.0-100.0); ABG STANDARD HCO3 23.9 MEQ/L (22.0-26.0); ABG TOTAL CO2 26.4 MEQ/L (23.0-31.0); ABG pH (ARTERIAL) 7.361 UNITS (7.350-7.450)
--- NOTE | 2020-08-21 16:14 | IPNPDOC ---
Date Seen The patient was seen on 08/21/20. Progress Note SUBJECTIVE: Patient seen and examined at bedside. Patient has been afebrile throughout the day. Last fever was at 8 PM yesterday evening. She is alert and oriented 3. States that she feels much better today despite being somnolent and difficult to arouse yesterday. He had at the time was normal. Laboratory analysis was also normal. No acute gross abnormalities. Patient denies chest pain, dizziness, lightheadedness, seizures of breath, diarrhea, vomiting, or dysuria. No cough, no sputum. OBJECTIVE PHYSICAL EXAMINATION: VITAL SIGNS: Please see below. General: Looks comfortable. Nontoxic HEENT: PERRLA, EOMI, sclerae clear Neck: supple, normal ROM, no JVD Respiratory: lungs CTAB, no wheeze, no rales, no crackles CVS: RRR, normal S1, S2, no murmurs, hypertensive Abdo: soft, no masses, no hepatosplenomegaly, BS+, no rebound tenderness, obese Rectal: absent rectal tone. No perineal anesthesia. Extremities: no edema, pulses 2+, no cyanosis, no heel ulcers MSK: no joint deformities, normal ROM Neuro: Cranial nerves 3-12 intact bilaterally. Muscle strength diminished in the LLE vs RLE at S1. Psych: calm, cooperative, AAO x 3 LABORATORY DATA, IMAGING STUDIES, MICROBIOLOGY: Please see below. Echocardiogram: Ordered. CTA PE (08/17/20): IMPRESSION: 1. Bilateral ground-glass pulmonary parenchymal opacities in the upper lung zones bilaterally. Clinical correlation to exclude multifocal pneumonitis, likely viral, suggested. 2. There is no aortic dissection or aneurysm. 3. Mediastinal lymphadenopathy measuring up to 1.2 cm in the left periaortic region. 4. There are no pulmonary emboli. Evaluation limited by suboptimal inspiratory effort. CT abdo pelvis w contrast (08/17/20): IMPRESSION: 1. There is enlargement of the left and caudate lobes of the liver as well as a lobular surface contour of the liver. Findings may indicate the presence of cirrhosis in this patient with no reported history of chronic liver disease. No focal abnormality demonstrated. Hepatomegaly. Hepatic steatosis. 2. There are gallstones present. No evidence of cholecystitis demonstrated. 3. There is moderate splenomegaly with a maximum span of 17 centimeters. No focal abnormalities demonstrated. 4. There is increased feces throughout the colon consistent with constipation. Also noted is diffuse dilatation of the colon to the level of the rectum suggesting partial colonic obstruction versus changes related to chronic fecal retention. 5. There has been a hysterectomy. 6. Mild anasarca. Liver US (08/17/20): IMPRESSION: 1. Hepatic steatosis. 2. Mild thickening of the gallbladder wall appears related to abundant pericholecystic fat. Increased density demonstrated intraluminal at the neck of the gallbladder may represent gravel versus echogenic sludge. No definite calculi demonstrated. Clinical correlation to exclude cholecystitis suggested. 3. Nonvisualized pancreas. CXR (08/17/20): FINDINGS: Examination is limited by portable technique, underpenetration, and poor inspiratory effort. However, diffuse subtle bilateral interstitial and alveolar infiltrates are suspected. No effusion. No pneumothorax. Skeletal structures intact. IMPRESSION: Subtle diffuse bilateral interstitial and alveolar infiltrates suspected. MICROBIOLOGY: Please see below. ASSESSMENT: 65 yo F with a hx of DM2, lumbar stenosis (severe at L4/L5), HLD, presenting to ER with recurrent BLE weakness and frequent falls. PLAN: #SIRS: patient dyspneic, altertered on 08/20. no WBC. Source thought to be pulmonary vs UTI given UA+. CXR 08/19 showing improved R lung infiltrates with diuresis, however increased L base infiltrate vs atelectatis? Repeat CXR. #AMS: patient was altered and difficult to rouse on 08/20. Febrile 100.4. CT head wo acute changes. Ammonia wnl. Trop wnl. LA wnl. #UTI: ceftriaxone. #pneumonia: seen on CXR 08/19, possible developing LLL pna. Ceftriaxone, azithromycin (08/20/20). Vanc DC, MRSA screen negative. pending legionella ag, Strep pneumo ag. COVID negative on 08/17/20. #UTI: UA+. Ucx pending. Ceftriaxone. #Recurrent falls: advanced and progressing spinal stenosis. PT/OT eval. B12, folate wnl. #dyspnea: BNP elevated 1600. Tachycardic. Likely fluid overloaded. 2D echo ordered. CTA/PE - negative for pulmonary embolism. D/w Zhang. Severe pulmonary HTN. #severe pulmonary hypertension: suspected based on echo per Dr. Holcomb. Consult ed pulmonary Dr. Blount. #sinus tachycardia: negative for PE. TSH/FT4 wnl. sinus tach on tele. Overnight HR 150s. Cardiology consult, discussed with Dr. Holcomb. Patient's tachycardiac likely related to pulmonary hypertension/AUDRA. Will keep metoprolol 25 mg bid. #DM2: ISS, FSBS AC and HS. Hypoglycemic precautions. A1c 9.2. BG 90-150. Reduce levemir to 30 units qam and 20 units qpm. (home dose levemir 50 unts qam). #Sacral pressure ulcers: frequent turning. wound care. clean with vashe. foam dressing. Heel float boots (no heel ulceration noted on admission). Informed Dr. Haynes, she is well known to the wound care service. He will follow up with her on DC. #ALP elevation/hyperbilirubinemia: CT abdo. liver US. Hepatomegaly , concern for cirrosis. Hepatic steatosis. Mild anasarca. Splenomegaly. Suspect SEGURA. US showing possible sludge. Discussed with Dr. Hope. Possible cardiac hepatopathy secondary to CHF vs Pulmonary HTN, although SEGURA cirrhosis not excluded. MRCP no acute findings. Ordered. PATRICK+, ordered PATRICK titers. Negative anti-mitochondrial ab. Likely hepatic congestion from cor pulmonale 2/2 pulmonary hypertension. #Urinary retention: check bladder scan. straight cath if > 250 cc. #vaginal candidiasis: diflucan 150 mg PO once. miconazole. #Lumbar spinal stenosis; severe at L4/L5. Has been seen by Dr. Mena, and was referred to specialist in [place]. OR delayed given uncontrolled DM2, patient was asked to return this but did not follow up. Reports bilateral LE weakness L > R. Recurrent falls. Absent/minimal rectal tone. Discussed with Dr. Sheppard, assess patient. This is not cauda equina. Progression of spinal stenosis. Recommends ongoing outpatient follow up, although patient states that she is happy with her level of mobility. #Schizoid personality disorder,anxiety: continue home meds #Hydradenitis suppurativa: resume home meds. wound care. will bring home humira. #abdo distension: CT reading mild anasarca, heavy stool burden vs partial large bowel obs. Had 2 BMs on 07/25/20. 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 Needs outpatient sleep study. DVT ppx: lovenox Dispo: admission expected to span > 2 midnights. PT/OT assessment pending, may require rehab. VS, I&O, 24H, [facility] Vital Signs/I&O Vital Signs Date Time Temp Pulse Resp B/P (MAP) Pulse Ox O2 Delivery O2 Flow Rate FiO2 08/21/20 12:00 3.0 08/21/20 12:00 98.8 95 24 116/60 (78) 95 Nasal Cannula I&O- Last 24 Hours up to 6 AM 08/21/20 06:00 Intake Total 1845 ml Output Total 1375 ml Balance 470 ml Laboratory Data 24H LABS Laboratory Tests 2 08/20/20 17:20: Immature Granulocyte % (Auto) 1.1, Neutrophils (%) (Auto) 65.1, Lymphocytes (%) (Auto) 24.1, Monocytes (%) (Auto) 7.2H, Eosinophils (%) (Auto) 1.9, Basophils (%) (Auto) 0.6, Neutrophils # (Auto) 3.1, Lymphocytes # (Auto) 1.1L, Monocytes # (Auto) 0.3, Eosinophils # (Auto) 0.1, Basophils # (Auto) 0.0, Nucleated Red Blood Cells % (auto) 0.0, Anion Gap 4L, Glomerular Filtration Rate > 60.0, Lactic Acid Level 0.8, Calcium Level 7.7L, Total Bilirubin 1.3H, Aspartate Amino Transf (AST/SGOT) 72H, Alanine Aminotransferase (ALT/SGPT) 35, Alkaline Phosphatase 440H, Ammonia < 10, Troponin I 0.02, Total Protein 5.6L, Albumin 2.0L, Albumin/Globulin Ratio 0.6L 08/20/20 18:23: Blood Gas Bicarbonate Standard 26.9H, Arterial Blood pH 7.362, Arterial Blood Partial Pressure CO2 52.7H, Arterial Blood Partial Pressure O2 79.9, Arterial Blood Total CO2 30.9, Arterial Blood HCO3 29.2H, Arterial Blood Base Excess 2.8H, Arterial Blood Oxygen Saturation 95.7 08/20/20 21:26: Bedside Glucose (Misc Panel) 156H 08/21/20 02:20: Bedside Glucose (Misc Panel) 131H 08/21/20 04:59: Immature Granulocyte % (Auto) 1.0, Neutrophils (%) (Auto) 62.4, Lymphocytes (%) (Auto) 26.7, Monocytes (%) (Auto) 6.6H, Eosinophils (%) (Auto) 2.5, Basophils (%) (Auto) 0.8, Neutrophils # (Auto) 3.0, Lymphocytes # (Auto) 1.3L, Monocytes # (Auto) 0.3, Eosinophils # (Auto) 0.1, Basophils # (Auto) 0.0, Nucleated Red Blood Cells % (auto) 0.0, Anion Gap 4L, Glomerular Filtration Rate > 60.0, Abraham cium Level 8.2L, Magnesium Level 2.3, Total Bilirubin 1.3H, Aspartate Amino Transf (AST/SGOT) 73H, Alanine Aminotransferase (ALT/SGPT) 39, Alkaline Phosphatase 484H, Total Protein 6.1L, Albumin 2.1L, Albumin/Globulin Ratio 0.5L 08/21/20 11:37: Bedside Glucose (Misc Panel) 160H 08/21/20 12:35: Blood Gas Bicarbonate Standard 23.9, Arterial Blood pH 7.361, Arterial Blood Partial Pressure CO2 45.2H, Arterial Blood Partial Pressure O2 84.1, Arterial Blood Total CO2 26.4, Arterial Blood HCO3 25.0, Arterial Blood Base Excess -0.7, Arterial Blood Oxygen Saturation 96.4 CBC/BMP Laboratory Tests 08/20/20 17:20 08/21/20 04:59 Microbiology Microbiology 08/20/20 Urine Culture, Received Pending 08/19/20 Respiratory Virus Panel (PCR) ([facility]) - Final, Complete 08/19/20 Blood Culture - Preliminary, Resulted No growth after 24 hours . All specim... 08/19/20 Urine Culture, Received Pending RAMON LANZA MD Aug 21, 2020 16:14
[2020-08-21] MEDS: HumaLOG INSULIN (NovoLOG) PER UNIT SC SCH ×2 (16:55→21:00)
[2020-08-21] MEDS: cloZAPine 25 MG TAB (S0136) PO SCH ×2 (21:04→21:21)
[2020-08-21] MEDS: MICONAZOLE-7 VAGINAL 2% CREAM 47.7 GM PV SCH (21:30)
[2020-08-22] VITALS (17 sets, daily range): BP systolic 97–126; BP diastolic 50–69; O2SAT 90–97
[2020-08-22] MEDS: cefTRIAXone SOD 1 GM in D5W MINI-BAG PLUS 50 ML IV SCH (03:56)
[2020-08-22] MEDS: AZITHROMYCIN INJ 500 MG, VIAL MATE ADAPTER 1 EACH in D5W 250 ML IV SCH (04:49)
[2020-08-22 05:47] LABS: HEMATOCRIT 42.4 % (36.0-47.0); HEMOGLOBIN 12.3 g/dl (12.0-15.5); MEAN CORPUSCULAR VOLUME 82.8 fl (80.0-96.0); PLATELET COUNT, AUTOMATED 122 10^3/uL (150-450); RED BLOOD COUNT 5.12 10^6/uL (4.00-5.40); WHITE BLOOD COUNT 3.9 10^3/uL (4.0-10.0)
[2020-08-22] MEDS: LEVOTHYROXINE 125MCG TABLET (0.125MG) PO SCH (06:03)
[2020-08-22 06:16] LABS: ALBUMIN 1.9 GM/DL (3.2-5.2); ALT/SGPT 35 U/L (12-78); BILIRUBIN,TOTAL 1.1 MG/DL (0.2-1.0); BLOOD UREA NITROGEN 20 MG/DL (7-18); CALCIUM LEVEL 7.9 MG/DL (8.8-10.2); CARBON DIOXIDE LEVEL 31 MEQ/L (21-32); CHLORIDE LEVEL 109 MEQ/L (98-107); CREATININE FOR GFR 0.71 MG/DL (0.55-1.30); GLOMERULAR FILTRATION RATE > 60.0 (>45); GLUCOSE, FASTING 160 MG/DL (70-100); MAGNESIUM LEVEL 2.1 MG/DL (1.8-2.4); POTASSIUM SERUM 3.8 MEQ/L (3.5-5.1); SODIUM LEVEL 143 MEQ/L (136-145); TOTAL PROTEIN 5.8 GM/DL (6.4-8.2)
[2020-08-22 06:31] LABS: LYMPHOCYTES 40 % (16-44); MONOCYTES 1 % (0-5); NEUTROPHILS 59 % (28-66); PLATELET ESTIMATE NORMAL (NORMAL)
--- NOTE | 2020-08-22 06:56 | ECHO ---
DATE OF PROCEDURE: 08/19/2020 Age: 65 Gender: Female Height: 64 inches Weight: 240 pounds Body surface area: 2.11 m2 PATIENT LOCATION: Inpatient currently in progressive care unit (PCU). REFERRING PHYSICIAN: Murtaza Cunningham MD. INDICATION: Dyspnea. Abnormal EKG. MEASUREMENTS: 2D Measurements: RV 3.6 cm LV 4.2 cm Septum 1.0 cm Posterior wall 1.0 cm Aortic Root 3.0 cm LA 3.6 cm LVEF 60% Doppler Measurements: AV 1.39 m/s LVOT 0.85 m/s LVOT diameter 1.8 cm MV-E 71, A 78, E/A ratio 0.9 Early mitral deceleration time 127 msec E prime medial 8.7, A prime medial 9.5, E prime lateral 8.8 Average E/E prime ratio 8.1/PCWP 12 mmHg PV 0.8 m/s Pulmonary artery acceleration time 77 msec PASP 47 mmHg IVC 1.3 cm COMMENTS: Sinus tachycardia without intraventricular conduction disturbance. Technically challenging study in light of the patients body habitus, but diagnostically useful information was still obtained. M-mode and two-dimensional echocardiography was performed with pulse, continuous wave, color flow, and tissue Doppler studies. Normal left ventricular size and wall thickness. Septal straightening suspected to be a reflection of right ventricular pressure overload, but septal wall thickening was normal. Other left ventricular wall segments move normally and thicken normally against prior infarction. Preserved global resting left ventricular systolic function. Normal left atrial size with grade 1 LV diastolic dysfunction, but currently normal estimated mean left atrial pressure. Right heart chamber sizes upper limits of normal with adequate right ventricular free wall motion and Doppler evidence of at least moderate pulmonary hypertension. IVC size at this time was not dilated. Because of her body habitus, it was difficult to track respiratory variation, but this appeared to be normal against an elevated central venous pressure at this time. Normal aortic dimensions. Normal appearing and functioning valvular structures. Minuscule pericardial fluid-physiologic ? MTDD
--- NOTE | 2020-08-22 07:11 | ECGEPIP ---
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
--- NOTE | 2020-08-22 07:15 | ECGEPIP ---
[facility] Test Date: 2020-08-19 Pat Name: DAMARIS URBAN Department: Room: [place] [address] Gender: Female Manager Personal: JAS : 1955 Requested By: RAMON LANZA Order Number: [id number] Reading MD: Claudio Main Measurements Intervals [place] Rate: 109 P: 55 TN: 137 QRS: -17 QRSD: 101 T: 72 QT: 330 QTc: 445 Interpretive Statements SINUS TACHYCARDIA POSSIBLE ANTERIOR MYOCARDIAL INFARCTION, OLD INFERIOR MYOCARDIAL INFARCTION,OLD NO CHANGE COMPARED TO 08/18/20 Electronically Signed on 08-22-2020 7:15:22 EST by Claudio Main
--- NOTE | 2020-08-22 07:23 | ECGEPIP ---
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
[2020-08-22] MEDS: METOPROLOL SUCC *XL* 25MG TAB (TopROL *XL*) PO SCH ×2 (09:00→21:27)
[2020-08-22] MEDS: MIRALAX *UNIT DOSE* 17GM PACKET PO SCH (09:18)
[2020-08-22] MEDS: ENOXAPARIN 40MG/0.4ML SYRINGE (J1650 PER 10MG) SC SCH (09:19)
[2020-08-22] MEDS: SERTRALINE 100 MG TAB PO SCH ×2 (09:20→21:29)
[2020-08-22] MEDS: LEVEMIR (INSULIN DETEMIR) 1 UNITS/0.01ML SC SCH ×2 (09:20→21:30)
[2020-08-22] MEDS: HumaLOG INSULIN (NovoLOG) PER UNIT SC SCH ×4 (09:20→21:00)
[2020-08-22] MEDS: hydrOXYzine 25 MG TAB PO SCH ×2 (09:21→21:26)
[2020-08-22] MEDS: GABAPENTIN 100 MG CAP PO SCH ×3 (09:21→21:29)
[2020-08-22] MEDS: DOCUSATE SODIUM 100MG CAPSULE PO SCH ×2 (09:23→21:29)
[2020-08-22] MEDS: cloZAPine 100 MG TAB (S0136) PO SCH ×2 (09:25→21:29)
[2020-08-22] MEDS: ZIPRASIDONE 20MG CAPSULE (GEODON) PO SCH ×2 (09:25→21:29)
[2020-08-22] MEDS: NYSTATIN 100,000 UNITS/GM TOPICAL PWD 15 GM TOP SCH ×2 (09:26→21:26)
[2020-08-22 10:44] LABS: HEPATITIS B SURFACE ANTIGEN NEGATIVE (NEGATIVE)
[2020-08-22 11:11] LABS: HEPATITIS B CORE ANTIBODY IGM NEGATIVE (NEGATIVE); HEPATITIS C VIRUS ABY INDEX 0.2 INDEX (<0.8)
[2020-08-22 11:14] LABS: HEPATITIS A ANTIBODY IGM NEGATIVE (NEGATIVE)
--- NOTE | 2020-08-22 14:38 | REP ---
INDICATION: fevers. COMPARISON: Comparison chest x-ray August 19, 2020.. TECHNIQUE: Single portable sitting AP view. FINDINGS: Monitoring electrodes are seen. There is coarse linear platelike atelectasis in the left perihilar and left base region unchanged from August 19 and August 17, 2020 prior radiographs. No acute infiltrate is apparent. Right lung remains clear. Pleural angles are sharp. Heart size is normal. IMPRESSION: Moderate left perihilar and left base platelike atelectasis again noted unchanged. No new infiltrates seen. <Electronically signed by Mayur Mcclure > 08/22/20 [id number]
[2020-08-22 15:07] LABS: BODY FLUID CULTURE Not indicated. (.); LEGIONELLA ANTIGEN URINE Negative (Negative); ORGANISM ID Not indicated. (.); SPECIMEN SOURCE Urine (.); URINE STREP PNEUMONIAE ANTIGEN Negative (Negative)
[2020-08-22] MEDS: MICONAZOLE-7 VAGINAL 2% CREAM 47.7 GM PV SCH (21:24)
[2020-08-22] MEDS: cloZAPine 25 MG TAB (S0136) PO SCH (21:29)
--- NOTE | 2020-08-22 21:34 | IPNPDOC ---
Date Seen The patient was seen on 08/22/20. Progress Note SUBJECTIVE: Patient seen and examined at bedside. Encephalopathy has resolved, but patient continues to spike fevers. She denies dysuria, chest pain, cough, back pain, palpitations, headache and subjective chills. Last fever 100.8 at 08/22/20 at midnight. PHYSICAL EXAMINATION: VITAL SIGNS: Please see below. General: Looks comfortable. Nontoxic HEENT: PERRLA, EOMI, sclerae clear Neck: supple, normal ROM, no JVD Respiratory: lungs CTAB, no wheeze, no rales, no crackles CVS: RRR, normal S1, S2, no murmurs, hypertensive Abdo: soft, no masses, no hepatosplenomegaly, BS+, no rebound tenderness, obese Extremities: no edema, pulses 2+, no cyanosis, no heel ulcers MSK: no joint deformities, normal ROM Neuro: Cranial nerves 3-12 intact bilaterally. Muscle strength diminished in the LLE vs RLE at S1. Psych: calm, cooperative, AAO x 3 LABORATORY DATA, IMAGING STUDIES, MICROBIOLOGY: Please see below. Echocardiogram: 08/20/20 MEASUREMENTS: 2D Measurements: RV 3.6 cm LV 4.2 cm Septum 1.0 cm Posterior wall 1.0 cm Aortic Root 3.0 cm LA 3.6 cm LVEF 60% Doppler Measurements: AV 1.39 m/s LVOT 0.85 m/s LVOT diameter 1.8 cm MV-E 71, A 78, E/A ratio 0.9 Early mitral deceleration time 127 msec E prime medial 8.7, A prime medial 9.5, E prime lateral 8.8 Average E/E prime ratio 8.1/PCWP 12 mmHg PV 0.8 m/s Pulmonary artery acceleration time 77 msec PASP 47 mmHg IVC 1.3 cm COMMENTS: Sinus tachycardia without intraventricular conduction disturbance. Technically challenging study in light of the patients body habitus, but diagnostically useful information was still obtained. M-mode and two-dimensional echocardiography was performed with pulse, continuouswave, color flow, and tissue Doppler studies. Normal left ventricular size and wall thickness. Septal straightening suspected to be a reflection of right ventricular pressure overload, but septal wall thickening was normal. Other left ventricular wall segments move normally and thicken normally against prior infarction. Preserved global resting left ventricular systolic function. Normal left atrial size with grade 1 LV diastolic dysfunction, but currently normal estimated mean left atrial pressure. Right heart chamber sizes upper limits of normal with adequate right ventricula rfree wall motion and Doppler evidence of at least moderate pulmonary hypertension. IVC size at this time was not dilated. Because of her body habitus, it was difficult to track respiratory variation, but this appeared to be normal againstan elevated central venous pressure at this time. Normal aortic dimensions. Normal appearing and functioning valvular structures. Minuscule pericardial fluid-physiologic ? CXR (08/22/20): Monitoring electrodes are seen. There is coarse linear platelike atelectasis in the left perihilar and left base region unchanged from August 19 and August 17, 2020 prior radiographs. No acute infiltrate is apparent. Right lung remains clear. Pleural angles are sharp. Heart size is normal. IMPRESSION: Moderate left perihilar and left base platelike atelectasis again noted unchanged. No new infiltrates seen. CTA PE (08/17/20): IMPRESSION: 1. Bilateral ground-glass pulmonary parenchymal opacities in the upper lung zones bilaterally. Clinical correlation to exclude multifocal pneumonitis, likely viral, suggested. 2. There is no aortic dissection or aneurysm. 3. Mediastinal lymphadenopathy measuring up to 1.2 cm in the left periaortic region. 4. There are no pulmonabry emboli. Evaluation limited by suboptimal inspiratory effort. CT abdo pelvis w contrast (08/17/20): IMPRESSION: 1. There is enlargement of the left and caudate lobes of the liver as well as a lobular surface contour of the liver. Findings may indicate the presence of cirrhosis in this patient with no reported history of chronic liver disease. No focal abnormality demonstrated. Hepatomegaly. Hepatic steatosis. 2. There are gallstones present. No evidence of cholecystitis demonstrated. 3. There is moderate splenomegaly with a maximum span of 17 centimeters. No focal abnormalities demonstrated. 4. There is increased feces throughout the colon consistent with constipation. Also noted is diffuse dilatation of the colon to the level of the rectum suggesting partial colonic obstruction versus changes related to chronic fecal retention. 5. There has been a hysterectomy. 6. Mild anasarca. Liver US (08/17/20): IMPRESSION: 1. Hepatic steatosis. 2. Mild thickening of the gallbladder wall appears related to abundant pericholecystic fat. Increased density demonstrated intraluminal at the neck of the gallbladder may represent gravel versus echogenic sludge. No definite calculi demonstrated. Clinical correlation to exclude cholecystitis suggested. 3. Nonvisualized pancreas. CXR (08/17/20): FINDINGS: Examination is limited by portable technique, underpenetration, and poor inspiratory effort. However, diffuse subtle bilateral interstitial and alveolar infiltrates are suspected. No effusion. No pneumothorax. Skeletal structures intact. IMPRESSION: Subtle diffuse bilateral interstitial and alveolar infiltrates suspected. MICROBIOLOGY: Please see below. ASSESSMENT: 65 yo F with a hx of DM2, lumbar stenosis (severe at L4/L5), HLD, presenting to ER with recurrent BLE weakness and frequent falls. PLAN: #SIRS: patient dyspneic, altertered on 08/20. no WBC. Source thought to be pulmonary vs UTI given UA+. CXR 08/19 showing improved R lung infiltrates with diuresis, however increased L base infiltrate vs atelectatis? Repeat CXR. #AMS: patient was altered and difficult to rouse on 08/20. Febrile 100.4. CT head wo acute changes. Ammonia wnl. Trop wnl. LA wnl. Resolved. #UTI: ceftriaxone. #pneumonia: seen on CXR 08/19, possible developing LLL pna. Ceftriaxone, azithromycin (08/20/20). Vanc DC, MRSA screen negative. pending legionella ag negative, Strep pneumo ag negative. COVID negative on 08/17/20. I suspect the CXR likely atelectasis given poor mobility. PT. #UTI: UA+. Ucx + e coli. Ceftriaxone. #Recurrent falls: advanced and progressing spinal stenosis. PT/OT eval. B12, folate wnl. #dyspnea: BNP elevated 1600. Tachycardic. Likely fluid overloaded. 2D echo ordered. CTA/PE - negative for pulmonary embolism. D/w Zhang. Severe pulmonary HTN. #severe pulmonary hypertension: suspected based on echo per Dr. Holcomb. Consulted pulmonary Dr. Blount. #sinus tachycardia: negative for PE. TSH/FT4 wnl. sinus tach on tele. Overnight HR 150s. Cardiology consult, discussed with Dr. Holcomb. Patient's tachycardiac likely related to pulmonary hypertension/AUDRA. Will keep metoprolol 25 mg bid. Patient seen by Dr. Blount, recommended outpatient sleep study. #DM2: ISS, FSBS AC and HS. Hypoglycemic precautions. A1c 9.2. BG 90-150. Reduce levemir to 30 units qam and 20 units qpm. (home dose levemir 50 unts qam). #Sacral pressure ulcers: frequent turning. wound care. clean with vashe. foam dressing. Heel float boots (no heel ulceration noted on admission). Informed Dr. Haynes, she is well known to the wound care service. He will follow up with her on DC. #ALP elevation/hyperbilirubinemia: CT abdo. liver US. Hepatomegaly , concern for cirrosis. Hepatic steatosis. Mild anasarca. Splenomegaly. Suspect SEGURA. US s howing possible sludge. Discussed with Dr. Hope. Possible cardiac hepatopathy secondary to CHF vs Pulmonary HTN, although SEGURA cirrhosis not excluded. MRCP no acute findings. Ordered. PATRICK+, ordered PATRICK titers. Negative anti-mitochondrial ab. Likely hepatic congestion from cor pulmonale 2/2 pulmonary hypertension. #Urinary retention: check bladder scan. straight cath if > 250 cc. #vaginal candidiasis: diflucan 150 mg PO once. miconazole. #Lumbar spinal stenosis; severe at L4/L5. Has been seen by Dr. Mena, and was referred to specialist in [place]. OR delayed given uncontrolled DM2, patient was asked to return this but did not follow up. Reports bilateral LE weakness L > R. Recurrent falls. Absent/minimal rectal tone. Discussed with Dr. Sheppard, assess patient. This is not cauda equina. Progression of spinal stenosis. Recommends ongoing outpatient follow up, although patient states that she is happy with her level of mobility. #Schizoid personality disorder,anxiety: continue home meds #Hydradenitis suppurativa: resume home meds. wound care. will bring home humira. #abdo distension: CT reading mild anasarca, heavy stool burden vs partial large bowel obs. Had 2 BMs on 07/25/20. 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 Needs outpatient sleep study. DVT ppx: lovenox Dispo: admission expected to span > 2 midnights. PT/OT assessment pending, may require rehab. VS, I&O, 24H, Fishbone Vital Signs/I&O Vital Signs Date Time Temp Pulse Resp B/P (MAP) Pulse Ox O2 Delivery O2 Flow Rate FiO2 08/22/20 20:00 99.4 104 24 126/69 (88) 95 Nasal Cannula 3.0 I&O- Last 24 Hours up to 6 AM 08/22/20 06:00 Intake Total 1670 ml Output Total 800 ml Balance 870 ml Laboratory Data 24H LABS Laboratory Tests 2 08/22/20 05:32: Neutrophils (%) (Auto) , Nucleated Red Blood Cells % (auto) 0.0, Neutrophils 59, Lymphocytes (Manual) 40, Monocytes (Manual) 1, Red Blood Cell Morphology NORMAL, Platelet Estimate NORMAL, Anion Gap 3L, Glomerular Filtration Rate > 60.0, Calcium Level 7.9L, Magnesium Level 2.1, Total Bilirubin 1.1H, Aspartate Amino Transf (AST/SGOT) 42H, Alanine Aminotransferase (ALT/SGPT) 35, Alkaline Ph osphatase 512H, Total Protein 5.8L, Albumin 1.9L, Albumin/Globulin Ratio 0.5L 08/22/20 12:18: Bedside Glucose (Misc Panel) 265H 08/22/20 17:04: Bedside Glucose (Misc Panel) 146H 08/22/20 21:04: Bedside Glucose (Misc Panel) 196H CBC/BMP Laboratory Tests 08/22/20 05:32 Microbiology Microbiology 08/20/20 Urine Culture - Final, Complete Escherichia Coli 08/19/20 Respiratory Virus Panel (PCR) ([facility]) - Final, Complete 08/19/20 Blood Culture - Preliminary, Resulted No Growth after 48 hours. All Specime... 08/19/20 Urine Culture - Final, Complete Escherichia Coli RAMON LANZA MD Aug 22, 2020 21:34
[2020-08-23] VITALS (11 sets, daily range): BP systolic 101–130; BP diastolic 55–65; O2SAT 93–95
[2020-08-23 01:25] LABS: VENOUS BASE EXCESS 7.4 (-2.0-2.0); VENOUS O2 SATURATION 91.7 % (60.0-80.0); VENOUS PARTIAL PRESSURE CO2 50.1 mmHg (38.0-50.0); VENOUS PH 7.436 UNITS (7.330-7.430); VENOUS STANDARD HCO3 31.1 MEQ/L; VENOUS TOTAL CO2 34.5 MEQ/L (24.0-28.0)
[2020-08-23] MEDS: cefTRIAXone SOD 1 GM in D5W MINI-BAG PLUS 50 ML IV SCH (03:46)
[2020-08-23] MEDS: AZITHROMYCIN INJ 500 MG, VIAL MATE ADAPTER 1 EACH in D5W 250 ML IV SCH (04:43)
[2020-08-23 05:49] LABS: HEMOGLOBIN 12.4 g/dl (12.0-15.5); MEAN CORPUSCULAR HEMOGLOBIN 24.4 pg (27.0-33.0); MEAN CORPUSCULAR HGB CONC 29.5 g/dl (32.0-36.5); MEAN CORPUSCULAR VOLUME 82.5 fl (80.0-96.0); PLATELET COUNT, AUTOMATED 108 10^3/uL (150-450); RED BLOOD COUNT 5.09 10^6/uL (4.00-5.40); WHITE BLOOD COUNT 4.3 10^3/uL (4.0-10.0)
[2020-08-23 06:18] LABS: ALT/SGPT 32 U/L (12-78); BILIRUBIN,TOTAL 1.2 MG/DL (0.2-1.0); BLOOD UREA NITROGEN 19 MG/DL (7-18); CARBON DIOXIDE LEVEL 31 MEQ/L (21-32); CHLORIDE LEVEL 106 MEQ/L (98-107); CREATININE FOR GFR 0.78 MG/DL (0.55-1.30); GLOMERULAR FILTRATION RATE > 60.0 (>45); GLUCOSE, FASTING 168 MG/DL (70-100); MAGNESIUM LEVEL 2.1 MG/DL (1.8-2.4); POTASSIUM SERUM 3.6 MEQ/L (3.5-5.1); SODIUM LEVEL 143 MEQ/L (136-145); TOTAL PROTEIN 5.6 GM/DL (6.4-8.2)
[2020-08-23 06:25] LABS: ATYPICAL LYMPH 1 % (0-5); BASOPHILS 2 % (0-1); EOSINOPHILS 3 % (0-3); LYMPHOCYTES 32 % (16-44); MONOCYTES 1 % (0-5); NEUTROPHILS 60 % (28-66)
[2020-08-23 06:26] LABS: PLATELET ESTIMATE NORMAL (NORMAL)
[2020-08-23] MEDS: LEVOTHYROXINE 125MCG TABLET (0.125MG) PO SCH (07:18)
[2020-08-23] MEDS: ENOXAPARIN 40MG/0.4ML SYRINGE (J1650 PER 10MG) SC SCH (08:37)
[2020-08-23] MEDS: HumaLOG INSULIN (NovoLOG) PER UNIT SC SCH ×4 (08:38→21:00)
[2020-08-23] MEDS: LEVEMIR (INSULIN DETEMIR) 1 UNITS/0.01ML SC SCH ×2 (08:38→20:37)
[2020-08-23] MEDS: GABAPENTIN 100 MG CAP PO SCH ×3 (08:39→20:36)
[2020-08-23] MEDS: hydrOXYzine 25 MG TAB PO SCH ×2 (08:39→20:35)
[2020-08-23] MEDS: ZIPRASIDONE 20MG CAPSULE (GEODON) PO SCH ×2 (08:39→20:35)
[2020-08-23] MEDS: cloZAPine 100 MG TAB (S0136) PO SCH ×2 (08:39→20:35)
[2020-08-23] MEDS: DOCUSATE SODIUM 100MG CAPSULE PO SCH ×2 (08:39→20:36)
[2020-08-23] MEDS: METOPROLOL SUCC *XL* 25MG TAB (TopROL *XL*) PO SCH ×2 (08:39→20:36)
[2020-08-23] MEDS: SERTRALINE 100 MG TAB PO SCH ×2 (08:39→20:35)
[2020-08-23] MEDS: MIRALAX *UNIT DOSE* 17GM PACKET PO SCH (08:39)
[2020-08-23] MEDS: NYSTATIN 100,000 UNITS/GM TOPICAL PWD 15 GM TOP SCH ×2 (08:40→20:37)
--- NOTE | 2020-08-23 18:18 | CR ---
CONSULTATION DATE OF CONSULTATION: 08/23/2020 CONSULT ORDERED BY: Rodney Gu MD REASON FOR CONSULTATION: Treatment recommendations. 65-year-old female with advanced hidradenitis suppurativa, morbidly obese, recently admitted. The patient has areas around the buttocks area which on close examination are consistent with incontinent dermatitis. There are no deep wounds and no evidence of deep tissue injury at this time. These areas are not specifically over a bony prominence The patient is incontinent of loose partially formed stool but does have a Walters catheter in place. These areas are not specifically over a bony prominence. The initial treatment for this is Cavilon Advanced Skin Protectant which is applied once a week using the wand applicator. Touch-up with the individual skin prep packets can also be used. An alternative method, which is acceptable but less desirable, is to use Desitin on effected areas. Prior to applying the Cavilon, the area should be cleaned with a warm wash cloth and then cleansed with Vashe wound cleanser. The patient also has a large abdominal wall pannus with areas of chronic but not actively inflamed hidradenitis suppurativa lesions as evidenced by chronic scarring and pitting without any noticeable purulent drainage. Nystatin powder has been used and the remnants are seen in the skin folds. Our recommendation is to discontinue Nystatin, to clean the skin folds underneath the pannus and in the inguinal area with a warm washcloth and then again to use Vashe wound cleanser to clean the area followed by placing InterDry which is available in the hospital. This is a medicated gauze-like material that is inserted between the skin folds and should extend approximately 2-3 cm outside the skin fold.. It will wick away any moisture, it will prevent skin touching skin, eliminating friction and local trauma, and it is medicated. It should improve the effected areas in a few days. It is important when inserting the inter dry, not to double up for overlap the InterDry. Once inserted it should be rsvh-[id number]-qaqmdoe not xqcf-RacgeXaw-FseyzWin-skin. It is also important to have the outer edge of the InterDry extending outside of the skin edge to allow the wicking will be complete. The patient is on Humira and that seems to be improving the patient's overall condition regarding her hidradenitis. At present, no indication for antibiotic therapy. If the patient does develop localized pustules, these should be treated by incision and drainage (I and D). If that is the case, a foam dressing should be applied over any purulent draining wound and these also can be cleansed with Vashe. MTDD
[2020-08-23 19:07] LABS: ANA (HEP2) Negative (.)
[2020-08-23] MEDS: ACETAMINOPHEN TAB 650MG DOSE (2X325MG) PO PRN (20:35)
[2020-08-23] MEDS: cloZAPine 25 MG TAB (S0136) PO SCH (20:35)
[2020-08-23] MEDS: MICONAZOLE-7 VAGINAL 2% CREAM 47.7 GM PV SCH (20:44)
--- NOTE | 2020-08-23 21:24 | IPNPDOC ---
Text Note Date of Service The patient was seen on 08/23/20. NOTE SUBJECTIVE: Patient seen and examined at bedside. Encephalopathy has resolved. Afebrile overnight. She denies dysuria, chest pain, cough, back pain, palpitations, headache and subjective chills. Last fever 100.8 at 08/22/20 at midnight. Says she feels about the same. Willing to work with PT today. PHYSICAL EXAMINATION: General: Looks comfortable. Nontoxic HEENT: PERRLA, EOMI, sclerae clear Neck: supple, normal ROM, no JVD Respiratory: lungs CTAB, no wheeze, no rales, no crackles CVS: RRR, normal S1, S2 Abdo: soft, no masses, BS+, no rebound tenderness, obese Extremities: no edema, pulses 2+, no cyanosis, no heel ulcers MSK: no joint deformities, normal ROM Neuro: Cranial nerves 3-12 intact bilaterally. Muscle strength diminished in the LLE vs RLE at S1. Psych: calm, cooperative, AAO x 3 Skin: Difficult to turn patient over to examine back but nurse describes to me sacral ulcers present. Will have wound care evaluate. ASSESSMENT/PLAN 65 yo F with a hx of DM2, lumbar stenosis (severe at L4/L5), HLD, presenting to ER with recurrent BLE weakness and frequent falls. # SIRS 2/2 E Coli Pyelonephritis: Describes CVA tenderness on presentation, fever, and UA was found to be dirty. on IV Ceftriaxone. Afebrile since 08/22 midnight. UCx E Coli. # Acute encephalopathy: likely 2/2 infection. AMS now resolved. patient was altered and difficult to rouse on 08/20. Febrile 100.4. CT head wo acute changes. Ammonia wnl. Trop wnl. LA wnl. #pneumonia: seen on CXR 08/19, possible developing LLL pna, less convincing on repeat CXR, more likely atelectasis. Ceftriaxone, azithromycin (08/20/20). Vanc DC, MRSA screen negative. pending legionella ag negative, Strep pneumo ag negative. COVID negative on 08/17/20. Incentive spirometry. #Recurrent falls: advanced and progressing spinal stenosis. PT/OT eval. B12, folate wnl. # Dyspnea possibly 2/2 CHFpEF: BNP elevated 1600. Tachycardic. Likely fluid overloaded. Echo EF 60% grade 1DD. CTA/PE negative for PE. D/w Zhang. Severe pulmonary HTN. #severe pulmonary hypertension: suspected based on echo per Dr. Holcomb. Cons ulted pulmonary Dr. Blount. #sinus tachycardia: negative for PE. TSH/FT4 wnl. sinus tach on tele. Overnight HR 150s. Cardiology consult, discussed with Dr. Holcomb. Patient's tachycardiac likely related to pulmonary hypertension/AUDRA. Will keep metoprolol 25 mg bid. Patient seen by Dr. Blount, recommended outpatient sleep study. #DM2: ISS, FSBS AC and HS. Hypoglycemic precautions. A1c 9.2. BG 90-150. Reduce levemir to 30 units qam and 20 units qpm. (home dose levemir 50 unts qam). #Sacral pressure ulcers: frequent turning. wound care. clean with vashe. foam dressing. Heel float boots (no heel ulceration noted on admission). Seen by wound care Dr Haynes 08/23/2020. #ALP elevation/hyperbilirubinemia: CT abdo. liver US. Hepatomegaly , concern for cirrosis. Hepatic steatosis. Mild anasarca. Splenomegaly. Suspect SEGURA. US showing possible sludge. Discussed with Dr. Hope. Possible cardiac hepatopathy secondary to CHF vs Pulmonary HTN, although SEGURA cirrhosis not excluded. MRCP no acute findings. Ordered. PATRICK+, ordered PATRICK titers. Negative anti-mitochondrial ab. Likely hepatic congestion from cor pulmonale 2/2 pulmonary hypertension. #Urinary retention: check bladder scan. straight cath if > 250 cc. #vaginal candidiasis: diflucan 150 mg PO once. miconazole. #Lumbar spinal stenosis; severe at L4/L5. Has been seen by Dr. Mena, and was referred to specialist in [place]. OR delayed given uncontrolled DM2, patient was asked to return this but did not follow up. Reports bilateral LE weakness L > R. Recurrent falls. Absent/minimal rectal tone. Discussed with Dr. Sheppard, assess patient. This is not cauda equina. Progression of spinal stenosis. Recommends ongoing outpatient follow up, although patient states that she is happy with her level of mobility. #Schizoid personality disorder,anxiety: continue home meds #Hydradenitis suppurativa: resume home meds. wound care. Resume home Humira #AUDRA (suspected): will trial nocturnal CPAP. Needs outpatient sleep study. DVT ppx: lovenox Dispo: admission expected to span > 2 midnights. PT/OT assessment pending, may require rehab. VS,Fishbone, I+O VS, Fishbone, I+O Laboratory Tests 08/23/20 05:32 Vital Signs Date Time Temp Pulse Resp B/P (MAP) Pulse Ox O2 Delivery O2 Flow Rate FiO2 08/23/20 20:36 101 107/57 08/23/20 20:00 97.3 26 94 Nasal Cannula 3.0 I&O- Last 24 Hours up to 6 AM 08/23/20 06:00 Intake Total 1865 ml Output Total 925 ml Balance 940 ml PONCHO LEYVA MD Aug 23, 2020 21:24
[2020-08-24] VITALS (34 sets, daily range): BP systolic 97–134; BP diastolic 54–64; O2SAT 89–97
[2020-08-24] MEDS: cefTRIAXone SOD 1 GM in D5W MINI-BAG PLUS 50 ML IV SCH (04:36)
[2020-08-24] MEDS: LEVOTHYROXINE 125MCG TABLET (0.125MG) PO SCH (05:23)
[2020-08-24] MEDS: AZITHROMYCIN INJ 500 MG, VIAL MATE ADAPTER 1 EACH in D5W 250 ML IV SCH (05:23)
[2020-08-24 05:59] LABS: HEMATOCRIT 41.9 % (36.0-47.0); HEMOGLOBIN 12.5 g/dl (12.0-15.5); MEAN CORPUSCULAR HEMOGLOBIN 24.7 pg (27.0-33.0); MEAN CORPUSCULAR HGB CONC 29.8 g/dl (32.0-36.5); MEAN CORPUSCULAR VOLUME 82.6 fl (80.0-96.0); PLATELET COUNT, AUTOMATED 108 10^3/uL (150-450); RED BLOOD COUNT 5.07 10^6/uL (4.00-5.40); WHITE BLOOD COUNT 4.7 10^3/uL (4.0-10.0)
[2020-08-24 06:27] LABS: ALT/SGPT 35 U/L (12-78); BILIRUBIN,TOTAL 1.5 MG/DL (0.2-1.0); BLOOD UREA NITROGEN 17 MG/DL (7-18); CARBON DIOXIDE LEVEL 31 MEQ/L (21-32); CHLORIDE LEVEL 105 MEQ/L (98-107); CREATININE FOR GFR 0.71 MG/DL (0.55-1.30); GLOMERULAR FILTRATION RATE > 60.0 (>45); GLUCOSE, FASTING 126 MG/DL (70-100); MAGNESIUM LEVEL 2.1 MG/DL (1.8-2.4); POTASSIUM SERUM 3.3 MEQ/L (3.5-5.1); SODIUM LEVEL 139 MEQ/L (136-145); TOTAL PROTEIN 6.2 GM/DL (6.4-8.2)
[2020-08-24 06:37] LABS: EOSINOPHILS 1 % (0-3); LYMPHOCYTES 36 % (16-44); NEUTROPHILS 63 % (28-66); PLATELET ESTIMATE NORMAL (NORMAL)
[2020-08-24] MEDS: METOPROLOL SUCC *XL* 25MG TAB (TopROL *XL*) PO SCH ×2 (08:03→20:31)
[2020-08-24] MEDS: ENOXAPARIN 40MG/0.4ML SYRINGE (J1650 PER 10MG) SC SCH (08:17)
[2020-08-24] MEDS: DOCUSATE SODIUM 100MG CAPSULE PO SCH ×2 (08:18→20:26)
[2020-08-24] MEDS: hydrOXYzine 25 MG TAB PO SCH ×2 (08:18→20:26)
[2020-08-24] MEDS: GABAPENTIN 100 MG CAP PO SCH ×3 (08:18→20:26)
[2020-08-24] MEDS: MIRALAX *UNIT DOSE* 17GM PACKET PO SCH (08:18)
[2020-08-24] MEDS: HumaLOG INSULIN (NovoLOG) PER UNIT SC SCH ×4 (08:18→20:29)
[2020-08-24] MEDS: ZIPRASIDONE 20MG CAPSULE (GEODON) PO SCH ×2 (08:18→20:27)
[2020-08-24] MEDS: LEVEMIR (INSULIN DETEMIR) 1 UNITS/0.01ML SC SCH ×2 (08:19→20:30)
[2020-08-24] MEDS: SERTRALINE 100 MG TAB PO SCH ×2 (08:19→20:28)
[2020-08-24] MEDS: cloZAPine 100 MG TAB (S0136) PO SCH ×2 (08:19→20:27)
[2020-08-24] MEDS: NYSTATIN 100,000 UNITS/GM TOPICAL PWD 15 GM TOP SCH ×2 (08:27→20:28)
[2020-08-24] MEDS ORDERED: LEVEMIR (INSULIN DETEMIR) 1 UNITS/0.01ML SC ONE (08:45)
[2020-08-24] MEDS ORDERED: KCL 10MEQ/100ML SWI (KRUN) 10 MEQ in IV 1 EA IV ONE (09:00)
--- NOTE | 2020-08-24 11:21 | REP ---
INDICATION: Left side weakness. COMPARISON: Comparison CT study August 20, 2020.. TECHNIQUE: Helical scanning is acquired. 5 mm axial images were reformatted. Coronal MPR images were generated. FINDINGS: No bony abnormality is appreciated. Visualized paranasal sinuses remain clear. There is minimal generalized volume loss. Allan-white differentiation pattern is preserved. There is no CT evidence of acute cortical infarction. No intracranial hemorrhage is seen. No mass or midline shift is appreciated. The patient is rotated to the left. IMPRESSION: Generalized volume loss again seen. No acute intracranial abnormality.. <Electronically signed by Mayur Mcclure > 08/24/20 [id number]
[2020-08-24] MEDS ORDERED: SLF 3 ML SYR IV PRN (12:00)
[2020-08-24] MEDS: SLF 3 ML SYR IV SCH ×2 (14:02→20:28)
[2020-08-24 14:56] LABS: ABG BASE EXCESS -7.1 (-2.0-2.0); ABG HCO3 16.3 MEQ/L (22.0-26.0); ABG O2 SATURATION 89.3 % (95.0-99.0); ABG PARTIAL PRESSURE CO2 27.1 mmHg (35.0-45.0); ABG PARTIAL PRESSURE O2 57.3 mmHg (75.0-100.0); ABG STANDARD HCO3 18.5 MEQ/L (22.0-26.0); ABG TOTAL CO2 17.2 MEQ/L (23.0-31.0); ABG pH (ARTERIAL) 7.398 UNITS (7.350-7.450)
[2020-08-24] MEDS: ACETAMINOPHEN TAB 650MG DOSE (2X325MG) PO PRN ×2 (14:57→20:27)
--- NOTE | 2020-08-24 16:07 | REP ---
INDICATION: L>R bilatearl LE edema. COMPARISON: None. TECHNIQUE: Multiple ultrasonographic images of the deep venous structures of the bilateral thigh were obtained from the common femoral vein to the popliteal vein along with Doppler interrogation and color flow Doppler images. FINDINGS: There is no abnormal echogenic material seen within any of the visualized deep venous structures that would suggest acute thrombosis. Coaptation is unremarkable throughout. Doppler interrogation shows an expected response to respiratory variability and augmentation. The color flow images show what appears to be a normal vascular pattern throughout. The exam is somewhat limited due to the patient's bilateral lower extremity edema. IMPRESSION: There is no ultrasonographic evidence of deep venous thrombosis involving any of the visualized deep venous structures of the bilateral thigh, as described above. <Electronically signed by Manuelito Pillai > 08/24/20 [id number]
--- NOTE | 2020-08-24 16:56 | REP ---
INDICATION: tachypnea. COMPARISON: 08/22/2020 TECHNIQUE: The technique utilized in obtaining the radiograph has magnified the cardiac silhouette and attenuated the interstitial markings. FINDINGS: The subsegmental atelectatic changes seen previously in the left lower lobe have cleared somewhat. There are no new abnormal opacities. There are no other significant changes. IMPRESSION: There has been some improvement. <Electronically signed by Manuelito Pillai > 08/24/20 [id number]
[2020-08-24] MEDS ORDERED: NS 1,000 ML IV ONE (17:00)
[2020-08-24] MEDS ORDERED: NS 1,000 ML IV SCH (17:00)
[2020-08-24] MEDS: PIPERACILLIN/TAZOBACTAM SOD 4.5 GM in D5W MINI-BAG PLUS 50 ML IV SCH (17:03)
[2020-08-24] MEDS ORDERED: VANCOMYCIN HCL 1,000 MG, VIAL MATE ADAPTER 1 EACH in D5W 250 ML IV SCH (17:15)
[2020-08-24] MEDS ORDERED: VANCOMYCIN HCL 1,000 MG, VIAL MATE ADAPTER 1 EACH in D5W 250 ML IV ONE ×6 (18:00)
--- NOTE | 2020-08-24 19:07 | IPNPDOC ---
Text Note Date of Service The patient was seen on 08/24/20. NOTE SUBJECTIVE: Patient seen and examined at bedside. Encephalopathy has resolved. Afebrile overnight. in the morining she denies dysuria, chest pain, cough, back pain, palpitations, headache and subjective chills. Last fever 100.8 at 08/22/20 at midnight. Says she feels better than yesterday and more willing to work with PT today. Update evening 08/24: I saw the patient again in the evening when she spiked a fever and was found to tachypneic and diaphoretic on exam. Says she was feeling well earlier in the day. Nurse noticed patient was acting less responsively and speech not as clear, a CT head scan stat and US duplex was done and both were negative. When I saw the patient after the CT her speech was clear and cohesive and there was no focal neurological deficits. She did still have a fever, IVFs were started and BCx were drawn. Antibiotics were escalated to Zosyn and Vancomycin. ABG done. Pulmonology Dr Blount and ID Dr King consulted. Lacatate drawn came back negative 1.0. Repeat COVID testing was done and was negative. I spoke with Rufus patients on patients request and updated him on her medical condition. PHYSICAL EXAMINATION: General: Looks comfortable. Nontoxic HEENT: PERRLA, EOMI, sclerae clear Neck: supple, normal ROM, no JVD Respiratory: lungs CTAB, no wheeze, no rales, no crackles CVS: RRR, normal S1, S2 Abdo: soft, no masses, BS+, no rebound tenderness, obese Extremities: no edema, pulses 2+, no cyanosis, no heel ulcers MSK: no joint deformities, normal ROM Neuro: Cranial nerves 3-12 intact bilaterally. Muscle strength diminished in the LLE vs RLE at S1. Psych: calm, cooperative, AAO x 3 Skin: Sacral wounds evaluated by Dr Haynes 08/23/2020 ASSESSMENT/PLAN 65 yo F with a hx of DM2, lumbar stenosis (severe at L4/L5), HLD, presenting to ER with recurrent BLE weakness and frequent falls. # Sepsis likely 2/2 E Coli Pyelonephritis: Describes CVA tenderness on presentation, fever, and UA was found to be dirty. UCx E Coli. IV Ceftriaxone which was escalated to zosyn + vanc 08/24 after she spiked another fever 08/24. ID consulted. Repeat BCx 08/24. IVFs. # Acute encephalopathy: likely 2/2 infection. AMS now resolved. patient was altered and difficult to arouse on 08/20. CT head wo acute changes. Ammonia wnl. Trop wnl. LA wnl. 08/24 has a brief period of decreased responsiveness/confusion a repeat CT head was done 08/24 which was negative. #pneumonia: seen on CXR 08/19, possible developing LLL pna, less convincing on repeat CXR, more likely atelectasis. Ceftriaxone, azithromycin (08/20/20). COVID negative on 08/17 and 08/24. Incentive spirometry. Pulmonology consult. #Recurrent falls: advanced and progressing spinal stenosis. PT/OT eval. B12, folate wnl. # Dyspnea possibly 2/2 CHFpEF: BNP elevated 1600. Mild tachycardia. Likely fluid overloaded. Echo EF 60% grade 1DD. CTA/PE negative for PE. D/w Zhang. Severe pulmonary HTN. #severe pulmonary hypertension: suspected based on echo per Dr. Holcomb. Consulted pulmonary Dr. Blount. #sinus tachycardia: negative for PE. TSH/FT4 wnl. sinus tach on tele. Cardiology consulted, discussed with Dr. Holcomb. Patient's tachycardiac likely related to pulmonary hypertension/AUDRA. Will keep metoprolol 25 mg bid. Patient seen by Dr. Blount, recommended outpatient sleep study. #DM2: ISS, FSBS AC and HS. Hypoglycemic precautions. A1c 9.2. BG 90-150. Reduce levemir to 30 units qam and 20 units qpm. (home dose levemir 50 unts qam). #Sacral pressure ulcers: frequent turning. wound care. clean with vashe. foam dressing. Heel float boots (no heel ulceration noted on admission). Seen by wound care Dr Haynes 08/23/2020 - doesn't need ABx. #ALP elevation/hyperbilirubinemia: CT abdo. liver US. Hepatomegaly , concern for cirrosis. Hepatic steatosis. Mild anasarca. Splenomegaly. Suspect SEGURA. US showing possible sludge. Discussed with Dr. Hope. Possible cardiac hepatopathy secondary to CHF vs Pulmonary HTN, although SEGURA cirrhosis not excluded. MRCP no acute findings. Ordered. PATRICK+, ordered PATRICK titers. Negative anti-mitochondrial ab. Likely hepatic congestion from cor pulmonale 2/2 pulmonary hypertension. #Urinary retention: check bladder scan. straight cath if > 250 cc. #vaginal candidiasis: diflucan 150 mg PO once. miconazole. #Lumbar spinal stenosis; severe at L4/L5. Has been seen by Dr. Mena, and was referred to specialist in [place]. OR delayed given uncontrolled DM2, patient was asked to return this but did not follow up. Reports bilateral LE we akness L > R. Recurrent falls. Absent/minimal rectal tone. Discussed with Dr. Sheppard, assess patient. This is not cauda equina. Progression of spinal stenosis. Recommends ongoing outpatient follow up, although patient states that she is happy with her level of mobility. #Schizoid personality disorder,anxiety: continue home meds #Hydradenitis suppurativa: resume home meds. wound care. 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 Needs outpatient sleep study. DVT ppx: lovenox VS,Fishbone, I+O VS, Fishbone, I+O Laboratory Tests 08/24/20 05:13 Vital Signs Date Time Temp Pulse Resp B/P (MAP) Pulse Ox O2 Delivery O2 Flow Rate FiO2 08/24/20 18:20 101.0 08/24/20 18:00 97 Nasal Cannula 2.0 08/24/20 16:00 96 32 123/57 (79) I&O- Last 24 Hours up to 6 AM 08/24/20 06:00 Intake Total 1680 ml Output Total 1000 ml Balance 680 ml PONCHO LEYVA MD Aug 24, 2020 19:07
[2020-08-24] MEDS: cloZAPine 25 MG TAB (S0136) PO SCH (20:27)
[2020-08-25] VITALS (28 sets, daily range): BP systolic 90–127; BP diastolic 52–61; O2SAT 88–98
[2020-08-25] MEDS: PIPERACILLIN/TAZOBACTAM SOD 4.5 GM in D5W MINI-BAG PLUS 50 ML IV SCH ×4 (00:10→20:45)
[2020-08-25] MEDS ORDERED: FUROSEMIDE 40MG/4ML VIAL (J1940) IV ONE (01:00)
[2020-08-25] MEDS: IPRATROPIUM 0.5MG/ALBUTEROL 2.5MG INH SOL UD 3ML (DUONEB) NEB SCH ×7 (01:06→23:35)
[2020-08-25] MEDS: LEVOTHYROXINE 125MCG TABLET (0.125MG) PO SCH (04:35)
[2020-08-25] MEDS: SLF 3 ML SYR IV SCH ×3 (04:35→21:47)
[2020-08-25 05:13] LABS: HEMOGLOBIN 12.4 g/dl (12.0-15.5); MEAN CORPUSCULAR HEMOGLOBIN 24.2 pg (27.0-33.0); MEAN CORPUSCULAR HGB CONC 29.5 g/dl (32.0-36.5); PLATELET COUNT, AUTOMATED 110 10^3/uL (150-450); RED BLOOD COUNT 5.12 10^6/uL (4.00-5.40); WHITE BLOOD COUNT 4.1 10^3/uL (4.0-10.0)
[2020-08-25] MEDS: VANCOMYCIN HCL 750 MG, VIAL MATE ADAPTER 1 EACH in D5W 250 ML IV SCH ×4 (05:22→18:52)
[2020-08-25 05:41] LABS: BLOOD UREA NITROGEN 13 MG/DL (7-18); CALCIUM LEVEL 7.8 MG/DL (8.8-10.2); CARBON DIOXIDE LEVEL 32 MEQ/L (21-32); CHLORIDE LEVEL 102 MEQ/L (98-107); GLOMERULAR FILTRATION RATE > 60.0 (>45); GLUCOSE, FASTING 172 MG/DL (70-100); POTASSIUM SERUM 3.1 MEQ/L (3.5-5.1); SODIUM LEVEL 139 MEQ/L (136-145)
[2020-08-25] MEDS: ACETAMINOPHEN TAB 650MG DOSE (2X325MG) PO PRN ×3 (05:43→16:37)
[2020-08-25] MEDS: POTASSIUM CHLORIDE 10 MEQ SR TABLET PO SCH ×2 (06:20→08:35)
[2020-08-25] MEDS: DOCUSATE SODIUM 100MG CAPSULE PO SCH ×3 (08:35→22:00)
[2020-08-25] MEDS: MIRALAX *UNIT DOSE* 17GM PACKET PO SCH (08:36)
[2020-08-25] MEDS: HumaLOG INSULIN (NovoLOG) PER UNIT SC SCH ×4 (08:36→21:00)
[2020-08-25] MEDS: hydrOXYzine 25 MG TAB PO SCH ×2 (08:36→20:48)
[2020-08-25] MEDS: METOPROLOL SUCC *XL* 25MG TAB (TopROL *XL*) PO SCH ×2 (08:37→20:48)
[2020-08-25] MEDS: SERTRALINE 100 MG TAB PO SCH ×2 (08:37→20:46)
[2020-08-25] MEDS: GABAPENTIN 100 MG CAP PO SCH ×3 (08:38→20:48)
[2020-08-25] MEDS: LEVEMIR (INSULIN DETEMIR) 1 UNITS/0.01ML SC SCH ×2 (08:39→20:52)
[2020-08-25] MEDS: NYSTATIN 100,000 UNITS/GM TOPICAL PWD 15 GM TOP SCH ×2 (08:39→21:36)
[2020-08-25] MEDS: ZIPRASIDONE 20MG CAPSULE (GEODON) PO SCH ×2 (08:44→20:46)
[2020-08-25] MEDS: ENOXAPARIN 40MG/0.4ML SYRINGE (J1650 PER 10MG) SC SCH (08:44)
[2020-08-25] MEDS: cloZAPine 100 MG TAB (S0136) PO SCH ×3 (08:44→22:00)
[2020-08-25] MEDS ORDERED: LevoFLOXacin IV 750 MG in IV 1 EA IV SCH (12:00)
--- NOTE | 2020-08-25 12:06 | CR ---
PULMONARY CONSULTATION REASON FOR CONSULTATION: Ros presented to the hospital on 08/17/2020 with recurrent falls and gait instability. The patient is sliding out of her wheelchair. HISTORY OF PRESENT ILLNESS: She is very immobile, actually has a sacral decubitus. The patient states her has encouraged her to be worked up for sleep apnea for some time. She has felt short of breath. She had workup for possible pulmonary embolism, had a CT angiogram and that was unremarkable. She denies any chest pain, no anginal symptoms, no cough, fevers or chills. She has no productive cough. She states she feels better today. Although I do not have an official echocardiogram report to review, reportedly there is evidence of pulmonary hypertension on the echocardiogram. She has not been worked up for sleep apnea in the past. However, it has been difficult for her to get out. She has refused workup in the past for CPAP. She does show hypercarbia on her blood gasses as outlined below. She has had no palpitations. She does not ambulate. No prior history of connective tissue disorders. According to the echocardiogram report, there is evidence of pulmonary hypertension without evidence of left-sided dysfunction. The patient has not noticed any new neurologic symptoms. She does have shaking at times but she states she has had this since she was 19. There is not a new shaking. She denies any new mental status changes but does state occasionally she will become confused. PAST MEDICAL HISTORY: 1. Type-2 diabetes. 2. Hyperlipidemia. 3. Schizo-affective disorder with chronic anti-psychotic use. 4. Anxiety. 5. Hypothyroidism. 6. Chronic fatigue. 7. Lumbar stenosis, severe L4-L5 dysfunction. 8. Diabetic neuropathy. 9. Sacral pressure ulcers. PAST SURGICAL HISTORY: 1. Total hysterectomy. 2. Tonsillectomy. 3. Adenoidectomy. SOCIAL HISTORY: The patient is a former smoker but states she only smoked in her teenage years, had no significant smoking history, has not smoked within the past 15 years. No alcohol consumption. No illicit drug use. No history of HIV or HIV exposure. She is to a very attentive . FAMILY HISTORY: Father from renal disease at 78. Mother at 88, had Crohn's disease and lung cancer. One brother required bilateral renal transplant. A sister was from an aneurysm. ALLERGIES: MINOCYCLYINE, TETRACYCLINE, and ARIPIPRAZOLE. REVIEW OF SYSTEMS: Constitutional: The patient denies fevers or chills or weight loss. States that over the years she has had weight gain. HEENT: No epistaxis. No change in vision. Denies headache. Denies difficulty swallowing. Cardiovascular: Denies chest pain, no palpitations, no orthopnea, paroxysmal nocturnal dyspnea. Denies symptoms of claudication. However, does not ambulate frequently. Respiratory: Denies shortness of breath. No cough, fevers or chills. No sputum production. No hemoptysis. GI: No nausea, vomiting, but has had constipation prior to her admission here but had bowel movements. : No dysuria, increased frequency, or nocturia. Neuro: As mentioned above, she has numbness in her lower extremities, chronically wheelchair-bound due to neuropathy. Has had episodes of shaking but denies anything new. As mentioned above, no history of consistent tremor or seizure activity. Endocrine: Has diabetes. States that she has recently been worked up for thyroid issues. She states she does have hypothyroidism. Her thyroid level is low in general. She denies any polyuria or polydipsia. No hot or cold intolerance. Psychiatric: She denies any suicidal or homicidal ideation currently. No anxiety but does have schizo-affective disorder. Heme: No easy bruising or bleeding. Has not required blood transfusions recently. No history of anemia or thrombocytopenia. Sleep: Has not been worked up for sleep as per HPI but does have witnessed apneas, snores and is excessively tired during the day. This has been going on for a number of years. HOME MEDICATIONS INCLUDE: - Humira - Invokana - Clozapine - Gabapentin - Hydroxyzine - Lantus - Levothyroxine - Metformin - Sertraline - Zinc - Ziprasidone - As needed naproxen - Acetaminophen - Nystatin - MiraLax The patient denies any narcotics for pain control. PHYSICAL EXAM: Vital signs: Temperature is 100.4 max. All these are rectal temperatures. T now is 98.8, pulse 95, respiratory rate 24, blood pressure 116/60 with a mean arterial pressure of 78, oxygen saturation 95% on 3.05 liters. General: The patient is sitting at bedside without distress, completing full sentences, wearing nasal cannula. HEENT: Sclerae clear. Nonicteric. Pupils equal and reactive to light. Mucous membranes are moist without lesions. Tongue is midline. Oropharynx crowded. Mallampati IV. Neck is supple. No jugular deviation or mass. Lymph: No cervical, supraclavicular, or axillary adenopathy. Cardiac: Distant S1, S2 without audible murmur, rub, or gallop. There is elevated JVP and there is systemic edema, pitting to the mid calf. Pulmonary: Decreased breath sounds throughout but no rales, rhonchi, or wheezes. No dullness to percussion. No accessory muscle use. Abdomen: Obese, soft and nondistended. No hepatosplenomegaly. No masses or hernia. Extremities: Edema as mentioned above. No cyanosis or clubbing. Laboratory evaluation shows a sodium 143, potassium 4.0, chloride 109, bicarb 30, BUN 22, creatinine 0.70. Arterial blood gas from yesterday shows a respiratory acidosis with a pH of 7.36, pCO2 of 63, and a PaO2 of 80. White blood cell count 4.9, hemoglobin 13.0, hematocrit 44.2, with a platelet count of 126. CT angiogram shows pulmonary edema, dependent along with hyper-expanded lungs and increased vascularity with some motion artifact. Chest x-ray this morning shows hypoventilation, probable pulmonary edema. BNP is elevated at 1,556 which is up from just a month ago where it was 367. Echocardiogram is not available for my review but reportedly suggested significant pulmonary hypertension. I do not have the pressures in front of me. This is a verbal report. Supposedly there is preserved systolic function. IMPRESSION: 1. Respiratory acidosis likely from obesity hypoventilation. At this point in time it is compensated, will require outpatient in-lab diagnostic polysomnogram with quick titration afterwards. May even require bilevel noninvasive therapy due to the obesity hypoventilation. 2. Probable pulmonary hypertension. I do not believe it is clear that she does not have any component of left ventricular diastolic dysfunction. There is evidence of pulmonary edema on her chest x-ray. This may simply be volume overload but there is definitely increase in BNP which I do not think is just from pulmonary hypertension. She has had no acute pulmonary embolism as demonstrated by CT angiogram. 3. Abnormal chest x-ray, most likely pulmonary edema. However, the patient is on Humira and this can always run the risk of developing an infectious disease from immunosuppression. Would hold Humira until the patient is improved. I am actually not sure the exact indication for Humira. The nurse had informed me it is for suppurative adenitis. 4. Pulmonary hypertension most likely WHO group 3, possibly small contribution from WHO group 2 but she does not have any history of longstanding hypertension but she does have longstanding diabetes. Does not appear to have any chronic thromboembolic disease, no history of interstitial lung disease, no history of primary parenchymal pulmonary process. She does not have evidence of liver failure as far as has been worked up recently. No exposures to HIV. No illicit drug use. TSH is normal at 0.97. No other obvious source than untreated severe obstructive sleep apnea and probable obesity hypoventilation. The patient is not ambulatory and therefore cannot perform six minute walk test. Would send home on oxygen if necessary. Continue management and attempting diuresis as much as her blood pressure and kidney function will allow. Will require close followup. We will be happy to see her in the office.
--- NOTE | 2020-08-25 12:23 | CR ---
CARDIOLOGY CONSULTATION REFERRING PHYSICIAN: Dr. Cunningham. INDICATION: Persistent sinus tachycardia with elevated pro-BNP level. HISTORY OF PRESENT ILLNESS: This 65-year-old disabled resident of [place] with no children has been limited for some years because of morbid obesity, bipolar affective disorder and spinal stenosis. They have assistance for shopping and house work. She is able to walk no farther than 20 feet at any one using a walker, limited by back pain and bilateral lower leg numbness. She was admitted to [facility] through the Emergency Room on 08/17/2020 because of recurrent falls. Upon her presentation by ambulance to the Emergency Room, her heart rate was 115 beats per minute and regular, blood pressure 121/65 and O2 saturation was 92% on room air. She was afebrile. She was admitted with bilateral lower extremity weakness and possible congestive heart failure. Cardiology consultation was placed. CARDINAL CARDIAC SYMPTOMS: The patient specifically denies any history of chest pain, angina or infarction. May become winded with activity, but denies orthopnea. Does have a sleep disturbance, but apparently never worked up for sleep apnea. Has been unaware of her heart action. Her falls have been related to leg weakness and numbness. She claims not to have had a problem with dizziness. Unaware of any lateralizing neurological symptoms, suggest stroke. No flank pain, hematuria or blue toe syndrome. Has had lower extremity swelling for several years. CORONARY RISK FACTORS: Age, chronic morbid obesity (at least back to 2003), virtually lifelong insulin dependent diabetes mellitus. Prior hypercholesterolemia. Claims not to have had a history of hypertension. Former smoker. No family history of premature coronary artery disease. 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 SYSTEMS REVIEW: Denies any fever, chills or night sweats. Reduced visual acuity. No recent difficulty swallowing or heartburn. Chronic abdominal bloating, intermittent cramping and chronic constipation. No apparent GI bleeding. Has a dry cough. No history of hemoptysis or prior pneumonia to her knowledge. Musculoskeletal as mentioned above. Affective disorder as mentioned above. MEDICATIONS: At home, the patient takes Humira 40 mg subcutaneously weekly, Novolog according to sliding scale AC meals t.i.d., Lantus Insulin 15 units subcutaneously q.a.m. along with Metformin ER 1 gram b.i.d. and Invokana 300 mg daily. Takes Colace 100 mg daily, Gabapentin 200 mg p.o. t.i.d., Tylenol 500 mg tablets one tablet every 6 hours p.r.n. pain, Clozapine 100 mg p.o. b.i.d., Atarax 25 mg p.o. b.i.d., Levothyroxine 125 mcg daily, Naprosyn 500 mg p.o. b.i.d. p.r.n. pain, MiraLax 17 grams p.o. daily, Sertraline 100 mg b.i.d., Ziprasidone 60 mg p.o. b.i.d. ALLERGIES/ADVERSE REACTIONS: Tetracycline, Minocycline and Aripiprazole reaction unknown. PHYSICAL EXAMINATION: CONSTITUTIONAL: Obese, middle-age woman, lying comfortably with the head of bed elevated 30 degrees. Obvious facial plethora. VITAL SIGNS: Heart rate 120 BPM and regular, blood pressure 105/68 right arm supine, respiratory rate 16 per minute, 02 saturation on supplemental oxygen by nasal prongs measured at 88% earlier today, afebrile. Weight 241 lb, height 64 inches, BMI 41.3. EYES: Normal conjunctiva and lids. No icterus or xanthelasma. ENT/MOUTH: Normal oral moisture. No central cyanosis. NECK: Suspected goiter. Neck veins currently appear 3 cm above the sternal angle. Trachea midline. RESPIRATORY: Increased anteroposterior chest diameter with adequate chest expansion and good air entry for both lung pierce with no current inspiratory rales or expiratory wheezes. Apical impulse at the midline fifth intercostal space. CARDIOVASCULAR: Normal S1 and S2 without apparent gallop. Unable to detect S2 splitting at this time with her rapid rate. No audible murmur. Normal carotid upstrokes and volume with no bruits. Upper extremity pulses were symmetrical and normal. Abdominal aorta and femoral pulses not palpable because of obesity. No abdominal bruits. Pedal pulses were palpate, but she had at least 1 mm of pitting edema of her feet and one-third up both lower legs. No obvious varicose veins. EXTREMITIES: No clubbing, peripheral cyanosis or splinter hemorrhages. ABDOMEN: Protuberant abdomen with dilated superficial venules, but not typical of caput medusae. Difficult to precisely assess for hepatosplenomegaly, but liver span measuring 10 cm at the right midclavicular line. Few bowel sounds. Rectal examination not indicated. NEURO/PSYCH: Fairly flat affect, but alert and oriented, and gave a fair history. No obvious joint deformities. Some proximal muscle weakness, but normal tone. Gait was not assessed. No involuntary movements. SKIN: Facial plethora as mentioned/erythema, but no other rashes, lesions or icterus. INVESTIGATIONS: Portable upright chest x-ray taken in the Emergency Room on 08/17/2020 was reviewed independently and appears to show a degree of cardiomegaly. Somewhat accentuated pulmonary vessels, but this maybe related to her weight problem. No obvious localized infiltrate or pleural effusion. EKG: Tracing taken at the time of her admission showed sinus tachycardia at 111 BPM. Low voltages with slow precordial R wave progression and Q waves in lead 3 and AVF in keeping with her body habitus, but could not rule out prior inferior infarction or septal infarction. Subtle nonspecific ST scooping. No prior tracing for comparison. Chest CT scan: Is reviewed independently, taken 08/17/2020. Left ventricular wall thickness appeared to be slightly increased, but normal left ventricular cavity size. Left atrial size appeared to be slightly enlarged. Normal aortic dimensions. Normal right ventricle size. The pulmonary trunk appeared to be slightly increased, measuring 3.3 cm. Her inferior vena cava measured 1.9 cm, which was within normal limits. No evidence of pericardial effusion. Bilateral basilar atelectasis with upper lobe ground-glass appearance. No pericardial effusion or pleural effusion. Degenerative changes of her thoracic spine. Radiology reports lymphadenopathy. No evidence of pulmonary embolism. Abdominal CT scan: From 08/17/2020 reportedly shows hepatosplenomegaly with evidence of fatty infiltration and some scarring. Normal appearing biliary tree and gallbladder. Normal appearing pancreas. Normal kidney size and adrenal glands. Dilated loops of bowel with thickening of the rectal wall, concerning for possible malignancy. No abdominal aortic aneurysm. No sign of free abdominal fluid, but some edematous changes of her buttocks and thighs. BLOOD WORK: From 08/17/2020, admission hemoglobin normal at 14.3, normal white blood cell count and platelet count. Her admission PT/INR was 12.8/0.9. Her electrolytes were normal; BUN 21, creatinine .96. Random glucose was elevated at 193 with elevated glycosylated hemoglobin of 9.2. Total bilirubin on admission was elevated at 2.9/direct bilirubin 2.5, but she does not appear icteric today. Alkaline phosphatase on admission was elevated as well at 586. SGPT was only slightly elevated at 51. Features suggestive of an intrahepatic cholestasis. Serial troponin I levels were normal. Ultrasensitive TSH was normal on her current dosage of Levothyroxine, measuring 0.97. Pro-BNP level was elevated at 1556. Negative drug screen. Negative for COVID viral infection. Fasting lipid profile earlier today showed an elevated triglyceride of 361, total cholesterol of 281 and low HDL of 19 with total/HDL ratio 14.8. IMPRESSION/PLAN: 1. Sinus tachycardia: Suspected to be a reflection of pulmonary heart disease and significant pulmonary hypertension. I suspect this is on the basis of her morbid obesity and sleep disturbance. No primary anti-arrhythmic therapy would be advised, but optimal management of her pulmonary condition. 2. Heart failure (unspecified): An echocardiogram/Doppler study was requested and reportedly completed. There is no report available for me to review. Her CT scan does suggest at least borderline left ventricular hypertrophy with slightly dilated left atrium, which may well be on the basis of her longstanding morbid obesity and LV diastolic dysfunction. Her pulmonary trunk is also dilated in keeping with pulmonary hypertension of some significant degree on a chronic basis. Current neck veins do not appear to be elevated following I.V. Lasix and negative fluid balance. Would recommend continued modest salt and fluid intake restriction. Remains on Furosemide 40 mg p.o. b.i.d. In light of her present blood pressure, this has been discontinued for the time-being. 3. Abnormal EKG: As described above; the features in keeping with her body habitus but could not rule out prior septal/anterior/inferior injuries based on the tracing alone. Her echocardiogram/Doppler study will allow us to see whether she has any localized wall motion abnormality to support this. She certainly has multiple coronary risk factors. In light of her present blood pressure and suspected pulmonary hypertension, she would not be a candidate for beta-scout or MARY KATE inhibitor therapy. With her recent liver function studies, she is not a candidate for statin therapy. Currently receiving low dose Metoprolol Succinate, but not a candidate for MARY KATE inhibitor therapy. Based on her abnormal liver function, is not a candidate for statin therapy. Currently receiving low molecular weight Heparin subcutaneously. 4. Sleep disturbance (unspecified): Based on her longstanding weight problem and reported sleep disturbance, I strongly suspect she does have obstructive sleep apnea, that is the likely etiology for pulmonary hypertension and right heart failure. I requested nocturnal oximetry be performed. Currently receiving supplemental oxygen by nasal prongs. I intend to review her echocardiogram/Doppler study personally, and will at least temporarily follow her with you in hospital. I understand on the basis of her severe spinal stenosis and impaired quality of life, she has made herself DNR. We would certainly respect her wish.
--- NOTE | 2020-08-25 12:33 | IPN ---
PULMONARY PROGRESS NOTE DICTATED BY: Yavn So DO. ATTENDING: Kike Blount DO, Pulmonary Critical Care Medicine. DATE: 08/25/2020 SUBJECTIVE: Ms Galeana was seen and examined this morning. She was reported to have some tachypneic last night; however, was otherwise fairly stable. She had received diuresis yesterday with Lasix 40 mg I.V. She reportedly has remained febrile with temperature this morning 100.8 with a T-max of 102.6. The patient herself states that she feels her breathing is improving from her presentation to the hospital. She otherwise denies any other acute complaints. OBJECTIVE: Vital signs: Temperature 100.8, pulse 91, respiratory rate 24, blood pressure 90/52, pulse oximetry 91% on 2 liters nasal cannula. General: Patient is awake, alert, oriented. She does not appear in any acute distress. She is lying in bed. She is diaphoretic. She is somewhat ill appearing. HEENT: Normocephalic, atraumatic. Eyes are nonicteric. Mucous membranes are pink and moist. There is nasal cannula in place. Neck: Trachea is midline. Neck is payne. Cardiovascular: There is a normal S1 and S2, regular rate and rhythm without clicks, rubs or murmurs. Pulmonary: The patient has overall decreased breath sounds. She has poor inspiration, inspiratory effort. There is no wheezes, rhonchi or rales noted. There is no decreased tactile fremitus. Abdominal: Patient is morbidly obese. Her abdomen is soft and nondistended, nontender. Extremities: Patient has bilateral 2-3+ pitting edema in the lower extremities. Neurologic: There is no focal neurological deficits. Psychiatric: Mood and affect appear appropriate. LABORATORY STUDIES: Hematology: White blood cell 4.1, hemoglobin 12.4, hematocrit 42, platelet count 110. Chemistries: Sodium 139, potassium 3.1, chloride 102, CO2 32, BUN 13, creatinine 0.8, fasting glucose 172. Lactic acid 1. Calcium 7.8. Swabbed for pneumonia. Urine negative. COVID-19 negative. RADIOLOGY STUDIES: Imaging from 08/24 once again shows atelectatic regions of the lungs, but primarily in the left lower lobe, but otherwise improving from her previous imaging. ASSESSMENT AND PLAN: Ms. Galeana is a 55-year-old female with a history of pulmonary hypertension, morbid obesity, AUDRA untreated who had presented to the [facility] with recurrent falls and gait instability. She had developed some dyspnea and pulmonary medicine was consulted for management of pulmonary hypertension. She had received diuresis with improvement. She was noted to become more tachypneic yesterday and pulmonary medicine was contacted again in regards to this. 1. Tachypnea: Patient was seen and examined this morning. She apparently had an episode of tachypnea yesterday. This morning she does not appear nearly as tachypneic. This is likely secondary to her decreased or low lung volumes. She certainly has obesity hypoventilation syndrome; she is morbidly obese likely with AUDRA which is untreated. At this time I do not believe this is a pneumonic process. Her white blood cell count remains low at 4.1. She is febrile; however, her chest x-ray does not demonstrate anything consistent with a pneumonia regardless she is still covered with antibiotics. It appears infectious disease was consulted and following. Currently the patients tachypnea appears to have resolved. 2. Severe pulmonary hypertension: Patient has severe pulmonary hypertension likely secondary to her obstructive sleep apnea which is untreated. Recommend diuresis as needed and follow up sleep study. IKike, conducted and independent history and physical and agree with the above as outlined by the resident. JACQUELYN
--- NOTE | 2020-08-25 18:56 | CR ---
INFECTIOUS DISEASE CONSULTATION REQUESTING PHYSICIAN: Rodney Gu REASON FOR CONSULTATION: Evaluation of fever in a patient who was being treated for a presumptive urinary tract infection. HISTORY OF PRESENT ILLNESS: Ros is a 65-year-old female with morbid obesity, recurrent falls, severe lumbar stenosis, who presented to the Emergency Department complaining of without bilateral lower extremity weakness. The patient usually is in a wheelchair. She mostly is immobile because she has severe spinal stenosis. She stated she was a poor surgical candidate because of her morbid obesity and schizoaffective disorder. She was last evaluated by Dr. Mena in 2018 when she had an MRI of the spine which showed severe L-4/L-5 lumbar stenosis. The patient also has bilateral neuropathy with decreased sensation in both feet. She also was having some increased shortness of breath on admission. She has been using oxygen. She had a fever on admission. Urine culture was pending was positive for E-coli on 08/19 and with a urinalysis with only 18 white cells. Blood cultures were negative. Respiratory panel was negative. She was treated with Ceftriaxone on 08/20 to 08/24. She had a total of 5 doses and 5 doses of Zithromax to treat for a possible community acquired pneumonia. She also received Vancomycin on 08/20, 08/21, 08/24 and 08/25, a total of 4 days. The patient was switched from Ceftriaxone to IV Zosyn on 08/24 for a recurrent fever. Her only complaint currently is she has back pain which is chronic for her and decubitus ulcers that are painful. She had urinary retention on admission. She denies any nausea, vomiting or diarrhea. She is actually on the constipated side and has been getting Miralax as well as Colace. PAST MEDICAL HISTORY: The patient's past medical history is significant for: 1. Morbid obesity. 2. Diabetes type 2. 3. Hyperlipidemia. 4. Anxiety with schizoaffective personality disorder. 5. Chronic fatigue. 6. Lumbar stenosis severe L-4/L-5. 7. She does not walk. 8. Diabetic neuropathy. 9. Sacral decubitus ulcer. 10. Hydradenitis suppurativa for which she received Humira prescribed by Dr. Ye every 2 weeks her last dose was August 12 and her dose was due on August 26. PAST SURGICAL HISTORY: The patient's past surgical history is significant for 1. Hysterectomy. 2. Tonsillectomy. 3. Adenoidectomy. 4. Skin biopsy right breast tissue and left. SOCIAL HISTORY: , lives at home. She quit smoking. Denies alcohol or drug use. FAMILY HISTORY: Father of kidney disease at 78 and mother had Crohn's disease. A brother had a kidney transplant. ALLERGIES: 1. Minocycline. 2. Tetracycline. 3. Aripiprazole. MEDICATIONS: 1. Vancomycin 1.5 grams IV q. 12 hours. 2. Zosyn 4.5 gram IV q. 6 hours. 3. Albuterol Atrovent Nebs q. 4 p.r.n. 4. Insulin 30 units subcutaneously q. a.m. sliding scale. 5. Metoprolol 25 mg p.o. twice daily. 6. Lovenox 40 mg subcutaneously daily. 7. Miralax one packet p.o. daily. 8. Clozapine Clozaril 100 mg p.o. twice daily. 9. Hydroxyzine 25 mg p.o. twice daily. 10. Zoloft 100 mg p.o. twice daily. 11. Zyprexa 60 mg p.o. twice daily. 12. Levothyroxine 125 mcg p.o. daily. 13. Colace 100 mg p.o. twice daily. 14. Nystatin topical. LABORATORY DATA: White count has been normal since admission, 08/17 was 7, creatinine 4.7, hemoglobin 12.4, hematocrit 42, platelets 110, 63% neutrophils, 36% lymphocytes. Sodium 139, potassium 3.1, chloride 102, bicarbonate 32, BUN 13, creatinine , glucose 172, calcium 7.8, lactic acid 1, magnesium 2.1. Bilirubin was 1.5 up to 2.9 on admission. AST 47, ALT 35, alkaline phosphatase 611, CRP 9.57. Urine culture 08/19 showed E-coli, 08/20 E-coli. Blood culture 08/19 showed no growth after 5 days, 08/24 no growth after 24 hours. Respiratory panel negative. IMAGING STUDIES: Chest x-ray on 08/24 revealed some improvement in atelectatic changes of lower lobes. Head CT 08/24 shows generalized volume loss with no acute intracranial pathology. Vascular ultrasound there is no ultrasound evidence of DVT of both bilateral lower extremities. Abdominal MRI no evidence of cholecystitis or cholelithiasis. CT angiogram renal lesion less than one cm, too small to characterize. Chronic fecal retention, hysterectomy, mild anasarca, moderate splenomegaly and gallstones. Liver suggestive of cirrhosis. CT chest with angiography shows bilateral ground glass parenchymal opacities in upper lung zones, possibly viral. No aortic dissection. PHYSICAL EXAMINATION: GENERAL APPEARANCE: She is a pleasant, healthy looking female slightly flushed, in no acute distress. VITAL SIGNS: Temperature is 101.9 rectal, pulse 97, respirations 24, blood pressure 111/59, O2 sat 94% on 2 liters nasal cannula. HEART: Normal S1, S2, tachycardic. No murmurs appreciated but distant. LUNGS: Crackles at both bases, fine. No rales or rhonchi. ABDOMEN: Morbidly obese, soft, nontender. GENITOURINARY: Catheter in place. No lesions. A pressure ulcer noted on the sacral area and right buttock area where there is an ulcer measuring about 3 by one cm, tender to touch but no purulent discharge. EXTREMITIES: +1 pitting edema bilaterally. Right foot warm with +2 dorsalis pedis pulse. Left foot is cold with diminished pulse. The nurse will be getting the Doppler to check on the dorsalis pedis of the left foot. Decreased sensation from mid calf down. NEUROLOGICAL: The patient can move both lower extremities, bend her knees and elevate her leg, but she has generalized weakness. BACK: Tenderness along L-4/L-5. No paraspinal tenderness. IMPRESSION: This is a 65-year-old female who was admitted with frequent falls and a fever, who initially was treated for presumptive urinary tract infection versus pneumonia with Rocephin and Zithromax for a total of 5 days, which were discontinued on 08/24. The patient had recurrent fever that worsened on 08/24 with temperatures up to 102.6 on those antibiotics. She was switched to IV Zosyn and Vancomycin with persistent fever. So far workup has been non-revealing. She has a slightly increased CRP. Blood cultures are so far negative. She has a catheter in place for urinary retention. The patient has a history of spinal stenosis and can have an epidural abscess, diskitis which may have worsened her falls. PLAN: 1. Repeat blood cultures. 2. Obtain MRI of the lumbar spine with gadolinium. 3. Obtain alpha fetoprotein for monitoring of liver cirrhosis and hepatocellular carcinoma and GGTP. 4. Repeat ESR 5. Procalcitonin was 1.75 on 08/19 and would be interesting to trend the procalcitonin level to see if this is persistent bacterial infection or possibly drug related fever or other etiology for the fever.and procalcitonin to rule out bacterial infection versus other etiologies of recurrent fever. MTDD
[2020-08-25] MEDS: cloZAPine 25 MG TAB (S0136) PO SCH ×2 (21:36→22:00)
--- NOTE | 2020-08-25 22:25 | IPNPDOC ---
Text Note Date of Service The patient was seen on 08/25/20. NOTE SUBJECTIVE: Patient seen and examined at bedside. febrile in the morning and then again in the evening today. She thinks she's feeling a littel better than yesterday. Denies dysuria, chest pain, cough, back pain, palpitations, headache but is diaphoretic at times with her fevers. PHYSICAL EXAMINATION: General: Looks comfortable but weak appearing, diaphoretic HEENT: PERRLA, EOMI, sclerae clear Neck: supple, normal ROM, no JVD Respiratory: lungs CTAB, no wheeze, no rales, no crackles CVS: RRR, normal S1, S2 Abdo: soft, no masses, BS+, no rebound tenderness, obese Extremities: no edema, pulses 2+, no cyanosis, no heel ulcers MSK: no joint deformities, normal ROM Neuro: Cranial nerves 3-12 intact bilaterally. Muscle strength diminished in the LLE vs RLE at S1. Psych: calm, cooperative, AAO x 3 Skin: Sacral wounds evaluated by Dr Haynes 08/23/2020 ASSESSMENT/PLAN 65 yo F with a hx of DM2, lumbar stenosis (severe at L4/L5), HLD, presenting to ER with recurrent BLE weakness and frequent falls. # Sepsis likely 2/2 E Coli Pyelonephritis: Describes CVA tenderness on presentation, fever, and UA was found to be dirty. UCx E Coli. IV Ceftriaxone which was escalated to zosyn + vanc 08/24 after she spiked another fever 08/24. ID consulted Dr King suggests obtaining MRI spine, repeating procalcitonin. Repeat BCx 08/24 and 08/25 # Acute encephalopathy: likely 2/2 infection. AMS now resolved. patient was altered and difficult to arouse on 08/20. CT head wo acute changes. Ammonia wnl. Trop wnl. LA wnl. 08/24 has a brief period of decreased responsiveness/confusion a repeat CT head was done 08/24 which was negative. #pneumonia: seen on CXR 08/19, possible developing LLL pna, less convincing on repeat CXR, more likely atelectasis. Ceftriaxone, azithromycin (08/20/20). COVID negative on 08/17 and 08/24. Incentive spirometry. Pulmonology consult. #Recurrent falls: advanced and progressing spinal stenosis. PT/OT eval. B12, folate wnl. # Dyspnea possibly 2/2 CHFpEF: BNP elevated 1600. Mild tachycardia. Likely fluid overloaded. Echo EF 60% grade 1DD. CTA/PE negative for PE. D/w Zhang. Severe pulmonary HTN. #severe pulmonary hypertension: suspected based on echo per Dr. Holcomb. Consulted pulmonary Dr. Blount. #sinus tachycardia: negative for PE. TSH/FT4 wnl. sinus tach on tele. Cardiology consulted, discussed with Dr. Holcomb. Patient's tachycardiac likely related to pulmonary hypertension/AUDRA. Will keep metoprolol 25 mg bid. Patient seen by Dr. Blount, recommended outpatient sleep study. #DM2: ISS, FSBS AC and HS. Hypoglycemic precautions. A1c 9.2. BG 90-150. Reduce levemir to 30 units qam and 20 units qpm. (home dose levemir 50 unts qam). #Sacral pressure ulcers: frequent turning. wound care. clean with vashe. foam dressing. Heel float boots (no heel ulceration noted on admission). Seen by wound care Dr Haynes 08/23/2020 - doesn't need ABx. #ALP elevation/hyperbilirubinemia: CT abdo. liver US. Hepatomegaly , concern for cirrosis. Hepatic steatosis. Mild anasarca. Splenomegaly. Suspect SEGURA. US showing possible sludge. Discussed with Dr. Hope. Possible cardiac hepatopathy secondary to CHF vs Pulmonary HTN, although SEGURA cirrhosis not excluded. MRCP no acute findings. Ordered. PATRICK+, ordered PATRICK titers. Negative anti-mitochondrial ab. Likely hepatic congestion from cor pulmonale 2/2 pulmonary hypertension. #Urinary retention: check bladder scan. straight cath if > 250 cc. #vaginal candidiasis: diflucan 150 mg PO once. miconazole. #Lumbar spinal stenosis; severe at L4/L5. Has been seen by Dr. Mena, and was referred to specialist in [place]. OR delayed given uncontrolled DM2, patient was asked to return this but did not follow up. Reports bilateral LE weakness L > R. Recurrent falls. Absent/minimal rectal tone. Discussed with Dr. Sheppard, assess patient. This is not cauda equina. Progression of spinal stenosis. Recommends ongoing outpatient follow up, although patient states that she is happy with her level of mobility. #Schizoid personality disorder,anxiety: continue home meds #Hydradenitis suppurativa: resume home meds. wound care. 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 Needs outpatient sleep study. DVT ppx: lovenox VS,Fishbone, I+O VS, Fishbone, I+O Laboratory Tests 08/25/20 04:51 Vital Signs Date Time Temp Pulse Resp B/P (MAP) Pulse Ox O2 Delivery O2 Flow Rate FiO2 08/25/20 20:48 96 127/59 08/25/20 20:00 98.0 24 95 Nasal Cannula 2.0 I&O- Last 24 Hours up to 6 AM 08/25/20 06:00 Intake Total 1020 ml Output Total 2875 ml Balance -1855 ml PONCHO LEYVA MD Aug 25, 2020 22:20
[2020-08-26] VITALS (16 sets, daily range): BP systolic 94–149; BP diastolic 52–71; O2SAT 89–94
[2020-08-26] MEDS: PIPERACILLIN/TAZOBACTAM SOD 4.5 GM in D5W MINI-BAG PLUS 50 ML IV SCH ×3 (01:01→13:23)
[2020-08-26] MEDS: IPRATROPIUM 0.5MG/ALBUTEROL 2.5MG INH SOL UD 3ML (DUONEB) NEB SCH ×6 (04:55→23:51)
[2020-08-26] MEDS: SLF 3 ML SYR IV SCH ×3 (05:39→22:00)
[2020-08-26] MEDS: LEVOTHYROXINE 125MCG TABLET (0.125MG) PO SCH (05:39)
[2020-08-26] MEDS: ACETAMINOPHEN TAB 650MG DOSE (2X325MG) PO PRN ×2 (06:02→16:39)
[2020-08-26 06:31] LABS: HEMATOCRIT 42.5 % (36.0-47.0); HEMOGLOBIN 13.1 g/dl (12.0-15.5); MEAN CORPUSCULAR HEMOGLOBIN 25.1 pg (27.0-33.0); MEAN CORPUSCULAR HGB CONC 30.8 g/dl (32.0-36.5); MEAN CORPUSCULAR VOLUME 81.4 fl (80.0-96.0); PLATELET COUNT, AUTOMATED 132 10^3/uL (150-450); RED BLOOD COUNT 5.22 10^6/uL (4.00-5.40); WHITE BLOOD COUNT 4.1 10^3/uL (4.0-10.0)
[2020-08-26 06:49] LABS: BLOOD UREA NITROGEN 14 MG/DL (7-18); CARBON DIOXIDE LEVEL 28 MEQ/L (21-32); CHLORIDE LEVEL 103 MEQ/L (98-107); CREATININE FOR GFR 0.66 MG/DL (0.55-1.30); GLOMERULAR FILTRATION RATE > 60.0 (>45); GLUCOSE, FASTING 125 MG/DL (70-100); POTASSIUM SERUM 3.7 MEQ/L (3.5-5.1); SODIUM LEVEL 137 MEQ/L (136-145)
[2020-08-26] MEDS: VANCOMYCIN HCL 750 MG, VIAL MATE ADAPTER 1 EACH in D5W 250 ML IV SCH ×2 (07:15→09:10)
[2020-08-26 08:04] LABS: ERYTHROCYTE SEDIMENTATION RATE 8 mm/hr (0-30)
--- NOTE | 2020-08-26 08:24 | IPNPDOC ---
Text Note Date of Service The patient was seen on 08/26/20. NOTE SUBJECTIVE: Patient seen and examined at bedside. febrile in the morning and then again in the evening today. She tells me she's feeling better overall aside from the fevers which are uncomfortable and associated with sweating. Denies dysuria, chest pain, cough, palpitations, headache. PHYSICAL EXAMINATION: General: Looks comfortable but weak appearing, not diaphoretic today HEENT: PERRLA, EOMI, sclerae clear Neck: supple, normal ROM, no JVD Respiratory: lungs CTAB, no wheeze, no rales, no crackles CVS: RRR, normal S1, S2 Abdo: soft, no masses, BS+, no rebound tenderness, obese Extremities: no edema, pulses 2+, no cyanosis, no heel ulcers MSK: no joint deformities, normal ROM Neuro: Cranial nerves 3-12 intact bilaterally. Muscle strength diminished in the LLE vs RLE at S1. Psych: calm, cooperative, AAO x 3 Skin: Sacral wounds evaluated by Dr Haynes 08/23/2020 ASSESSMENT/PLAN 65 yo F with a hx of DM2, lumbar stenosis (severe at L4/L5), HLD, presenting to ER with recurrent BLE weakness and frequent falls. # Sepsis likely 2/2 E Coli Pyelonephritis: Describes CVA tenderness on presentation, fever, and UA was found to be dirty. UCx E Coli. Completed treatm ent. Patient clinically appears improved but continued to spike fevers. She's completed 10 days of IV Abx. Treatment is now complete. For her fevers I consulted Dr King ID. MRI spine didn't show acute findings that would explain her fevers, blood cultures have been negative, echo didn't suggest endocarditis, procalcitonin is downtrending, Dr Blount pulmonology evaluated patient and doesn't think she has a PNA. After discussion with Dr King, it was agreed to discontinue her ABx as this could be a drug related fever, or fever from another etiology not related to infection and to monitor here for fevers. Ibuprofen and tylenol for fevers. # Dyspnea possibly 2/2 CHFpEF: BNP elevated 1600. Mild tachycardia. Likely fluid overloaded. Echo EF 60% grade 1DD. CTA/PE negative for PE. D/w Holcomb. Severe pulmonary HTN. Will need OP sleep study for CPAP. per Dr Blount ok for patient to go home on oxygen. #Sacral pressure ulcers: frequent turning. wound care. clean with vashe. foam dressing. Heel float boots (no heel ulceration noted on admission). Seen by wound care Dr Haynes 08/23/2020 - doesn't need ABx. Will ask pharmaceutical detailer is some of the lesions could be HSV. Fu HSV PCR and started on valacyclovir. # Acute encephalopathy: likely 2/2 infection. AMS resolved. patient was altered and difficult to arouse on 08/20. CT head wo acute changes. Ammonia wnl. Trop wnl. LA wnl. 08/24 has a brief period of decreased responsiveness/confusion a repeat CT head was done 08/24 which was negative. #pneumonia: seen on CXR 08/19, possible developing LLL pna, less convincing on repeat CXR, more likely atelectasis. Ceftriaxone, azithromycin (08/20/20). COVID negative on 08/17 and 08/24. Incentive spirometry. Pulmonology consulted. #Recurrent falls: advanced and progressing spinal stenosis. PT/OT eval. B12, folate wnl. #severe pulmonary hypertension: suspected based on echo per Dr. Holcomb. Consulte d pulmonary Dr. Blount. #sinus tachycardia: negative for PE. TSH/FT4 wnl. sinus tach on tele. Cardiology consulted, discussed with Dr. Holcomb. Patient's tachycardiac likely related to pulmonary hypertension/AUDRA. Will keep metoprolol 25 mg bid. Patient seen by Dr. Blount, recommended outpatient sleep study. #DM2: ISS, FSBS AC and HS. Hypoglycemic precautions. A1c 9.2. BG 90-150. Reduce levemir to 30 units qam and 20 units qpm. (home dose levemir 50 unts qam). #ALP elevation/hyperbilirubinemia: CT abdo. liver US. Hepatomegaly , concern for cirrosis. Hepatic steatosis. Mild anasarca. Splenomegaly. Suspect SEGURA. US showing possible sludge. Discussed with Dr. Hope. Possible cardiac hepatopathy secondary to CHF vs Pulmonary HTN, although SEGURA cirrhosis not excluded. MRCP no acute findings. Ordered. PATRICK+, ordered PATRICK titers. Negative anti-mitochondrial ab. Likely hepatic congestion from cor pulmonale 2/2 pulmonary hypertension. #Urinary retention: check bladder scan. straight cath if > 250 cc. #vaginal candidiasis: diflucan 150 mg PO once. miconazole. #Lumbar spinal stenosis; severe at L4/L5. Has been seen by Dr. Mena, and was referred to specialist in [place]. OR delayed given uncontrolled DM2, patient was asked to return this but did not follow up. Reports bilateral LE weakness L > R. Recurrent falls. Absent/minimal rectal tone. Discussed with Dr. Sheppard, assess patient. This is not cauda equina. Progression of spinal stenosis. Recommends ongoing outpatient follow up, although patient states that she is happy with her level of mobility. #Schizoid personality disorder,anxiety: continue home meds #Hydradenitis suppurativa: resume home meds. wound care. 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 Needs outpatient sleep study. DVT ppx: lovenox VS,Fishbone, I+O VS, Fishbone, I+O Laboratory Tests 08/26/20 05:13 Vital Signs Date Time Temp Pulse Resp B/P (MAP) Pulse Ox O2 Delivery O2 Flow Rate FiO2 08/26/20 07:52 97.3 101 30 131/67 (88) 91 Nasal Cannula 2.0 I&O- Last 24 Hours up to 6 AM 08/26/20 06:00 Intake Total 1415 ml Output Total 1000 ml Balance 415 ml PONCHO LEYVA MD Aug 26, 2020 08:24
[2020-08-26] MEDS ORDERED: ADALIMUMAB 40 MG/0.8 ML SC SCH (09:00)
[2020-08-26] MEDS: MIRALAX *UNIT DOSE* 17GM PACKET PO SCH (09:10)
[2020-08-26] MEDS: GABAPENTIN 100 MG CAP PO SCH ×3 (09:11→22:00)
[2020-08-26] MEDS: ENOXAPARIN 40MG/0.4ML SYRINGE (J1650 PER 10MG) SC SCH (09:11)
[2020-08-26] MEDS: hydrOXYzine 25 MG TAB PO SCH ×2 (09:11→22:00)
[2020-08-26] MEDS: cloZAPine 100 MG TAB (S0136) PO SCH (09:11)
[2020-08-26] MEDS: SERTRALINE 100 MG TAB PO SCH ×2 (09:11→22:00)
[2020-08-26] MEDS: METOPROLOL SUCC *XL* 25MG TAB (TopROL *XL*) PO SCH ×2 (09:12→22:00)
[2020-08-26] MEDS: DOCUSATE SODIUM 100MG CAPSULE PO SCH (09:12)
[2020-08-26] MEDS: HumaLOG INSULIN (NovoLOG) PER UNIT SC SCH ×4 (09:13→21:00)
[2020-08-26] MEDS: ZIPRASIDONE 20MG CAPSULE (GEODON) PO SCH ×2 (09:14→22:00)
[2020-08-26] MEDS: LEVEMIR (INSULIN DETEMIR) 1 UNITS/0.01ML SC SCH ×2 (09:14→22:00)
[2020-08-26] MEDS: NYSTATIN 100,000 UNITS/GM TOPICAL PWD 15 GM TOP SCH ×2 (09:14→21:00)
[2020-08-26] MEDS ORDERED: FUROSEMIDE 40MG/4ML VIAL (J1940) IV ONE (09:15)
[2020-08-26] MEDS ORDERED: PROHANCE 279.3MG/ML 15ML VIAL As Ordered ONE (11:42)
[2020-08-26] MEDS ORDERED: PROHANCE 279.3MG/ML 5ML VIAL As Ordered ONE (11:42)
--- NOTE | 2020-08-26 12:26 | REPVR ---
PROCEDURE INFORMATION: Exam: MR Lumbar Spine Without and With Contrast. Exam date and time: 08/26/2020 5:26 PM Age: 65 years old Clinical indication: Low back pain; Additional info: Low back pain severe stenosis TECHNIQUE: Imaging protocol: Multiplanar magnetic resonance images of the lumbar spine without and with intravenous contrast. Contrast material: PROHANCE; Contrast volume: 20 ml; Contrast route: INTRAVENOUS (IV); COMPARISON: MRI-Spine, L.S. without con 06/18/2018 8:14 PM FINDINGS: Vertebrae: There is 4 mm of grade 1 anterolisthesis of L4 with respect to L5. There is severe intervertebral disc space loss at L4/5, with fluid intensity material. There are endplate changes. There are scattered hemangiomas. Marrow signal is otherwise within normal limits. Spinal cord: Normal signal. No cord compression. L1-L2: There is shallow disc bulging. There is mild facet hypertrophy. The spinal canal and neural foramina are patent. L2-L3: There is shallow disc bulging asymmetric to the left. There is [id number] facet hypertrophy. The spinal canal and neural foramina are patent. L3-L4: There is diffuse disc bulging. There is moderate facet hypertrophy. There is moderate canal stenosis. There is mild left neural foraminal narrowing. L4-L5: There is diffuse disc bulging/uncovering related to listhesis. There is severe facet hypertrophy. Fluid is noted within the facet joints. There is severe canal stenosis, with a residual diameter of 3 mm. There is severe bilateral neural foraminal narrowing. L5-S1: There is a sacralized L5 body with a rudimentary disc. The spinal canal and neural foramina are patent. Soft tissues: Unremarkable. IMPRESSION: Degenerative disc disease and spondylosis. At L4/5, changes contribute to severe acquired canal stenosis and severe bilateral neural foraminal narrowing. Electronically signed by: Julia Garcia On 08/26/2020 12:27:08 PM
[2020-08-26] MEDS ORDERED: IBUPROFEN 600MG TAB PO PRN (17:45)
--- NOTE | 2020-08-26 21:31 | IPN ---
INFECTIOUS DISEASE PROGRESS NOTE DATE: 08/27/2020. SUBJECTIVE: Ros was seen tonight. She was not feeling well. She looked flushed and febrile. She was tachycardic. Checked temperature on her and was 102.4, rectally it was 103.3. Patient feels fatigued, but otherwise has no nausea, vomiting or diarrhea. No abdominal pain. She has something around her perianal area from pressure ulcers. She has a catheter in place since admission because of some urinary retention. PHYSICAL EXAMINATION: VITAL SIGNS: Temperature 103.4, pulse 115, respirations 18, blood pressure 137/71, O2 sat 97% on 2 liters nasal cannula. HEART: Normal S1, S2, tachycardic. No murmurs appreciated. LUNGS: Clear. No wheezes, rales or rhonchi. Patient has an O2 sat of 97% on 2 liters nasal cannula. ABDOMEN: Obese, soft, nontender with some ecchymosis along the flank area. BACK: No CVA or associated tenderness. She has lumbosacral tenderness around L4, L5. She has a new area erythema of both buttock area with some perirectal sores. There is a pressure ulcer along her sacral area, erythematous bleeding and a few other sores around her right buttocks area, multiple three separate ones that are tender to touch. There is no purulent discharge. EXTREMITIES: Trace edema. No clubbing or cyanosis. No calf tenderness. LABORATORY DATA: White count 4.1, hemoglobin 13.1, hematocrit 42.5, platelets 132,000. Sodium 137, potassium 3.7, chloride 103, bicarb 28, BUN 14, creatinine 0.66, glucose 125, calcium 8. Bilirubin 1.5. BNP 1,081. CRP 9.57. Alpha-fetoprotein less than 1.3. Procalcitonin went down from 1.75. IMAGING STUDIES: Lumbar spine MRI showed severe degenerative disc disease with spinal stenosis with no evidence of discitis or epidural abscess. Fluid is noted in some facet joints, consistent with facet hypertrophy and bilateral neuroforaminal narrowing. Chest x-ray was done on 08/24/2020, which showed improvement of perihilar infiltrates. IMPRESSION: 1. Fever that occurred while patient on Ceftriaxone and Azithromycin for treatment of E. coli urinary tract infection possibly community-acquired pneumonia. She received five days of that combination when she developed a fever up to 102. Patient, at that point, was switched to Zosyn and Vancomycin and continues to spike fevers. My concern is the patient may have had a drug fever related to Ceftriaxone and that has persisted on with Zosyn. 2. Perirectal ulcers probably related to decubitus ulcer, but some of them have some geographic distribution that look herpetic. HSV PCR will be sent. 3. Urinary retention. The patient has had a Walters catheter since admission. She is to have a trial of voiding. MRI does not show any worsening of stenosis and no evidence of infection. PLAN: Ibuprofen for fever 600 mg every 6 hours p.r.n. Case has been discussed with Rodney Delong, who agrees with the plan. Will discontinue broad spectrum antibiotics. She has received a total of ten days since admission with a trending prolactin down. Echocardiogram was done on admission, shows no evidence of endocarditis. Please discontinue antibiotics. Monitor fever. Ibuprofen as needed. Blood cultures have been repeated on 08/25/2020 and will order another set tonning. JACQUELYN
[2020-08-26] MEDS: valACYclovir HCL 500 MG TAB PO SCH (22:00)
[2020-08-26 22:42] LABS: ABG BASE EXCESS 1.1 (-2.0-2.0); ABG HCO3 26.3 MEQ/L (22.0-26.0); ABG O2 SATURATION 97.5 % (95.0-99.0); ABG PARTIAL PRESSURE O2 102.9 mmHg (75.0-100.0); ABG STANDARD HCO3 25.4 MEQ/L (22.0-26.0); ABG TOTAL CO2 27.6 MEQ/L (23.0-31.0); ABG pH (ARTERIAL) 7.394 UNITS (7.350-7.450)
[2020-08-26 23:06] LABS: HEMATOCRIT 40.9 % (36.0-47.0); HEMOGLOBIN 12.4 g/dl (12.0-15.5); MEAN CORPUSCULAR HEMOGLOBIN 24.5 pg (27.0-33.0); MEAN CORPUSCULAR HGB CONC 30.3 g/dl (32.0-36.5); MEAN CORPUSCULAR VOLUME 80.7 fl (80.0-96.0); PLATELET COUNT, AUTOMATED 120 10^3/uL (150-450); RED BLOOD COUNT 5.07 10^6/uL (4.00-5.40); WHITE BLOOD COUNT 4.2 10^3/uL (4.0-10.0)
--- NOTE | 2020-08-26 23:29 | REPVR ---
PROCEDURE INFORMATION: Exam: XR Chest, 1 View Exam date and time: 08/26/2020 10:59 PM Age: 65 years old Clinical indication: Other: AMS TECHNIQUE: Imaging protocol: XR of the chest Views: 1 view. COMPARISON: CR Chest, 1 view 2020-08-24 16:39 FINDINGS: Lungs: Streaky perihilar opacities from infection or edema. Pleural space: Unremarkable. No pleural effusion. No pneumothorax. Heart/Mediastinum: Unremarkable. No cardiomegaly. Bones/joints: Unremarkable. IMPRESSION: Streaky perihilar opacities from infection or edema. Electronically signed by: Ej Mello On 08/26/2020 23:29:31 PM
[2020-08-26 23:37] LABS: ALBUMIN 1.9 GM/DL (3.2-5.2); ALT/SGPT 29 U/L (12-78); BILIRUBIN,TOTAL 3.5 MG/DL (0.2-1.0); BLOOD UREA NITROGEN 17 MG/DL (7-18); CALCIUM LEVEL 7.9 MG/DL (8.8-10.2); CARBON DIOXIDE LEVEL 32 MEQ/L (21-32); CHLORIDE LEVEL 103 MEQ/L (98-107); CREATININE FOR GFR 0.99 MG/DL (0.55-1.30); GLOMERULAR FILTRATION RATE > 60.0 (>45); GLUCOSE, FASTING 104 MG/DL (70-100); POTASSIUM SERUM 3.3 MEQ/L (3.5-5.1); SODIUM LEVEL 140 MEQ/L (136-145); TOTAL PROTEIN 5.4 GM/DL (6.4-8.2)
[2020-08-26 23:44] LABS: ATYPICAL LYMPH 5 % (0-5); BASOPHILS 1 % (0-1); LYMPHOCYTES 34 % (16-44); MONOCYTES 4 % (0-5); NEUTROPHILS 55 % (28-66)
[2020-08-26 23:45] LABS: ANISOCYTOSIS 1+; HYPOCHROMASIA 1+; PLATELET ESTIMATE DECREASED (NORMAL)
[2020-08-27] VITALS (23 sets, daily range): BP systolic 91–115; BP diastolic 48–62; O2SAT 85–95
--- NOTE | 2020-08-27 00:17 | REPVR ---
PROCEDURE INFORMATION: Exam: CT Head Without Contrast Exam date and time: 08/26/2020 11:36 PM Age: 65 years old Clinical indication: Altered mental status/memory loss; Additional info: AMS TECHNIQUE: Imaging protocol: Computed tomography of the head without contrast. Radiation optimization: All CT scans at this facility use at least one of these dose optimization techniques: automated exposure control; mA and/or kV adjustment per patient size (includes targeted exams where dose is matched to clinical indication); or iterative reconstruction. COMPARISON: CT Head without contrast 2020-08-24 10:46 FINDINGS: Brain: Diffuse mild cerebral age related volume loss. Mild patchy low attenuation in the white matter compatible with mild chronic small vessel ischemic disease. No midline shift, mass, fluid collection, or evidence of hemorrhage. Cerebral ventricles: Ventricular enlargement proportional to volume loss. Bones/joints: Unremarkable. No acute fracture. Paranasal sinuses: Visualized sinuses are unremarkable. No fluid levels. Mastoid air cells: Visualized mastoid air cells are well aerated. Soft tissues: Unremarkable. IMPRESSION: Mild involutional changes, no acute intracranial abnormality. Electronically signed by: Ej Mello On 08/27/2020 00:17:42 AM
[2020-08-27] MEDS: KCL 10MEQ/100ML SWI (KRUN) 10 MEQ in IV 1 EA IV SCH ×4 (02:58→10:37)
[2020-08-27] MEDS: IPRATROPIUM 0.5MG/ALBUTEROL 2.5MG INH SOL UD 3ML (DUONEB) NEB SCH ×6 (03:33→23:43)
[2020-08-27 05:59] LABS: HEMATOCRIT 40.2 % (36.0-47.0); HEMOGLOBIN 12.6 g/dl (12.0-15.5); MEAN CORPUSCULAR HEMOGLOBIN 25.3 pg (27.0-33.0); MEAN CORPUSCULAR HGB CONC 31.3 g/dl (32.0-36.5); MEAN CORPUSCULAR VOLUME 80.6 fl (80.0-96.0); PLATELET COUNT, AUTOMATED 133 10^3/uL (150-450); RED BLOOD COUNT 4.99 10^6/uL (4.00-5.40); WHITE BLOOD COUNT 3.9 10^3/uL (4.0-10.0)
[2020-08-27] MEDS: LEVOTHYROXINE 125MCG TABLET (0.125MG) PO SCH (06:00)
[2020-08-27] MEDS: SLF 3 ML SYR IV SCH ×3 (06:00→21:55)
[2020-08-27 06:21] LABS: CALCIUM LEVEL 8.2 MG/DL (8.8-10.2); CREATININE FOR GFR 1.23 MG/DL (0.55-1.30); GLOMERULAR FILTRATION RATE 46.8 (>45); POTASSIUM SERUM 3.4 MEQ/L (3.5-5.1)
[2020-08-27 07:57] LABS: MAGNESIUM LEVEL 2.2 MG/DL (1.8-2.4)
[2020-08-27] MEDS ORDERED: POTASSIUM CHLORIDE 10 MEQ SR TABLET PO ONE (08:00)
[2020-08-27] MEDS ORDERED: LEVEMIR (INSULIN DETEMIR) 1 UNITS/0.01ML SC ONE ×2 (09:00→21:45)
[2020-08-27] MEDS: METOPROLOL SUCC *XL* 25MG TAB (TopROL *XL*) PO SCH ×3 (09:00→21:00)
[2020-08-27] MEDS ORDERED: FUROSEMIDE 20MG/2ML VIAL (J1940) IV ONE (09:00)
[2020-08-27] MEDS: SERTRALINE 100 MG TAB PO SCH ×2 (09:06→21:53)
[2020-08-27] MEDS: DOCUSATE SODIUM 100MG CAPSULE PO SCH ×2 (09:06→21:00)
[2020-08-27] MEDS: GABAPENTIN 100 MG CAP PO SCH ×3 (09:06→21:53)
[2020-08-27] MEDS: hydrOXYzine 25 MG TAB PO SCH ×2 (09:06→21:53)
[2020-08-27] MEDS: HumaLOG INSULIN (NovoLOG) PER UNIT SC SCH ×4 (09:08→20:35)
[2020-08-27] MEDS: MIRALAX *UNIT DOSE* 17GM PACKET PO SCH (09:08)
[2020-08-27] MEDS: ZIPRASIDONE 20MG CAPSULE (GEODON) PO SCH ×2 (09:09→21:54)
[2020-08-27] MEDS: cloZAPine 100 MG TAB (S0136) PO SCH ×2 (09:09→21:53)
[2020-08-27] MEDS: valACYclovir HCL 500 MG TAB PO SCH ×2 (09:09→21:53)
[2020-08-27] MEDS: NYSTATIN 100,000 UNITS/GM TOPICAL PWD 15 GM TOP SCH ×2 (09:26→21:54)
[2020-08-27] MEDS: ENOXAPARIN 40MG/0.4ML SYRINGE (J1650 PER 10MG) SC SCH (09:26)
[2020-08-27] MEDS ORDERED: ONDANSETRON 4MG/2ML VIAL IV ONE (12:30)
--- NOTE | 2020-08-27 12:45 | IPNPDOC ---
Text Note Date of Service The patient was seen on 08/27/20. NOTE SUBJECTIVE: Patient seen and examined at bedside. No more fevers since last e vening. Feels the same as yesterday, some nausea this morning. Denies dysuria, chest pain, cough, palpitations, headache. PHYSICAL EXAMINATION: General: Looks comfortable but weak appearing, not diaphoretic today HEENT: PERRLA, EOMI, sclerae clear Neck: supple, normal ROM, no JVD Respiratory: lungs CTAB, no wheeze, no rales, no crackles CVS: RRR, normal S1, S2 Abdo: soft, no masses, BS+, no rebound tenderness, obese Extremities: Trace LE pitting edema, pulses 2+, no cyanosis, no heel ulcers MSK: no joint deformities, normal ROM Neuro: Cranial nerves 3-12 intact bilaterally. Muscle strength diminished in the LLE vs RLE at S1. Psych: calm, cooperative, AAO x 3 Skin: Sacral wounds evaluated by Dr Haynes 08/23/2020 ASSESSMENT/PLAN 65 yo F with a hx of DM2, lumbar stenosis (severe at L4/L5), HLD, presenting to ER with recurrent BLE weakness and frequent falls. # Sepsis likely 2/2 E Coli Pyelonephritis: Describes CVA tenderness on presentation, fever, and UA was found to be dirty. UCx E Coli. Completed treatment. Patient clinically appears improved but continued to spike fevers. Sh e's completed 10 days of IV Abx. Treatment is now complete. For her fevers I consulted Dr King ID. MRI spine didn't show acute findings that would explain her fevers, blood cultures have been negative, echo didn't suggest endocarditis, procalcitonin is downtrending, Dr Blount pulmonology evaluated patient and doesn't think she has a PNA. After discussion with Dr King, it was agreed to discontinue her ABx as this could be a drug related fever, or fever from another etiology not related to infection and to monitor here for fevers. Ibuprofen and tylenol for fevers. - If she continues to spike fever tomorrow also, will get WBC scan Saturday. #Elevated alk phos, hyperbilirubinemia: CT abdo. liver US. Hepatomegaly , concern for cirrosis. Hepatic steatosis. Mild anasarca. Splenomegaly. Suspect NA SH. US showing possible sludge. MRCP 08/20 was negative, discussed with Dr Hope rising direct bili again and will repeat MRCP. 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 Dr Palmer suspects LFT related to combination of cirrhosis and cardiac congestive hepatopathy. Fu LKM1 antibody. Fu US duplex portal vessels to rule out portal vein thrombosis. # Dyspnea possibly 2/2 CHFpEF: BNP elevated 1600. Mild tachycardia. Likely fluid overloaded. Echo EF 60% grade 1DD. CTA/PE negative for PE. D/w Zhang. Severe pulmonary HTN. Will need OP sleep study for CPAP. per Dr Blount ok for patient to go home on oxygen. IV lasix PRN. #Sacral pressure ulcers: frequent turning. wound care. clean with vashe. foam dressing. Heel float boots (no heel ulceration noted on admission). Seen by wound care Dr Haynes 08/23/2020 - doesn't need ABx. Will ask fur blender is some of the lesions could be HSV. Fu HSV PCR and started on valacyclovir. # Acute encephalopathy: likely 2/2 infection. AMS resolved. patient was altered and difficult to arouse on 08/20. CT head wo acute changes. Ammonia wnl. Trop wnl. LA wnl. 08/24 has a brief period of decreased responsiveness/confusion a repeat CT head was done 08/24 which was negative. #pneumonia: seen on CXR 08/19, possible developing LLL pna, less convincing on repeat CXR, more likely atelectasis. Ceftriaxone, azithromycin (08/20/20). COVID negative on 08/17 and 08/24. Incentive spirometry. Pulmonology consulted. #Recurrent falls: advanced and progressing spinal stenosis. PT/OT eval. B12, folate wnl. #severe pulmonary hypertension: suspected based on echo per Dr. Holcomb. Consulted pulmonary Dr. Blount. #sinus tachycardia: negative for PE. TSH/FT4 wnl. sinus tach on tele. Cardiology consulted, discussed with Dr. Holcomb. Patient's tachycardiac likely related to pulmonary hypertension/AUDRA. Will keep metoprolol 25 mg bid. Patient seen by Dr. Blount, recommended outpatient sleep study. #DM2: ISS, FSBS AC and HS. Hypoglycemic precautions. A1c 9.2. BG 90-150. Reduce levemir to 30 units qam and 20 units qpm. (home dose levemir 50 unts qam). findings. Ordered. PATRICK+, ordered PATRICK titers. Negative anti-mitochondrial ab. Likely hepatic congestion from cor pulmonale 2/2 pulmonary hypertension. #Urinary retention: check bladder scan. straight cath if > 250 cc. #vaginal candidiasis: diflucan 150 mg PO once. miconazole. #Lumbar spinal stenosis; severe at L4/L5. Has been seen by Dr. Mena, and was referred to specialist in [place]. OR delayed given uncontrolled DM2, patient was asked to return this but did not follow up. Reports bilateral LE weakness L > R. Recurrent falls. Absent/minimal rectal tone. Discussed with Dr. Sheppard, assess patient. This is not cauda equina. Progression of spinal stenosi s. Recommends ongoing outpatient follow up, although patient states that she is happy with her level of mobility. #Schizoid personality disorder,anxiety: continue home meds #Hydradenitis suppurativa: resume home meds. wound care. 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 Needs outpatient sleep study. DVT ppx: lovenox VS,Fishbone, I+O VS, Fishbone, I+O Laboratory Tests 08/26/20 22:53 08/27/20 05:29 Vital Signs Date Time Temp Pulse Resp B/P (MAP) Pulse Ox O2 Delivery O2 Flow Rate FiO2 08/27/20 12:00 96.9 105 23 110/59 (76) 96 Nasal Cannula 2.0 I&O- Last 24 Hours up to 6 AM 08/27/20 06:00 Intake Total 1740 ml Output Total 2725 ml Balance -985 ml PONCHO LEYVA MD Aug 27, 2020 12:45
[2020-08-27 13:26] LABS: ALBUMIN 1.8 GM/DL (3.2-5.2); BILIRUBIN,DIRECT 3.3 MG/DL (0.0-0.2); BILIRUBIN,TOTAL 3.9 MG/DL (0.2-1.0); TOTAL PROTEIN 5.6 GM/DL (6.4-8.2)
--- NOTE | 2020-08-27 14:48 | REP ---
INDICATION: Elevated bili, suspect stone. COMPARISON: Comparison MRI study August 20, [address] study August 17, 2020. CT exam demonstrates a calcified gallstone in the region of the neck of the gallbladder. Sonography from August 17, 2020. TECHNIQUE: Axial and coronal T2 weighted scans are obtained. MRCP acquisition is acquired and maximum intensity projection images are generated and reviewed. FINDINGS: Moderate splenomegaly is observed, 17.8 cm in greatest diameter. This is unchanged from recent CT study. The CT exam showed fatty infiltration of the liver. There is a small low signal intensity area in the dependent portion the gallbladder which may correspond to the stone seen on CT. There is mild pericholecystic T2 hyperintense edema. The gallbladder is not dilated however. There is no evidence of intrahepatic or extrahepatic biliary ductal dilation. Common bile duct is normal in caliber without choledocholithiasis. Maximum diameter of the CBD is 4.6 mm. On axial T2 weighted scans there is mild diffuse periportal edema in the liver parenchyma. This nonspecific finding may correlate with CHF, acute hepatitis, cholangitis and trauma. There is no visible ascites. IMPRESSION: No intrahepatic or extrahepatic biliary ductal dilation is observed. There is mild pericholecystic edema and there is a pattern of intrahepatic periportal edema as above. This may be associated with CHF, hepatitis, cholangitis or trauma. There is a small low signal intensity area in the dependent portion the gallbladder which likely corresponds with the stone seen on CT. <Electronically signed by Mayur Mcclure > 08/27/20 [id number]
[2020-08-27] MEDS: ACETAMINOPHEN TAB 650MG DOSE (2X325MG) PO PRN (16:35)
[2020-08-27 18:51] LABS: C REACTIVE PROTEIN QUANTITATIV 9.85 MG/DL (0.00-0.30)
[2020-08-27] MEDS: LEVEMIR (INSULIN DETEMIR) 1 UNITS/0.01ML SC SCH (21:00)
[2020-08-27] MEDS: cloZAPine 25 MG TAB (S0136) PO SCH (21:53)
[2020-08-28] VITALS (13 sets, daily range): BP systolic 95–104; BP diastolic 53–62; O2SAT 92–95
[2020-08-28] MEDS: ACETAMINOPHEN TAB 650MG DOSE (2X325MG) PO PRN ×2 (00:05→11:49)
[2020-08-28] MEDS: IPRATROPIUM 0.5MG/ALBUTEROL 2.5MG INH SOL UD 3ML (DUONEB) NEB SCH ×5 (04:00→20:08)
[2020-08-28 06:16] LABS: HEMATOCRIT 38.8 % (36.0-47.0); HEMOGLOBIN 12.1 g/dl (12.0-15.5); MEAN CORPUSCULAR HEMOGLOBIN 25.2 pg (27.0-33.0); MEAN CORPUSCULAR HGB CONC 31.2 g/dl (32.0-36.5); MEAN CORPUSCULAR VOLUME 80.7 fl (80.0-96.0); PLATELET COUNT, AUTOMATED 135 10^3/uL (150-450); RED BLOOD COUNT 4.81 10^6/uL (4.00-5.40); WHITE BLOOD COUNT 4.2 10^3/uL (4.0-10.0)
[2020-08-28] MEDS: LEVOTHYROXINE 125MCG TABLET (0.125MG) PO SCH (06:20)
[2020-08-28] MEDS: SLF 3 ML SYR IV SCH ×3 (06:20→22:03)
[2020-08-28 06:33] LABS: ALBUMIN 1.7 GM/DL (3.2-5.2); BILIRUBIN,TOTAL 4.1 MG/DL (0.2-1.0); CREATININE FOR GFR 1.4 MG/DL (0.55-1.30); GLOMERULAR FILTRATION RATE 40.3 (>45); POTASSIUM SERUM 3.8 MEQ/L (3.5-5.1); TOTAL PROTEIN 5.4 GM/DL (6.4-8.2)
[2020-08-28] MEDS: HumaLOG INSULIN (NovoLOG) PER UNIT SC SCH ×4 (07:30→20:14)
--- NOTE | 2020-08-28 07:52 | REPVR ---
PROCEDURE INFORMATION: Exam: US Abdomen Complete Exam date and time: 08/28/2020 7:06 AM Age: 65 years old Clinical indication: Condition or disease; Liver condition; Cirrhosis; Additional info: Liver/duplex portal vessels-pvt/cardiac cirrhosis/congestion TECHNIQUE: Imaging protocol: Real-time ultrasound of the abdomen with image documentation. COMPARISON: LIVER US 08/17/2020 6:14 PM FINDINGS: Limitations: Body habitus, patient inability to hold breath. Liver: The liver is again large and increased in echotexture, suggesting fatty infiltration. There is no demonstrated mass or intrahepatic biliary ductal dilatation, evaluation for which is somewhat limited due to the increased echotexture. Gallbladder: The gallbladder contains sludge and a stone. Its wall is thickened at 5.7 mm. There is no significant pericholecystic fluid. Sonographic Pham sign was not reported as positive. Common bile duct: The common bile duct is normal in size for a patient of this age at 4.4 mm. Pancreas: The pancreas is obscured by overlying bowel gas. Right kidney: The right kidney measures 12.7 x 5.1 x 5.5 cm. Normal appearing echotexture. There is no hydronephrosis or demonstrated renal stone, cyst or mass. Left kidney: The left kidney measures 11.9 x 5.4 x 5.7 cm. Normal appearing echotexture. There is no hydronephrosis or demonstrated renal stone, cyst or mass. Spleen: The spleen is enlarged, with a length of 18.9 cm. Aorta: The abdominal aorta was not visualized. Inferior vena cava: The IVC is not demonstrated. Portal venous: The main portal vein measures 14 mm in diameter. Portal venous flow is normal in direction. Hepatic veins: The hepatic artery is patent, with peak systolic velocity 134.4 cm/s, end-diastolic velocity 35.8 cm/s and resistive index 0.73. The main, left and right hepatic veins are patent. IMPRESSION: 1. Large, fatty liver, as on 08/17/20. 2. Gallbladder sludge and stones with wall thickening. This could relate to low albumin state, but correlate as to any possible cholecystitis. No significant gallbladder wall thickening, and sonographic Pham sign not reported as positive. 3. Splenomegaly. 4. Patent portal vein, hepatic veins and hepatic artery. Electronically signed by: Martín Donato On 08/28/2020 07:52:37 AM
[2020-08-28] MEDS: METOPROLOL SUCC *XL* 25MG TAB (TopROL *XL*) PO SCH ×2 (09:00→21:00)
[2020-08-28] MEDS: LEVEMIR (INSULIN DETEMIR) 1 UNITS/0.01ML SC SCH ×2 (09:46→21:59)
[2020-08-28] MEDS: ENOXAPARIN 40MG/0.4ML SYRINGE (J1650 PER 10MG) SC SCH (09:46)
[2020-08-28] MEDS: cloZAPine 100 MG TAB (S0136) PO SCH ×2 (09:47→21:58)
[2020-08-28] MEDS: ZIPRASIDONE 20MG CAPSULE (GEODON) PO SCH ×2 (09:47→21:58)
[2020-08-28] MEDS: DOCUSATE SODIUM 100MG CAPSULE PO SCH ×2 (09:47→21:58)
[2020-08-28] MEDS: SERTRALINE 100 MG TAB PO SCH ×2 (09:48→21:58)
[2020-08-28] MEDS: GABAPENTIN 100 MG CAP PO SCH ×3 (09:48→21:58)
[2020-08-28] MEDS: valACYclovir HCL 500 MG TAB PO SCH ×2 (09:48→21:58)
[2020-08-28] MEDS: hydrOXYzine 25 MG TAB PO SCH ×2 (09:48→21:58)
[2020-08-28] MEDS: NYSTATIN 100,000 UNITS/GM TOPICAL PWD 15 GM TOP SCH ×2 (09:50→21:59)
[2020-08-28] MEDS: MIRALAX *UNIT DOSE* 17GM PACKET PO SCH (09:56)
--- NOTE | 2020-08-28 11:04 | IPNPDOC ---
Text Note Date of Service The patient was seen on 08/28/20. NOTE SUBJECTIVE: Patient seen and examined at bedside. No more fevers since last e vening. Feels the same as yesterday, no nausea today. Denies dysuria, chest pain, cough, palpitations, headache. No overnight events PHYSICAL EXAMINATION: General: Looks comfortable but weak appearing, not diaphoretic today HEENT: PERRLA, EOMI, sclerae clear Neck: supple, normal ROM, no JVD Respiratory: lungs CTAB, no wheeze, no rales, no crackles CVS: RRR, normal S1, S2 Abdo: soft, no masses, BS+, no rebound tenderness, obese Extremities: Trace LE pitting edema, pulses 2+, no cyanosis, no heel ulcers MSK: no joint deformities, normal ROM Neuro: Cranial nerves 3-12 intact bilaterally. Muscle strength diminished in the LLE vs RLE at S1. Psych: calm, cooperative, AAO x 3 Skin: Sacral wounds evaluated by Dr Haynes 08/23/2020 ASSESSMENT/PLAN 65 yo F with a hx of DM2, lumbar stenosis (severe at L4/L5), HLD, presenting to ER with recurrent BLE weakness and frequent falls. # Sepsis likely 2/2 E Coli Pyelonephritis: Describes CVA tenderness on presentation, fever, and UA was found to be dirty. UCx E Coli. Completed treatment. Patient clinically appears improved but continued to spike fevers. She's completed 10 days of IV Abx. Treatment is now complete. For her fevers I consulted Dr King ID. MRI spine didn't show acute findings that would explain her fevers, blood cultures have been negative, echo didn't suggest endocarditis, procalcitonin is downtrending, Dr Blount pulmonology evaluated patient and doesn't think she has a PNA. After discussion with Dr King, it was agreed to di scontinue her ABx as this could be a drug related fever, or fever from another etiology not related to infection and to monitor here for fevers. Ibuprofen and tylenol for fevers. - If she continues to spike fever today also, will get WBC scan Saturday. - Fu ANCA, Lyme serology #Elevated alk phos, hyperbilirubinemia: CT abdo. liver US. Hepatomegaly , concern for cirrosis. Hepatic steatosis. Mild anasarca. Splenomegaly. Suspect SEGURA. US showing possible sludge. MRCP 08/20 was negative, discussed with Dr Hope rising direct bili again and will repeat MRCP. 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 Dr Palmer suspects LFT related to combination of cirrhosis and cardiac congestive hepatopathy. Fu LKM1 antibody. Fu US duplex portal vessels to rule out portal vein thrombosis. # Dyspnea possibly 2/2 CHFpEF: BNP elevated 1600. Mild tachycardia. Likely fluid overloaded. Echo EF 60% grade 1DD. CTA/PE negative for PE. D/w Zhang. Severe pulmonary HTN. Will need OP sleep study for CPAP. per Dr Blount ok for patient to go home on oxygen. IV lasix PRN. #Sacral pressure ulcers: frequent turning. wound care. clean with vashe. foam dressing. Heel float boots (no heel ulceration noted on admission). Seen by wound care Dr Haynes 08/23/2020 - doesn't need ABx. Will ask offender employment specialist is some of the lesions could be HSV. Fu HSV PCR and started on valacyclovir. # Acute encephalopathy: likely 2/2 infection. AMS resolved. patient was altered and difficult to arouse on 08/20. CT head wo acute changes. Ammonia wnl. Trop wnl. LA wnl. 08/24 has a brief period of decreased responsiveness/confusion a repeat CT head was done 08/24 which was negative. #pneumonia: seen on CXR 08/19, possible developing LLL pna, less convincing on repeat CXR, more likely atelectasis. Ceftriaxone, azithromycin (08/20/20). COVID negative on 08/17 and 08/24. Incentive spirometry. Pulmonology consulted. #Recurrent falls: advanced and progressing spinal stenosis. PT/OT eval. B12, folate wnl. #severe pulmonary hypertension: suspected based on echo per Dr. Holcomb. Consul chang pulmonary Dr. Blount. #sinus tachycardia: negative for PE. TSH/FT4 wnl. sinus tach on tele. Cardiology consulted, discussed with Dr. Holcomb. Patient's tachycardiac likely related to pulmonary hypertension/AUDRA. Will keep metoprolol 25 mg bid. Patient seen by Dr. Blount, recommended outpatient sleep study. #DM2: ISS, FSBS AC and HS. Hypoglycemic precautions. A1c 9.2. BG 90-150. Reduce levemir to 30 units qam and 20 units qpm. (home dose levemir 50 unts qam). findings. Ordered. PATRICK+, ordered PATRICK titers. Negative anti-mitochondrial ab. Likely hepatic congestion from cor pulmonale 2/2 pulmonary hypertension. #Urinary retention: check bladder scan. straight cath if > 250 cc. #vaginal candidiasis: diflucan 150 mg PO once. miconazole. #Lumbar spinal stenosis; severe at L4/L5. Has been seen by Dr. Mena, and was referred to specialist in [place]. OR delayed given uncontrolled DM2, patient was asked to return this but did not follow up. Reports bilateral LE weakness L > R. Recurrent falls. Absent/minimal rectal tone. Discussed with Dr. Sheppard, assess patient. This is not cauda equina. Progression of spinal stenosis. Recommends ongoing outpatient follow up, although patient states that she is happy with her level of mobility. #Schizoid personality disorder,anxiety: continue home meds #Hydradenitis suppurativa: resume home meds. wound care. 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 Needs outpatient sleep study. DVT ppx: lovenox VS,Fishbone, I+O VS, Fishbone, I+O Laboratory Tests 08/28/20 05:29 Vital Signs Date Time Temp Pulse Resp B/P (MAP) Pulse Ox O2 Delivery O2 Flow Rate FiO2 08/28/20 09:00 97 104/58 08/28/20 08:00 97.6 28 94 Nasal Cannula 3.0 I&O- Last 24 Hours up to 6 AM 08/28/20 06:00 Intake Total 1200 ml Output Total 700 ml Balance 500 ml PONCHO LEYVA MD Aug 28, 2020 11:04
[2020-08-28] MEDS: cloZAPine 25 MG TAB (S0136) PO SCH (21:58)
[2020-08-29] VITALS (13 sets, daily range): BP systolic 88–140; BP diastolic 56–87; O2SAT 90–95
[2020-08-29] MEDS: IPRATROPIUM 0.5MG/ALBUTEROL 2.5MG INH SOL UD 3ML (DUONEB) NEB SCH ×6 (04:00→19:39)
[2020-08-29] MEDS: SLF 3 ML SYR IV SCH ×3 (04:58→20:15)
[2020-08-29] MEDS: LEVOTHYROXINE 125MCG TABLET (0.125MG) PO SCH (04:58)
[2020-08-29 05:37] LABS: HEMATOCRIT 40.5 % (36.0-47.0); HEMOGLOBIN 12.4 g/dl (12.0-15.5); MEAN CORPUSCULAR HEMOGLOBIN 24.4 pg (27.0-33.0); MEAN CORPUSCULAR HGB CONC 30.6 g/dl (32.0-36.5); MEAN CORPUSCULAR VOLUME 79.6 fl (80.0-96.0); PLATELET COUNT, AUTOMATED 118 10^3/uL (150-450); RED BLOOD COUNT 5.09 10^6/uL (4.00-5.40); WHITE BLOOD COUNT 4.6 10^3/uL (4.0-10.0)
[2020-08-29 06:04] LABS: ALBUMIN 1.9 GM/DL (3.2-5.2); BILIRUBIN,TOTAL 4.4 MG/DL (0.2-1.0); CREATININE FOR GFR 1.22 MG/DL (0.55-1.30); GLOMERULAR FILTRATION RATE 47.2 (>45); POTASSIUM SERUM 4.1 MEQ/L (3.5-5.1); TOTAL PROTEIN 5.8 GM/DL (6.4-8.2)
--- NOTE | 2020-08-29 07:27 | IPNPDOC ---
Text Note Date of Service The patient was seen on 08/29/20. NOTE SUBJECTIVE: Patient seen and examined at bedside. Last fever 08/27/2020 at 4:30 PM. Overnight it was reported she was feeling more tired thought to be due to polypharmacy. When she was seen this morning she says she feels a little depressed because she thinks her has left her because he doesn't visit. I explained to her the visitation restrictions due to Covid and encouraged conversation over the phone which she agreed to. She says she's feeling overall more tired and sleepy but otherwise well. She denies any chest pain or shortness of breath no more fevers or chills. PHYSICAL EXAMINATION: General: Looks comfortable but weak and tired appearing. HEENT: PERRLA, EOMI, sclerae clear Neck: supple, normal ROM, no JVD Respiratory: lungs CTAB, no wheeze, no rales, no crackles CVS: RRR, normal S1, S2 Abdo: soft, BS+, no rebound tenderness, obese Extremities: Trace LE pitting edema, pulses 2+, no cyanosis, no heel ulcers MSK: no joint deformities, normal ROM Neuro: Cranial nerves 3-12 intact bilaterally. Muscle strength diminished in the LLE vs RLE at S1. Psych: calm, cooperative, AAO x 3 Skin: Sacral wounds evaluated by Dr Haynes 08/23/2020 ASSESSMENT/PLAN 65 yo F with a hx of DM2, lumbar stenosis (severe at L4/L5), HLD, presenting to ER with recurrent BLE weakness and frequent falls. # Sepsis likely 2/2 E Coli Pyelonephritis: Describes CVA tenderness on presentation, fever, and UA was found to be dirty. UCx E Coli. Completed treatment. She's completed 10 days of IV Abx. Treatment is now complete. For her fevers I consulted Dr Christine LOMBARDO as she intermittently spike fevers posttreatment. MRI spine didn't show acute findings that would explain her fevers, blood cultures have been negative, echo didn't suggest endocarditis, procalcitonin is downtrending, Dr Blount pulmonology evaluated patient and doesn't think she has a PNA. After discussion with Dr King, it was agreed to discontinue her ABx as this could be a drug related fever, or fever from another etiology not related to infection and to monitor here for fevers. Ibuprofen and tylenol for fevers. ANCA, Lyme serology. Discussing with Dr. King plan was to obtain WBC tag study 08/29/2020 if she spikes another fever. However she has not spiked a fever since 08/27/2020 4:30 PM. At this time it suspected that her fevers were drug-induced to be antibiotics as they appear to have subsided shortly after the antibiotics were discontinued. #Elevated alk phos, hyperbilirubinemia: CT abdo. liver US. Hepatomegaly , concern for cirrosis. Hepatic steatosis. Mild anasarca. Splenomegaly. Suspect SEGURA. US showing possible sludge. MRCP 08/20 was negative, discussed with Dr Hope rising direct bili again and will repeat MRCP. 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 Dr Palmer suspects LFT related to combination of cirrhosis and cardiac congestive hepatopathy. LKM1 antibody. Fu US duplex portal vessels to rule out portal vein thrombosis. # Weakness: deconditioned. Needs therapy. Decreased some of her psych meds due to polypharmacy. # Dyspnea possibly 2/2 CHFpEF: BNP elevated 1600. Mild tachycardia. Likely fluid overloaded. Echo EF 60% grade 1DD. CTA/PE negative for PE. D/w Holcomb. Severe pulmonary HTN. Will need OP sleep study for CPAP. per Dr Mine iniguez for patient to go home on oxygen. IV lasix PRN. #Sacral pressure ulcers: frequent turning. wound care. clean with vashe. foam dressing. Heel float boots (no heel ulceration noted on admission). Seen by wound care Dr Haynes 08/23/2020 - doesn't need ABx. Will ask agricultural technician is some of the lesions could be HSV. Fu HSV PCR and started on valacyclovir. # Acute encephalopathy: likely 2/2 infection. AMS resolved. patient was altered and difficult to arouse on 08/20. CT head wo acute changes. Ammonia wnl. Trop wnl. LA wnl. 08/24 has a brief period of decreased responsiveness/confusion a repeat CT head was done 08/24 which was negative. #pneumonia: seen on CXR 08/19, possible developing LLL pna, less convincing on repeat CXR, more likely atelectasis. Ceftriaxone, azithromycin (08/20/20). COVID negative on 08/17 and 08/24. Incentive spirometry. Pulmonology consulted. #Recurrent falls: advanced and progressing spinal stenosis. PT/OT eval. B12, folate wnl. #severe pulmonary hypertension: suspected based on echo per Dr. Holcomb. Consulted pulmonary Dr. Blount. #sinus tachycardia: negative for PE. TSH/FT4 wnl. sinus tach on tele. Cardiology consulted, discussed with Dr. Holcomb. Patient's tachycardiac likely related to pulmonary hypertension/AUDRA. Will keep metoprolol 25 mg bid. Patient seen by Dr. Blount, recommended outpatient sleep study. #DM2: ISS, FSBS AC and HS. Hypoglycemic precautions. A1c 9.2. BG 90-150. Reduce levemir to 30 units qam and 20 units qpm. (home dose levemir 50 unts qam). findings. Ordered. PATRICK+, ordered PATRICK titers. Negative anti-mitochondrial ab. Likely hepatic congestion from cor pulmonale 2/2 pulmonary hypertension. #Urinary retention: check bladder scan. straight cath if > 250 cc. #vaginal candidiasis: diflucan 150 mg PO once. miconazole. #Lumbar spinal stenosis; severe at L4/L5. Has been seen by Dr. Mena, and was referred to specialist in [place]. OR delayed given uncontrolled DM2, patient was asked to return this but did not follow up. Reports bilateral LE weakness L > R. Recurrent falls. Absent/minimal rectal tone. Discussed with Dr. Sheppard, assess patient. This is not cauda equina. Progression of spinal stenosis. Recommends ongoing outpatient follow up, although patient states that she is happy with her level of mobility. #Schizoid personality disorder,anxiety: continue home meds #Hydradenitis suppurativa: resume home meds. wound care. 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 Needs outpatient sleep study. DVT ppx: lovenox Disposition needs rehab which she is agreeable to. Likely Saturday. VS,Fishbone, I+O VS, Fishbone, I+O Laboratory Tests 08/29/20 05:03 Vital Signs Date Time Temp Pulse Resp B/P (MAP) Pulse Ox O2 Delivery O2 Flow Rate FiO2 08/29/20 06:58 98.3 103 88/56 (67) 92 Nasal Cannula 3.0 08/29/20 04:00 28 I&O- Last 24 Hours up to 6 AM 08/29/20 06:00 Intake Total 1280 ml Output Total 400 ml Balance 880 ml PONCHO LEYVA MD Aug 29, 2020 07:27
[2020-08-29] MEDS: METOPROLOL SUCC *XL* 25MG TAB (TopROL *XL*) PO SCH ×2 (09:00→20:14)
[2020-08-29] MEDS: MIRALAX *UNIT DOSE* 17GM PACKET PO SCH (09:37)
[2020-08-29] MEDS: SERTRALINE 100 MG TAB PO SCH ×2 (09:39→20:13)
[2020-08-29] MEDS: valACYclovir HCL 500 MG TAB PO SCH ×2 (09:39→20:12)
[2020-08-29] MEDS: GABAPENTIN 100 MG CAP PO SCH ×3 (09:39→20:13)
[2020-08-29] MEDS: DOCUSATE SODIUM 100MG CAPSULE PO SCH ×2 (09:39→20:20)
[2020-08-29] MEDS: ZIPRASIDONE 20MG CAPSULE (GEODON) PO SCH ×2 (09:39→20:13)
[2020-08-29] MEDS: HumaLOG INSULIN (NovoLOG) PER UNIT SC SCH ×4 (09:40→20:14)
[2020-08-29] MEDS: LEVEMIR (INSULIN DETEMIR) 1 UNITS/0.01ML SC SCH ×2 (09:40→20:14)
[2020-08-29] MEDS: ENOXAPARIN 40MG/0.4ML SYRINGE (J1650 PER 10MG) SC SCH (09:41)
[2020-08-29] MEDS: NYSTATIN 100,000 UNITS/GM TOPICAL PWD 15 GM TOP SCH ×3 (09:42→20:15)
[2020-08-29] MEDS ORDERED: FUROSEMIDE 100MG/10ML VIAL (J1940) IV ONE (13:15)
[2020-08-29] MEDS: cloZAPine 25 MG TAB (S0136) PO SCH (20:13)
--- NOTE | 2020-08-29 21:30 | IPN ---
PROGRESS NOTE DATE: 08/29/2020 SUBJECTIVE: Ros had no complaints today , she is incontinent of urine and stool. She is sitting in her stool and urine and does not even realize it. She had a PureWick, but it was dislodged and was not working properly. She states her perirectal pain and ulcers have improved. LABORATORY DATA: White count 4.6, hemoglobin 12.4, hematocrit 40.5, platelets 118,000. Sodium 135, potassium 4.1, chloride 101, bicarb 29, BUN 30, creatinine 1.2, glucose 133, calcium 9. Total bilirubin 4.4, which has increased from 08/23/2020. AST 34, ALT 22, alkaline phosphatase 804, which also has increased. Albumin 1.9. Blood cultures have all remained negative 08/24/2020, 08/25/2020, 08/26/2020 and 08/27/2020; total of six sets. HSV PCR is still pending. PHYSICAL EXAMINATION: VITALS: Temperature 98.3, pulse 118, respirations 20, blood pressure 131/76, O2 sat 93% on 3 liters nasal cannula. GENERAL: Patient is a little lethargic, but appropriate. HEART: Normal S1, S2, tachycardic. No murmurs. LUNGS: Clear, diminished at the bases. ABDOMEN: Morbidly obese, soft, nontender. : Pressure ulcer on the sacral area and some perianal ulcerations at the right buttocks are more shallow and nontender to touch. There is diffuse erythema of the perineal area, probably Candidiasis satellite lesion. EXTREMITIES: +1 pitting edema. ABG: pH 7.39, pCO2 44, pO2 102, O2 sat 97% on room air. IMPRESSION: 1. E. coli urinary tract infection: Treated with ten days of I.V. antibiotics - resolved. 2. Fever on antibiotics: [place] to be related to drug fever, all antibiotics have been discontinued and fever has resolved. 3. Perianal ulcers of the right buttocks: HSV is pending, patient currently on Valtrex 500 mg p.o. b.i.d. 4. Hyperbilirubinemia: Abdominal ultrasound done on 08/28/2020 showed fatty liver, gallbladder sludge and stones with wall thickening; concerning for cholecystitis, but patient has negative Pham's sign and no pain. Patient with a history of liver cirrhosis. Abdominal MRI done on 08/27/2020 showed no hepatic or extrahepatic biliary dilatation and mild pericholecystic fluid. PLAN: Discontinue Valtrex after a total of five days of treatment. Nystatin cream for cutaneous Candidiasis. I would avoid antifungal treatment due to her hyperbilirubinemia and just would use Nystatin topical for the rash. Will continue to monitor. MTDD
[2020-08-29] MEDS ORDERED: IPRATROPIUM 0.5MG/ALBUTEROL 2.5MG INH SOL UD 3ML (DUONEB) NEB ONE (22:45)
[2020-08-29] MEDS: ACETAMINOPHEN TAB 650MG DOSE (2X325MG) PO PRN (23:16)
[2020-08-30] VITALS (27 sets, daily range): BP systolic 102–128; BP diastolic 53–63; O2SAT 92–98
[2020-08-30] MEDS ORDERED: IPRATROPIUM 0.5MG/ALBUTEROL 2.5MG INH SOL UD 3ML (DUONEB) NEB SCH
[2020-08-30] MEDS: IPRATROPIUM 0.5MG/ALBUTEROL 2.5MG INH SOL UD 3ML (DUONEB) NEB SCH ×5 (04:13→19:24)
[2020-08-30 05:59] LABS: HEMATOCRIT 40.4 % (36.0-47.0); HEMOGLOBIN 12.7 g/dl (12.0-15.5); MEAN CORPUSCULAR HEMOGLOBIN 25.1 pg (27.0-33.0); MEAN CORPUSCULAR HGB CONC 31.4 g/dl (32.0-36.5); MEAN CORPUSCULAR VOLUME 79.8 fl (80.0-96.0); PLATELET COUNT, AUTOMATED 115 10^3/uL (150-450); RED BLOOD COUNT 5.06 10^6/uL (4.00-5.40); WHITE BLOOD COUNT 5.1 10^3/uL (4.0-10.0)
[2020-08-30 06:23] LABS: ALBUMIN 1.7 GM/DL (3.2-5.2); BILIRUBIN,TOTAL 4.5 MG/DL (0.2-1.0); CALCIUM LEVEL 8.8 MG/DL (8.8-10.2); CREATININE FOR GFR 1.23 MG/DL (0.55-1.30); GLOMERULAR FILTRATION RATE 46.8 (>45); POTASSIUM SERUM 3.4 MEQ/L (3.5-5.1); TOTAL PROTEIN 5.6 GM/DL (6.4-8.2)
[2020-08-30] MEDS: LEVOTHYROXINE 125MCG TABLET (0.125MG) PO SCH (06:23)
[2020-08-30] MEDS: SLF 3 ML SYR IV SCH ×3 (06:23→21:14)
[2020-08-30] MEDS: HumaLOG INSULIN (NovoLOG) PER UNIT SC SCH ×4 (07:30→21:00)
[2020-08-30] MEDS: MIRALAX *UNIT DOSE* 17GM PACKET PO SCH (08:34)
[2020-08-30] MEDS: GABAPENTIN 100 MG CAP PO SCH ×3 (08:34→21:08)
[2020-08-30] MEDS: SERTRALINE 100 MG TAB PO SCH ×2 (08:34→21:09)
[2020-08-30] MEDS: DOCUSATE SODIUM 100MG CAPSULE PO SCH ×2 (08:34→21:08)
[2020-08-30] MEDS: METOPROLOL SUCC *XL* 25MG TAB (TopROL *XL*) PO SCH ×2 (08:35→21:08)
[2020-08-30] MEDS: NYSTATIN 100,000 UNITS/GM TOPICAL PWD 15 GM TOP SCH ×4 (08:40→21:14)
[2020-08-30] MEDS: ENOXAPARIN 40MG/0.4ML SYRINGE (J1650 PER 10MG) SC SCH (08:42)
[2020-08-30] MEDS: valACYclovir HCL 500 MG TAB PO SCH ×2 (08:55→21:07)
[2020-08-30] MEDS ORDERED: LEVEMIR (INSULIN DETEMIR) 1 UNITS/0.01ML SC ONE (09:15)
[2020-08-30] MEDS: ACETAMINOPHEN TAB 650MG DOSE (2X325MG) PO PRN ×2 (12:49→21:07)
[2020-08-30 14:44] LABS: BILIRUBIN,DIRECT 4.1 MG/DL (0.0-0.2)
[2020-08-30 17:06] LABS: Lyme Disease IgG/IgM Antibodie <0.91 ISR (0.00-0.90); Lyme Disease IgM Ab Quantitati <0.80 index (0.00-0.79)
[2020-08-30] MEDS: FUROSEMIDE 20MG/2ML VIAL (J1940) IV SCH (17:08)
[2020-08-30] MEDS: cloZAPine 25 MG TAB (S0136) PO SCH (21:08)
[2020-08-30] MEDS: LEVEMIR (INSULIN DETEMIR) 1 UNITS/0.01ML SC SCH (21:14)
--- NOTE | 2020-08-30 22:43 | IPNPDOC ---
Date Seen The patient was seen on 08/30/20. Progress Note SUBJECTIVE: patient was seen and examined at bedside. Patient is comfortable in bed. Denies fevers, chills. Per RN, febrile overnight Tmax 100.5, not recorded in EMR. OBJECTIVE PHYSICAL EXAMINATION: General: Looks comfortable but weak and tired appearing. HEENT: PERRLA, EOMI, sclerae clear Neck: supple, normal ROM, no JVD Respiratory: lungs CTAB, no wheeze, no rales, no crackles CVS: RRR, normal S1, S2 Abdo: soft, BS+, no rebound tenderness, obese Extremities: Trace LE pitting edema, pulses 2+, no cyanosis, no heel ulcers MSK: no joint deformities, normal ROM Neuro: Cranial nerves 3-12 intact bilaterally. Muscle strength diminished in the LLE vs RLE at S1. Psych: calm, cooperative, AAO x 3 LABORATORY DATA, IMAGING STUDIES, MICROBIOLOGY: Please see below. DVT prophylaxis ordered?: Yes, lovenox 65 yo F with a hx of DM2, lumbar stenosis (severe at L4/L5), HLD, presenting to ER with recurrent BLE weakness and frequent falls. # Sepsis likely 2/2 E Coli Pyelonephritis: Describes CVA tenderness on presentation, fever, and UA was found to be dirty. UCx E Coli. Completed treatment. She's completed 10 days of IV Abx. Treatment is now complete. Per Dr. Blount, pneumonia not suspected. MRI LS without acute findings. Blood cultures negative. No findings c/w endocarditis on echo. Procal downtrending. D/w Dr. King today. Hx of humira use for hydradenitis. Will check fungal panel. Possible drug fever. Given rising ALP, bilirubin, concern remains for intraabdominal process, see below. #Elevated alk phos, hyperbilirubinemia: T bili 4.5, D bili 4.1. ALP 700s. repeat MRCP no acute findings. Liver US with dopplers showing gallstones, sludge. Hepatomegaly , concern for cirrhosis. Splenomegaly. Suspect SEGURA. 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 follow up. LKM1 antibody. Discussed with Dr. Alejandre, will see patient, will consi wan therapeutic ERCP given rising bilirubin and ALP # Weakness: deconditioned. Needs therapy. Decreased some of her psych meds due to polypharmacy. # Dyspnea possibly 2/2 CHFpEF: BNP elevated 1600. Mild tachycardia. Likely fluid overloaded. Echo EF 60% grade 1DD. CTA/PE negative for PE. D/w Zhang. Severe pulmonary HTN. Will need OP sleep study for CPAP. per Dr Blount ok for patient to go home on oxygen. IV lasix PRN. #Sacral pressure ulcers: frequent turning. wound care. clean with vashe. foam dressing. Heel float boots (no heel ulceration noted on admission). Seen by wound care Dr Haynes 08/23/2020 - doesn't need ABx. Will ask bisque kiln drawer is some of the lesions could be HSV. Fu HSV PCR and started on valacyclovir. # Acute encephalopathy: likely 2/2 infection. AMS resolved. patient was altered and difficult to arouse on 08/20. CT head wo acute changes. Ammonia wnl. Trop wnl. LA wnl. 08/24 has a brief period of decreased responsiveness/confusion a repeat CT head was done 08/24 which was negative. #pneumonia: seen on CXR 08/19, possible developing LLL pna, less convincing on repeat CXR, more likely atelectasis. Ceftriaxone, azithromycin (08/20/20). COVID negative on 08/17 and 08/24. Incentive spirometry. Pulmonology consulted. #Recurrent falls: advanced and progressing spinal stenosis. PT/OT eval. B12, folate wnl. #severe pulmonary hypertension: suspected based on echo per Dr. Holcomb. Consulted pulmonary Dr. Blount. #sinus tachycardia: negative for PE. TSH/FT4 wnl. sinus tach on tele. Cardiology consulted, discussed with Dr. Holcomb. Patient's tachycardiac likely related to pulmonary hypertension/AUDRA. Will keep metoprolol 25 mg bid. Patient seen by Dr. Blount, recommended outpatient sleep study. #DM2: ISS, FSBS AC and HS. Hypoglycemic precautions. A1c 9.2. BG 90-150. Reduce levemir to 30 units qam and 20 units qpm. (home dose levemir 50 unts qam). findings. Ordered. PATRICK+, ordered PATRICK titers. Negative anti-mitochondrial ab. Likely hepatic congestion from cor pulmonale 2/2 pulmonary hypertension. #Urinary retention: check bladder scan. straight cath if > 250 cc. #vaginal candidiasis: diflucan 150 mg PO once. miconazole. #Lumbar spinal stenosis; severe at L4/L5. Has been seen by Dr. Mena, and was referred to specialist in [place]. OR delayed given uncontrolled DM2, patient was asked to return this but did not follow up. Reports bilateral LE weakness L > R. Recurrent falls. Absent/minimal rectal tone. Discussed with Dr. Sheppard, assess patient. This is not cauda equina. Progression of spinal stenosis. Recommends ongoing outpatient follow up, although patient states that she is happy with her level of mobility. #Schizoid personality disorder,anxiety: continue home meds #Hydradenitis suppurativa: resume home meds. wound care. 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 Needs outpatient sleep study. DVT ppx: lovenox Disposition needs rehab which she is agreeable to. VS, I&O, 24H, Fishbone Vital Signs/I&O Vital Signs Date Time Temp Pulse Resp B/P (MAP) Pulse Ox O2 Delivery O2 Flow Rate FiO2 08/30/20 21:08 99 115/60 08/30/20 18:00 93 Nasal Cannula 2.0 08/30/20 16:30 99.2 22 I&O- Last 24 Hours up to 6 AM 08/30/20 06:00 Intake Total 1260 ml Output Total 350 ml Balance 910 ml Laboratory Data 24H LABS Laboratory Tests 2 08/30/20 05:27: Nucleated Red Blood Cells % (auto) 0.0, Anion Gap 4L, Glomerular Filtration Rate 46.8, Calcium Level 8.8, Total Bilirubin 4.5H, Direct Bilirubin 4.1H, Aspartate Amino Transf (AST/SGOT) 33, Alanine Aminotransferase (ALT/SGPT) 19, Alkaline Phosphatase 754H, [id number] Natriuretic Peptide 202H, Total Protein 5.6L, Albumin 1.7L, Albumin/Globulin Ratio 0.4L 08/30/20 12:43: Bedside Glucose (Misc Panel) 179H 08/30/20 17:05: Bedside Glucose (Misc Panel) 104 08/30/20 21:10: Bedside Glucose (Misc Panel) 162H CBC/BMP Laboratory Tests 08/30/20 05:27 Microbiology Microbiology 08/30/20 Blood Fungal Culture, Received Pending 08/27/20 Blood Culture - Preliminary, Resulted No Growth after 72 hours. All specime... 08/27/20 Blood Culture - Preliminary, Resulted No Growth after 72 hours. All specime... 08/26/20 Blood Culture - Preliminary, Resulted No Growth after 72 hours. All specime... 08/25/20 Blood Culture - Final, Complete NO GROWTH AFTER 5 DAYS 08/24/20 Blood Culture - Final, Complete NO GROWTH AFTER 5 DAYS 08/24/20 Blood Culture - Final, Complete NO GROWTH AFTER 5 DAYS 08/20/20 Urine Culture - Final, Complete Escherichia Coli RAMON LANZA MD Aug 30, 2020 22:43
[2020-08-31] VITALS (14 sets, daily range): BP systolic 96–115; BP diastolic 53–60; O2SAT 91–94
[2020-08-31] MEDS: IPRATROPIUM 0.5MG/ALBUTEROL 2.5MG INH SOL UD 3ML (DUONEB) NEB SCH ×7 (04:00→23:58)
[2020-08-31 05:44] LABS: HEMATOCRIT 38.7 % (36.0-47.0); HEMOGLOBIN 11.8 g/dl (12.0-15.5); MEAN CORPUSCULAR HEMOGLOBIN 24.7 pg (27.0-33.0); MEAN CORPUSCULAR HGB CONC 30.5 g/dl (32.0-36.5); PLATELET COUNT, AUTOMATED 113 10^3/uL (150-450); RED BLOOD COUNT 4.78 10^6/uL (4.00-5.40); WHITE BLOOD COUNT 4.9 10^3/uL (4.0-10.0)
[2020-08-31] MEDS: SLF 3 ML SYR IV SCH ×3 (05:58→20:30)
[2020-08-31] MEDS: LEVOTHYROXINE 125MCG TABLET (0.125MG) PO SCH (05:58)
[2020-08-31 06:09] LABS: ALBUMIN 1.8 GM/DL (3.2-5.2); BILIRUBIN,TOTAL 4.7 MG/DL (0.2-1.0); CALCIUM LEVEL 8.7 MG/DL (8.8-10.2); CREATININE FOR GFR 1.29 MG/DL (0.55-1.30); GLOMERULAR FILTRATION RATE 44.3 (>45); POTASSIUM SERUM 3.6 MEQ/L (3.5-5.1); TOTAL PROTEIN 5.7 GM/DL (6.4-8.2)
[2020-08-31] MEDS: ENOXAPARIN 40MG/0.4ML SYRINGE (J1650 PER 10MG) SC SCH (08:21)
[2020-08-31] MEDS: MIRALAX *UNIT DOSE* 17GM PACKET PO SCH (08:21)
[2020-08-31] MEDS: LEVEMIR (INSULIN DETEMIR) 1 UNITS/0.01ML SC SCH ×2 (08:22→20:11)
[2020-08-31] MEDS: HumaLOG INSULIN (NovoLOG) PER UNIT SC SCH ×4 (08:22→20:10)
[2020-08-31] MEDS: GABAPENTIN 100 MG CAP PO SCH ×3 (08:23→20:29)
[2020-08-31] MEDS: METOPROLOL SUCC *XL* 25MG TAB (TopROL *XL*) PO SCH ×2 (08:23→20:29)
[2020-08-31] MEDS: DOCUSATE SODIUM 100MG CAPSULE PO SCH ×2 (08:23→20:29)
[2020-08-31] MEDS: SERTRALINE 100 MG TAB PO SCH ×2 (08:24→20:29)
[2020-08-31] MEDS: valACYclovir HCL 500 MG TAB PO SCH (08:24)
[2020-08-31] MEDS: FUROSEMIDE 20MG/2ML VIAL (J1940) IV SCH ×2 (08:24→16:07)
[2020-08-31] MEDS: NYSTATIN 100,000 UNITS/GM TOPICAL PWD 15 GM TOP SCH ×4 (08:25→20:28)
[2020-08-31] MEDS: ACETAMINOPHEN TAB 650MG DOSE (2X325MG) PO PRN (16:07)
--- NOTE | 2020-08-31 16:21 | IPNPDOC ---
Date Seen The patient was seen on 08/31/20. Progress Note SUBJECTIVE: patient was seen and examined at bedside. Patient is comfortable in bed. Denies fevers, chills. Afebrile overnight. OBJECTIVE PHYSICAL EXAMINATION: General: Looks comfortable but weak and tired appearing. HEENT: PERRLA, EOMI, sclerae clear Neck: supple, normal ROM, no JVD Respiratory: lungs CTAB, no wheeze, no rales, no crackles CVS: RRR, normal S1, S2 Abdo: soft, BS+, no rebound tenderness, obese, pain to deeper palpation of RUQ, however mild. Extremities: Trace LE pitting edema, pulses 2+, no cyanosis, no heel ulcers MSK: no joint deformities, normal ROM Neuro: Cranial nerves 3-12 intact bilaterally. Muscle strength diminished in the LLE vs RLE at S1. Psych: calm, cooperative, AAO x 3 LABORATORY DATA, IMAGING STUDIES, MICROBIOLOGY: Please see below. DVT prophylaxis ordered?: Yes, lovenox 65 yo F with a hx of DM2, lumbar stenosis (severe at L4/L5), HLD, presenting to ER with recurrent BLE weakness and frequent falls. # Sepsis likely 2/2 E Coli Pyelonephritis: Describes CVA tenderness on presentation, fever, and UA was found to be dirty. UCx E Coli. Completed t reatment. She's completed 10 days of IV Abx. Treatment is now complete. Per Dr. Blount, pneumonia not suspected. MRI LS without acute findings. Blood cultures negative. No findings c/w endocarditis on echo. Procal downtrending. D/w Dr. King today. Hx of humira use for hydradenitis. Will check fungal panel. Possible drug fever. Given rising ALP, bilirubin, concern remains for intraabdominal process, see below. #Elevated alk phos, hyperbilirubinemia: T bili 4.5, D bili 4.1. ALP 700s. repeat MRCP no acute findings. Liver US with dopplers showing gallstones, sludge. Hepatomegaly , concern for cirrhosis. Splenomegaly. Suspect SEGURA. 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 follow up. LKM1 antibody. Discussed with Dr. Alejandre, will see patient, will consider therapeutic ERCP given rising bilirubin and ALP. Prior to ERCP, important to optimize fluid status. Repeat liver US with Doppler. #Weakness: deconditioned. Needs therapy. Decreased some of her psych meds due to polypharmacy. # Dyspnea possibly 2/2 CHFpEF: BNP elevated 1600. Mild tachycardia. Likely fluid overloaded. Echo EF 60% grade 1DD. CTA/PE negative for PE. D/w Zhang. Severe pulmonary HTN. Will need OP sleep study for CPAP. per Dr Blount ok for patient to go home on oxygen. #Edema: possible fluid overload, BNP 200, however in context of obesity. Mucous membranes dry. Albumin 1.7. Likely 3rd spacing 2/2 low oncotic pressure. Will give 50g albumin 25%. #Sacral pressure ulcers: frequent turning. wound care. clean with vashe. foam dressing. Heel float boots. Seen by wound care Dr Haynes 08/23/2020 - doesn't need ABx. Fu HSV PCR and started on valacyclovir (through 08/31) # Acute encephalopathy: likely 2/2 infection. AMS resolved. patient was altered and difficult to arouse on 08/20. CT head wo acute changes. Ammonia wnl. Trop wnl. LA wnl. 08/24 has a brief period of decreased responsiveness/confusion a repeat CT head was done 08/24 which was negative. #pneumonia: seen on CXR 08/19, possible developing LLL pna, less convincing on repeat CXR, more likely atelectasis. Ceftriaxone, azithromycin (08/20/20). COVID negative on 08/17 and 08/24. Incentive spirometry. Pulmonology consulted. #Recurrent falls: advanced and progressing spinal stenosis. PT/OT eval. B12, folate wnl. #severe pulmonary hypertension: suspected based on echo per Dr. Holcomb. Consulted pulmonary Dr. Blount. #sinus tachycardia: negative for PE. TSH/FT4 wnl. sinus tach on tele. Cardiology consulted, discussed with Dr. Holcomb. Patient's tachycardiac likely related to pulmonary hypertension/AUDRA. Will keep metoprolol 25 mg bid. Patient seen by Dr. Blount, recommended outpatient sleep study. #DM2: ISS, FSBS AC and HS. Hypoglycemic precautions. A1c 9.2. BG 90-150. Reduce levemir to 30 units qam and 20 units qpm. (home dose levemir 50 unts qam). findings. Ordered. PATRICK+, ordered PATRICK titers. Negative anti-mitochondrial ab. Likely hepatic congestion from cor pulmonale 2/2 pulmonary hypertension. #Urinary retention: check bladder scan. straight cath if > 250 cc. #vaginal candidiasis: diflucan 150 mg PO once. miconazole. #Lumbar spinal stenosis; severe at L4/L5. Has been seen by Dr. Mena, and was referred to specialist in [place]. OR delayed given uncontrolled DM2, patient was asked to return this but did not follow up. Reports bilateral LE weakness L > R. Recurrent falls. Absent/minimal rectal tone. Discussed with Dr. Sheppard, assess patient. This is not cauda equina. Progression of spinal stenosis. Recommends ongoing outpatient follow up, although patient states that she is happy with her level of mobility. #Schizoid personality disorder,anxiety: continue home meds #Hydradenitis suppurativa: resume home meds. wound care. 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 Needs outpatient sleep study. DVT ppx: lovenox VS, I&O, [facility] Vital Signs/I&O Vital Signs Date Time Temp Pulse Resp B/P (MAP) Pulse Ox O2 Delivery O2 Flow Rate FiO2 08/31/20 16:00 97.3 98 22 103/60 (74) 92 Nasal Cannula 2.0 I&O- Last 24 Hours up to 6 AM 08/31/20 06:00 Intake Total 1440 ml Output Total 300 ml Balance 1140 ml Laboratory Data 24H LABS Laboratory Tests 2 08/30/20 17:05: Bedside Glucose (Misc Panel) 104 08/30/20 21:10: Bedside Glucose (Misc Panel) 162H 08/31/20 05:23: Nucleated Red Blood Cells % (auto) 0.4H, Anion Gap 6L, Glomerular Filtration Rate 44.3L, Calcium Level 8.7L, Total Bilirubin 4.7H, Aspartate Amino Transf (AST/SGOT) 34, Alanine Aminotransferase (ALT/SGPT) 18, Alkaline Phosphatase 755H, Total Protein 5.7L, Albumin 1.8L, Albumin/Globulin Ratio 0.5L 08/31/20 10:57: CBC/BMP Laboratory Tests 08/31/20 05:23 Microbiology Microbiology 08/30/20 Blood Fungal Culture, Received Pending 08/27/20 Blood Culture - Preliminary, Resulted No Growth after 72 hours. All specime... 08/27/20 Blood Culture - Preliminary, Resulted No Growth after 72 hours. All specime... 08/26/20 Blood Culture - Preliminary, Resulted No Growth after 72 hours. All specime... 08/25/20 Blood Culture - Final, Complete NO GROWTH AFTER 5 DAYS 08/24/20 Blood Culture - Final, Complete NO GROWTH AFTER 5 DAYS 08/24/20 Blood Culture - Final, Complete NO GROWTH AFTER 5 DAYS RAMON LANZA MD Aug 31, 2020 16:21
--- NOTE | 2020-08-31 19:51 | CR.PDOC ---
General Date of Consultation: Aug 30, 2020 Referring Provider: RAMON CUNNINGHAM MD Attending Physician: TY CLEVELAND MD Consultation Referring physician / PCP : Dr. Cunningham Reason for consult: Abnormal liver tests. HPI: 65 year old female patient with DM2, HLD, hypothyroidism, anxiety, diabetic neuropathy, lumbar stenosis (severe at L4/L5), presenting to ER with recurrent BLE weakness and frequent falls. Patient was noted to have abnormal liver panel, sacral decubitus and pedal edema. Patient was admitted and being treated for fluid overload, fever of unclear origin and suspected pulmonary HTN. Patient had MRI abdomen which did not show any biliary dilation and fatty liver and suspected anasarca. GI was consulted for persistent abnormal liver panel. At the time of examination, patient was AAO x 3 and able to answer questions appropriately but could not remember remote history. Patient denies any pain currently except for the back pain. Patient reports having poor appetite and not able to tolerate diet well. She reports nausea but did not vomit any time. Patient also reports having generalized weakness and not Pertinent negative GI symptoms: Patient denies vomiting, diarrhea, abdominal pain, unintentional weight loss, hematemesis, melena or hematochezia. Review of Systems: GI: as stated above CVS: No chest pain, No palpitations, bilateral leg swelling RS: No Shortness of breath, No Wheezing PRIMARY CARE PEDIATRICIAN: No loss of consciousness, No focal motor weakness., Hematology: No easy bruising, No gum bleeding, Musculoskeletal: No joint pain, ambulating well. : No burning sensation of the urine ENT: No ear discharge/ pain, No dysphagia. Eyes: No photophobia. Skin: No rash Home medications: reviewed. No Plavix and No anticoagulants Medical h/o: As above. Surgical h/o: None on abdomen. Social h/o: Denies Alcohol, IVDA/ drugs. Former smoker. Family h/o of GI cancers - None Prior Endoscopies: Reviewed. --- Colonoscopy done [place] [address] Soto for evaluation for IBD noted to have normal colon with perianal scarring from hydradenitis. Prior GI evaluation: None in [facility] Exam: Vitals: reviewed General: Alert and oriented x 3, not in acute distress HEENT: No pallor, no icterus. Normal oropharynx, NO cervical lymphadenopathy. Chest: symmetric with bilateral air entry, CVS: S1, S2 heard, Abdomen: non-distended, obese, soft, non-tender, no rigidity or guarding, no palpable masses, noted subcutaneous edema in dependent portions, normal bowel sounds heard. Rectal exam: Patient refused. Extremities: pulses palpable, 3+ pitting pedal edema, PRIMARY CARE PEDIATRICIAN: no focal motor or sensory deficits. Moves all extremities Skin: no rash. Labs: reviewed. Imaging: none / reviewed. MRI abdomen images reviewed by me- showed splenomegaly and diffuse fatty liver. Impression: -- Abnormal liver tests with AST > ALT and elevated total bilirubin and ALP and GGT and splenomegaly with low albumin and borderline low Platelets DDx -- ch ronic protein malnutrition vs Chronic liver disease with congestive hepatopathy vs liver cirrhosis vs less likely biliary stasis. No evidence of cholangitis. -- Generalized weakness with anasarca Needs further management. Recommendations: -- Patient educated about the prior test results and all questions answered. -- Diet as tolerated for now. -- Diuresis as tolerated by renal function and optimization of the fluid status. -- Due to low albumin, agree with albumin infusions with close monitoring of renal function. -- Avoid NSAIDs -- Patient is educated about the ERCP for therapy of the abnormal liver tests. -- Patient educated about the procedure, indications, risks (including but not limited to pancreatitis, bleeding, infection, perforation, anesthesia risks, including ), benefits and all alternatives including conservative measures without intervention. Patient verbalized understanding and consented for the procedure. -- Discussed with PCP for medical optimization prior to above procedure. -- Plan of care educated to patient and patient verbalized understanding and agreed. All questions answered. -- Recommendations communicated to primary team. Patient to follow with PCP upon discharge for routine medical care. Vital Signs/I&O Vital Signs Date Time Temp Pulse Resp B/P (MAP) Pulse Ox O2 Delivery O2 Flow Rate FiO2 08/31/20 16:00 97.3 98 22 103/60 (74) 92 Nasal Cannula 2.0 I&O- Last 24 Hours up to 6 AM 08/31/20 06:00 Intake Total 1440 ml Output Total 300 ml Balance 1140 ml Laboratory Data Labs 24H Laboratory Tests 2 08/30/20 21:10: Bedside Glucose (Misc Panel) 162H 08/31/20 05:23: Nucleated Red Blood Cells % (auto) 0.4H, Anion Gap 6L, Glomerular Filtration Rate 44.3L, Calcium Level 8.7L, Total Bilirubin 4.7H, Aspartate Amino Transf (AST/SGOT) 34, Alanine Aminotransferase (ALT/SGPT) 18, Alkaline Phosphatase 755H, Total Protein 5.7L, Albumin 1.8L, Albumin/Globulin Ratio 0.5L 08/31/20 10:57: 08/31/20 16:48: Bedside Glucose (Misc Panel) 153H CBC/BMP Laboratory Tests 08/31/20 05:23 Microbiology Microbiology 08/30/20 Blood Fungal Culture, Received Pending 08/27/20 Blood Culture - Preliminary, Resulted No Growth after 72 hours. All specime... 08/27/20 Blood Culture - Preliminary, Resulted No Growth after 72 hours. All specime... 08/26/20 Blood Culture - Final, Complete NO GROWTH AFTER 5 DAYS 08/25/20 Blood Culture - Final, Complete NO GROWTH AFTER 5 DAYS 08/24/20 Blood Culture - Final, Complete NO GROWTH AFTER 5 DAYS 08/24/20 Blood Culture - Final, Complete NO GROWTH AFTER 5 DAYS Allergies Coded Allergies: minocycline (Verified Allergy, Unknown, hives, 08/17/20) tetracycline (Verified Allergy, Unknown, hives, 08/17/20) aripiprazole (Verified Adverse Reaction, Unknown, psychosis, 08/17/20) Home Medications Scheduled Adalimumab (Humira) 40 Mg/0.8 Ml Syringekit, 40 MG SC QWEEK, (Reported) FRIDAYS Canagliflozin (Invokana) 300 Mg Tab, 300 MG PO DAILY, (Reported) Clozapine (Clozapine) 25 Mg Tab, 50 MG PO QHS, (Reported) TAKES WITH SECOND DOSE OF 100MG FOR 150MG TOTAL Clozapine (Clozapine) 100 Mg Tab, 100 MG PO BID, (Reported) Docusate Sodium (Colace) 100 Mg Cap, 100 MG PO DAILY, (Reported) Gabapentin (Gabapentin) 100 Mg Capsule, 200 MG PO TID, (Reported) Hydroxyzine HCl (Hydroxyzine HCl) 25 Mg Tab, 25 MG PO BID, (Reported) Insulin Glargine,Hum.rec.anlog (Lantus Solostar) 100 Unit/Ml Inj, 50 UNITS SC QAM, (Reported) Insulin Human Lispro (Novolog) 100 U/Ml Inj, 1 DOSE SC AC, (Reported) PER SLIDING SCALE Levothyroxine Sodium (Levothyroxine Sodium) 125 Mcg Tab, 125 MCG PO DAILY, (Reported) Metformin HCl (Metformin HCl ER) 500 Mg Tab.er.24h, 1,000 MG PO BID, (Reported) Sertraline HCl (Sertraline HCl) 100 Mg Tab, 100 MG PO BID, (Reported) Zinc (Zinc) 50 Mg Tab, 50 MG PO DAILY, (Reported) Ziprasidone HCl (Ziprasidone HCl) 60 Mg Cap, 60 MG PO BID, (Reported) Scheduled PRN Acetaminophen (Acetaminophen) 500 Mg Tablet, 500 MG PO Q6H PRN for PAIN, (Reported) Naproxen (Naproxen) 500 Mg Tablet.dr, 500 MG PO BID PRN for PAIN, (Reported) Nystatin (Nystatin) 15 Gm Cream..g., 1 APLCT TOP ASDIRECTED PRN for RASH/ITCHING, (Reported) APPLY UNDER BREASTS AND GROIN AFTER BATHING Polyethylene Glycol 3350 (Miralax) 119 Gm Powder, 17 GM PO DAILY PRN for CONSTIP ATION, (Reported) dilute in 8 ounces of water or juice TY CLEVELAND MD Aug 31, 2020 19:51
[2020-08-31] MEDS: cloZAPine 25 MG TAB (S0136) PO SCH (20:29)
[2020-09-01] VITALS (10 sets, daily range): BP systolic 104–146; BP diastolic 54–67
[2020-09-01] MEDS: IPRATROPIUM 0.5MG/ALBUTEROL 2.5MG INH SOL UD 3ML (DUONEB) NEB SCH ×5 (04:00→20:08)
[2020-09-01] MEDS: LEVOTHYROXINE 125MCG TABLET (0.125MG) PO SCH (05:45)
[2020-09-01] MEDS: SLF 3 ML SYR IV SCH ×3 (05:45→22:04)
[2020-09-01 06:38] LABS: ALBUMIN 1.9 GM/DL (3.2-5.2); BILIRUBIN,TOTAL 4.9 MG/DL (0.2-1.0); CALCIUM LEVEL 8.7 MG/DL (8.8-10.2); CREATININE FOR GFR 1.35 MG/DL (0.55-1.30); POTASSIUM SERUM 3.6 MEQ/L (3.5-5.1); TOTAL PROTEIN 5.6 GM/DL (6.4-8.2)
[2020-09-01] MEDS: HumaLOG INSULIN (NovoLOG) PER UNIT SC SCH ×4 (07:29→20:51)
[2020-09-01] MEDS: MIRALAX *UNIT DOSE* 17GM PACKET PO SCH (07:46)
[2020-09-01] MEDS: ENOXAPARIN 40MG/0.4ML SYRINGE (J1650 PER 10MG) SC SCH (07:46)
[2020-09-01] MEDS: DOCUSATE SODIUM 100MG CAPSULE PO SCH ×2 (07:46→20:51)
[2020-09-01] MEDS: LEVEMIR (INSULIN DETEMIR) 1 UNITS/0.01ML SC SCH ×2 (07:46→20:51)
[2020-09-01 08:14] LABS: HSV-1 DNA Negative (Negative); HSV-2 DNA Negative (Negative)
[2020-09-01 08:29] LABS: BASO % 0.7 % (0.0-1.0); EOS % 0.9 % (0.0-3.0); HEMATOCRIT 39.2 % (36.0-47.0); HEMOGLOBIN 12.5 g/dl (12.0-15.5); LYMPH # 1.2 10^3/uL (1.5-5.0); LYMPH % 27.3 % (24.0-44.0); MEAN CORPUSCULAR HEMOGLOBIN 25.7 pg (27.0-33.0); MEAN CORPUSCULAR HGB CONC 31.9 g/dl (32.0-36.5); MEAN CORPUSCULAR VOLUME 80.5 fl (80.0-96.0); MONO # 0.3 10^3/uL (0.0-0.8); MONO % 6.2 % (0.0-5.0); NEUTROPHILS # 2.9 10^3/uL (1.5-8.5); NEUTROPHILS % 63.4 % (36.0-66.0); PLATELET COUNT, AUTOMATED 116 10^3/uL (150-450); RED BLOOD COUNT 4.87 10^6/uL (4.00-5.40); WHITE BLOOD COUNT 4.6 10^3/uL (4.0-10.0)
[2020-09-01 08:33] LABS: MAGNESIUM LEVEL 2.5 MG/DL (1.8-2.4)
[2020-09-01] MEDS: SERTRALINE 100 MG TAB PO SCH ×2 (09:00→20:48)
[2020-09-01] MEDS ORDERED: FUROSEMIDE 20MG/2ML VIAL (J1940) IV SCH (09:00)
[2020-09-01] MEDS: METOPROLOL SUCC *XL* 25MG TAB (TopROL *XL*) PO SCH ×2 (09:00→20:49)
[2020-09-01] MEDS: GABAPENTIN 100 MG CAP PO SCH ×3 (09:00→20:48)
[2020-09-01] MEDS: NYSTATIN 100,000 UNITS/GM TOPICAL PWD 15 GM TOP SCH ×4 (10:38→20:47)
--- NOTE | 2020-09-01 11:00 | REP ---
INDICATION: Pls perform Liver/Duplex portal vessels. COMPARISON: Abdominal MRI dated 08/27/2020. TECHNIQUE: Complete abdominal ultrasound and portal vein Doppler ultrasound FINDINGS: The abdominal ultrasound: There are gallbladder calculi at the gallbladder neck measuring approximately 9 mm in diameter. The gallbladder is not significantly distended. The gallbladder is minimally thickened measuring up to 2.9 mm. There is no pericholecystic fluid. There is no intrahepatic or extrahepatic biliary duct dilatation. The common duct measures 3.7 mm in diameter. The liver is enlarged measuring 21.6 cm craniocaudad in the midclavicular line. The hepatic parenchyma is diffusely heterogeneous compatible with hepatosteatosis, diffuse hepatocellular disease or cirrhosis. The spleen is enlarged measuring 18.4 x 16.6 x 6.8 cm. The right kidney measures 12.5 and 9.4 x 5.1 cm. The left kidney measures 12.4 x 6.3 x 5.6 cm. The kidneys are normal size. The renal cortices are echogenic bilaterally compatible with medical renal disease. There are no renal calculi or hydronephrosis. There are no solid or cystic renal masses. The proximal abdominal aorta measures 2.1 cm in diameter. The mid and distal abdominal aorta obscured by bowel gas. There is no free fluid in the abdomen. Portal vein Doppler ultrasound: The portal vein measures 11.9 mm in diameter in and is not dilated. The portal vein flow velocity is 26 0.7 centimeters/second. This is normal. There is no Doppler ultrasound evidence of portal hypertension. The hepatic vein waveforms are mildly portalized. This is compatible with cirrhosis. It can also be seen in hepato steatosis, infiltrating liver neoplasm and Valsalva. IMPRESSION: Cholelithiasis without evidence of cholecystitis. Hepatomegaly and splenomegaly. Coarsened hepatic parenchyma compatible with hepatosteatosis, cirrhosis, hepatocellular disease. There are no hepatic masses. Echogenic renal cortices bilaterally compatible with medical renal disease. No evidence of portal hypertension. <Electronically signed by Dwayne Muniz > 09/01/20 [id number]
[2020-09-01] MEDS ORDERED: FUROSEMIDE 100MG/10ML VIAL (J1940) IV ONE (12:30)
[2020-09-01] MEDS: FUROSEMIDE injection 250 MG in D5W 225 ML IV SCH (14:44)
--- NOTE | 2020-09-01 15:51 | IPNPDOC ---
Date Seen The patient was seen on 09/01/20. Progress Note SUBJECTIVE: patient was seen and examined at bedside. Patient is comfortable in bed. Denies fevers, chills. Afebrile overnight. Is fluid overloaded. Denies any abdominal pain. Continues to be afebrile OBJECTIVE PHYSICAL EXAMINATION: General: Looks comfortable but weak and tired appearing. HEENT: PERRLA, EOMI, sclerae clear Neck: supple, normal ROM, no JVD Respiratory: lungs CTAB, no wheeze, no rales, no crackles CVS: RRR, normal S1, S2 Abdo: soft, BS+, no rebound tenderness, obese, pain to deeper palpation of RUQ, however mild. Extremities: Trace LE pitting edema, pulses 2+, no cyanosis, no heel ulcers MSK: no joint deformities, normal ROM Neuro: Cranial nerves 3-12 intact bilaterally. Muscle strength diminished in the LLE vs RLE at S1. Psych: calm, cooperative, AAO x 3 LABORATORY DATA, IMAGING STUDIES, MICROBIOLOGY: Please see below. DVT prophylaxis ordered?: Yes, lovenox 65 yo F with a hx of DM2, lumbar stenosis (severe at L4/L5), HLD, presenting to ER with recurrent BLE weakness and frequent falls. # Sepsis likely 2/2 E Coli Pyelonephritis: Describes CVA tenderness on p resentation, fever, and UA was found to be dirty. UCx E Coli. Completed treatment. She's completed 10 days of IV Abx. Treatment is now complete. Per Dr. Blount, pneumonia not suspected. MRI LS without acute findings. Blood cultures negative. No findings c/w endocarditis on echo. Procal downtrending. D/w Dr. King today. Hx of humira use for hydradenitis. Will check fungal panel. Possible drug fever. Given rising ALP, bilirubin, concern remains for intraabdominal process, see below. #Elevated alk phos, hyperbilirubinemia: rising bilirubin. MRCP x 2 no obvious obstruction. Liver US with dopplers showing gallstones, sludge. Hepatomegaly , concern for cirrhosis. Splenomegaly. Suspect SEGURA Cirrhosis. Fu LKM1. Planned for therapeutic ERCP on 09/02/[address] Alejandre. #Liver cirrhosis: Per Dr. Markie Pandya. Liver ultrasound showing findings consistent with hepatocellular disease versus cirrhosis. Normal liver vascular Dopplers. Patient has diminished albumin. Fluid overload, likely contributed to by reducing the pressure. Suspected hepatorenal syndrome. Nephrology consulted, Dr. Kruse. Patient receiving 100 g of albumin today. Placed on Lasix drip. To optimize fluid status prior to therapeutic ERCP. #Weakness: deconditioned. Needs therapy. Decreased some of her psych meds due to polypharmacy. # Dyspnea possibly 2/2 CHFpEF: BNP elevated 1600. Mild tachycardia. Likely fluid overloaded. Echo EF 60% grade 1DD. CTA/PE negative for PE. D/w Zhang. Severe pulmonary HTN. Will need OP sleep study for CPAP. per Dr Blount ok for patient to go home on oxygen. #Sacral pressure ulcers: frequent turning. wound care. clean with vashe. foam dressing. Heel float boots. Seen by wound care Dr Haynes 08/23/2020 - doesn't need ABx. Fu HSV PCR and started on valacyclovir (through 08/31) # Acute encephalopathy: likely 2/2 infection. AMS resolved. patient was altered and difficult to arouse on 08/20. CT head wo acute changes. Ammonia wnl. Trop wnl. LA wnl. 08/24 has a brief period of decreased responsiveness/confusion a repeat CT head was done 08/24 which was negative. #pneumonia: seen on CXR 08/19, possible developing LLL pna, less convincing on repeat CXR, more likely atelectasis. Ceftriaxone, azithromycin (08/20/20). COVID negative on 08/17 and 08/24. Incentive spirometry. Pulmonology consulted. #Recurrent falls: advanced and progressing spinal stenosis. PT/OT eval. B12, folate wnl. #severe pulmonary hypertension: suspected based on echo per Dr. Holcomb. Consulted pulmonary Dr. Blount. #sinus tachycardia: negative for PE. TSH/FT4 wnl. sinus tach on tele. Cardiology consulted, discussed with Dr. Holcomb. Patient's tachycardiac likely related to pulmonary hypertension/AUDRA. Will keep metoprolol 25 mg bid. Patient seen by Dr. Blount, recommended outpatient sleep study. #DM2: ISS, FSBS AC and HS. Hypoglycemic precautions. A1c 9.2. BG 90-150. Reduce levemir to 30 units qam and 20 units qpm. (home dose levemir 50 unts qam). findings. Ordered. PATRICK+, ordered PATRICK titers. Negative anti-mitochondrial ab. Likely hepatic congestion from cor pulmonale 2/2 pulmonary hypertension. #Urinary retention: check bladder scan. straight cath if > 250 cc. #vaginal candidiasis: diflucan 150 mg PO once. miconazole. #Lumbar spinal stenosis; severe at L4/L5. Has been seen by Dr. Mena, and was referred to specialist in [place]. OR delayed given uncontrolled DM2, patient was asked to return this but did not follow up. Reports bilateral LE weakness L > R. Recurrent falls. Absent/minimal rectal tone. Discussed with Dr. Sheppard, assess patient. This is not cauda equina. Progression of spinal stenosis. Recommends ongoing outpatient follow up, although patient states that she is happy with her level of mobility. #Schizoid personality disorder,anxiety: continue home meds #Hydradenitis suppurativa: resume home meds. wound care. 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 Needs outpatient sleep study. DVT ppx: lovenox VS, I&O, 24H, [facility] Vital Signs/I&O Vital Signs Date Time Temp Pulse Resp B/P (MAP) Pulse Ox O2 Delivery O2 Flow Rate FiO2 09/01/20 12:00 3.0 09/01/20 12:00 97.5 97 20 146/66 (92) 96 Nasal Cannula I&O- Last 24 Hours up to 6 AM 09/01/20 06:00 Intake Total 1370.0 ml Output Total 500 ml Balance 870.0 ml Laboratory Data 24H LABS Laboratory Tests 2 08/31/20 16:48: Bedside Glucose (Misc Panel) 153H 08/31/20 20:06: Bedside Glucose (Misc Panel) 62L 09/01/20 05:43: Immature Granulocyte % (Auto) 1.5, Neutrophils (%) (Auto) 63.4, Lymphocytes (%) (Auto) 27.3, Monocytes (%) (Auto) 6.2H, Eosinophils (%) (Auto) 0.9, Basophils (%) (Auto) 0.7, Neutrophils # (Auto) 2.9, Lymphocytes # (Auto) 1.2L, Monocytes # (Auto) 0.3, Eosinophils # (Auto) 0.0, Basophils # (Auto) 0.0, Nucleated Red Blood Cells % (auto) 0.0, Anion Gap 6L, Glomerular Filtration Rate 42.0L, Calcium Level 8.7L, Magnesium Level 2.5H, Total Bilirubin 4.9H, Aspartate Amino Transf (AST/SGOT) 37, Alanine Aminotransferase (ALT/SGPT) 18, Alkaline Phosphatase 743H, Total Protein 5.6L, Albumin 1.9L, Albumin/Globulin Ratio 0.5L 09/01/20 11:31: Bedside Glucose (Misc Panel) 108 CBC/BMP Laboratory Tests 09/01/20 05:43 Microbiology Microbiology 08/30/20 Blood Fungal Culture, Received Pending 08/27/20 Blood Culture - Preliminary, Resulted No Growth after 72 hours. All specime... 08/27/20 Blood Culture - Preliminary, Resulted No Growth after 72 hours. All specime... 08/26/20 Blood Culture - Final, Complete NO GROWTH AFTER 5 DAYS 08/25/20 Blood Culture - Final, Complete NO GROWTH AFTER 5 DAYS 08/24/20 Blood Culture - Final, Complete NO GROWTH AFTER 5 DAYS 08/24/20 Blood Culture - Final, Complete NO GROWTH AFTER 5 DAYS RAMON LANZA MD Sep 01, 2020 15:51
[2020-09-01 16:55] LABS: C REACTIVE PROTEIN QUANTITATIV 7.15 MG/DL (0.00-0.30)
--- NOTE | 2020-09-01 18:27 | IPN ---
INFECTIOUS DISEASE PROGRESS NOTE DATE: 09/01/2020 SUBJECTIVE: Ros seems to be doing better today. She was on the phone with Dietary ordering her dinner. She was n.p.o. all day in anticipation of an ERCP by Dr. Alejandre but it could not be done today. She has been afebrile for the past 24 hours which is better than the past 2 weeks. No nausea, vomiting or diarrhea. No abdominal pain. She does have lower extremity edema. She has not been getting out of bed, which at home she usually gets up in the chair. She was at the bedside with physical therapy. PHYSICAL EXAMINATION: GENERAL APPEARANCE: She is an older female, obese, always slumped to the left side with her arm stuck between her mattress and her bed raling. HEENT: Oropharynx is dry mucosa. HEART: Normal S1, S2, no murmurs, rubs or gallops. LUNGS: Clear. No rales, rhonchi or wheezes but diminished at the bases. ABDOMEN: Morbidly obese, soft, nontender. EXTREMITIES: +1 pitting edema bilaterally. No clubbing or cyanosis. NEUROLOGICAL: Alert and oriented x3. Able to move all extremities but generalized weakness. LABORATORY STUDIES: White count is 4.6, hemoglobin 12.5, hematocrit 39.2, platelets 116, 63% neutrophils, 27% lymphocytes, 6% monocytes. Sodium 135, potassium 3.6, chloride 101, bicarbonate 28, BUN 49, creatinine 1.35, glucose 96, calcium 8.7, magnesium 2.5, bilirubin 4.9, AST 37, ALT 16, alkaline phosphatase 743. Last CRP was done on 08/27 and was 9.85. Albumin 1.9. Blood cultures on 08/24, 08/25, 08/26, 08/27 all negative x6. Fungal blood cultures are pending. Lyme serology was negative. Cryptococcus antigen, histoplasma antigen and antibody are pending. HSV PCR was negative. MEDICATIONS: 1. Furosemide IV drip. 2. Nystatin Powder to groin area. 3. Vancomycin dosing: last dose was on 08/26. 4. The patient has been off antibiotics for the past 6 days. IMPRESSION: 1. Urinary tract infection with E-coli - treated with 10 days of antibiotics. 2. Fever on antibiotics. [place] to be related to drug fever has resolved. Patient immunocompromised due to being on Humira for hydradenitis suppurativa which has been on hold for the past 3 weeks but puts her at risk of fungal infection which is being worked up at this time. 3. Perianal ulcer HSV was negative. The patient received 5 days of Valtrex. 4. Hyperbilirubinemia with abdominal ultrasound showed a fatty liver, gallbladder sludge and stone with thickening of the gallbladder and patient with a history of liver cirrhosis. The patient is scheduled for ERCP. PLAN: 1. Continue with topical Nystatin for candidiasis in perineal area. 2. ERCP tomorrow. 3. We will continue to monitor her fevers. The patient has histoplasma, crypto antigen, aspergillus labs pending. Keep of antibiotics unless the patient is septic. MTDD
[2020-09-01] MEDS: cloZAPine 25 MG TAB (S0136) PO SCH (20:48)
--- NOTE | 2020-09-01 22:32 | CR ---
NEPHROLOGY CONSULTATION DATE: 09/01/2020 REQUESTING PHYSICIAN: Dr. Murtaza Cunningham CONSULTING PHYSICIAN: Dr. Kruse REASON FOR CONSULTATION: Diuretic administration in this patient with acute kidney injury superimposed on chronic kidney disease stage 2. HISTORY OF PRESENT ILLNESS: Ros Toth is previously unknown to me. She is a 65-year-old female with a past medical history of chronic kidney disease stage 2 with a baseline creatinine of less than 1, type 2 diabetes mellitus, dyslipidemia, hypothyroidism, anxiety, chronic liver disease/liver cirrhosis, congestive heart failure (diastolic dysfunction), pulmonary hypertension, and other comorbid conditions mentioned below. The patient was admitted to [facility] on June 17 with bilateral lower extremity weakness and frequent falls. Her admission creatinine was 0.9. She had several IV contrast CAT scans on this admission, although none recently in the past week. Her daily weights have uptrended on this admission from 109 kg up to 118 kg and she is found to be clinically anasarcic and fluid overloaded. Her creatinine has also peaked today at 1.3 and Nephrology evaluation was requested for help in diuresing this patient. PAST MEDICAL HISTORY: The patient's past medical history is significant for: 1. Heart failure with preserved left ventricular ejection fraction. 2. Pulmonary hypertension. 3. Protein calorie malnutrition/hypoalbuminemia. 4. Chronic liver disease/liver cirrhosis. 5. Type 2 diabetes mellitus. 6. Hypothyroidism. 7. Dyslipidemia. 8. Diabetic neuropathy. 9. Splenomegaly. 10. Hepatomegaly. 11. Sacral pressure ulcer. 12. Debility. 13. Lumbar spinal stenosis. 14. Schizoid personality disorder. 15. Suspected obstructive sleep apnea 16. Hydradenitis suppurativa. PAST SURGICAL HISTORY: The patient's past surgical history is significant for: 1. Hysterectomy in 1994. 2. Tonsillectomy and adenoidectomy. 3. Skin biopsies. SOCIAL HISTORY: , lives at home, ex-smoker. No alcohol or drug use. FAMILY HISTORY: Father of kidney disease in his late 70's. Mother at age 88 with lung cancer. One brother with a kidney transplant. ALLERGIES: 1. Minocycline. 2. Tetracycline. 3. Abilify. HOME MEDICATIONS: 1. Zinc 50 mg p.o. daily. 2. Sertraline 100 mg p.o. twice daily. 3. Miralax p.r.n. 4. Nystatin topical. 5. Naproxen p.r.n. 6. Metformin 1,000 mg p.o. twice daily. 7. Synthroid 125 mcg p.o. daily. 8. Insulin sliding scale. 9. Lantus. 10. Hydroxyzine. 11. Gabapentin 200 mg p.o. three times daily. 12. Colace 100 mg p.o. daily. 13. Clozapine 100 mg p.o. twice daily. 14. Invokana. 15. Humira 40 mg subcutaneously on Fridays. 16. Tylenol p.r.n. REVIEW OF SYSTEMS: Constitutional: She reports fatigue and lethargy and general weakness. She denies fevers or chills. Eyes: She denies visual changes, tearing or blurriness. ENT: She denies rhinorrhea or tinnitus. Cardiac: She has a history of diastolic congestive heart failure. She reports generalized swelling. Respiratory: There is suspected sleep apnea. She has been oxygen dependent while in the hospital. Gastrointestinal: There is chronic liver disease. She reports poor appetite and nausea. Musculoskeletal: There is a sacral ulcer. There are recurrent falls. There is leg swelling. Endocrine: Diabetes and hypothyroidism. Hematologic: Denies chronic anticoagulant use. There is thrombocytopenia. Psychiatric: Schizoid personality disorder and anxiety. Genitourinary: Reports recent urinary tract infection and is incontinent of urine. Neurologic: Denies seizure or syncope. She had metabolic encephalopathy earlier on this admission. The remainder of the review of systems is negative or as per HPI. PHYSICAL EXAMINATION: VITAL SIGNS: Temperature 98.1, pulse 105, respiratory rate 18, blood pressure 104/55, saturating 94-96% on 3 liters nasal cannula. INTAKE AND OUTPUT: Intake yesterday was 1670. Urine output has not been recorded. She has had four incontinent voids recorded. Weight in the bed scale is 118.1 kg. GENERAL APPEARANCE: The patient is seen lying in bed with the head of the bed elevated, appears older than stated age and looks chronically ill and fatigued appearing. HEENT: The extraocular muscles are intact. The sclerae are icteric. The tongue is moist. NECK: Supple. LUNGS: Symmetric air entry. There is no tachypnea. Breath sounds are diminished at the base. ABDOMEN: Obese and soft. I do not appreciate any ascites. HEART: Tachycardic, S1, S2, no murmur. EXTREMITIES: 1-2+ leg edema bilaterally. GENITOURINARY: A vacuum catheter. In the canister there is no urine. NEUROLOGICAL: She moves all four extremities on command. She answers simple questions appropriately and is oriented x3. LABORATORY DATA: Hemoglobin 12.5, platelets 116. Sodium 135, potassium 3.6, bicarbonate 28, BUN 49, creatinine 1.3, magnesium 2.5, total bilirubin 4.9. BNP 200. Albumin 1.9. IMAGING DATA: Abdominal ultrasound done today did not show any intraperitoneal free fluid. There is hepatomegaly, splenomegaly. There is echogenic renal cortex bilaterally without any hydronephrosis. INPATIENT MEDICATIONS: She is in for Lasix 60 mg IV times one and then Lasix 5 mg an hour to follow, DuoNebs q. 4 hourly, Mylanta p.r.n., Clozapine 50 mg p.o. q. h.s., Colace 100 mg p.o. twice daily, Lovenox 40 mg subcutaneously daily, Gabapentin 200 mg p.o. four times daily. Ibuprofen was discontinued. She is on insulin, Synthroid 125 mcg p.o. daily, Metoprolol 25 mg p.o. twice daily, Milk of Magnesia p.r.n., Miralax one packet p.o. daily, Sertraline 100 mg p.o. twice daily. PROBLEMS: 1. Generalized anasarca - The patient has liver cirrhosis/chronic liver disease. Her albumin are chronically less than 2 or in the low 2's. Her echocardiogram showed diastolic dysfunction with preserved left ventricular ejection fraction. Her BNP is only 200. There is no abdominal ascites. I think it is going to be very challenging to diurese this patient. Her fluid is third spaced due to low oncotic pressure, and she may easily have worsening renal function with aggressive diuretic. I will try to diurese her with q. 8 hourly albumin along with a low dose Lasix drip at 5 mg an hour. It will be difficult to monitor urine output because she is mostly incontinent of urine despite having an external female vacuum catheter. We will probably have to rely on daily weights. I will not request and indwelling Walters as she recently had an E-coli urinary tract infection. 2. Chronic diastolic congestive heart failure echocardiogram on this admission is noted. She has preserved ejection fraction. Her BNP has actually decreased from 1500 down to 200. Her neck veins were not elevated. She does not have ascites. She has some generalized anasarca due to severe hypoalbuminemia. It is going to be difficult to diurese her. We will try and see what we can accomplish with albumin infusions and Lasix drip. If renal function worsens, I will stop the diuresis. 3. E-coli urinary tract infection - treated with 10 days of antibiotic. Presently incontinent of urine despite external female vacuum catheter. I will not place Walters at this time due to recent infection. Nursing staff will try to record urine output. Her daily weights have been rather varied and unreliable. 4. Liver cirrhosis I cannot make a definitive diagnosis of hepatorenal syndrome. She has a mild acute kidney injury superimposed on chronic kidney disease stage 2, however she also had sepsis on this admission. She also had IV contrast on this admission. She also received an NSAID on this admission, so she has other reasons to have worsening renal function. Given that there is no significant ascites, I am less inclined to think that this is hepatorenal syndrome. 5. Hyponatremia it is mild. It is probably related to the fluid overload. We will see how she does with gentle diuresis. MTDD
[2020-09-02] VITALS (8 sets, daily range): BP systolic 96–138; BP diastolic 53–58
[2020-09-02 06:08] LABS: BASO % 0.5 % (0.0-1.0); EOS % 0.7 % (0.0-3.0); HEMATOCRIT 34.6 % (36.0-47.0); HEMOGLOBIN 10.6 g/dl (12.0-15.5); LYMPH # 0.9 10^3/uL (1.5-5.0); LYMPH % 20.5 % (24.0-44.0); MEAN CORPUSCULAR HEMOGLOBIN 24.9 pg (27.0-33.0); MEAN CORPUSCULAR HGB CONC 30.6 g/dl (32.0-36.5); MEAN CORPUSCULAR VOLUME 81.4 fl (80.0-96.0); MONO # 0.3 10^3/uL (0.0-0.8); NEUTROPHILS # 2.9 10^3/uL (1.5-8.5); NEUTROPHILS % 70.9 % (36.0-66.0); RED BLOOD COUNT 4.25 10^6/uL (4.00-5.40); WHITE BLOOD COUNT 4.2 10^3/uL (4.0-10.0)
[2020-09-02] MEDS: SLF 3 ML SYR IV SCH ×3 (06:16→21:45)
[2020-09-02] MEDS: LEVOTHYROXINE 125MCG TABLET (0.125MG) PO SCH (06:16)
[2020-09-02 06:18] LABS: PLATELET COUNT, AUTOMATED 102 10^3/uL (150-450)
[2020-09-02 06:21] LABS: BILIRUBIN,TOTAL 5.8 MG/DL (0.2-1.0); CALCIUM LEVEL 8.3 MG/DL (8.8-10.2); CREATININE FOR GFR 1.29 MG/DL (0.55-1.30); GLOMERULAR FILTRATION RATE 44.3 (>45); MAGNESIUM LEVEL 2.1 MG/DL (1.8-2.4); TOTAL PROTEIN 5.3 GM/DL (6.4-8.2)
[2020-09-02 06:29] LABS: ERYTHROCYTE SEDIMENTATION RATE 7 mm/hr (0-30)
[2020-09-02] MEDS: IPRATROPIUM 0.5MG/ALBUTEROL 2.5MG INH SOL UD 3ML (DUONEB) NEB SCH ×6 (07:03→23:37)
[2020-09-02] MEDS: HumaLOG INSULIN (NovoLOG) PER UNIT SC SCH ×4 (07:30→21:00)
[2020-09-02] MEDS: LEVEMIR (INSULIN DETEMIR) 1 UNITS/0.01ML SC SCH ×2 (09:00→21:42)
[2020-09-02] MEDS: ENOXAPARIN 40MG/0.4ML SYRINGE (J1650 PER 10MG) SC SCH (09:00)
[2020-09-02] MEDS: NYSTATIN 100,000 UNITS/GM TOPICAL PWD 15 GM TOP SCH ×4 (09:00→21:45)
[2020-09-02] MEDS: DOCUSATE SODIUM 100MG CAPSULE PO SCH (09:00)
[2020-09-02] MEDS: MIRALAX *UNIT DOSE* 17GM PACKET PO SCH (09:00)
[2020-09-02] MEDS: METOPROLOL SUCC *XL* 25MG TAB (TopROL *XL*) PO SCH ×2 (09:00→21:41)
[2020-09-02] MEDS ORDERED: LIDOCAINE 1% MDV 20ML VIAL As Ordered ONE (09:04)
[2020-09-02] MEDS: KCL 10MEQ/100ML SWI (KRUN) 10 MEQ in IV 1 EA IV SCH ×4 (09:08→12:13)
[2020-09-02] MEDS: GABAPENTIN 100 MG CAP PO SCH ×3 (09:08→21:41)
[2020-09-02] MEDS: SERTRALINE 100 MG TAB PO SCH ×2 (09:09→21:40)
[2020-09-02] MEDS: SPIRONOLACTONE 12.5MG PER 1/2 TABLET PO SCH (11:17)
[2020-09-02] MEDS ORDERED: ISOVUE-300 61% 50ML VIAL As Ordered ONE (15:59)
[2020-09-02] MEDS ORDERED: LIDOCAINE 2% 100MG/5ML SDV (FOR ANES.) As Ordered ONE (16:06)
[2020-09-02] MEDS ORDERED: fentaNYL 100 MCG/2 ML INJECTION (J3010) As Ordered ONE (16:06)
[2020-09-02] MEDS ORDERED: MIDAZOLAM INJ 2MG/2ML VIAL (J2250 PER 1MG) As Ordered ONE (16:06)
[2020-09-02] MEDS ORDERED: ROCURONIUM BROMIDE 50 MG/5 ML VIAL As Ordered ONE (16:06)
[2020-09-02] MEDS ORDERED: propofoL 200 MG/20 ML VIAL As Ordered ONE (16:06)
[2020-09-02] MEDS: FUROSEMIDE injection 250 MG in D5W 225 ML IV SCH (16:54)
[2020-09-02] MEDS: cloZAPine 25 MG TAB (S0136) PO SCH (21:41)
--- NOTE | 2020-09-02 23:39 | IPNPDOC ---
Date Seen The patient was seen on 09/02/20. Progress Note SUBJECTIVE: patient was seen and examined at bedside. Patient is comfortable in bed. Denies fevers, chills. Afebrile overnight. Is fluid overloaded. Denies any abdominal pain. Continues to be afebrile OBJECTIVE PHYSICAL EXAMINATION: General: Looks comfortable but weak and tired appearing. HEENT: PERRLA, EOMI, sclerae clear Neck: supple, normal ROM, no JVD Respiratory: lungs CTAB, no wheeze, no rales, no crackles CVS: RRR, normal S1, S2 Abdo: soft, BS+, no rebound tenderness, obese, pain to deeper palpation of RUQ, however mild. Extremities: Trace LE pitting edema, pulses 2+, no cyanosis, no heel ulcers MSK: no joint deformities, normal ROM Neuro: Cranial nerves 3-12 intact bilaterally. Muscle strength diminished in the LLE vs RLE at S1. Psych: calm, cooperative, AAO x 3 LABORATORY DATA, IMAGING STUDIES, MICROBIOLOGY: Please see below. DVT prophylaxis ordered?: Yes, lovenox 65 yo F with a hx of DM2, lumbar stenosis (severe at L4/L5), HLD, presenting to ER with recurrent BLE weakness and frequent falls. # Sepsis likely 2/2 E Coli Pyelonephritis: Describes CVA tenderness on p resentation, fever, and UA was found to be dirty. UCx E Coli. Completed treatment. She's completed 10 days of IV Abx. Treatment is now complete. Per Dr. Blount, pneumonia not suspected. MRI LS without acute findings. Blood cultures negative. No findings c/w endocarditis on echo. Procal downtrending. D/w Dr. King today. Hx of humira use for hydradenitis. Will check fungal panel. Possible drug fever. Given rising ALP, bilirubin, concern remains for intraabdominal process, see below. #Elevated alk phos, hyperbilirubinemia: rising bilirubin. MRCP x 2 no obvious obstruction. Liver US with dopplers showing gallstones, sludge. Hepatomegaly , concern for cirrhosis. Splenomegaly. Suspect SEGURA Cirrhosis. Fu LKM1. Planned for therapeutic ERCP on 09/02/[address] Alejandre. #Liver cirrhosis: Per Dr. Markie Pandya. Liver ultrasound showing findings consistent with hepatocellular disease versus cirrhosis. Normal liver vascular Dopplers. Patient has diminished albumin. Fluid overload, likely contributed to by reducing the pressure. Suspected hepatorenal syndrome. Nephrology consulted, Dr. Kruse. Patient receiving 100 g of albumin today. Placed on Lasix drip. To optimize fluid status prior to therapeutic ERCP. #Weakness: deconditioned. Needs therapy. Decreased some of her psych meds due to polypharmacy. # Dyspnea possibly 2/2 CHFpEF: BNP elevated 1600. Mild tachycardia. Likely fluid overloaded. Echo EF 60% grade 1DD. CTA/PE negative for PE. D/w Zhang. Severe pulmonary HTN. Will need OP sleep study for CPAP. per Dr Blount ok for patient to go home on oxygen. #Sacral pressure ulcers: frequent turning. wound care. clean with vashe. foam dressing. Heel float boots. Seen by wound care Dr Haynes 08/23/2020 - doesn't need ABx. Fu HSV PCR and started on valacyclovir (through 08/31) # Acute encephalopathy: likely 2/2 infection. AMS resolved. patient was altered and difficult to arouse on 08/20. CT head wo acute changes. Ammonia wnl. Trop wnl. LA wnl. 08/24 has a brief period of decreased responsiveness/confusion a repeat CT head was done 08/24 which was negative. #pneumonia: seen on CXR 08/19, possible developing LLL pna, less convincing on repeat CXR, more likely atelectasis. Ceftriaxone, azithromycin (08/20/20). COVID negative on 08/17 and 08/24. Incentive spirometry. Pulmonology consulted. #Recurrent falls: advanced and progressing spinal stenosis. PT/OT eval. B12, folate wnl. #severe pulmonary hypertension: suspected based on echo per Dr. Holcomb. Consulted pulmonary Dr. Blount. #sinus tachycardia: negative for PE. TSH/FT4 wnl. sinus tach on tele. Cardiology consulted, discussed with Dr. Holcomb. Patient's tachycardiac likely related to pulmonary hypertension/AUDRA. Will keep metoprolol 25 mg bid. Patient seen by Dr. Blount, recommended outpatient sleep study. #DM2: ISS, FSBS AC and HS. Hypoglycemic precautions. A1c 9.2. BG 90-150. Reduce levemir to 30 units qam and 20 units qpm. (home dose levemir 50 unts qam). findings. Ordered. PATIRCK+, ordered PATRICK titers. Negative anti-mitochondrial ab. Likely hepatic congestion from cor pulmonale 2/2 pulmonary hypertension. #Urinary retention: check bladder scan. straight cath if > 250 cc. #vaginal candidiasis: diflucan 150 mg PO once. miconazole. #Lumbar spinal stenosis; severe at L4/L5. Has been seen by Dr. Mena, and was referred to specialist in [place]. OR delayed given uncontrolled DM2, patient was asked to return this but did not follow up. Reports bilateral LE weakness L > R. Recurrent falls. Absent/minimal rectal tone. Discussed with Dr. Sheppard, assess patient. This is not cauda equina. Progression of spinal stenosis. Recommends ongoing outpatient follow up, although patient states that she is happy with her level of mobility. #Schizoid personality disorder,anxiety: continue home meds #Hydradenitis suppurativa: resume home meds. wound care. 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 Needs outpatient sleep study. DVT ppx: lovenox VS, I&O, 24H, [facility] Vital Signs/I&O Vital Signs Date Time Temp Pulse Resp B/P (MAP) Pulse Ox O2 Delivery O2 Flow Rate FiO2 09/02/20 21:41 107 138/58 09/02/20 20:00 97.6 18 92 Nasal Cannula 3.0 I&O- Last 24 Hours up to 6 AM 09/02/20 06:00 Intake Total 228.5 ml Output Total 1475 ml Balance -1246.5 ml Laboratory Data 24H LABS Laboratory Tests 2 09/02/20 05:24: Immature Granulocyte % (Auto) 1.4, Neutrophils (%) (Auto) 70.9H, Lymphocytes (%) (Auto) 20.5L, Monocytes (%) (Auto) 6.0H, Eosinophils (%) (Auto) 0.7, Basophils (%) (Auto) 0.5, Neutrophils # (Auto) 2.9, Lymphocytes # (Auto) 0.9L, Monocytes # (Auto) 0.3, Eosinophils # (Auto) 0.0, Basophils # (Auto) 0.0, Nucleated Red Blood Cells % (auto) 0.0, Erythrocyte Sedimentation Rate 7, Anion Gap 7L, Glomerular Filtration Rate 44.3L, Calcium Level 8.3L, Magnesium Level 2.1, Total Bilirubin 5.8H, Aspartate Amino Transf (AST/SGOT) 36, Alanine Aminotransferase (ALT/SGPT) 18, Alkaline Phosphatase 663H, Total Protein 5.3L, Albumin 2.0L, Albumin/Globulin Ratio 0.6L, Procalcitonin 2.12 09/02/20 11:56: Bedside Glucose (Misc Panel) 205H 09/02/20 14:18: Coronavirus (COVID-19)(PCR) NEGATIVE 09/02/20 16:58: Bedside Glucose (Misc Panel) 190H 09/02/20 20:46: Bedside Glucose (Misc Panel) 210H CBC/BMP Laboratory Tests 09/02/20 05:24 Microbiology Microbiology 08/30/20 Blood Fungal Culture, Received Pending 08/27/20 Blood Culture - Final, Complete NO GROWTH AFTER 5 DAYS 08/27/20 Blood Culture - Final, Complete NO GROWTH AFTER 5 DAYS 08/26/20 Blood Culture - Final, Complete NO GROWTH AFTER 5 DAYS 08/25/20 Blood Culture - Final, Complete NO GROWTH AFTER 5 DAYS 08/24/20 Blood Culture - Final, Complete NO GROWTH AFTER 5 DAYS 08/24/20 Blood Culture - Final, Complete NO GROWTH AFTER 5 DAYS RAMON LANZA MD Sep 02, 2020 23:39
[2020-09-03] VITALS (11 sets, daily range): BP systolic 92–147; BP diastolic 47–66
[2020-09-03] MEDS: IPRATROPIUM 0.5MG/ALBUTEROL 2.5MG INH SOL UD 3ML (DUONEB) NEB SCH ×5 (03:47→20:31)
[2020-09-03] MEDS: SLF 3 ML SYR IV SCH ×3 (05:29→21:18)
[2020-09-03] MEDS: LEVOTHYROXINE 125MCG TABLET (0.125MG) PO SCH (05:29)
[2020-09-03 05:58] LABS: ABG BASE EXCESS 8.3 (-2.0-2.0); ABG O2 SATURATION 96.4 % (95.0-99.0); ABG PARTIAL PRESSURE O2 80.9 mmHg (75.0-100.0); ABG STANDARD HCO3 32.1 MEQ/L (22.0-26.0); ABG TOTAL CO2 34.4 MEQ/L (23.0-31.0); ABG pH (ARTERIAL) 7.473 UNITS (7.350-7.450)
[2020-09-03 06:10] LABS: BASO % 0.4 % (0.0-1.0); EOS % 0.4 % (0.0-3.0); HEMATOCRIT 36.6 % (36.0-47.0); HEMOGLOBIN 11.1 g/dl (12.0-15.5); LYMPH # 1.2 10^3/uL (1.5-5.0); LYMPH % 25.8 % (24.0-44.0); MEAN CORPUSCULAR HEMOGLOBIN 24.9 pg (27.0-33.0); MEAN CORPUSCULAR HGB CONC 30.3 g/dl (32.0-36.5); MEAN CORPUSCULAR VOLUME 82.2 fl (80.0-96.0); MONO # 0.3 10^3/uL (0.0-0.8); MONO % 6.9 % (0.0-5.0); NEUTROPHILS # 2.9 10^3/uL (1.5-8.5); NEUTROPHILS % 64.3 % (36.0-66.0); PLATELET COUNT, AUTOMATED 114 10^3/uL (150-450); RED BLOOD COUNT 4.45 10^6/uL (4.00-5.40); WHITE BLOOD COUNT 4.5 10^3/uL (4.0-10.0)
[2020-09-03 06:35] LABS: ALBUMIN 2.4 GM/DL (3.2-5.2); BILIRUBIN,TOTAL 6.6 MG/DL (0.2-1.0); CALCIUM LEVEL 9.1 MG/DL (8.8-10.2); CREATININE FOR GFR 1.36 MG/DL (0.55-1.30); GLOMERULAR FILTRATION RATE 41.7 (>45); TOTAL PROTEIN 5.6 GM/DL (6.4-8.2)
[2020-09-03] MEDS ORDERED: KCL 10MEQ/100ML SWI (KRUN) 10 MEQ in IV 1 EA IV ONE (07:30)
[2020-09-03] MEDS: MIRALAX *UNIT DOSE* 17GM PACKET PO SCH (08:40)
[2020-09-03] MEDS: NYSTATIN 100,000 UNITS/GM TOPICAL PWD 15 GM TOP SCH ×4 (08:40→21:18)
[2020-09-03] MEDS: ENOXAPARIN 40MG/0.4ML SYRINGE (J1650 PER 10MG) SC SCH (08:40)
[2020-09-03] MEDS: LEVEMIR (INSULIN DETEMIR) 1 UNITS/0.01ML SC SCH ×2 (08:41→21:00)
[2020-09-03] MEDS: SPIRONOLACTONE 12.5MG PER 1/2 TABLET PO SCH ×2 (08:42→21:15)
[2020-09-03] MEDS: HumaLOG INSULIN (NovoLOG) PER UNIT SC SCH ×4 (08:42→21:00)
[2020-09-03] MEDS: METOPROLOL SUCC *XL* 25MG TAB (TopROL *XL*) PO SCH ×2 (08:42→21:00)
[2020-09-03] MEDS: GABAPENTIN 100 MG CAP PO SCH ×4 (08:42→21:00)
[2020-09-03] MEDS: SERTRALINE 100 MG TAB PO SCH ×2 (08:42→21:15)
--- NOTE | 2020-09-03 11:20 | REP ---
INDICATION: sob. COMPARISON: 08/26/2020. TECHNIQUE: SINGLE PORTABLE AP VIEW OF THE CHEST WAS PERFORMED. FINDINGS: The heart mediastinum appear magnified. There are low lung volumes. Streaky bilateral perihilar opacities appear unchanged. There is mild elevation of the right hemidiaphragm. IMPRESSION: Streaky perihilar opacities bilaterally appear unchanged compared to the prior exam. <Electronically signed by Dwayne Allan > 09/03/20 1110
--- NOTE | 2020-09-03 11:23 | REP ---
INDICATION: indurated mass on R proximal humerus COMPARISON: 02/23/2015. TECHNIQUE: AP and lateral views right humerus performed. FINDINGS: Previously noted comminuted fracture of the proximal humerus demonstrates advanced healing. There is exuberant callus formation. A large displaced fragment laterally is unchanged in position compared to the prior exam but there is bridging healing callus formation, bridging the fragments to the adjacent humeral shaft. IMPRESSION: Advanced healing of displaced comminuted fracture proximal humerus. <Electronically signed by Dwayne Allan > 09/03/20 111
--- NOTE | 2020-09-03 12:05 | IPNPDOC ---
Date Seen The patient was seen on 09/03/20. Progress Note SUBJECTIVE: patient was seen and examined at bedside. . She is short of breath today having she is compliant with fluid restrictions drinking diet soda this morning. I discussed with Dr. Alejandre and Dr. Kruse is recommended that she be deferred for ERCP until Saturday. She requires continuous diuresis with IV Lasix drip. Fluid restriction 1800 mL per day. She is producing urine. She denies abdominal pain, fevers, chills, nausea, vomiting, diarrhea. OBJECTIVE PHYSICAL EXAMINATION: General: Looks comfortable but weak and tired appearing. HEENT: PERRLA, EOMI, sclerae clear Neck: supple, normal ROM, no JVD Respiratory: lungs CTAB, no wheeze, no rales, no crackles CVS: RRR, normal S1, S2 Abdo: soft, BS+, no rebound tenderness, obese, pain to deeper palpation of RUQ, however mild. Extremities: Trace LE pitting edema, pulses 2+, no cyanosis, no heel ulcers MSK: no joint deformities, normal ROM, roughly 5 cm in diameter large indurated area on the right humerus Neuro: Cranial nerves 3-12 intact bilaterally. Muscle strength diminished in the LLE vs RLE at S1. Psych: calm, cooperative, AAO x 3 LABORATORY DATA, IMAGING STUDIES, MICROBIOLOGY: Please see below. DVT prophylaxis ordered?: Yes, lovenox 65 yo F with a hx of DM2, lumbar stenosis (severe at L4/L5), HLD, presenting to ER with recurrent BLE weakness and frequent falls. # Sepsis likely 2/2 E Coli Pyelonephritis: Describes CVA tenderness on presentation, fever, and UA was found to be dirty. UCx E Coli. Completed treatm ent. She's completed 10 days of IV Abx. Treatment is now complete. Per Dr. Blount, pneumonia not suspected. MRI LS without acute findings. Blood cultures negative. No findings c/w endocarditis on echo. Procal downtrending. D/w Dr. King. Hx of humira use for hydradenitis. Will check fungal panel. Possible drug fever. #Elevated alk phos, hyperbilirubinemia: rising bilirubin. MRCP x 2 no obvious ob struction. Liver US with dopplers showing gallstones, sludge. Hepatomegaly , concern for cirrhosis. Splenomegaly. Suspect SEGURA Cirrhosis. Fu LKM1. ERCP deferred until a full status improved. She is currently on IV diuresis with Lasix. #Liver cirrhosis: Per Dr. Alejandre. Liver ultrasound showing findings consistent with hepatocellular disease versus cirrhosis. Normal liver vascular Dopplers. Patient has diminished albumin. Fluid overload, likely contributed to by reducing the pressure. Suspected hepatorenal syndrome. Nephrology consulted, Dr. Kruse. Patient receiving 100 g of albumin today. Placed on Lasix drip. To optimize fluid status prior to therapeutic ERCP. #Hepatorenal syndrome: Nephrology consulted. Low sodium diet. Monitor I&O. Hypokalemic. D/w Dr. Kruse, will hold lasix drip overnight, while repleting potassium. #hypokalemia: K2.6. 2/2 diuresis. Hold lasix ggt overnight. replace K #R humeral mass: reviewed xray, callous from prior fx of prox humerus. Per , patient did have a fall and poss fx but per him it was never surgically repaired. Ortho consult. D/w Dr. Sheppard. Obtain MRI w contrast of R humerus. #Weakness: deconditioned. Needs therapy. Decreased some of her psych meds due to polypharmacy. # Dyspnea possibly 2/2 CHFpEF: BNP elevated 1600. Mild tachycardia. Likely fluid overloaded. Echo EF 60% grade 1DD. CTA/PE negative for PE. D/w Zhang. Severe pulmonary HTN. Will need OP sleep study for CPAP. per Dr Mine iniguez for patient to go home on oxygen. #Sacral pressure ulcers: frequent turning. wound care. clean with vashe. foam dressing. Heel float boots. Seen by wound care Dr Haynes 08/23/2020 - doesn't need ABx. Fu HSV PCR and started on valacyclovir (through 08/31) # Acute encephalopathy: likely 2/2 infection. AMS resolved. patient was altered and difficult to arouse on 08/20. CT head wo acute changes. Ammonia wnl. Trop wnl. LA wnl. 08/24 has a brief period of decreased responsiveness/confusion a repeat CT head was done 08/24 which was negative. #pneumonia: seen on CXR 08/19, possible developing LLL pna, less convincing on repeat CXR, more likely atelectasis. Ceftriaxone, azithromycin (08/20/20). COVID negative on 08/17 and 08/24. Incentive spirometry. Pulmonology consulted. #Recurrent falls: advanced and progressing spinal stenosis. PT/OT eval. B12, folate wnl. #severe pulmonary hypertension: sleep study. seen on echo. Assessed by Dr. Holcomb and Dr. Blount. #sinus tachycardia: negative for PE. TSH/FT4 wnl. sinus tach on tele. Cardiology consulted, discussed with Dr. Holcomb. Patient's tachycardia likely related to pulmonary hypertension/AUDRA. Will keep metoprolol 25 mg bid. Patient seen by Dr. Blount, recommended outpatient sleep study. #DM2: ISS, FSBS AC and HS. Hypoglycemic precautions. A1c 9.2. BG 90-150. Reduce levemir to 30 units qam and 20 units qpm. (home dose levemir 50 unts qam). findings. Ordered. PATRICK+, ordered PATRICK titers. Negative anti-mitochondrial ab. Likely hepatic congestion from cor pulmonale 2/2 pulmonary hypertension. #Urinary retention: check bladder scan. straight cath if > 250 cc. #vaginal candidiasis: diflucan 150 mg PO once. miconazole. #Lumbar spinal stenosis; severe at L4/L5. Has been seen by Dr. Mena, and was referred to specialist in [place]. OR delayed given uncontrolled DM2, patient was asked to return this but did not follow up. Reports bilateral LE weakness L > R. Recurrent falls. Absent/minimal rectal tone. Discussed with Dr. Sheppard, assess patient. This is not cauda equina. Progression of spinal stenosis. Recommends ongoing outpatient follow up, although patient states that she is happy with her level of mobility. #Schizoid personality disorder,anxiety: continue home meds #Hydradenitis suppurativa: resume home meds. wound care. 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 Needs outpatient sleep study. DVT ppx: lovenox I updated the patient's this morning, answered all questions in detail. VS, I&O, 24H, [facility] Vital Signs/I&O Vital Signs Date Time Temp Pulse Resp B/P (MAP) Pulse Ox O2 Delivery O2 Flow Rate FiO2 09/03/20 08:42 114 117/66 09/03/20 08:02 99.6 26 92 Nasal Cannula 3.0 I&O- Last 24 Hours up to 6 AM 09/03/20 06:00 Intake Total 1590.0 ml Output Total 1550 ml Balance 40.0 ml Laboratory Data 24H LABS Laboratory Tests 2 09/02/20 14:18: Coronavirus (COVID-19)(PCR) NEGATIVE 09/02/20 16:58: Bedside Glucose (Misc Panel) 190H 09/02/20 20:46: Bedside Glucose (Misc Panel) 210H 09/03/20 05:36: Blood Gas Bicarbonate Standard 32.1H, Arterial Blood pH 7.473H, Arterial Blood Partial Pressure CO2 46.0H, Arterial Blood Partial Pressure O2 80.9, Arterial Blood Total CO2 34.4H, Arterial Blood HCO3 33.0H, Arterial Blood Base Excess 8.3H, Arterial Blood Oxygen Saturation 96.4 09/03/20 05:52: Immature Granulocyte % (Auto) 2.2, Neutrophils (%) (Auto) 64.3, Lymphocytes (%) (Auto) 25.8, Monocytes (%) (Auto) 6.9H, Eosinophils (%) (Auto) 0.4, Basophils (%) (Auto) 0.4, Neutrophils # (Auto) 2.9, Lymphocytes # (Auto) 1.2L, Monocytes # (Auto) 0.3, Eosinophils # (Auto) 0.0, Basophils # (Auto) 0.0, Nucleated Red Blood Cells % (auto) 0.4H, Anion Gap 4L, Glomerular Filtration Rate 41.7L, Calcium Level 9.1, Magnesium Level 2.0, Total Bilirubin 6.6H, Aspartate Amino Transf (AST/SGOT) 31, Alanine Aminotransferase (ALT/SGPT) 16, Alkaline Phosphatase 664H, Total Protein 5.6L, Albumin 2.4L, Albumin/Globulin Ratio 0.8L 09/03/20 11:24: Bedside Glucose (Misc Panel) 106 CBC/BMP Laboratory Tests 09/03/20 05:52 Microbiology Microbiology 08/30/20 Blood Fungal Culture, Received Pending 08/27/20 Blood Culture - Final, Complete NO GROWTH AFTER 5 DAYS 08/27/20 Blood Culture - Final, Complete NO GROWTH AFTER 5 DAYS 08/26/20 Blood Culture - Final, Complete NO GROWTH AFTER 5 DAYS 08/25/20 Blood Culture - Final, Complete NO GROWTH AFTER 5 DAYS 08/24/20 Blood Culture - Final, Complete NO GROWTH AFTER 5 DAYS 08/24/20 Blood Culture - Final, Complete NO GROWTH AFTER 5 DAYS RAMON LANZA MD Sep 03, 2020 12:05
--- NOTE | 2020-09-03 12:15 | IPN ---
PROGRESS NOTE DATE: 09/02/2020 SUBJECTIVE: Ros is seen and examined this morning at the bedside. She complains of shortness of breath. She has had improved diuresis with the Lasix drip. She now has a Walters catheter placed. She continues on albumin infusions as well. She tells me that she feels very weak and exhausted. PHYSICAL EXAMINATION: Vital signs: Temperature 97.2, pulse 97, respiratory rate 18, blood pressure 108/55, saturating 97% on 3 liters nasal cannula. Intake yesterday was not recorded. Urine output yesterday was recorded as 550 cc, plus there were two incontinence voids. Urine output today is already 1.8 liters. Weight in the bed scale today is 112.7 kg, which is significantly different from earlier and this is probably unreliable. The patient is seen lying in bed. The head of the bed elevated, appears older than stated age and looks chronically ill and fatigue appearing. Extraocular muscles are intact. There is icteric sclerae. Tongue is moist. Neck is supple. She is on nasal cannula. There are diminished breath sounds at the bases. There is no tachypnea. There is no wheeze. Abdomen is obese and soft and nontender to examination. Genitourinary: Shows Walters catheter draining urine. Heart sounds are tachycardiac, S1, S2. There is 1 to 2+ leg edema and dependent edema bilaterally. Neurologic: She answers simple questions appropriately and is oriented times 3. LABORATORY: Sodium 136, potassium 3.0, bicarbonate 31, BUN 42, creatinine 1.2, magnesium 2.1, albumin 2.0, white count 4.2, hemoglobin 10.6, platelets 102. INPATIENT MEDICATIONS: She continues on a Lasix drip at 5 mg per hour She continues on albumin 25%, 25 gm q 8 hours. She received IV KCl runs times 4 doses. Her docusate was discontinued. She was started on spironolactone 12.5 mg by mouth daily. PROBLEMS: 1. Decompensated diastolic congestive heart failure/generalized anasarca. Albumin is chronically less than 2 or in the low 2s. Echocardiogram showed diastolic dysfunction. Her BNP is only 200, but she has leg edema and she is also requiring supplemental oxygen. Her daily weights have trended on this admission significantly. There is 3rd spacing of her fluid. She is being diuresed with Lasix drip at 5 mg an hour along with albumin infusion q8 hours. She seems to be responding, her urine output has increased and her renal function has also slightly improved. Will cautiously continue to attempt to diurese her. Continue Lasix 5 mg an hour and I will continue her on albumin as well. 2. Acute kidney injury (NELSON) on chronic kidney disease (CKD) stage II. Her acute kidney injury (NELSON) is mild and likely multifactorial in etiology. She had sepsis on this admission. She had IV contrast. She also received NSAID. Her creatinine slightly improved the past 24 hours. Her urine output has also improved with diuresis. We will continue to cautiously diurese with close watch on renal function. 3. Hypokalemia. It is due to diuresis. She is getting IV potassium supplementation and I also started low dose spironolactone 12.5 mg by mouth daily. 4. Hyponatremia. It is mild, it is due to chronic liver disease and fluid overload and it is expected to improve with diuresis.
[2020-09-03] MEDS: FUROSEMIDE injection 250 MG in D5W 225 ML IV SCH (13:30)
[2020-09-03] MEDS: ACETAMINOPHEN TAB 650MG DOSE (2X325MG) PO PRN ×2 (13:32→21:15)
[2020-09-03 16:51] LABS: CALCIUM LEVEL 8.8 MG/DL (8.8-10.2); CREATININE FOR GFR 1.51 MG/DL (0.55-1.30); GLOMERULAR FILTRATION RATE 36.9 (>45); MAGNESIUM LEVEL 2.2 MG/DL (1.8-2.4); POTASSIUM SERUM 2.6 MEQ/L (3.5-5.1)
[2020-09-03] MEDS ORDERED: POTASSIUM CHLORIDE 10 MEQ SR TABLET PO ONE (17:00)
[2020-09-03] MEDS: KCL 10MEQ/100ML SWI (KRUN) 10 MEQ in IV 1 EA IV SCH ×4 (17:49→22:20)
[2020-09-03] MEDS: DEXTROSE 50% 50 ML SYRINGE IV PRN (17:56)
[2020-09-03 18:19] LABS: ABG BASE EXCESS 6.9 (-2.0-2.0); ABG HCO3 32.8 MEQ/L (22.0-26.0); ABG O2 SATURATION 93.4 % (95.0-99.0); ABG PARTIAL PRESSURE CO2 53.2 mmHg (35.0-45.0); ABG PARTIAL PRESSURE O2 70.7 mmHg (75.0-100.0); ABG STANDARD HCO3 30.7 MEQ/L (22.0-26.0); ABG TOTAL CO2 34.4 MEQ/L (23.0-31.0); ABG pH (ARTERIAL) 7.408 UNITS (7.350-7.450)
--- NOTE | 2020-09-03 18:22 | IPN ---
PROGRESS NOTE DATE: 09/03/2020 Mrs. Galeana is seen this morning on her bedside. She is lying in her bed with head elevated at about 70 degrees. She is quite tachypneic with respiratory rate of 28 per minute. She talks only one or two words and does not answer questions very well. She has been on intravenous (IV) Lasix drip, but urine output is not any significantly negative so far. She has elevated bilirubin, and plan is to perform an endoscopic retrograde cholangiopancreatography (ERCP); however, she was felt to be not be very compensated medically because of her respiratory status. PHYSICAL EXAMINATION: Temperature 102 degrees Fahrenheit, heart rate 106 per minute, and respiratory rate 28 per minute. Blood pressure 115/65 mm of mercury, and oxygen saturation 94% on 3 liters oxygen. Intake and output records from last 24 hours show a negative fluid balance of only 445 mL. Her head is atraumatic. She is bleeding through her mouth. Neck veins are not abnormally distended. Heart sounds are tachycardic and lungs with diminished breath sounds. Abdomen is protuberant and tender. Bowel sounds are hypoactive. Extremities without any cyanosis or clubbing. She has peripheral edema on her lower extremities. Neurologically, she is awake but answers questions only with one or two words. Today's labs show sodium 137, potassium 4.0, CO2 of 33, chloride 100, BUN 34, and creatinine 1.36. Calcium 9.1, magnesium 2.0. Total bilirubin 6.6, AST 31, ALT 16, and alkaline phosphatase 664. Total protein 5.6 and albumin 2.4. PROBLEMS: 1. Acute kidney injury superimposed on chronic kidney disease. She does not have any significant change in her kidney function and does not have any risk of uremia at this point. 2. Hypokalemia. This is related to poor oral intake and intravenous (IV) diuretic use. I feel that she will need significant potassium supplementation, as she is on IV Lasix drip and likely to have further loss of potassium. We will recheck her electrolytes and replace her potassium as needed. 3. Shortness of breath and hypoxemia. She is quite tachypneic; however, she is also febrile with 102 fever. I am concerned about possibility of intra-abdominal issue causing her tachypnea and shortness of breath. She does have peripheral edema but does not look any significantly intravascularly volume overloaded, as she does not have elevated neck veins. Her chest x-ray from today did not show any pleural effusion or significant congestive heart failure. In any event, at this point she remains on IV Lasix drip, and we will re-evaluate her and consider changing our course as needed. 4. Elevated serum bilirubin. Patient is in need for endoscopic retrograde cholangiopancreatography (ERCP); however, she is medically not optimized as yet due to her hypoxemia and tachypnea. Her electrolytes will be repleted, and her volume status is going to be optimized over next 24-48 hours. We will continue to monitor her closely. 5. I would suggest to put her on broad-spectrum antibiotics to cover for any infection.
--- NOTE | 2020-09-03 19:06 | REP ---
INDICATION: per ortho, R humeral mass, image joints below, PORTABLE COMPARISON: None. TECHNIQUE: Four views right wrist obtained. FINDINGS: There is no evidence of acute fracture, dislocation, or intrinsic bone disease.A rounded calcific density is seen a rounded smoothly corticated calcific density is seen along the distal margin of the distal radioulnar joint measuring 7 mm in maximum diameter. This represents an old fracture fragment or a calcific joint body. IMPRESSION: A rounded calcific density is seen a rounded smoothly corticated calcific density is seen along the distal margin of the distal radioulnar joint measuring 7 mm in maximum diameter. This represents an old fracture fragment or a calcific joint body. <Electronically signed by Dwayne Allan > 09/03/20 [id number]
--- NOTE | 2020-09-03 19:08 | REP ---
INDICATION: per ortho, R humeral mass, image joints below PORTABLE COMPARISON: None. TECHNIQUE: Four views right elbow obtained. FINDINGS: There is no evidence of acute fracture, dislocation, or intrinsic bone disease.The joint spaces are unremarkable. IMPRESSION: No fracture or dislocation. <Electronically signed by Dwayne Allan > 09/03/20 [id number]
[2020-09-03 19:18] LABS: BASO % 0.9 % (0.0-1.0); EOS % 0.5 % (0.0-3.0); HEMATOCRIT 35.4 % (36.0-47.0); HEMOGLOBIN 10.5 g/dl (12.0-15.5); LYMPH # 1.1 10^3/uL (1.5-5.0); LYMPH % 25.3 % (24.0-44.0); MEAN CORPUSCULAR HEMOGLOBIN 24.9 pg (27.0-33.0); MEAN CORPUSCULAR HGB CONC 29.7 g/dl (32.0-36.5); MEAN CORPUSCULAR VOLUME 84.1 fl (80.0-96.0); MONO # 0.2 10^3/uL (0.0-0.8); MONO % 4.4 % (0.0-5.0); NEUTROPHILS # 2.8 10^3/uL (1.5-8.5); NEUTROPHILS % 66.1 % (36.0-66.0); PLATELET COUNT, AUTOMATED 107 10^3/uL (150-450); RED BLOOD COUNT 4.21 10^6/uL (4.00-5.40); WHITE BLOOD COUNT 4.3 10^3/uL (4.0-10.0)
[2020-09-03 19:25] LABS: ALBUMIN 2.4 GM/DL (3.2-5.2); BILIRUBIN,TOTAL 6.6 MG/DL (0.2-1.0); CALCIUM LEVEL 8.6 MG/DL (8.8-10.2); CREATININE FOR GFR 1.59 MG/DL (0.55-1.30); GLOMERULAR FILTRATION RATE 34.8 (>45); POTASSIUM SERUM 2.9 MEQ/L (3.5-5.1); TOTAL PROTEIN 5.4 GM/DL (6.4-8.2)
[2020-09-03 19:26] LABS: TROPONIN I 0.02 NG/ML (< 0.10)
[2020-09-03 20:00] LABS: MAGNESIUM LEVEL 2.2 MG/DL (1.8-2.4)
[2020-09-03] MEDS: cloZAPine 25 MG TAB (S0136) PO SCH (21:00)
[2020-09-03] MEDS: POTASSIUM CHLORIDE 10 MEQ SR TABLET PO SCH (21:15)
[2020-09-04] VITALS (7 sets, daily range): BP systolic 105–159; BP diastolic 50–80
[2020-09-04 00:03] LABS: CALCIUM LEVEL 9.2 MG/DL (8.8-10.2); CREATININE FOR GFR 1.61 MG/DL (0.55-1.30); GLOMERULAR FILTRATION RATE 34.3 (>45); POTASSIUM SERUM 4.4 MEQ/L (3.5-5.1)
[2020-09-04] MEDS: IPRATROPIUM 0.5MG/ALBUTEROL 2.5MG INH SOL UD 3ML (DUONEB) NEB SCH ×6 (00:11→19:59)
[2020-09-04] MEDS: SLF 3 ML SYR IV SCH ×3 (05:45→22:12)
[2020-09-04] MEDS: LEVOTHYROXINE 125MCG TABLET (0.125MG) PO SCH (05:45)
[2020-09-04] MEDS: ACETAMINOPHEN TAB 650MG DOSE (2X325MG) PO PRN ×2 (06:27→17:10)
[2020-09-04 06:38] LABS: BASO % 0.7 % (0.0-1.0); HEMATOCRIT 35.8 % (36.0-47.0); HEMOGLOBIN 10.9 g/dl (12.0-15.5); LYMPH % 23.8 % (24.0-44.0); MEAN CORPUSCULAR HEMOGLOBIN 25.5 pg (27.0-33.0); MEAN CORPUSCULAR HGB CONC 30.4 g/dl (32.0-36.5); MEAN CORPUSCULAR VOLUME 83.6 fl (80.0-96.0); MONO # 0.2 10^3/uL (0.0-0.8); MONO % 4.9 % (0.0-5.0); NEUTROPHILS # 2.8 10^3/uL (1.5-8.5); NEUTROPHILS % 67.9 % (36.0-66.0); PLATELET COUNT, AUTOMATED 108 10^3/uL (150-450); RED BLOOD COUNT 4.28 10^6/uL (4.00-5.40); WHITE BLOOD COUNT 4.1 10^3/uL (4.0-10.0)
[2020-09-04 07:14] LABS: ALBUMIN 2.2 GM/DL (3.2-5.2); BILIRUBIN,TOTAL 7.1 MG/DL (0.2-1.0); CALCIUM LEVEL 8.8 MG/DL (8.8-10.2); CREATININE FOR GFR 1.78 MG/DL (0.55-1.30); GLOMERULAR FILTRATION RATE 30.5 (>45); MAGNESIUM LEVEL 2.2 MG/DL (1.8-2.4); POTASSIUM SERUM 4.5 MEQ/L (3.5-5.1); TOTAL PROTEIN 5.1 GM/DL (6.4-8.2)
[2020-09-04] MEDS: MIRALAX *UNIT DOSE* 17GM PACKET PO SCH (08:31)
[2020-09-04] MEDS: ENOXAPARIN 40MG/0.4ML SYRINGE (J1650 PER 10MG) SC SCH (08:38)
[2020-09-04] MEDS: HumaLOG INSULIN (NovoLOG) PER UNIT SC SCH ×4 (08:38→21:00)
[2020-09-04] MEDS: LEVEMIR (INSULIN DETEMIR) 1 UNITS/0.01ML SC SCH ×2 (08:38→22:11)
[2020-09-04] MEDS: GABAPENTIN 100 MG CAP PO SCH ×3 (08:39→21:00)
[2020-09-04] MEDS: POTASSIUM CHLORIDE 10 MEQ SR TABLET PO SCH ×2 (08:39→21:00)
[2020-09-04] MEDS: SPIRONOLACTONE 12.5MG PER 1/2 TABLET PO SCH ×2 (08:39→21:00)
[2020-09-04] MEDS: SERTRALINE 100 MG TAB PO SCH ×2 (08:39→21:00)
[2020-09-04] MEDS: METOPROLOL SUCC *XL* 25MG TAB (TopROL *XL*) PO SCH ×2 (08:41→21:00)
[2020-09-04] MEDS: NYSTATIN 100,000 UNITS/GM TOPICAL PWD 15 GM TOP SCH ×4 (08:42→22:13)
[2020-09-04] MEDS ORDERED: FUROSEMIDE injection 250 MG in D5W 225 ML IV SCH (10:00)
--- NOTE | 2020-09-04 15:51 | CR ---
CONSULTATION DATE: 09/03/2020 at 7 p.m. HISTORY OF PRESENT ILLNESS: This is a 65-year-old female who was admitted on the July for increased difficulty with transfers and wheelchair and reported falls over the last several weeks. The patient has a history of diabetes, lumbar stenosis, severe L4-5, hyperlipidemia as well as schizoid personality disorder, diabetic neuropathy and sacral pressure ulcers as well as right proximal humerus malunion who presented to [facility] ER with recurrent bilateral lower extremity weakness, left worse than right and self-reported increase in falls and difficulty transferring to her wheelchair. The patient is largely immobile. She denies any trauma or loss of consciousness recently. The patient does have a chronic history of L4-5 severe spinal stenosis for which she was seen by Dr. Mena and also a specialist in [place]. The patient has not been compliant to that follow-up, however, I was consulted for a right upper extremity proximal humerus mass by the primary service, the Hospitalist, for which Orthopedic Surgery was consulted. PAST MEDICAL HISTORY: 1. Type 2 diabetes. 2. Hyperlipidemia. 3. Anxiety. 4. Hypothyroidism. 5. Schizoid personality disorder. 6. Chronic fatigue. 7. Lumbar stenosis, severe, of L4-5. 8. Diabetic neuropathy. 9. Sacral pressure ulcer. PAST SURGICAL HISTORY: 1. Total hysterectomy in 1994. 2. Tonsillectomy. 3. Biopsy of right breast tissue in 2007. 4. Skin biopsy of left breast tissue in 2018. SOCIAL HISTORY: , lives at home, former smoker. Denies alcohol use. Denies illicit drug activity. ALLERGIES: Please see internal medicine note. REVIEW OF SYSTEMS: A 14 point review of systems was negative unless otherwise described in HPI above. PHYSICAL EXAMINATION: The patient was alert to person, not time, but place. Right upper extremity: The patient had a palpable mass about the proximal humerus. Of note, the patient did have a proximal humerus fracture years prior that healed uneventfully. At the proximal humerus, the right proximal malunion was not mobile. The upper extremity had a 2+ radial ulnar pulse. She had 5/5 strength. The patient was intact to light touch to the musculocutaneous, axillary, radial, median and ulnar nerve associated musculature. She had spontaneous movement of the right upper extremity with the aforementioned 5/5 strength of flexion, extension, pronation, supination, abduction, adduction of the shoulder. She also had spontaneous movement of flexion and extension of the right shoulder as well as full range of motion of the right wrist. IMPRESSION: A 65-year-old female with a malunion of the right proximal humerus status post a previous right proximal humerus fracture, was treated non-operatively years ago. PLAN: At this point in time given the fact the patient has no history of pain at the malunion site and is not mobile, the patient has healed the proximal humerus fracture, however it is a malunion meaning that while it has healed she has lost her mechanical alignment of the right upper extremity leading to a prominent callus edge. Given the fact that she is not painful and has no complaints regarding her use of her right upper extremity, she will be weightbearing as tolerated of the right upper extremity. We have encouraged range of motion about the shoulder, elbow and wrist as tolerated and endorsed activities as tolerated. There is no intervention required at this point in time given the obvious malunion of the right proximal humerus. No other extensive workup will be required at this point in time given the patient's presentation. JACQUELYN
--- NOTE | 2020-09-04 17:10 | IPNPDOC ---
Date Seen The patient was seen on 09/04/20. Progress Note SUBJECTIVE: patient was seen and examined at bedside. . She is short of breath today having she is compliant with fluid restrictions drinking diet soda this morning. I discussed with Dr. Alejandre and Dr. Kruse is recommended that she be deferred for ERCP until Saturday. OBJECTIVE PHYSICAL EXAMINATION: General: Looks comfortable but weak and tired appearing. HEENT: PERRLA, EOMI, sclerae clear Neck: supple, normal ROM, no JVD Respiratory: lungs CTAB, no wheeze, no rales, no crackles CVS: RRR, normal S1, S2 Abdo: soft, BS+, no rebound tenderness, obese, pain to deeper palpation of RUQ, however mild. Extremities: Trace LE pitting edema, pulses 2+, no cyanosis, no heel ulcers MSK: no joint deformities, normal ROM, roughly 5 cm in diameter large indurated area on the right humerus Neuro: Cranial nerves 3-12 intact bilaterally. Muscle strength diminished in the LLE vs RLE at S1. Psych: calm, cooperative, AAO x 3 LABORATORY DATA, IMAGING STUDIES, MICROBIOLOGY: Please see below. DVT prophylaxis ordered?: Yes, lovenox 65 yo F with a hx of DM2, lumbar stenosis (severe at L4/L5), HLD, presenting to ER with recurrent BLE weakness and frequent falls. # Sepsis likely 2/2 E Coli Pyelonephritis: Describes CVA tenderness on presentation, fever, and UA was found to be dirty. UCx E Coli. Completed treatment. She's completed 10 days of IV Abx. Treatment is now complete. Per Dr. Blount, pneumonia not suspected. MRI LS without acute findings. Blood cultures negative. No findings c/w endocarditis on echo. Procal downtrending. D/w Dr. King. Hx of humira use for hydradenitis. Will check fungal panel. Possible drug fever. #Elevated alk phos, hyperbilirubinemia: rising bilirubin. MRCP x 2 no obvious obstruction. Liver US with dopplers showing gallstones, sludge. Hepatomegaly , concern for cirrhosis. Splenomegaly. Suspect SEGURA Cirrhosis. Fu LKM1. ERCP deferred until a full status improved. She is currently on IV diuresis with Lasix. #Liver cirrhosis: Per Dr. Alejandre. Liver ultrasound showing findings consistent with hepatocellular disease versus cirrhosis. Normal liver vascular Dopplers. Patient has diminished albumin. Fluid overload, likely contributed to by reducing the pressure. Suspected hepatorenal syndrome. Nephrology consulted, Dr. Kruse. Patient receiving 100 g of albumin today. Placed on Lasix drip. To optimize fluid status prior to therapeutic ERCP. Planned for ERCP on . #Hepatorenal syndrome: Nephrology consulted. Low sodium diet. Monitor I&O. Hy pokalemic. D/w Dr. Kruse, will hold lasix drip overnight, while repleting potassium. #hypokalemia: resolved. K 4.9. Lasix stopped. #R humeral mass: reviewed xray, callous from prior fx of prox humerus. Per , patient did have a fall and poss fx but per him it was never surgically repaired. Ortho consult. D/w Dr. Sheppard. Fracture mal-uniuon. DC MRI. No further workup required. # Dyspnea: possibly 2/2 CHF vs intraabdominal process vs AUDRA. Echo EF 60% grade 1DD. CTA/PE negative for PE. D/w Zhang. Severe pulmonary HTN. Will need OP sleep study for CPAP. per Dr Blount ok for patient to go home on oxygen. #Sacral pressure ulcers: frequent turning. wound care. clean with vashe. foam dressing. Heel float boots. Seen by wound care Dr Haynes 08/23/2020 - doesn't need ABx. Fu HSV PCR and started on valacyclovir (through 08/31) # Acute encephalopathy: likely 2/2 infection. intermittent AMS, suspect AUDRA. 3L NC. CT head negative x 2. #pneumonia: seen on CXR 08/19, possible developing LLL pna, probaly atelectasis. Ceftriaxone, azithromycin (08/20/20). Completed 10 days of zosyn. COVID negative on 08/17 and 08/24. Incentive spirometry. Pulmonology consulted. #Recurrent falls: advanced and progressing spinal stenosis. PT/OT eval. B12, folate wnl. #severe pulmonary hypertension: sleep study. seen on echo. Assessed by Dr. Holcomb and Dr. Blount. #sinus tachycardia: negative for PE. TSH/FT4 wnl. sinus tach on tele. Cardiology consulted, discussed with Dr. Holcomb. Patient's tachycardia likely related to pulmonary hypertension/AUDRA. Will keep metoprolol 25 mg bid. Patient seen by Dr. Blount, recommended outpatient sleep study. #DM2: ISS, FSBS AC and HS. Hypoglycemic precautions. A1c 9.2. BG 90-150. Reduce levemir to 30 units qam and 20 units qpm. (home dose levemir 50 unts qam). findings. Ordered. PATRICK+, ordered PATRICK titers. Negative anti-mitochondrial ab. Likely hepatic congestion from cor pulmonale 2/2 pulmonary hypertension. #Urinary retention: check bladder scan. straight cath if > 250 cc. #vaginal candidiasis: diflucan 150 mg PO once. miconazole. #Lumbar spinal stenosis; severe at L4/L5. Has been seen by Dr. Mena, and was referred to specialist in [place]. OR delayed given uncontrolled DM2, patient was asked to return this but did not follow up. Reports bilateral LE weakness L > R. Recurrent falls. Absent/minimal rectal tone. Discussed with Dr. Sheppard, assess patient. This is not cauda equina. Progression of spinal stenosis. Recommends ongoing outpatient follow up, although patient states that she is happy with her level of mobility. #Schizoid personality disorder,anxiety: continue home meds #Hydradenitis suppurativa: resume home meds. wound care. 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 Needs outpatient sleep study. #Weakness: deconditioned. Needs therapy. Decreased some of her psych meds due to polypharmacy. DVT ppx: lovenox I updated the patient's this morning, answered all questions in detail. VS, I&O, 24H, [facility] Vital Signs/I&O Vital Signs Date Time Temp Pulse Resp B/P (MAP) Pulse Ox O2 Delivery O2 Flow Rate FiO2 09/04/20 16:00 101.3 108 22 135/63 (87) 94 Nasal Cannula 3.0 I&O- Last 24 Hours up to 6 AM 09/04/20 06:00 Intake Total 2127.0 ml Output Total 1750 ml Balance 377.0 ml Laboratory Data 24H LABS Laboratory Tests 2 09/03/20 18:04: Bedside Glucose (Misc Panel) 218H 09/03/20 18:06: Blood Gas Bicarbonate Standard 30.7H, Arterial Blood pH 7.408, Arterial Blood Partial Pressure CO2 53.2H, Arterial Blood Partial Pressure O2 70.7L, Arterial Blood Total CO2 34.4H, Arterial Blood HCO3 32.8H, Arterial Blood Base Excess 6.9H, Arterial Blood Oxygen Saturation 93.4L 09/03/20 18:13: Immature Granulocyte % (Auto) 2.8, Neutrophils (%) (Auto) 66.1H, Lymphocytes (%) (Auto) 25.3, Monocytes (%) (Auto) 4.4, Eosinophils (%) (Auto) 0.5, Basophils (%) (Auto) 0.9, Neutrophils # (Auto) 2.8, Lymphocytes # (Auto) 1.1L, Monocytes # (Auto) 0.2, Eosinophils # (Auto) 0.0, Basophils # (Auto) 0.0, Nucleated Red Blood Cells % (auto) 0.5H, Anion Gap 7L, Glomerular Filtration Rate 34.8L, Lactic Acid Level 0.8, Calcium Level 8.6L, Magnesium Level 2.2, Total Bilirubin 6.6H, Aspartate Amino Transf (AST/SGOT) 33, Alanine Aminotransferase (ALT/SGPT) 14, Alkaline Phosphatase 585H, Ammonia 106H, Troponin I 0.02, XK-Fav-M-Type Natriuretic Peptide 852H, Total Protein 5.4L, Albumin 2.4L, Albumin/Globulin Ratio 0.8L 09/03/20 20:29: Bedside Glucose (Misc Panel) 94 09/03/20 22:16: Bedside Glucose (Misc Panel) 122H 09/03/20 23:19: Anion Gap 4L, Glomerular Filtration Rate 34.3L, Calcium Level 9.2 09/04/20 06:23: Anion Gap 5L, Glomerular Filtration Rate 30.5L, Calcium Level 8.8, Immature Granulocyte % (Auto) 1.7, Neutrophils (%) (Auto) 67.9H, Lymphocytes (%) (Auto) 23.8L, Monocytes (%) (Auto) 4.9, Eosinophils (%) (Auto) 1.0, Basophils (%) (Auto) 0.7, Neutrophils # (Auto) 2.8, Lymphocytes # (Auto) 1.0L, Monocytes # (Auto) 0.2, Eosinophils # (Auto) 0.0, Basophils # (Auto) 0.0, Nucleated Red Blood Cells % (auto) 0.0, Magnesium Level 2.2, Total Bilirubin 7.1H, Aspartate Amino Transf (AST/SGOT) 42H, Alanine Aminotransferase (ALT/SGPT) 13, Alkaline Phosphatase 579H, Total Protein 5.1L, Albumin 2.2L, Albumin/Globulin Ratio 0.8L 09/04/20 11:27: Bedside Glucose (Misc Panel) 241H 09/04/20 16:16: Bedside Glucose (Misc Panel) 186H CBC/BMP Laboratory Tests 09/03/20 18:13 09/03/20 23:19 09/04/20 06:23 Microbiology Microbiology 08/30/20 Blood Fungal Culture, Received Pending 08/27/20 Blood Culture - Final, Complete NO GROWTH AFTER 5 DAYS 08/27/20 Blood Culture - Final, Complete NO GROWTH AFTER 5 DAYS 08/26/20 Blood Culture - Final, Complete NO GROWTH AFTER 5 DAYS 08/25/20 Blood Culture - Final, Complete NO GROWTH AFTER 5 DAYS RAMON LANZA MD Sep 04, 2020 17:10
[2020-09-04] MEDS ORDERED: ASPIRIN 325 MG TAB PO ONE (18:30)
--- NOTE | 2020-09-04 20:45 | IPN ---
PROGRESS NOTE DATE: 09/04/2020 Ms. Toth is seen this morning on her bedside. She is feeling much better today and is able to have a conversation. She reports eating breakfast and denies any nausea or vomiting. She does have some abdominal discomfort. She remains on three liters of oxygen but looks comfortable. On physical exam, temperature 100.3 degrees Fahrenheit, heart rate 104 per minute, and respiratory rate 20 per minute. Blood pressure 130/60 mmHg and oxygen saturation 94% on three liters of oxygen. Head is atraumatic. Neck is supple and without jugular venous distention (JVD). She is clinically jaundiced. Heart sounds are tachycardiac and lungs with diminished breath sounds at the bases. Abdomen is obese and mild tenderness is present in the right upper quadrant. Extremities without any cyanosis or clubbing. Neurologically she is awake and able to answer questions. Today's labs show WBC count 4.1, hemoglobin 10.9, and hematocrit 35.8. Platelets 108. Sodium 139, potassium 4.5, CO2 31, BUN 48, and creatinine 1.78. Glucose 164 and calcium 8.8. Bilirubin is up to 7.1 while AST is 42, ALT 13, and alkaline phosphatase 579. Yesterday, her ammonia came back at 115. PROBLEMS: 1. Acute kidney injury superimposed on chronic kidney disease. Most likely related to diuretic use. I am going to stop her diuretic for now and will monitor closely. 2. Hypokalemia. Yesterday, she had severe hypokalemia which has improved after her IV Lasix was dropped and potassium was supplemented both intravenously and orally. 3. Hepatic encephalopathy and elevated bilirubin. Patient seems to be better today and she is going to need an ERCP. I feel that from a kidney standpoint she is stable for ERCP tomorrow. I would recommend that she remain on broad-spectrum antibiotics in view of fever and possible cholangitis. 4. Peripheral edema. She does have some mild peripheral edema but I do not feel that she has hepatorenal syndrome. This is probably related to low serum albumin and will gradually improve once and if her liver function improves.
[2020-09-04] MEDS: cloZAPine 25 MG TAB (S0136) PO SCH (21:00)
[2020-09-04] MEDS: PIPERACILLIN/TAZOBACTAM SOD 3.375 GM in D5W MINI-BAG PLUS 50 ML IV SCH (23:50)
[2020-09-05] VITALS (57 sets, daily range): BP systolic 69–113; BP diastolic 42–64
[2020-09-05] MEDS: IPRATROPIUM 0.5MG/ALBUTEROL 2.5MG INH SOL UD 3ML (DUONEB) NEB SCH ×7 (03:37→23:37)
[2020-09-05] MEDS: PIPERACILLIN/TAZOBACTAM SOD 3.375 GM in D5W MINI-BAG PLUS 50 ML IV SCH ×4 (06:03→22:29)
[2020-09-05] MEDS: SLF 3 ML SYR IV SCH ×3 (06:04→22:02)
[2020-09-05] MEDS: LEVOTHYROXINE 125MCG TABLET (0.125MG) PO SCH (06:06)
[2020-09-05 06:07] LABS: BASO % 0.9 % (0.0-1.0); EOS # 0.1 10^3/uL (0.0-0.5); EOS % 1.3 % (0.0-3.0); HEMATOCRIT 36.1 % (36.0-47.0); HEMOGLOBIN 10.7 g/dl (12.0-15.5); LYMPH # 0.9 10^3/uL (1.5-5.0); LYMPH % 20.9 % (24.0-44.0); MEAN CORPUSCULAR HEMOGLOBIN 24.8 pg (27.0-33.0); MEAN CORPUSCULAR HGB CONC 29.6 g/dl (32.0-36.5); MEAN CORPUSCULAR VOLUME 83.6 fl (80.0-96.0); MONO # 0.3 10^3/uL (0.0-0.8); MONO % 5.8 % (0.0-5.0); NEUTROPHILS # 3.2 10^3/uL (1.5-8.5); PLATELET COUNT, AUTOMATED 105 10^3/uL (150-450); RED BLOOD COUNT 4.32 10^6/uL (4.00-5.40); WHITE BLOOD COUNT 4.5 10^3/uL (4.0-10.0)
[2020-09-05 06:36] LABS: ALBUMIN 1.9 GM/DL (3.2-5.2); BILIRUBIN,TOTAL 7.5 MG/DL (0.2-1.0); CALCIUM LEVEL 8.5 MG/DL (8.8-10.2); CREATININE FOR GFR 2.27 MG/DL (0.55-1.30); GLOMERULAR FILTRATION RATE 23.1 (>45); MAGNESIUM LEVEL 2.3 MG/DL (1.8-2.4); POTASSIUM SERUM 4.5 MEQ/L (3.5-5.1); TOTAL PROTEIN 5.1 GM/DL (6.4-8.2)
[2020-09-05] MEDS: HumaLOG INSULIN (NovoLOG) PER UNIT SC SCH ×4 (07:30→21:59)
[2020-09-05] MEDS: ENOXAPARIN 40MG/0.4ML SYRINGE (J1650 PER 10MG) SC SCH ×2 (08:00→17:37)
[2020-09-05] MEDS: NYSTATIN 100,000 UNITS/GM TOPICAL PWD 15 GM TOP SCH ×4 (08:49→22:02)
[2020-09-05] MEDS: ACETAMINOPHEN TAB 650MG DOSE (2X325MG) PO PRN ×2 (08:50→18:23)
[2020-09-05] MEDS: MIRALAX *UNIT DOSE* 17GM PACKET PO SCH (09:00)
[2020-09-05] MEDS: LEVEMIR (INSULIN DETEMIR) 1 UNITS/0.01ML SC SCH ×2 (09:00→21:59)
[2020-09-05] MEDS: SPIRONOLACTONE 12.5MG PER 1/2 TABLET PO SCH (09:00)
[2020-09-05] MEDS: GABAPENTIN 100 MG CAP PO SCH ×3 (09:00→21:00)
[2020-09-05] MEDS: METOPROLOL SUCC *XL* 25MG TAB (TopROL *XL*) PO SCH ×2 (09:00→21:00)
[2020-09-05] MEDS: POTASSIUM CHLORIDE 10 MEQ SR TABLET PO SCH (09:00)
[2020-09-05] MEDS: SERTRALINE 100 MG TAB PO SCH ×2 (09:00→21:00)
[2020-09-05] MEDS ORDERED: NS 500 ML IV ONE ×2 (10:00→11:15)
[2020-09-05] MEDS ORDERED: NOREPINEPHRINE 4 MG/4 ML AMP As Ordered ONE (11:35)
--- NOTE | 2020-09-05 11:41 | IPNPDOC ---
Date Seen The patient was seen on 09/05/20. Progress Note SUBJECTIVE: patient was seen and examined at bedside. She is lethargic, febrile, Tmax > 102. Patient is alert to verbal stimuli, but somonolent. She states that she is scared but feels "ok". She is hypotensive this morning, MAP 55-58 (80s/50). Will ordered bolus 500 cc x 2, given tenous fluid status, however will prioritize sepsis management. Transfer to ICU. Will require pressors. Ordered PI CC line insertion STAT. Critical care informed and is available for support, D/w Dr. Chamorro. OBJECTIVE PHYSICAL EXAMINATION: General: Looks comfortable but weak and tired appearing. HEENT: PERRLA, EOMI, sclerae clear Neck: supple, normal ROM, no JVD Respiratory: lungs CTAB, no wheeze, no rales, no crackles CVS: RRR, normal S1, S2 Abdo: soft, BS+, no rebound tenderness, obese, pain to deeper palpation of RUQ, however mild. Extremities: Trace LE pitting edema, pulses 2+, no cyanosis, no heel ulcers MSK: no joint deformities, normal ROM, roughly 5 cm in diameter large indurated area on the right humerus Neuro: Cranial nerves 3-12 intact bilaterally. Muscle strength diminished in the LLE vs RLE at S1. Psych: calm, cooperative, AAO x 3 LABORATORY DATA, IMAGING STUDIES, MICROBIOLOGY: Please see below. DVT prophylaxis ordered?: Yes, lovenox 65 yo F with a hx of DM2, lumbar stenosis (severe at L4/L5), HLD, presenting to ER with recurrent BLE weakness and frequent falls. # Sepsis likely 2/2 E Coli Pyelonephritis: immunocompromised state. Tmax 102. Hypotensive. MAP 55. Source suspected to be biliary cholestasis. Transfer to ICU. Trial NS bolus 500 cc x 2, no response. Start Levophed, maintain MAP > 65. C/w zosyn. Repeat blood cultures, Urine culture. CXR. Patient has completed 10 d ays of zosyn for sepsis 2/2 presumed UTI/pyelonephritis. #Elevated alk phos, hyperbilirubinemia: rising bilirubin. MRCP x 2 no obvious obstruction. Liver US with dopplers showing gallstones, sludge. Hepatomegaly , concern for cirrhosis. Splenomegaly. Suspect SEGURA Cirrhosis. Fu LKM1. Planned for therapeutic ERCP on 09/05/20 #Liver cirrhosis: Per Dr. Alejandre. Liver ultrasound showing findings consistent with hepatocellular disease versus cirrhosis. Normal liver vascular Dopplers. Patient has diminished albumin. Fluid overload, likely contributed to by reducing the pressure. Suspected hepatorenal syndrome. Nephrology consulted, Dr. Kruse. Patient receiving 100 g of albumin today. Placed on Lasix drip. To optimize fluid status prior to therapeutic ERCP. Planned for ERCP on . #Hepatorenal syndrome: Nephrology consulted. Low sodium diet. Monitor I&O. Hypokalemic. D/w Dr. Kruse. Hold lasix. Hold spironolactone. #hypokalemia: resolved. K 4.9. Lasix stopped. #R humeral mass: reviewed xray, callous from prior fx of prox humerus. Per , patient did have a fall and poss fx but per him it was never surgically repaired. Ortho consult. D/w Dr. Sheppard. Fracture mal-uniuon. DC MRI. No further workup required. # Dyspnea: possibly 2/2 CHF vs intraabdominal process vs AUDRA. Echo EF 60% grade 1DD. CTA/PE negative for PE. D/w Zhang. Severe pulmonary HTN. Will need OP s leep study for CPAP. per Dr Blount ok for patient to go home on oxygen. #Sacral pressure ulcers: frequent turning. wound care. clean with vashe. foam dressing. Heel float boots. Seen by wound care Dr Haynes 08/23/2020 - doesn't need ABx. Fu HSV PCR and started on valacyclovir (through 08/31) # Acute encephalopathy: likely 2/2 infection. intermittent AMS, suspect AUDRA. 3L NC. CT head negative x 2. #pneumonia: seen on CXR 08/19, possible developing LLL pna, probaly atelectasis. Ceftriaxone, azithromycin (08/20/20). Completed 10 days of zosyn. COVID negative on 08/17 and 08/24. Incentive spirometry. Pulmonology consulted. #Recurrent falls: advanced and progressing spinal stenosis. PT/OT eval. B12, folate wnl. #severe pulmonary hypertension: sleep study. seen on echo. Assessed by Dr. Holcomb and Dr. Blount. #sinus tachycardia: negative for PE. TSH/FT4 wnl. sinus tach on tele. Cardiology consulted, discussed with Dr. Holcomb. Patient's tachycardia likely related to pulmonary hypertension/AUDRA. Will keep metoprolol 25 mg bid. Patient seen by Dr. Blount, recommended outpatient sleep study. #DM2: ISS, FSBS AC and HS. Hypoglycemic precautions. A1c 9.2. BG 90-150. Reduce levemir to 30 units qam and 20 units qpm. (home dose levemir 50 unts qam). findings. Ordered. PATRICK+, ordered PATRICK titers. Negative anti-mitochondrial ab. Likely hepatic congestion from cor pulmonale 2/2 pulmonary hypertension. #Urinary retention: check bladder scan. straight cath if > 250 cc. #vaginal candidiasis: diflucan 150 mg PO once. miconazole. UA still showing yeast on 09/04/20. Will treat with 3 dose course of diflucan once patient able to take PO, more stable. #Lumbar spinal stenosis; severe at L4/L5. Has been seen by Dr. Mena, and was referred to specialist in [place]. OR delayed given uncontrolled DM2, patient was asked to return this but did not follow up. Reports bilateral LE weakness L > R. Recurrent falls. Absent/minimal rectal tone. Discussed with Dr. Sheppard, assess patient. This is not cauda equina. Progression of spinal stenosis. Recommends ongoing outpatient follow up, although patient states that she is happy with her level of mobility. #Schizoid personality disorder,anxiety: continue home meds #Hydradenitis suppurativa: resume home meds. wound care. 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 Needs outpatient sleep study. #Weakness: deconditioned. Needs therapy. Decreased some of her psych meds due to polypharmacy. DVT ppx: lovenox VS, I&O, 24H, Fishbone Vital Signs/I&O Vital Signs Date Time Temp Pulse Resp B/P (MAP) Pulse Ox O2 Delivery O2 Flow Rate FiO2 09/05/20 09:00 100 82/50 09/05/20 08:00 101.1 20 90 Nasal Cannula 2.0 I&O- Last 24 Hours up to 6 AM 09/05/20 06:00 Intake Total 650 ml Output Total 700 ml Balance -50 ml Laboratory Data 24H LABS Laboratory Tests 2 09/04/20 11:27: Bedside Glucose (Misc Panel) 241H 09/04/20 16:16: Bedside Glucose (Misc Panel) 186H 09/04/20 20:44: Bedside Glucose (Misc Panel) 161H 09/05/20 00:44: Bedside Glucose (Misc Panel) 127H 09/05/20 05:51: Immature Granulocyte % (Auto) 1.1, Neutrophils (%) (Auto) 70.0H, Lymphocytes (%) (Auto) 20.9L, Monocytes (%) (Auto) 5.8H, Eosinophils (%) (Auto) 1.3, Basophils (%) (Auto) 0.9, Neutrophils # (Auto) 3.2, Lymphocytes # (Auto) 0.9L, Monocytes # (Auto) 0.3, Eosinophils # (Auto) 0.1, Basophils # (Auto) 0.0, Nucleated Red Blood Cells % (auto) 0.0, Anion Gap 5L, Glomerular Filtration Rate 23.1L, Calcium Level 8.5L, Magnesium Level 2.3, Total Bilirubin 7.5H, Aspartate Amino Transf (AST/SGOT) 33, Alanine Aminotransferase (ALT/SGPT) 14, Alkaline Phosphatase 582H, Ammonia < 10, Total Protein 5.1L, Albumin 1.9L, Albumi n/Globulin Ratio 0.6L 09/05/20 07:45: Lactic Acid Level 0.8 CBC/BMP Laboratory Tests 09/05/20 05:51 Microbiology Microbiology 08/30/20 Blood Fungal Culture, Received Pending 08/27/20 Blood Culture - Final, Complete NO GROWTH AFTER 5 DAYS 08/27/20 Blood Culture - Final, Complete NO GROWTH AFTER 5 DAYS 08/26/20 Blood Culture - Final, Complete NO GROWTH AFTER 5 DAYS RAMON LANZA MD Sep 05, 2020 11:41
[2020-09-05] MEDS: NOREPINEPHRINE BITARTRATE 16 MG in D5W 484 ML IV SCH ×2 (11:45→23:41)
[2020-09-05] MEDS ORDERED: LIDOCAINE 1% MDV 20ML VIAL As Ordered ONE (11:58)
[2020-09-05] MEDS ORDERED: NOREPINEPHRINE BITARTRATE 8 MG in D5W 492 ML IV SCH (12:00)
--- NOTE | 2020-09-05 14:43 | REP ---
INDICATION: cholestatis. COMPARISON: Complete abdominal ultrasound dated 09/01/2020 and abdominal in [place] dated 08/27/2020. TECHNIQUE: The study today is a limited right upper quadrant abdominal study limited to the gallbladder. FINDINGS: The gallbladder is not significantly distended. There is diffuse circumferential gallbladder wall thickening as previously measuring up to 5.4 mm. This could be artifact from incomplete distention or could represent edema or fibrosis. No pericholecystic fluid is identified. On 09/01/2020 gallbladder calculi were suspected along the dependent wall of the gallbladder near the gallbladder neck. These were better demonstrated on the previous study than on the study today, however, I suspect there are small gallbladder calculi along the dependent wall of the gallbladder today. There is no intrahepatic or extrahepatic biliary duct dilatation. The common biliary duct measures up to 3.9 mm in diameter. The study today there is a trace of free fluid along the posterior margin of the liver, not definitely present previously IMPRESSION: Chronic gallbladder wall thickening. This could represent edema, fibrosis, artifact from incomplete distention, neoplasm or combination. No pericholecystic fluid. No biliary duct dilatation. Cholelithiasis. Trace of free fluid along the posterior margin of the liver as an interval change. <Electronically signed by Dwayne Muniz > 09/05/20 2192
--- NOTE | 2020-09-05 15:21 | REP ---
INDICATION: cholestasis, sepsis COMPARISON: Comparison CT study August 17, 2020.. TECHNIQUE: Helical scanning is acquired in 4 mm axial images were reformatted. Coronal and sagittal MPR images were generated and reviewed. FINDINGS: Digital signal fitter radiograph demonstrates that the patient is rotated to the left. The bowel gas pattern is normal. She is apparently unable to bring her arms out of the scanned field as they are folded across the upper abdomen. Scanning through the mid and lower chest demonstrates bilateral lower lobe discoid atelectatic change left greater than right. There is a small amount of left pleural fluid as well. These findings are increased from the August 17, 2020 study. Moderate splenomegaly is again noted. The spleen measures 17.4 cm in greatest diameter. It is felt to be unchanged. There is a accessory splenule inferiorly. Small calcified gallstones are visible near the neck of the gallbladder. The liver is enlarged as well with a 21 cm midclavicular line vertical span. No focal hepatic lesion is appreciated. There is a 2.3 cm portacaval lymph node visible in the right upper quadrant and 2 or 3 other periportal lymph nodes are seen unchanged in size from the recent prior study of August 17, 2020. These are visible in retrospect on the June 19, 2018 prior study and are only very slightly more prominent. No pancreatic mass or cyst is seen. There is a thin sliver of fluid in the left pericolic gutter. Normal adrenal glands and kidneys bilaterally. No obstructive gastrointestinal lesion is seen. There are clips at the cecal tip suggesting previous appendectomy. Walters catheter in the urinary bladder. Prior hysterectomy. There is no evidence of abdominal abscess or free intraperitoneal air. IMPRESSION: Hepatosplenomegaly again noted. Cholelithiasis. There is a small amount of fluid in the left pericolic gutter. Walters catheter. No acute abdominal or pelvic abnormality. <Electronically signed by Mayur Mcclure > 09/05/20 2166
[2020-09-05] MEDS ORDERED: SODIUM CHLORIDE 0.9% INJ 10 ML SYR IV PRN (15:45)
[2020-09-05] MEDS: SODIUM CHLORIDE 0.9% INJ 10 ML SYR IV SCH (17:58)
--- NOTE | 2020-09-05 19:28 | IPN ---
NEPHROLOGY PROGRESS NOTE DATE: 09/05/2020 SUBJECTIVE: Mrs. Toth is seen this morning at her bedside. She is not feeling well and looks quite exhausted and tired. Nursing staff reports her blood pressure down to 65/40 mm of mercury. She has not received any diuretics in the last 24-48 hours. She was given one fluid bolus of 500 mL today. PHYSICAL EXAMINATION: VITAL SIGNS: Temperature is 101.8 degrees Fahrenheit, heart rate about 100 per minute and respiratory rate 22 per minute. Blood pressure 65/40 mm of mercury and oxygen saturation about 93% on 2 liters oxygen. GENERAL APPEARANCE: She is jaundiced but not in any acute distress. She is arousable but laying with eyes closed. NECK: Veins are difficult to be assessed. HEART: Tachycardic. LUNGS: Diminished breath sounds. ABDOMEN: Soft and bowel sounds are present. EXTREMITIES: Without any cyanosis or clubbing. SKIN: Deeply jaundiced. NEUROLOGICAL: She is slightly obtunded but responds to verbal command. LABORATORY STUDIES: Today's labs show a WBC count of 4.5, hemoglobin 10.7 and hematocrit 36.1. Platelets 105. Sodium 140, potassium 4.5, CO2 29, BUN 58 and creatinine 2.27. Lactic acid level is 0.8, calcium 8.5 and magnesium 2.3. Bilirubin is up to 7.5. Ammonia level is less than 10. Total protein 5.1 and albumin 1.9. PROBLEMS: 1. Hypotension most likely this is septic shock. She is also probably intravascularly volume depleted due to her hepatic problems and low albumin. The patient is being transferred to the Intensive Care Unit. I am going to give her one dose of intravenous albumin 25%, 100 mL and also another bolus of normal saline 500 mL. 2. Acute renal failure superimposed on chronic kidney disease - Most likely hepatorenal problem as the patient has intravascular volume depletion and third spacing of fluid. She is likely to benefit from [id number] IV albumin every 6-8 hours and try to optimize her intravascular volume status. 3. Obstructive jaundice with elevated bilirubin - The patient is in need for ERCP. I would suggest that she should go ahead with ERCP even though she is somewhat unstable. I think that cholangitis is most likely the cause of her sepsis and hypotension. She has a better chance of improving once her obstruction in the bile duct is resolved.
--- NOTE | 2020-09-05 19:40 | REP ---
PROCEDURE NAME: PICC LINE INSERTION W/SITERITE CLINICAL INFORMATION: hypotension, pressors. COMPARISON: None. PROCEDURE DESCRIPTION: The procedure was performed by Shannon Simpson [facility], under the direct supervision of Dr. Dr. Mcclure. The risks and benefits of the procedure were explained to the patient's healthcare proxy who is also her daughter via the phone and an informed consent was obtained both verbally. Directly prior to the start of the procedure a formal time-out was completed at the patient's bedside. This procedure was done portably at the patient's bedside. The right basilic vein was localized using ultrasound guidance. The skin was prepped and draped in sterile fashion. One mL of 1% lidocaine 10 mg/mL was used as a local anesthetic. Using ultrasound guidance the right basilic vein was cannulated, and a 0.018 guidewire was inserted and advanced to the level of SVC using portable x-ray guidance. The needle was removed and a 5.5 Uzbek dilator and peel-away sheath was inserted over the guidewire. A 5.5 Uzbek dual lumen catheter was cut to a length of 40 cm. The dilator was removed and the catheter was inserted over the guidewire with the tip ending at the level of the SVC. The peel-away sheath was removed and the catheter was flushed with heparinized saline as per hospital protocol. The catheter was affixed to the skin and a sterile dressing was applied. The patient tolerated the procedure well and there were no immediate complications. CONCLUSION: PICC line insertion into the right basilic vein. No fluoroscopy time was utilized for this procedure. Imaging was accomplished by doing serial portable chest x-rays. <Electronically signed by Shannon Simpson > 09/05/20 [id number] <Electronically signed by Mayur Mcclure > 09/05/20 1934
--- NOTE | 2020-09-05 20:30 | ECGEPIP ---
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 Electronically Signed on 09-05-2020 20:29:44 EST by Ej Bolivar
[2020-09-05] MEDS: cloZAPine 25 MG TAB (S0136) PO SCH (21:00)
[2020-09-05] MEDS: ValGANciclovir HYDROCHLORIDE 450MG TABLET PO SCH (21:50)
[2020-09-05 22:44] LABS: FERRITIN 807 NG/ML (8-252); LDH LACTATE DEHYDROGENASE 215 U/L (84-246)
--- NOTE | 2020-09-05 22:47 | IPNPDOC ---
Date Seen The patient was seen on 09/05/20. Progress Note Interval history: Patient is noted [address] hypotension today and is being managed at ICU level care. Patient is examined toda again She is still having shortness of breath but is AAO x 3. She denies any abdominal pain, nausea or vomiting but continues to have poor appetite. Due to volatile blood pressures, IR was consulted for evaluation of possible biliary drain placement but on repeat stat CT and Ultrasound, there is no evidence of biliary dialtion or obstruciton. Exam: Reviewed. noted fevers. Abdomen: obese. non tenderness, no palpable mass, normal bowel sounds. Chest; s1 s2 heard, Labs: reviewed. Imaging: none / reviewed. MRI abdomen images reviewed by me- showed splenomegaly and diffuse fatty liver. Impression: -- Abnormal liver tests with severe cholestasis -- elevated total bilirubin and ALP and GGT, prior records reviewed, on humira for hydradinitis and perineal lesions-- DDx- need to rule out viral hepatitis vs immunoe mediated vs Medica tion induced cholestatic liver injury, vs less likely extrahepatic biliary obstruction / cholangitis ( non dilated ducts). -- Generalized weakness with anasarca Needs further management. Recommendations: -- Patient educated about the prior test results and all questions answered. -- Diet as tolerated for now. -- Will consider viral hepatitis work up and autoimmune work up. -- Start on systemic anti- viral medications for now ( renally dosed). -- In view of suspected cholestatic liver injury, will obtain liver biopsy and based on the above will also proceed with ERCP. I had an extensive discussion with patient, other providers involved in patient care. At this time there is no definitive evidence of cholangitis but in view of the unclear etiology of sepsis and also having worsening bilirubin levels, I see that the patient would benefit from therapeutic ERCP with Biliary drain/ stent placement, even though the MRCP did not show CBD stone or dilation. Patient and her are educated about the procedure, indications, risks (including but not limited to pancreatitis, bleeding, infection, perforation, anesthesia risks, including ), benefits and all alternatives including conservative measures without intervention. Patient verbalized understanding and consented for the procedure. -- Discussed with PCP for medical optimization prior to above procedure. -- Plan of care educated to patient and patient verbalized understanding and agreed. All questions answered. -- Recommendations communicated to primary team. Patient to follow with PCP upon discharge for routine medical care. VS, I&O, 24H, Tony Vital Signs/I&O Vital Signs Date Time Temp Pulse Resp B/P (MAP) Pulse Ox O2 Delivery O2 Flow Rate FiO2 09/05/20 21:18 101.7 106 24 103/56 96 Nasal Cannula 2.0 I&O- Last 24 Hours up to 6 AM 09/05/20 06:00 Intake Total 650 ml Output Total 700 ml Balance -50 ml Laboratory Data 24H LABS Laboratory Tests 2 09/05/20 00:00: 09/05/20 00:44: Bedside Glucose (Misc Panel) 127H 09/05/20 05:51: Immature Granulocyte % (Auto) 1.1, Neutrophils (%) (Auto) 70.0H, Lymphocytes (%) (Auto) 20.9L, Monocytes (%) (Auto) 5.8H, Eosinophils (%) (Auto) 1.3, Basophils (%) (Auto) 0.9, Neutrophils # (Auto) 3.2, Lymphocytes # (Auto) 0.9L, Monocytes # (Auto) 0.3, Eosinophils # (Auto) 0.1, Basophils # (Auto) 0.0, Reticulocyte # (auto) 117.3H, Nucleated Red Blood Cells % (auto) 0.0, Percent Reticulocyte Count 2.7H, Reticulocyte Hemoglobin Equivalent 29.1, Anion Gap 5L, Glomerular Filtration Rate 23.1L, Calcium Level 8.5L, Magnesium Level 2.3, Total Bilirubin 7.5H, Aspartate Amino Transf (AST/SGOT) 33, Alanine Aminotransferase (ALT/SGPT) 14, Alkaline Phosphatase 582H, Ammonia < 10, Lactate Dehydrogenase 215, Total Protein 5.1L, Albumin 1.9L, Albumin/Globulin Ratio 0.6L 09/05/20 07:45: Lactic Acid Level 0.8 09/05/20 13:03: Bedside Glucose (Misc Panel) 118H 09/05/20 17:57: Bedside Glucose (Misc Panel) 163H 09/05/20 21:28: C-Reactive Protein, Quantitative 9.82H CBC/BMP Laboratory Tests 09/05/20 05:51 Microbiology Microbiology 09/05/20 Blood Culture, Received Pending 09/05/20 Blood Culture, Received Pending 08/30/20 Blood Fungal Culture, Received Pending 08/27/20 Blood Culture - Final, Complete NO GROWTH AFTER 5 DAYS 08/27/20 Blood Culture - Final, Complete NO GROWTH AFTER 5 DAYS 08/26/20 Blood Culture - Final, Complete NO GROWTH AFTER 5 DAYS TY CLEVELAND MD Sep 05, 2020 22:47
[2020-09-06] VITALS (36 sets, daily range): BP systolic 93–118; BP diastolic 50–62
[2020-09-06] MEDS: IPRATROPIUM 0.5MG/ALBUTEROL 2.5MG INH SOL UD 3ML (DUONEB) NEB SCH ×4 (03:58→23:52)
[2020-09-06] MEDS: PIPERACILLIN/TAZOBACTAM SOD 3.375 GM in D5W MINI-BAG PLUS 50 ML IV SCH ×4 (05:04→22:19)
[2020-09-06] MEDS: SLF 3 ML SYR IV SCH ×3 (05:05→20:36)
[2020-09-06] MEDS: SODIUM CHLORIDE 0.9% INJ 10 ML SYR IV SCH ×2 (05:05→18:00)
[2020-09-06] MEDS: LEVOTHYROXINE 125MCG TABLET (0.125MG) PO SCH (05:05)
[2020-09-06 05:28] LABS: BASO % 0.5 % (0.0-1.0); EOS % 0.5 % (0.0-3.0); HEMATOCRIT 36.3 % (36.0-47.0); HEMOGLOBIN 10.8 g/dl (12.0-15.5); LYMPH # 0.8 10^3/uL (1.5-5.0); LYMPH % 13.9 % (24.0-44.0); MEAN CORPUSCULAR HEMOGLOBIN 24.6 pg (27.0-33.0); MEAN CORPUSCULAR HGB CONC 29.8 g/dl (32.0-36.5); MEAN CORPUSCULAR VOLUME 82.7 fl (80.0-96.0); MONO # 0.4 10^3/uL (0.0-0.8); NEUTROPHILS # 4.7 10^3/uL (1.5-8.5); NEUTROPHILS % 78.4 % (36.0-66.0); PLATELET COUNT, AUTOMATED 112 10^3/uL (150-450); RED BLOOD COUNT 4.39 10^6/uL (4.00-5.40)
[2020-09-06 05:41] LABS: INR 1.55; PROTHROMBIN TIME 18.9 SECONDS (12.5-14.3)
[2020-09-06 05:42] LABS: INR 1.52; PARTIAL THROMBOPLASTIN TIME 40.7 SECONDS (24.2-38.5); PROTHROMBIN TIME 18.6 SECONDS (12.5-14.3)
--- NOTE | 2020-09-06 05:50 | IPN ---
INFECTIOUS DISEASE PROGRESS NOTE DATE: 09/05/2020 SUBJECTIVE: This is a telemedicine consultation due to quarantine. Ros was not doing well today. She had recurrent fever up to 102. She was hypotensive and started on pressors. She is scheduled for liver biopsy tomorrow. She complained of being exhausted and tired. Her blood pressure was 55/40. She had not received any diuretic for over 48 hours. The patient received more fluid of 500 ml bolus and started on pressors. LABS: White count 4.5, hemoglobin 10.7, hematocrit 36.1, platelets 105, sodium 140, potassium 4.5, bicarbonate 29, BUN 58, creatinine 2.27, lactic acid 0.8, calcium 8.5, magnesium 2.3. Bilirubin 7.5 with a direct bilirubin of 4.1. Ammonia less than 10. Total protein 5.1, albumin 1.9. Blood cultures x6 from 08/24 to 08/27 were all negative. Repeat blood culture was done on 08/30 fungal, and 09/05 bacterial, are pending. Lyme serology was negative. SARS COVI-2 on 09/02 was negative again. Streptococcus antigen is pending. Histoplasma antibody is pending. Aspergillus Glucomannan is pending, beta 3 glucan pending. PATRICK positive, SSA and SSB negative. SUPERVISOR WET END negative. Anti-double stranded DNA antimitochondrial antibody, negative anti-liver/kidney microsomal titers were negative. c-ANKA and p-ANKA were negative. Of note, the patient had saccharomyces Ig and IgG done in 2018 which was significantly positive and consistent with Crohn's disease. Review of previous surgeries in the notes, the patient had a colonoscopy done by Dr. Soto which was not diagnostic for Crohn's disease. QuantiFERON TB Gold in 07/[address] Ye was negative. HIV was negative. PHYSICAL EXAMINATION: GENERAL: The patient looks weak, tired but in no acute distress. VITAL SIGNS: Temperature is 102.4, pulse 109, respirations 22, blood pressure 96/53, O2 sat 94% on 2 liter nasal cannula. MEDICATIONS: 1. Levophed 18 mg per hour. 2. Zosyn 3.375 grams IV q. 6 hours, currently day #1. 3. Albuterol and Atrovent nebs. 4. Levemir 30 units sub q. q.a.m. 5. Metoprolol 25 mg p.o. b.i.d. on hold. 6. Other medications she has received on 08/20 to 08/24: Ceftriaxone, Zithromax; 08/26 to 08/31: Valtrex 500 mg p.o. b.i.d. for five days. Zosyn and Vancomycin from 08/24 to 08/26. CT of the abdomen and pelvis showed hepatosplenomegaly with a 2.3 cm portacaval lymph node in the right upper quadrant with other small lymph nodes that have been there since 2018, moderate splenomegaly with a spleen size of 17 cm, hepatomegaly 21 cm. Chest x-ray showed bilateral hilar opacities. IMPRESSION: 1. Fever of unknown origin with hepatosplenomegaly, hyperbilirubinemia, in a patient who was diagnosed with hydradenitis suppurativa about two years ago with features that were consistent with Crohn's disease per Dr. Ye. I had seen the patient in consultation two years ago. She had severe hydradenitis that was not consistent with her age or a new diagnosis and there was a major concern of Crohn's disease at that time. Saccharomyces antibodies were quite elevated. She also now carries a diagnosis of liver cirrhosis that had not been worked up before, felt to maybe related to SEGURA but this may all be autoimmune in origin. Her current fever could be related to TNF inhibitors and reactivation of diseases such as fungal infection, histoplasma, cryptococcus, these are pending, disseminated candidiasis less likely, tuberculosis; patient had a negative TB Gold before Humira was started. HSV and CMV with cholestasis less likely but possible. Dr. Alejandre was concerned about that possibility and therefore Valcyte was started. 2. Obstructive jaundice. Patient needs an ERCP and liver biopsy will be scheduled to rule out infectious process and cause of underlying liver disease. Will also add LDH and ferritin. 3. Hydradenitis suppurativa, on Humira. Her last dose was before admission. Patient will be seen in consultation with Dr. 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 PLAN: Agree with Valcyte until liver biopsy to rule out possible CMV or HSV, HSV PCR, CMV PCR, and blood were ordered tonight. Urine CMP was also ordered. LDH and ferritin. Consider obtaining follow-up chest CT. Would also consider hematology/oncology consult if biopsy is not revealing to rule out lymphoproliferative disorder as the cause of fever. The case has been discussed at length with Dr. Ye and Dr. Alejandre.
[2020-09-06 05:55] LABS: ALBUMIN 2.1 GM/DL (3.2-5.2); BILIRUBIN,TOTAL 8.5 MG/DL (0.2-1.0); CALCIUM LEVEL 8.8 MG/DL (8.8-10.2); CREATININE FOR GFR 2.8 MG/DL (0.55-1.30); GLOMERULAR FILTRATION RATE 18.1 (>45); MAGNESIUM LEVEL 2.3 MG/DL (1.8-2.4); POTASSIUM SERUM 4.3 MEQ/L (3.5-5.1); TOTAL PROTEIN 5.2 GM/DL (6.4-8.2)
[2020-09-06] MEDS: MIRALAX *UNIT DOSE* 17GM PACKET PO SCH (07:16)
[2020-09-06] MEDS: HumaLOG INSULIN (NovoLOG) PER UNIT SC SCH ×4 (07:30→20:33)
--- NOTE | 2020-09-06 07:50 | IPNPDOC ---
Text Note Date of Service The patient was seen on 09/06/20. NOTE Subjective: Patient seen and examined this morning at bedside. Patient is off of Levofed. Says she feels about the same. She's been afebrile since 11 PM last night when she spiked a fever 100.6. Explained plan to patient of liver biopsy and ERCP. She's still tired overall but awake and answering all my questions appropriately. Objective: General: Looks comfortable but weak and tired appearing. HEENT: PERRLA, EOMI, sclerae clear Neck: supple, normal ROM, no JVD Respiratory: lungs CTAB, no wheeze, no rales, no crackles CVS: RRR, normal S1, S2 Abdo: soft, BS+, no rebound tenderness, obese. Mild RUQ pain on deep palpation. Extremities: 1+ LE pitting edema, pulses 2+, no cyanosis, no heel ulcers MSK: no joint deformities, normal ROM Neuro: Cranial nerves 3-12 intact bilaterally. Muscle strength diminished in the LLE vs RLE at S1. Psych: calm, cooperative, AAO x 3 Assessment/plan: 65 yo F with a hx of DM2, lumbar stenosis (severe at L4/L5), HLD, presenting to ER with recurrent BLE weakness and frequent falls. # Sepsis likely 2/2 E Coli Pyelonephritis: immunocompromised state. Source suspected to be biliary cholestasis. ICU. Levofed as needed. maintain MAP > 65. C/w zosyn. Fu BCx, UCx. Patient has completed 10 days of zosyn for sepsis 2/2 presumed UTI/pyelonephritis. #Elevated alk phos, hyperbilirubinemia: rising bilirubin. MRCP x 2 no obvious obstruction. Liver US with dopplers showing gallstones, sludge. Hepatomegaly , concern for cirrhosis. Splenomegaly. Suspect SEGURA Cirrhosis. Fu LKM1. Planned for therapeutic ERCP on 09/06/20 #Liver cirrhosis: Per Dr. Alejandre. Liver ultrasound showing findings consistent with hepatocellular disease versus cirrhosis. Normal liver vascular Dopplers. Patient has diminished albumin. Fluid overload, likely contributed to by reducing the pressure. Suspected hepatorenal syndrome. Nephrology consulted, Dr. Kruse. Patient receiving 100 g of albumin today. Placed on Lasix drip. To optimize fluid status prior to therapeutic ERCP. Planned for ERCP on 09/06/20. IR for liver biopsy 09/06/20. - Could be viral hepatitis vs autoimmune. GI on board and started workup. In the meantime will treat with renally dosed Valganciclovir PO. #Hepatorenal syndrome: Nephrology consulted. Low sodium diet. Monitor I&O. H ypokalemic. D/w Dr. Kruse. Hold lasix. Hold spironolactone. #R humeral mass: reviewed xray, callous from prior fx of prox humerus. Per , patient did have a fall and poss fx but per him it was never surgically repaired. Ortho consult. D/w Dr. Sheppard. Fracture mal-uniuon. DC MRI. No further workup required. # Dyspnea: possibly 2/2 CHF vs intraabdominal process vs AUDRA. Echo EF 60% grade 1DD. CTA/PE negative for PE. D/w Zhang. Severe pulmonary HTN. Will need OP sleep study for CPAP. per Dr Blount ok for patient to go home on oxygen. #Sacral pressure ulcers: frequent turning. wound care. clean with vashe. foam dressing. Heel float boots. Seen by wound care Dr Haynes 08/23/2020 - doesn't need ABx. Fu HSV PCR and started on valacyclovir (through 08/31) # Acute encephalopathy: likely 2/2 infection. intermittent AMS, suspect AUDRA. 3L NC. CT head negative x 2. #pneumonia: seen on CXR 08/19, possible developing LLL pna, probaly atelectasis. Ceftriaxone, azithromycin (08/20/20). Completed 10 days of zosyn. COVID negative on 08/17 and 08/24. Incentive spirometry. Pulmonology consulted. #Recurrent falls: advanced and progressing spinal stenosis. PT/OT eval. B12, folate wnl. #severe pulmonary hypertension: sleep study. seen on echo. Assessed by Dr. Holcomb and Dr. Blount. #sinus tachycardia: negative for PE. TSH/FT4 wnl. sinus tach on tele. Cardiology consulted, discussed with Dr. Holcomb. Patient's tachycardia likely related to pulmonary hypertension/AUDRA. Will keep metoprolol 25 mg bid. Patient seen by Dr. Blount, recommended outpatient sleep study. #DM2: ISS, FSBS AC and HS. Hypoglycemic precautions. A1c 9.2. BG 90-150. Reduce levemir to 30 units qam and 20 units qpm. (home dose levemir 50 unts qam). findings. Ordered. PATRICK+, ordered PATRICK titers. Negative anti-mitochondrial ab. Likely hepatic congestion from cor pulmonale 2/2 pulmonary hypertension. #Urinary retention: check bladder scan. straight cath if > 250 cc. #vaginal candidiasis: diflucan 150 mg PO once. miconazole. UA still showing yeast on 09/04/20. Will treat with 3 dose course of diflucan once patient able to take PO, more stable. #Lumbar spinal stenosis; severe at L4/L5. Has been seen by Dr. Mena, and was referred to specialist in [place]. OR delayed given uncontrolled DM2, patient was asked to return this but did not follow up. Reports bilateral LE weakness L > R. Recurrent falls. Absent/minimal rectal tone. Discussed with Dr. Sheppard, assess patient. This is not cauda equina. Progression of spinal stenosis. Recommends ongoing outpatient follow up, although patient states that she is happy with her level of mobility. #Schizoid personality disorder,anxiety: continue home meds #Hydradenitis suppurativa: resume home meds. wound care. 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 Needs outpatient sleep study. #Weakness: deconditioned. Needs therapy. Decreased some of her psych meds due to polypharmacy. DVT ppx: jeannettex A Brittanie Hospitalist Tony HAGER, I+O VSTony I+O Laboratory Tests 09/06/20 04:56 Vital Signs Date Time Temp Pulse Resp B/P (MAP) Pulse Ox O2 Delivery O2 Flow Rate FiO2 09/06/20 06:00 99.3 91 108/58 (75) 94 Nasal Cannula 2.0 09/06/20 04:00 18 I&O- Last 24 Hours up to 6 AM 09/06/20 05:59 Intake Total 1049.6 ml Output Total 625 ml Balance 424.6 ml PONCHO LEYVA MD Sep 06, 2020 07:50
[2020-09-06] MEDS: LEVEMIR (INSULIN DETEMIR) 1 UNITS/0.01ML SC SCH ×2 (09:00→20:36)
[2020-09-06] MEDS ORDERED: FLUCONAZOLE 50MG TABLET PO ONE (09:00)
[2020-09-06] MEDS: METOPROLOL SUCC *XL* 25MG TAB (TopROL *XL*) PO SCH ×2 (09:00→20:33)
[2020-09-06] MEDS: SERTRALINE 100 MG TAB PO SCH ×2 (09:42→20:35)
[2020-09-06] MEDS: GABAPENTIN 100 MG CAP PO SCH ×3 (09:44→20:34)
[2020-09-06] MEDS: NYSTATIN 100,000 UNITS/GM TOPICAL PWD 15 GM TOP SCH ×4 (09:44→20:36)
[2020-09-06] MEDS ORDERED: SODIUM BICARBONATE 8.4% INJ 50MEQ 50 ML VIAL As Ordered ONE (10:38)
[2020-09-06] MEDS ORDERED: LIDOCAINE 1% MDV 20ML VIAL As Ordered ONE (10:38)
--- NOTE | 2020-09-06 14:00 | REP ---
INDICATION: LIVER BIOPSY - LIVER PARENCHYMA PATH VIRAL HEPATITIS CMV/HSV. COMPARISON: None. TECHNIQUE: The procedure was performed by TIGIST Salinas, under the direct supervision of Dr. Mcclure. The risks and benefits of the procedure were explained to the patient and an informed consent was obtained both verbally and written. Directly prior to the start of the procedure a formal time-out was completed in the procedure room. FINDINGS: Using ultrasound guidance the left lobe of the liver was localized. The skin was prepped and draped in a sterile fashion. Thirteen mL of buffered lidocaine was used as a local anesthetic. Using ultrasound guidance a 19/20 gauge coaxial needle biopsy system was inserted and advanced into the left lobe of the liver. Six core biopsy specimens were obtained and sent to pathology for further analysis. The patient tolerated the procedure well and there were no immediate complications. After the appropriate amount of monitored convalescence the patient was discharged from the department. IMPRESSION: 1. Ultrasound-guided left lobe liver biopsy. <Electronically signed by Shannon Simpson > 09/06/20 2023 <Electronically signed by Mayur Mcclure > 09/06/20 [id number]
[2020-09-06] MEDS ORDERED: ISOVUE-300 61% 50ML VIAL As Ordered ONE (16:21)
[2020-09-06] MEDS ORDERED: ROCURONIUM BROMIDE 50 MG/5 ML VIAL As Ordered ONE (17:27)
[2020-09-06] MEDS ORDERED: propofoL 200 MG/20 ML VIAL As Ordered ONE (17:27)
[2020-09-06] MEDS ORDERED: LIDOCAINE 2% 100MG/5ML SDV (FOR ANES.) As Ordered ONE (17:27)
[2020-09-06] MEDS ORDERED: ONDANSETRON 4MG/2ML VIAL As Ordered ONE (17:28)
[2020-09-06] MEDS ORDERED: dexameTHASONE 4 MG/ML 1ML VIAL (J1100 PER 1MG) As Ordered ONE (17:28)
[2020-09-06] MEDS ORDERED: fentaNYL 100 MCG/2 ML INJECTION (J3010) As Ordered ONE (17:28)
[2020-09-06] MEDS: ValGANciclovir HYDROCHLORIDE 450MG TABLET PO SCH (18:00)
[2020-09-06] MEDS ORDERED: SUGAMMADEX SODIUM 500 MG/5 ML VIAL (BRIDION) As Ordered ONE (18:20)
[2020-09-06] MEDS ORDERED: PHENYLephrine HCL 500 MCG/5 ML (100MCG/ML) SYRINGE (J2370) As Ordered ONE ×2 (18:26→18:28)
--- NOTE | 2020-09-06 18:58 | ROOR ---
Patient Name: Ros Toth Procedure Date: 09/06/2020 5:33 PM Date of : 1955 Age: 65 Room: Main OR Gender: Female Note Status: Finalized Procedure: ERCP Indications: Bile duct stone(s) Providers: He Alejandre MD Referring MD: 2. Inpatient 2. Inpatient Requesting Provider: Medicines: Monitored Anesthesia Care Complications: No immediate complications. Procedure: Pre-Anesthesia Assessment: - Prior to the procedure, a History and Physical was performed, and patient medications and allergies were reviewed. The patient is competent. The risks and benefits of the procedure and the sedation options and risks were discussed with the patient. All questions were answered and informed consent was obtained. Patient identification and proposed procedure were verified by the physician, the nurse and the anesthesiologist in the procedure room. Mental Status Examination: alert and oriented. Airway Examination: normal oropharyngeal airway and neck mobility. Respiratory Examination: clear to auscultation. CV Examination: normal. Prophylactic Antibiotics: The patient does not require prophylactic antibiotics. Prior Anticoagulants: The patient has taken no previous anticoagulant or antiplatelet agents. ASA Grade Assessment: II - A patient with mild systemic disease. After reviewing the risks and benefits, the patient was deemed in satisfactory condition to undergo the procedure. The anesthesia plan was to use monitored anesthesia care (MAC). Immediately prior to administration of medications, the patient was re-assessed for adequacy to receive sedatives. The heart rate, respiratory rate, oxygen saturations, blood pressure, adequacy of pulmonary ventilation, and response to care were monitored throughout the procedure. The physical status of the patient was re-assessed after the procedure. The Duodenoscope was introduced through the mouth, and advanced to the duodenum and used to inject contrast into the bile duct. The ERCP was accomplished without difficulty. The patient tolerated the procedure well. Findings: The land survey technician film was normal. The esophagus was successfully intubated under direct vision. The scope was advanced to a normal major papilla in the descending duodenum without detailed examination of the pharynx, larynx and associated structures, and upper GI tract. The upper GI tract was grossly normal. The major papilla is adjacent to a duodenal ulcer. A short 0.021 inch Jagwire was passed into the biliary tree. The short-nosed traction sphincterotome was passed over the guidewire and the bile duct was then deeply cannulated. Contrast was injected. I personally interpreted the bile duct images. Ductal flow of contrast was adequate. Image quality was adequate. Contrast extended to the cystic duct. Contrast extended to the entire biliary tree. The entire biliary tree was not dilated. Biliary sphincterotomy was made with a monofilament traction (standard) sphincterotome using ERBE electrocautery. There was no post-sphincterotomy bleeding. One 8.5 Fr by 7 cm plastic stent with a single external flap and a single internal flap was placed into the common bile duct. Bile flowed through the stent. The stent was in good position. Pancreatic duct was neither cannulated nor opacified. Impression: - The major papilla is adjacent to a duodenal ulcer. - The entire biliary tree was not dilated, and No filling defects noted. Distal CBD narrowing cannot be ruled out. - A biliary sphincterotomy was performed. - One plastic stent was placed into the common bile duct. Recommendation: - The patient will be observed post-procedure, until all discharge criteria are met. - No ibuprofen, naproxen, or other non-steroidal anti-inflammatory drugs. - Look elsewhere for a source of sepsis. - Use Protonix (pantoprazole) 40 mg PO daily for 6 weeks. - Use sucralfate suspension 1 gram PO QID. - Perform an H. pylori serology tomorrow. - Return to this GI lab for stent removal at UGI endoscopy in 3 months. - Return to GI clinic in [facility] (address [address], [address], [place], [facility]) in 4 -- 6 weeks. Please call GI clinic @ [phone] for apppointment date and time. - Return patient to ICU for ongoing care. Procedure Code(s): --- Professional --- 07677, Endoscopic retrograde cholangiopancreatography (ERCP); with placement of endoscopic stent into biliary or pancreatic duct, including pre- and post-dilation and guide wire passage, when performed, including sphincterotomy, when performed, each stent [id number], 26, Endoscopic catheterization of the biliary ductal system, radiological supervision and interpretation Diagnosis Code(s): --- Professional --- K80.50, Calculus of bile duct without cholangitis or cholecystitis without obstruction CPT copyright 2019 [employer]. All rights reserved. The codes documented in this report are preliminary and upon transit bus driver review may be revised to meet current compliance requirements. He Alejandre MD He Alejandre MD 09/06/2020 6:57:39 PM Electronically signed by He Alejandre MD Number of Addenda: 0 Note Initiated On: 09/06/2020 5:33 PM Estimated Blood Loss: Estimated blood loss: none.
--- NOTE | 2020-09-06 19:15 | IPN ---
PROGRESS NOTE DATE: 09/06/2020 SUBJECTIVE: Mrs. Toth is seen this morning at her bedside in the intensive care unit. She was hypotensive yesterday due to which she was transferred to the intensive care unit. She remains quite jaundice and is scheduled for liver biopsy and ERCP today. Her blood pressure has improved. She is much more alert today and able to answer questions. OBJECTIVE: VITAL SIGNS: Temperature 100 degrees Fahrenheit, heart rate about 105 per minute, and respiratory rate 20 per minute. Blood pressure 93/50 mmHg and oxygen saturation 90% on 2 liters oxygen. HEENT: Head is atraumatic. She is quite jaundiced. NECK: Veins not abnormally distended. HEART: Sounds are tachycardic. LUNGS: Reveal diminished breath sounds. ABDOMEN: Distended, but soft and mildly tender. Bowel sounds are present. EXTREMITIES: Without any cyanosis or clubbing. She has lower extremity edema. NEUROLOGIC: She is much alert compared to yesterday and able to answer questions. LABORATORY DATA: Today's labs show WBC 6.0, hemoglobin 10.8, hematocrit 36.3, platelets 112,000. Sodium 141, potassium 4.3, CO2 of 26, BUN 70, creatinine 2.80, glucose 227, calcium 8.8. Her bilirubin is 8.5, AST 21, ALT 11, and alkaline phosphatase 571. Total protein 5.2 and albumin 2.1. PROBLEMS: 1. Acute renal failure superimposed on chronic kidney disease. The patient has oliguric acute kidney injury most likely related to hepatorenal problems. At present, we cannot diurese her due to hypotension and we cannot give her IV fluid due to generalized edema with third-spacing of fluid. She has low albumin related to her liver problems. 2. Hypothyroidism. Blood pressure remains somewhat low, but she is improved compared to yesterday. She has required pressors at times. Probably this is related to sepsis. 3. Elevated bilirubin level. Most likely, she has biliary obstruction. She is scheduled for ERCP and a liver biopsy today. Her overall prognosis remains guarded at present.
[2020-09-06] MEDS ORDERED: NS 1,000 ML IV SCH (20:00)
[2020-09-06] MEDS ORDERED: METOCLOPRAMIDE INJ 10MG/2ML VIAL (J2765 PER 1) IV PRN (20:00)
[2020-09-06] MEDS ORDERED: ONDANSETRON 4MG/2ML VIAL IV PRN (20:00)
[2020-09-06] MEDS ORDERED: fentaNYL 100 MCG/2 ML INJECTION (J3010) IV PRN (20:00)
[2020-09-06] MEDS: cloZAPine 25 MG TAB (S0136) PO SCH (20:34)
[2020-09-06] MEDS: ACETAMINOPHEN TAB 650MG DOSE (2X325MG) PO PRN (22:19)
[2020-09-07] VITALS (15 sets, daily range): BP systolic 80–107; BP diastolic 50–58
[2020-09-07 02:11] LABS: ASPERGILLUS GALACTOMANNAN AG 5.24 Index (0.00-0.49); FUNGITELL, SERUM >500 pg/mL (<80)
[2020-09-07] MEDS: IPRATROPIUM 0.5MG/ALBUTEROL 2.5MG INH SOL UD 3ML (DUONEB) NEB SCH ×7 (03:49→23:48)
[2020-09-07] MEDS: PIPERACILLIN/TAZOBACTAM SOD 3.375 GM in D5W MINI-BAG PLUS 50 ML IV SCH ×4 (05:06→22:49)
[2020-09-07] MEDS: SLF 3 ML SYR IV SCH ×3 (05:07→22:49)
[2020-09-07] MEDS: LEVOTHYROXINE 125MCG TABLET (0.125MG) PO SCH (05:07)
[2020-09-07] MEDS: SODIUM CHLORIDE 0.9% INJ 10 ML SYR IV SCH ×2 (05:07→16:54)
[2020-09-07 05:41] LABS: BASO % 0.2 % (0.0-1.0); EOS % 0.2 % (0.0-3.0); HEMATOCRIT 32.2 % (36.0-47.0); HEMOGLOBIN 9.7 g/dl (12.0-15.5); LYMPH # 0.6 10^3/uL (1.5-5.0); LYMPH % 14.2 % (24.0-44.0); MEAN CORPUSCULAR HGB CONC 30.1 g/dl (32.0-36.5); MONO # 0.2 10^3/uL (0.0-0.8); MONO % 5.4 % (0.0-5.0); NEUTROPHILS # 3.5 10^3/uL (1.5-8.5); NEUTROPHILS % 79.3 % (36.0-66.0); PLATELET COUNT, AUTOMATED 114 10^3/uL (150-450); RED BLOOD COUNT 3.88 10^6/uL (4.00-5.40); WHITE BLOOD COUNT 4.4 10^3/uL (4.0-10.0)
[2020-09-07 06:00] LABS: ALBUMIN 1.8 GM/DL (3.2-5.2); BILIRUBIN,TOTAL 7.3 MG/DL (0.2-1.0); CALCIUM LEVEL 8.6 MG/DL (8.8-10.2); CREATININE FOR GFR 3.35 MG/DL (0.55-1.30); GLOMERULAR FILTRATION RATE 14.7 (>45); MAGNESIUM LEVEL 2.5 MG/DL (1.8-2.4); POTASSIUM SERUM 4.3 MEQ/L (3.5-5.1); TOTAL PROTEIN 4.9 GM/DL (6.4-8.2)
[2020-09-07] MEDS: HumaLOG INSULIN (NovoLOG) PER UNIT SC SCH ×4 (07:19→20:20)
--- NOTE | 2020-09-07 07:49 | IPNPDOC ---
Text Note Date of Service The patient was seen on 09/07/20. NOTE Subjective: Patient seen and examined this morning at bedside. Feeling about the same. Has been febrile throughout the night afebrile this morning. She underwent ERCP and liver biopsy yesterday both were successful. Patient updated. She denies being in any pain right now but her mood is down. Overnight patient was downgraded from ICU to PCU. Objective: General: Looks comfortable but still weak and tired appearing. HEENT: PERRLA, EOMI, sclerae clear Neck: supple, normal ROM, no JVD Respiratory: lungs CTAB, no wheeze, no rales, no crackles CVS: RRR, normal S1, S2 Abdo: soft, BS+, no rebound tenderness, obese. Mild RUQ pain on deep palpation. Extremities: 1+ LE pitting edema, pulses 2+, no cyanosis, no heel ulcers MSK: no joint deformities, normal ROM Neuro: Cranial nerves 3-12 intact bilaterally. Muscle strength diminished in the LLE vs RLE at S1. Psych: calm, cooperative, AAO x 3 Assessment/plan: 65 yo F with a hx of DM2, lumbar stenosis (severe at L4/L5), HLD, presenting to ER with recurrent BLE weakness and frequent falls. Found to have sepsis secondary to Escherichia coli pyelonephritis which was treated. Patient continued to spike fevers of unknown origin almost daily. Possibly an underlying autoimmune liver pathology being worked up. Infectious diseases and gastroenterology consulted and following. # FUO: Source suspected to be biliary cholestasis vs autoimmune hepatitis vs CMV/HSV. Started on Valcyte. Fu Liver biopsy. Not needing pressors currently. maintain MAP > 65. C/w zosyn. Fu BCx, UCx. Per ID recs to consider heme/onc consult if biopsy not revealing for possible lymphoproliferative disorders to explain fevers. #Elevated alk phos, hyperbilirubinemia: rising bilirubin. MRCP x 2 no obvious obstruction. Liver US with dopplers showing gallstones, sludge. Hepatomegaly , concern for cirrhosis. Splenomegaly. Suspect SEGURA Cirrhosis. Fu LKM1. ERCP on 09/06/20: no pus/obstruction in CBD. duodenal ulcer adjacent to papilla, stent placed. Will place on Protonix 40mg PO daily and await liver biopsy results. #Liver cirrhosis: Per Dr. Alejandre. Liver ultrasound showing findings consistent with hepatocellular disease versus cirrhosis. Normal liver vascular Dopplers. Patient has diminished albumin. Fluid overload, likely contributed to by reducing the pressure. Suspected hepatorenal syndrome. Nephrology consulted, Dr. Kruse. Patient receiving 100 g of albumin today. Placed on Lasix drip. s/p IR liver biopsy 09/06/20. - Could be viral hepatitis vs autoimmune. GI on board and started workup. In the meantime will treat with renally dosed Valganciclovir PO. #Hepatorenal syndrome: Nephrology consulted. Low sodium diet. Monitor I&O. Hypokalemic. D/w Dr. Kruse. Hold lasix. Hold spironolactone. # Sepsis likely 2/2 E Coli Pyelonephritis: immunocompromised state. Patient has completed 10 days of zosyn for sepsis 2/2 presumed UTI/pyelonephritis. #R humeral mass: reviewed xray, callous from prior fx of prox humerus. Per h usband, patient did have a fall and poss fx but per him it was never surgically repaired. Ortho consult. D/w Dr. Sheppard. Fracture mal-uniuon. DC MRI. No further workup required. # Dyspnea: possibly 2/2 CHF vs intraabdominal process vs AUDRA. Echo EF 60% grade 1DD. CTA/PE negative for PE. D/w Zhang. Severe pulmonary HTN. Will need OP sleep study for CPAP. per Dr Mine iniguez for patient to go home on oxygen. #Sacral pressure ulcers: frequent turning. wound care. clean with vashe. foam dressing. Heel float boots. Seen by wound care Dr Haynes 08/23/2020 - doesn't need ABx. Fu HSV PCR and started on valacyclovir (through 08/31) # Acute encephalopathy: likely 2/2 infection. intermittent AMS, suspect AUDRA. 3L NC. CT head negative x 2. #pneumonia: seen on CXR 08/19, possible developing LLL pna, probaly atelectasis. Ceftriaxone, azithromycin (08/20/20). Completed 10 days of zosyn. COVID negative on 08/17 and 08/24. Incentive spirometry. Pulmonology consulted. #Recurrent falls: advanced and progressing spinal stenosis. PT/OT eval. B12, folate wnl. #severe pulmonary hypertension: sleep study. seen on echo. Assessed by Dr. Holcomb and Dr. Blount. #sinus tachycardia: negative for PE. TSH/FT4 wnl. sinus tach on tele. Cardiology consulted, discussed with Dr. Holcomb. Patient's tachycardia likely related to pulmonary hypertension/AUDRA. Will keep metoprolol 25 mg bid. Patient seen by Dr. Blount, recommended outpatient sleep study. #DM2: ISS, FSBS AC and HS. Hypoglycemic precautions. A1c 9.2. BG 90-150. Reduce levemir to 30 units qam and 20 units qpm. (home dose levemir 50 unts qam). findings. Ordered. PATRICK+, ordered PATRICK titers. Negative anti-mitochondrial ab. Likely hepatic congestion from cor pulmonale 2/2 pulmonary hypertension. #Urinary retention: check bladder scan. straight cath if > 250 cc. #vaginal candidiasis: diflucan 150 mg PO once. miconazole. UA still showing yeast on 09/04/20. Will treat with 3 dose course of diflucan once patient able to take PO, more stable. #Lumbar spinal stenosis; severe at L4/L5. Has been seen by Dr. Mena, and was referred to specialist in [place]. OR delayed given uncontrolled DM2, patient was asked to return this but did not follow up. Reports bilateral LE weakness L > R. Recurrent falls. Absent/minimal rectal tone. Discussed with Dr. Sheppard, assess patient. This is not cauda equina. Progression of spinal stenosis. Recommends ongoing outpatient follow up, although patient states that she is happy with her level of mobility. #Schizoid personality disorder,anxiety: continue home meds #Hydradenitis suppurativa: resume home meds. wound care. 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 Needs outpatient sleep study. #Weakness: deconditioned. Needs therapy. Decreased some of her psych meds due to polypharmacy. DVT ppx: lovenox A Yousef Hospitalist VSTony, I+O VS, Tony, I+O Laboratory Tests 09/07/20 04:57 Vital Signs Date Time Temp Pulse Resp B/P (MAP) Pulse Ox O2 Delivery O2 Flow Rate FiO2 09/07/20 06:00 99 92/54 (67) 97 Nasal Cannula 2.0 09/07/20 05:00 100.0 09/07/20 04:00 18 I&O- Last 24 Hours up to 6 AM 09/07/20 06:00 Intake Total 1437.6 ml Output Total 708 ml Balance 729.6 ml PONCHO LEYVA MD Sep 07, 2020 07:49
[2020-09-07] MEDS: GABAPENTIN 100 MG CAP PO SCH ×3 (08:17→21:00)
[2020-09-07] MEDS: LEVEMIR (INSULIN DETEMIR) 1 UNITS/0.01ML SC SCH ×2 (08:17→20:21)
[2020-09-07] MEDS: ENOXAPARIN 40MG/0.4ML SYRINGE (J1650 PER 10MG) SC SCH (08:17)
[2020-09-07] MEDS: SERTRALINE 100 MG TAB PO SCH ×2 (08:18→21:00)
[2020-09-07] MEDS: NYSTATIN 100,000 UNITS/GM TOPICAL PWD 15 GM TOP SCH ×4 (08:18→21:52)
[2020-09-07] MEDS: METOPROLOL SUCC *XL* 25MG TAB (TopROL *XL*) PO SCH ×2 (08:18→21:00)
[2020-09-07] MEDS: MIRALAX *UNIT DOSE* 17GM PACKET PO SCH (08:19)
--- NOTE | 2020-09-07 08:41 | REP ---
INDICATION: POSSIBLE CHOLANGITIS. COMPARISON: None. TECHNIQUE: Eighteen views. 12.1 seconds of fluoroscopy time is reported. FINDINGS: A sequence of 18 fluoroscopically obtained abdominal spot radiographs document endoscopic cannulation of the common bile duct with contrast injection. IMPRESSION: Procedural imaging. <Electronically signed by Mayur Mcclure > 09/07/20 0852
[2020-09-07] MEDS: VORICONAZOLE 200MG TABLET (VFEND) PO SCH ×2 (09:00→22:47)
[2020-09-07] MEDS: PANTOPRAZOLE 40MG TAB (PROTONIX) PO SCH (12:20)
--- NOTE | 2020-09-07 12:22 | IPN ---
PROGRESS NOTE DATE: 09/06/2020 Ros was seen through telemedicine visit through Dr. Alejandre's iPhone. He was getting ready to take her to the operating room (OR) for endoscopic retrograde cholangiopancreatography (ERCP). She states that she has no more pain in the sacral decubitus ulcer. She has had low-grade fever. She was alert and oriented. She had a liver biopsy this morning with complication and currently getting ERCP. No physical exam done due to telemedicine. Temperature reviewed. Temperature 100, pulse 104, respirations 18, blood pressure 96/52, oxygen saturation 92% on 2 liters nasal cannula. Levophed has been discontinued. She had a maximum temperature yesterday of 102.4 but today only 100. LABORATORY DATA: Sodium 141, potassium 4.3, chloride 106, bicarbonate 26, BUN 17, creatinine 2.0, glucose 277, calcium 8.8, magnesium 2.3. Total bilirubin 8.5, AST 21, ALT 11, alkaline phosphatase 571. LDH 215. Fungal testing is still pending, including streptococcus antigen, Aspergillus Galactomanan QuantiFERON-TB Gold is pending. HSV PCR is pending. CMV PCR is pending, and histoplasma antibody antigen, blastomyces antibody are pending. IMPRESSION: 1. Fever of unknown origin with obstructive jaundice. Patient is getting an ERCP today to look for any underlying reason for the fever with hyperbilirubinemia. 2. Escherichia (E) coli urinary tract infection, treated with 10 days of Rocephin and Zosyn with persistent fever. 3. History of liver cirrhosis in patient who has elevated Saccharomyces antibody and a new diagnosis of hydradenitis that has been controlled with Humira. There has been some concern that this hydradenitis diagnosis is possibly underlying Crohn disease. This has been discussed with Dr. Ye. 4. Medications reviewed. Patient on Zosyn 3.375 grams intravenous (IV) every 6 hours, although that dose may need to be reduced if her kidney function worsens. Valcyte 450 mg daily for possibility of Cytomegalovirus (CMV) cholestasis. Today is day #2. PLAN: Continue antibiotics at this time. Will await the pathology on liver biopsy to rule out viral etiology. CMV PCR is pending and fungal etiologies are pending. Patient at risk of having fungal infections or re-activation tuberculosis unlikely because she has a negative QuantiFERON-TB Gold, but this also should be in the differential. Make sure that pathology is aware of the patient immunocompromised and being on TNF inhibitor. MTDD
--- NOTE | 2020-09-07 12:55 | CR.PDOC ---
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 The patient usually is in a wheelchair. She mostly is immobile because she has severe spinal stenosis. She stated she was a poor surgical candidate because of her morbid obesity and schizoaffective disorder. She was last evaluated by Dr. Mena in 2018 when she had an MRI of the spine which showed severe L-4/L-5 lumbar stenosis. The patient also has bilateral neuropathy with decreased sensation in both feet. She also was having some increased shortness of breath on admission. She has been using oxygen. She had a fever on admission. Urine culture was positive for E-coli on 08/19 and with a urinalysis with only 18 white cells. Blood cultures were negative. Respiratory panel was negative. COVID-19 negative. She was treated with Ceftriaxone on 08/20 to 08/24. She had a total of 5 doses and 5 doses of Zithromax to treat for a possible community acquired pneumonia. She also received Vancomycin on 08/20, 08/21, 08/24 and 08/25, a total of 4 days. The patient was switched from Ceftriaxone to IV Zosyn on 08/24 for a recurrent fever. Her only complaint currently is she has back pain which is chronic for her and decubitus ulcers that are painful. She had urinary retention on admission. She denies any nausea, vomiting or diarrhea. She is actually on the constipated side and has been getting Miralax as well as Colace. Patient currently moved to progressive care on NC O2 and pressor requirement during hospitalization. She remains febrile. She was started on valganciclovir and remains on Zosyn. The valganciclovir was started for concern for CMV or viral infection that is disseminated given patient on Humira. 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 She has had about an 80% overall response to the Humira and tolerates her injections well. The dosing for Crohn's/HS is every 1 - 2 weeks, she has not had a dose of her medication since late July and was due August 26 per patient. She was tolerating injections well at last office visit. She was noted to have a direct hyperbilirubinemia and underwent ERCP with GI, with pathology alerted that a viral infectious process was being evaluated for the patient. She is currently feeling better than yesterday and nursing staff virtually confirm the same. Wound care saw patient as well to discuss the area near the sacral region and recommended changes for irritant dermatitis from incontinence. PAST MEDICAL HISTORY: The patient's past medical history is significant for: 1. Morbid obesity. 2. Diabetes type 2. 3. Hyperlipidemia. 4. Anxiety with schizoaffective personality disorder. 5. Chronic fatigue. 6. Lumbar stenosis severe L-4/L-5. 7. She does not walk. 8. Diabetic neuropathy. 9. Sacral decubitus ulcer. 10. Hidradenitis suppurativa for which she received Humira prescribed by Dr. Ramirez every 2 weeks her last dose was August 12 and her dose was due on August 26. PAST SURGICAL HISTORY: The patient's past surgical history is significant for 1. Hysterectomy. 2. Tonsillectomy. 3. Adenoidectomy. 4. Skin biopsies in the past SOCIAL HISTORY: , lives at home. She quit smoking. Denies alcohol or drug use. FAMILY HISTORY: Father of kidney disease at 78 and mother had Crohn's disease. A brother had a kidney transplant. ALLERGIES: 1. Minocycline. 2. Tetracycline. 3. Aripiprazole. MEDICATIONS: 1. Zosyn 4.5 gram IV q. 6 hours. 2. Valcyte 450 mg daily 3. Albuterol Atrovent Nebs q. 4 p.r.n. 4. Insulin Humalog 30 units subcutaneously q. a.m. sliding scale. 5. Metoprolol 25 mg p.o. twice daily. 6. Lovenox 40 mg subcutaneously daily. 7. Miralax one packet p.o. daily. 8. Clozapine Clozaril 100 mg p.o. twice daily. 9. Gabapentin 200 mg TID 10. Zoloft 100 mg p.o. twice daily. 11. Levothyroxine 125 mcg p.o. daily. 12. Colace 100 mg p.o. twice daily. 13. Nystatin topical. 14. Levemir QAM and QHS REVIEW OF SYSTEMS: CONSTITUTIONAL: + fatigue, + malaise, + fever HEENT: - trouble hearing CARDIOVASCULAR: - chest pain RESPIRATORY: + SOB GENITOURINARY: - pain with urination MUSCULOSKELETAL: - new joint stiffness GASTROINTESTINAL: + constipation SKIN: + sore area near buttocks region NEUROLOGICAL: - seizures PSYCHIATRIC: - change of mood from baseline HEMATOLOGIC/LYMPHATIC: - new bruising ALLERGIC/IMMUNOLOGIC: - hives or allergic reaction type symptoms PHYSICAL EXAMINATION: VITAL SIGNS: Please see below. Virtual so limited in nature. GENERAL APPEARANCE: NAD with NC in place, obese HEENT: EOMI RESPIRATORY: Appears mildly dyspneic SKIN: 80% improvement to areas with previous Crohn's/HS - mostly scarred over now; lower back to upper buttocks with moist pink to red eroded plaques with eschar present NEUROLOGICAL: AOx3 PSYCHIATRIC: Mood appropriate and congruent to circumstances, about the same she is as an outpatient LABORATORY DATA: Please see below. Notable update: beta 1,3 glucan and alpha galactomannan returned very high ASSESSMENT/PLAN: Ros Toth is a 65 yo WF with cutaneous Crohn's-HS overlap on Humira who presented to the hospital with concerns for a UTI and CAP with fever, malaise, constipation who was treated with standard antibiotic therapy but remained febrile and required transfer to PCU on pressor requirement at one time and NC O2. Of note, her bilirubin has been very high (direct). She is currently on Valcyte and Zosyn with concern for CMV and FUO. She underwent ERCP yesterday and had prophylactic stent placed at that time. At the time of this note being finalized, high beta 1,3 glucan and alpha galactomannan tests returned at high levels indicative of disseminated fungal infection. 1. Disseminated fungal infection with fever and sepsis: Based on high fungal lab value markers; communicated to Dr. King around 1 pm EST. Her intent is to switch patient to voriconazole and stop Valcyte. Defer to ID for antibiosis. Monitor vital signs closely, has needed pressors and IVF in the past. Monitor O2 needs and wean as possible. Follow up ID ordered tests that are currently pending. Do not favor autoimmune process. Other consideration prior to fungal markers returning was the possibility of a blood born cancer such as leukemia or lymphoma, I think ferritin elevation is 2/2 infection she has and not anything else so no need for heme/onc. Do not favor HLH, no rash, no Still's type presentation. 2. Hyperbilirubinemia: Concern for disseminated fungus. Underwent ERCP, follow up path. No gross abnormality appreciated. Stent in place prophylactically. May have fungal infection in liver as well causing cholangitis type presentation. Follow up with GI. 3. Crohn's cutaneous with hidradenitis suppurativa overlap: Discontinue Humira on discharge paperwork. Future management for patient will consist of wound care with [place], intralesional Kenalog injections, and spironolactone as possibilities but will defer systemic therapy with biologics at this time given current clinical presentation in this hospitalization. 4. Decubitus ulcer lower back to sacrum with irritant dermatitis component: Agree with [employer] for folded areas of body. For sacrum area, would recommend nursing to place Optifoam or Allevyn on area, will need outpatient wound care follow up with Dr. Haynes. Ensure patient is being turned q 2 hours and when possible OOBC or more. Dermatology will continue to follow along with this patient. We can be reached at [phone]. Thank you, Pilar Ramirez MD FAAD Vital Signs/I&O Vital Signs Date Time Temp Pulse Resp B/P (MAP) Pulse Ox O2 Delivery O2 Flow Rate FiO2 09/07/20 12:00 97.4 96 18 93/56 (68) 96 Nasal Cannula 2.0 I&O- Last 24 Hours up to 6 AM 09/07/20 06:00 Intake Total 1437.6 ml Output Total 708 ml Balance 729.6 ml Laboratory Data Labs 24H Laboratory Tests 2 09/06/20 16:41: Bedside Glucose (Misc Panel) 197H 09/06/20 20:26: Bedside Glucose (Misc Panel) 218H 09/07/20 04:57: Immature Granulocyte % (Auto) 0.7, Neutrophils (%) (Auto) 79.3H, Lymphocytes (%) (Auto) 14.2L, Monocytes (%) (Auto) 5.4H, Eosinophils (%) (Auto) 0.2, Basophils (%) (Auto) 0.2, Neutrophils # (Auto) 3.5, Lymphocytes # (Auto) 0.6L, Monocytes # (Auto) 0.2, Eosinophils # (Auto) 0.0, Basophils # (Auto) 0.0, Nucleated Red Blood Cells % (auto) 0.0, Anion Gap 7L, Glomerular Filtration Rate 14.7L, Calcium Level 8.6L, Magnesium Level 2.5H, Total Bilirubin 7.3H, Aspartate Amino Transf (AST/SGOT) 19, Alanine Aminotransferase (ALT/SGPT) 11L, Alkaline Phosphatase 506H, Total Protein 4.9L, Albumin 1.8L, Albumin/Globulin Ratio 0.6L 09/07/20 11:38: Bedside Glucose (Misc Panel) 185H CBC/BMP Laboratory Tests 09/07/20 04:57 Microbiology Microbiology 09/05/20 Blood Culture - Preliminary, Resulted No growth after 24 hours . All specim... 09/05/20 Blood Culture - Preliminary, Resulted No growth after 24 hours . All specim... 08/30/20 Blood Fungal Culture, Received Pending Allergies Coded Allergies: minocycline (Verified Allergy, Unknown, hives, 08/17/20) tetracycline (Verified Allergy, Unknown, hives, 08/17/20) aripiprazole (Verified Adverse Reaction, Unknown, psychosis, 08/17/20) Home Medications Scheduled Adalimumab (Humira) 40 Mg/0.8 Ml Syringekit, 40 MG SC QWEEK, (Reported) FRIDAYS Canagliflozin (Invokana) 300 Mg Tab, 300 MG PO DAILY, (Reported) Clozapine (Clozapine) 25 Mg Tab, 50 MG PO QHS, (Reported) TAKES WITH SECOND DOSE OF 100MG FOR 150MG TOTAL Clozapine (Clozapine) 100 Mg Tab, 100 MG PO BID, (Reported) Docusate Sodium (Colace) 100 Mg Cap, 100 MG PO DAILY, (Reported) Gabapentin (Gabapentin) 100 Mg Capsule, 200 MG PO TID, (Reported) Hydroxyzine HCl (Hydroxyzine HCl) 25 Mg Tab, 25 MG PO BID, (Reported) Insulin Glargine,Hum.rec.anlog (Lantus Solostar) 100 Unit/Ml Inj, 50 UNITS SC QAM, (Reported) Insulin Human Lispro (Novolog) 100 U/Ml Inj, 1 DOSE SC AC, (Reported) PER SLIDING SCALE Levothyroxine Sodium (Levothyroxine Sodium) 125 Mcg Tab, 125 MCG PO DAILY, (Reported) Metformin HCl (Metformin HCl ER) 500 Mg Tab.er.24h, 1,000 MG PO BID, (Reported) Sertraline HCl (Sertraline HCl) 100 Mg Tab, 100 MG PO BID, (Reported) Zinc (Zinc) 50 Mg Tab, 50 MG PO DAILY, (Reported) Ziprasidone HCl (Ziprasidone HCl) 60 Mg Cap, 60 MG PO BID, (Reported) Scheduled PRN Acetaminophen (Acetaminophen) 500 Mg Tablet, 500 MG PO Q6H PRN for PAIN, (Reported) Naproxen (Naproxen) 500 Mg Tablet.dr, 500 MG PO BID PRN for PAIN, (Reported) Nystatin (Nystatin) 15 Gm Cream..g., 1 APLCT TOP ASDIRECTED PRN for RASH/ITCHING, (Reported) APPLY UNDER BREASTS AND GROIN AFTER BATHING Polyethylene Glycol 3350 (Miralax) 119 Gm Powder, 17 GM PO DAILY PRN for CONSTIPATION, (Reported) dilute in 8 ounces of water or juice PILAR RAMIREZ MD Sep 07, 2020 12:55
--- NOTE | 2020-09-07 16:28 | IPN ---
NEPHROLOGY PROGRESS NOTE DATE: 09/07/2020 SUBJECTIVE: Ms. Galeana is seen this morning on her bedside. She is still feeling very weak and tired. She had an ERCP and a liver biopsy done yesterday. Patient is still somewhat hypotensive, but not in any acute distress. Her jaundice is essentially unchanged. PHYSICAL EXAMINATION: Temperature 98.8 degrees Fahrenheit, heart rate 102 per minute and respiratory rate 18 per minute. Blood pressure 94/53 mmHg and oxygen saturation 98% on 2 liters of oxygen. Head: Face is swollen and she looks quite jaundice. Neck: Neck antonio are not abnormally distended. Heart: Sounds are tachycardic. Lungs: Diminished breath sound at bases. Abdomen: Distended with some ascites and nontender today. Bowel sounds are present. Extremities: Without any cyanosis or clubbing. Skin is jaundiced. Lower extremity edema is 2+. Neurologically: She is awake and able to answer questions. LABORATORY DATA: Today's labs show WBC count 4.4, hemoglobin 9.7, hematocrit 32.2, platelets 114. Sodium 141, potassium 4.3, CO2 27, BUN 86, creatinine 3.35, glucose 205 and calcium 8.6. Total bilirubin is down to 7.3 from 8.5 yesterday. Protein 4.9 and albumin 1.8. PROBLEMS/PLAN: 1. Acute renal failure superimposed on chronic kidney disease: Kidney function is still worsening. This is most likely hepatorenal syndrome. At present she is quite hypotensive and we are unable to diurese her. We will watch and see how she does over the next 24-48 hours. She had ERCP done yesterday and we feel that possible cholangitis is the underlying problem causing hypotension and renal failure. 2. Elevated bilirubin and status post ERCP: Patient had ERCP done yesterday and no stones or filling defects were seen. Her bilirubin is slightly better today. 3. Hypotension: Blood pressure remains borderline low and she is currently not on any pressors. I think I.V. albumin is probably a good option for her in addition to antibiotics for possible infection. She is currently on Zosyn. %%CCLIST%%
[2020-09-07] MEDS: cloZAPine 25 MG TAB (S0136) PO SCH (21:00)
[2020-09-07] MEDS: ACETAMINOPHEN TAB 650MG DOSE (2X325MG) PO PRN (22:48)
[2020-09-08] VITALS (48 sets, daily range): BP systolic 78–115; BP diastolic 48–65
[2020-09-08] MEDS: IPRATROPIUM 0.5MG/ALBUTEROL 2.5MG INH SOL UD 3ML (DUONEB) NEB SCH ×5 (04:00→20:01)
[2020-09-08] MEDS: NOREPINEPHRINE BITARTRATE 8 MG in D5W 500 ML IV SCH (04:17)
[2020-09-08] MEDS: PIPERACILLIN/TAZOBACTAM SOD 3.375 GM in D5W MINI-BAG PLUS 50 ML IV SCH ×2 (04:48→10:52)
[2020-09-08] MEDS: SODIUM CHLORIDE 0.9% INJ 10 ML SYR IV SCH ×2 (05:55→17:59)
[2020-09-08] MEDS: LEVOTHYROXINE 125MCG TABLET (0.125MG) PO SCH (05:55)
[2020-09-08] MEDS: SLF 3 ML SYR IV SCH ×3 (05:56→21:55)
[2020-09-08 06:22] LABS: BASO % 0.2 % (0.0-1.0); EOS # 0.1 10^3/uL (0.0-0.5); EOS % 2.4 % (0.0-3.0); HEMATOCRIT 31.3 % (36.0-47.0); HEMOGLOBIN 9.4 g/dl (12.0-15.5); LYMPH # 0.7 10^3/uL (1.5-5.0); LYMPH % 16.9 % (24.0-44.0); MEAN CORPUSCULAR VOLUME 83.2 fl (80.0-96.0); MONO # 0.2 10^3/uL (0.0-0.8); MONO % 5.3 % (0.0-5.0); NEUTROPHILS # 3.1 10^3/uL (1.5-8.5); RED BLOOD COUNT 3.76 10^6/uL (4.00-5.40); WHITE BLOOD COUNT 4.2 10^3/uL (4.0-10.0)
[2020-09-08 06:49] LABS: ALBUMIN 1.8 GM/DL (3.2-5.2); BILIRUBIN,TOTAL 6.8 MG/DL (0.2-1.0); CREATININE FOR GFR 4.13 MG/DL (0.55-1.30); GLOMERULAR FILTRATION RATE 11.6 (>45); MAGNESIUM LEVEL 2.7 MG/DL (1.8-2.4); POTASSIUM SERUM 4.2 MEQ/L (3.5-5.1); TOTAL PROTEIN 4.9 GM/DL (6.4-8.2)
[2020-09-08 07:03] LABS: PLATELET COUNT, AUTOMATED 93 10^3/uL (150-450)
--- NOTE | 2020-09-08 08:10 | IPNPDOC ---
Text Note Date of Service The patient was seen on 09/08/20. NOTE Subjective: Patient seen and examined this morning at bedside. Feeling a little better today since she hasn't had a fever since yesterday. She is feeling a little depressed regarding her condition and today we had a discussion. She was considering comfort measures only. However after discussion with the she decided that she would like to give the new medication amphotericin a chance to work first before making a decision. In the meantime she is somewhat reluctant but will consider tomorrow if she's interested in getting dialysis given that she understands her kidney function will likely continue to decline in the interim. Overnight patient was hypertensive and was changed ICU status and was started on levo fed. Objective: General: Looks comfortable but still weak and tired appearing. HEENT: PERRLA, EOMI, sclerae clear Neck: supple, normal ROM, no JVD Respiratory: lungs CTAB, no wheeze, no rales, no crackles CVS: RRR, normal S1, S2 Abdo: soft, BS+, no rebound tenderness, obese. Mild RUQ pain on deep palpation. Extremities: 1+ LE pitting edema, pulses 2+, no cyanosis, no heel ulcers MSK: no joint deformities, normal ROM Neuro: No focal neurological deficits. Muscle strength diminished in the LLE vs RLE at S1. Psych: calm, cooperative, AAO x 3 Assessment/plan: 65 yo F with a hx of DM2, lumbar stenosis (severe at L4/L5), HLD, presenting to ER with recurrent BLE weakness and frequent falls. Found to have sepsis secondary to Escherichia coli pyelonephritis which was treated. Patient continued to spike fevers of unknown origin almost daily. Possibly an underlying autoimmune liver pathology being worked up. Infectious diseases and gastroentero logy consulted and following. #Disseminated histoplasmosis: This explains her previously FUO. Valcyte stopped and drug of choice will be amphotericin. Liposomal. If possible to reduce nephrotoxicity. 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 Previously workup included MRCP x 2 no obvious obstruction. Liver US with dopplers showing gallstones, sludge. Hepatomegaly , concern for cirrhosis. Splenomegaly. ERCP on 09/06/20: no pus/obstruction in CBD. duodenal ulcer adjacent to papilla, stent placed. On Protonix 40mg PO daily. #Hepatorenal syndrome: Nephrology consulted. Low sodium diet. Monitor I&O. Hypokalemic. D/w Dr. Kruse. Hold lasix. Hold spironolactone. Kidney function continues to decline and will most likely decline even further after initiation of amphotericin. Patient will likely require dialysis at some point. Patient is hesitant but is agreeable to try if needed. # Sepsis likely 2/2 E Coli Pyelonephritis: immunocompromised state. Patient has completed 15 days of zosyn for sepsis 2/2 presumed UTI/pyelonephritis and FUO Zosyn is now stopped. #Liver cirrhosis: Per Dr. Alejandre. Liver ultrasound showing findings consistent with hepatocellular disease versus cirrhosis. Normal liver vascular Dopplers. Patient has diminished albumin. Fluid overload, likely contributed to by reducing the pressure. Suspected hepatorenal syndrome. Nephrology consulted, Dr. Kruse.s/p IR liver biopsy 09/06/20. #R humeral mass: reviewed xray, callous from prior fx of prox humerus. Per , patient did have a fall and poss fx but per him it was never surgically repaired. Ortho consult. D/w Dr. Sheppard. Fracture mal-uniuon. DC MRI. No further workup required. # Dyspnea: possibly 2/2 CHF vs intraabdominal process vs AUDRA. Echo EF 60% grade 1DD. CTA/PE negative for PE. D/w Zhang. Severe pulmonary HTN. Will need OP sleep study for CPAP. per Dr Mine iniguez for patient to go home on oxygen. #Sacral pressure ulcers: frequent turning. wound care. clean with vashe. foam dressing. Heel float boots. Seen by wound care Dr Haynes 08/23/2020 - doesn't need ABx. Fu HSV PCR and started on valacyclovir (through 08/31) # Acute encephalopathy: likely 2/2 infection. intermittent AMS, suspect AUDRA. 3L NC. CT head negative x 2. #pneumonia: seen on CXR 08/19, possible developing LLL pna, probaly atelectasis. Ceftriaxone, azithromycin (08/20/20). Completed 15 days of zosyn. COVID negative on 08/17 and 08/24. Incentive spirometry. Pulmonology consulted at that time and do not think there is a pneumonia. #Recurrent falls: advanced and progressing spinal stenosis. PT/OT eval. B12, folate wnl. #severe pulmonary hypertension: sleep study. seen on echo. Assessed by Dr. Holcomb and Dr. Blount. #sinus tachycardia: negative for PE. TSH/FT4 wnl. sinus tach on tele. Cardiology consulted, discussed with Dr. Holcomb. Patient's tachycardia likely related to pulmonary hypertension/AUDRA. Will keep metoprolol 25 mg bid. Patient seen by Dr. Blount, recommended outpatient sleep study. #DM2: ISS, FSBS AC and HS. Hypoglycemic precautions. A1c 9.2. BG 90-150. Reduce levemir to 30 units qam and 20 units qpm. (home dose levemir 50 unts qam). findings. Ordered. PATRICK+, ordered PATRICK titers. Negative anti-mitochondrial ab. Likely hepatic congestion from cor pulmonale 2/2 pulmonary hypertension. #Urinary retention: check bladder scan. straight cath if > 250 cc. #vaginal candidiasis: diflucan 150 mg PO once. miconazole. UA still showing yeast on 09/04/20. Will treat with 3 dose course of diflucan once patient able to take PO, more stable. #Lumbar spinal stenosis; severe at L4/L5. Has been seen by Dr. Mena, and was referred to specialist in [place]. OR delayed given uncontrolled DM2, patient was asked to return this but did not follow up. Reports bilateral LE weakness L > R. Recurrent falls. Absent/minimal rectal tone. Discussed with Dr. Sheppard, assess patient. This is not cauda equina. Progression of spinal stenosis. Recommends ongoing outpatient follow up, although patient states that she is happy with her level of mobility. #Schizoid personality disorder,anxiety: continue home meds #Hydradenitis suppurativa: resume home meds. wound care. 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 Needs outpatient sleep study. #Weakness: deconditioned. Needs therapy. Decreased some of her psych meds due to polypharmacy. # DVT prophylaxis: Switched from Lovenox to heparin given worsening renal fu nction Goals of care: Patient considering comfort care measures. However at this time she is agreeable with her that she should try treatment with amphotericin first and giving a chance to work and possibly undergoing dialysis if needed before making the decision whether she is interested in pursuing comfort measures only. [facility] VS,[facility], I+O VSTony I+O Laboratory Tests 09/08/20 05:47 Vital Signs Date Time Temp Pulse Resp B/P (MAP) Pulse Ox O2 Delivery O2 Flow Rate FiO2 09/08/20 06:00 90 20 97/54 (68) 95 Nasal Cannula 2.0 09/08/20 04:17 97.5 I&O- Last 24 Hours up to 6 AM 09/08/20 06:00 Intake Total 1487.0 ml Output Total 390 ml Balance 1097.0 ml PONCHO LEYVA MD Sep 08, 2020 08:10
[2020-09-08] MEDS: HumaLOG INSULIN (NovoLOG) PER UNIT SC SCH ×4 (08:33→20:10)
[2020-09-08] MEDS: GABAPENTIN 100 MG CAP PO SCH ×3 (08:34→20:13)
[2020-09-08] MEDS: PANTOPRAZOLE 40MG TAB (PROTONIX) PO SCH (08:34)
[2020-09-08] MEDS: LEVEMIR (INSULIN DETEMIR) 1 UNITS/0.01ML SC SCH ×2 (08:34→20:16)
[2020-09-08] MEDS: SERTRALINE 100 MG TAB PO SCH ×2 (08:34→20:12)
[2020-09-08] MEDS: MIRALAX *UNIT DOSE* 17GM PACKET PO SCH (08:35)
[2020-09-08] MEDS: NYSTATIN 100,000 UNITS/GM TOPICAL PWD 15 GM TOP SCH ×3 (09:00→21:54)
[2020-09-08] MEDS: HEPARIN SOD (PORCINE) 5000UNITS/ML 1ML VIAL/SYRINGE SQ SCH ×2 (09:00→20:55)
[2020-09-08] MEDS: METOPROLOL SUCC *XL* 25MG TAB (TopROL *XL*) PO SCH ×2 (09:00→20:52)
[2020-09-08] MEDS: ENOXAPARIN 40MG/0.4ML SYRINGE (J1650 PER 10MG) SC SCH (09:00)
[2020-09-08] MEDS: VORICONAZOLE 200MG TABLET (VFEND) PO SCH (10:14)
--- NOTE | 2020-09-08 13:28 | IPN ---
PROGRESS NOTE DATE: 09/08/2020 SUBJECTIVE: Mrs. Galeana is seen this morning on her bedside. She is weak and tired. She is also hypotensive and has been on Levophed. Her urine output is minimal and kidney function is getting worse. She remains jaundiced. PHYSICAL EXAMINATION: VITAL SIGNS: Temperature is 98.5 degrees Fahrenheit, heart rate is 95 per minute and respiratory rate is 18 per minute. Blood pressure is 100/59 mmHg and oxygen saturation 93% on 2 liters of oxygen. GENERAL: She is not in any acute distress. She is quite deeply jaundiced. HEAD AND NECK: Head is atraumatic. Neck is supple and JVD is not abnormally elevated. HEART: Heart sounds are somewhat tachycardic but without a pericardial friction rub. LUNGS: Diminished breath sounds bilaterally. ABDOMEN: Distended with ascites and bowel sounds are present. EXTREMITIES: Without any cyanosis or clubbing. SKIN: Jaundiced. Lower extremity edema is at least 2+. NEUROLOGIC: She is awake and is able to answer all questions appropriately. LABORATORY DATA: Today's labs showed a WBC count of 4.2, hemoglobin of 9.4 and hematocrit of 31.3. Platelets are 93,000. Sodium is 140, potassium is 4.2, CO2 23, BUN is 96 and creatinine is 4.13. Glucose is 147 and calcium is 8.0. Her total bilirubin is down to 6.8. AST is 29, ALT is 12 and alkaline phosphatase is 484. Total protein is 4.9 and albumin is 1.8. PROBLEMS: 1. Acute renal failure superimposed on chronic kidney disease. Kidney function continues to worsen. I have discussed with the patient about her condition with multiple organs involved and potential need for dialysis. She does not wish dialysis even though she understands that she would not survive without it unless her kidney function improves. She states "I do not want to live like this." In any event, she is currently on pressors and urine output is minimal. We cannot diurese her and there are not any other options available at present. Even if she wants to have dialysis, I will be CRRT in view of low blood pressure and need for pressors. Patient has decided not to have any kind of dialysis at present. 2. Anemia. Her anemia is stable and does not need urgent intervention. 3. Obstructive jaundice. She is status post ERCP and bilirubin is gradually improving now. It remains to be seen if her kidney function improves once her liver functions improve.
[2020-09-08] MEDS ORDERED: VORICONAZOLE 200MG TABLET (VFEND) PO ONE (18:00)
--- NOTE | 2020-09-08 18:07 | IPN ---
PROGRESS NOTE DATE: 09/08/2020 Ros was seen today in the intensive care unit (ICU) in the presence of Mya, her nurse, and we had a telephone call with her through an iPhone. Patient was able to see her and make decisions together. She was hypotensive. She is on Levophed at 5 mcg. Patient has decreased urine output. She did not want to undergo dialysis, as she had seen a family member go through it, and she does not want dialysis. She was also discussing comfort measures, but her was not accepting that. Patient was concerned about the fact that she had a poor quality of life with chronic back pain. She continues to have fever. She has mild shortness of breath. No cough. No nausea or vomiting. MEDICATIONS: - voriconazole 200 mg by mouth twice a day was started on September 07 - Levophed at 5 mcg dosing, 3.375 gram intravenous (IV) every 6 hours. She is currently day #5. - nystatin topical twice a day to groin LABORATORY DATA: White count is 4.2, hemoglobin 9.4, hematocrit 31.3, platelets 93, 74% neutrophils, 17% lymphocytes, 5% monocytes. Sodium 140, potassium 4.2, chloride 105, bicarbonate 23, BUN 96, creatinine 4.13, glucose 147, calcium 8, magnesium 2.7. Total bilirubin 6.8, down from 8.5, AST 29, ALT 12, alkaline phosphatase 383. Ferritin 807. LDH 215. Total protein 4.9, albumin 1.8. Cryptococcal antigen is pending. Aspergillus galactomannan was positive. Beta-3 glucan more than 500. SARS-CoV-2 repeat testing was negative. Crypto antigen, histoplasma antibody are pending. Histoplasma urine antigen was not collected for some unknown reason. I had a long discussion with the patient regarding her need for dialysis if we are to use amphotericin with the on the other side of the phone. IMPRESSION: 1. Disseminated histoplasmosis based on the fact that she has a positive B13 glucan assay as well as a positive liver biopsy consistent with histoplasmosis. I did talk to pathology, and the GMS stain was consistent with histoplasmosis, which would explain her fever of unknown origin, obstructive jaundice. Patient was started on voriconazole yesterday, but for disseminated histoplasmosis, the drug of choice would be amphotericin, ideally would be with liposomal amphotericin to try a decrease the risk of nephrotoxicity. I have called the pharmacy, and we are trying to obtain that amphotericin liposomal. Patient will be started on that medications. 2. Acute kidney injury with chronic kidney disease. The patient will need dialysis, and that is being discussed with Dr. Kruse. Patient is somewhat reluctant. 3. Hypotension/ septic shock on Levophed. 4. History of urinary tract infection. Patient was treated with now 15 days of antibiotics, and zosyn will be discontinued. 5. History of hydradenitis suppurative, on Humira. Her last dose was over 3 weeks ago. Patient can never receive TNF inhibitors again. PLAN: Start amphotericin liposomal. Will be at a dose of 3-5 mg/kg. Anticipate need for dialysis. Patient will have side effects, including renal toxicity, fever, and chills from medication, which were explained to her. .We will see the patient tomorrow, and we discussed need for dialysis. The case has been discussed with Dr. Kruse and Dr. Ephraim Bentley from dermatology. [facility]ERYJennifer
[2020-09-08] MEDS ORDERED: diphenhydrAMINE 25MG CAP PO PRN (18:15)
--- NOTE | 2020-09-08 19:32 | CR.PDOC ---
General Date of Consultation: Sep 08, 2020 Consultation S:Ros is a 65-year-old female with morbid obesity, recurrent falls, severe lumbar stenosis, who presented to the Emergency Department complaining of without bilateral lower extremity weakness. The patient usually is in a wheelchair. She mostly is immobile because she has severe spinal stenosis. She stated she was a poor surgical candidate because of her morbid obesity and schizoaffective disorder. She was last evaluated by Dr. Mena in 2017 when she had an MRI of the spine which showed severe L-4/L-5 lumbar stenosis. The patient also has bilateral neuropathy with decreased sensation in both feet. She also was having some increased shortness of breath on admission. She has been using oxygen. She had a fever on admission. Urine culture was positive for E-coli on 08/19 and with a urinalysis with only 18 white cells. Blood cultures were negative. Respiratory panel was negative. COVID-19 negative. She was treated with Ceftriaxone on 08/20 to 08/24. She had a total of 5 doses and 5 doses of Zithromax to treat for a possible community acquired pneumonia. She also received Vancomycin on 08/20, 08/21, 08/24 and 08/25, a total of 4 days. The patient was switched from Ceftriaxone to IV Zosyn on 08/24 for a recurrent fever. Her only complaint currently is she has back pain which is chronic for her and decubitus ulcers that are painful. She had urinary retention on admission. She denies any nausea, vomiting or diarrhea. She is actually on the constipated side and has been getting Miralax as well as Colace. Patient currently moved to [facility] care on [place] O2 and pressor requirement during hospitalization. She remains febrile. She was started on valganciclovir and Zosyn. The valganciclovir was started for concern for CMV or viral infection that is disseminated given patient on Humira. 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 She has had about an 80% overall response to the Humira and tolerates her injections well. The dosing for Crohn's/HS is every 1 - 2 weeks, she has not had a dose of her medication since late July and was due August 26 per patient. She was tolerating injections well at last office visit. Today it was noted that patient was hypotensive and febrile. She was on Levophed at 5mcg and had decreased urine output. Patient did not want to undergo dialysis, as she had seen a family member go though it, and was concerned about the fact that she had a poor quality of life and chronic back pain. She was diagnosed with disseminated histoplasmosis today based on positive B13 glucan assay as well as a positive liver biopsy consistent with histoplasmosis. GMS was also consistent with histoplasmosis. Following a long discussion with infectious disease and her family, patient has agreed to proceed with treatment. She will be started on liposomal amphotericin at 3-5mg/kg. Patient is anticipated to need dialysis and that will be further discussed with Dr. Kruse. O: Due to Covid precautions, dermatology was unable to visit the patient in person today. Zoom telemedicine consult scheduled for 12:30pm was cancelled by patient's attending team due to discussions of comfort care with the patient and her . 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 Of note, her bilirubin has been very high (direct). She underwent ERCP two days ago and had prophylactic stent placed at that time. High beta 1,3 glucan and alpha galactomannan tests returned at high levels indicative of disseminated fungal infection. Liver biopsy and GMS, consistent with histoplasmosis. 1. Disseminated histoplasmosis with fever and sepsis: Per ID patient will be started on liposomal amphotericin at 3-5mg/kg. Monitor vital signs closely, has needed pressors and IVF in the past. Monitor O2 needs and wean as possible. 2. Acute kidney injury with chronic kidney disease. It has been noted that the patient will require dialysis, which will be discussed and handled by Dr. Kruse. 3. Crohn's cutaneous with hidradenitis suppurativa overlap: Discontinue Humira on discharge paperwork. Future management for patient will consist of wound care with [place], intralesional Kenalog injections, and spironolactone as possibilities but will defer systemic therapy with biologics at this time given current clinical presentation in this hospitalization. 4. Decubitus ulcer lower back to sacrum with irritant dermatitis component: Agree with [employer] for folded areas of body. For sacrum area, would recommend nursing to place Optifoam or Allevyn on area, will need outpatient wound care follow up with Dr. Haynes. Ensure patient is being turned q 2 hours and when possible OOBC or more. Dermatology will continue to follow along with this patient. We can be reached at [phone]. Vital Signs/I&O Vital Signs Date Time Temp Pulse Resp B/P (MAP) Pulse Ox O2 Delivery O2 Flow Rate FiO2 09/08/20 18:05 94 98/56 (70) 97 Nasal Cannula 2.0 09/08/20 16:00 100.0 09/08/20 12:17 18 I&O- Last 24 Hours up to 6 AM 09/08/20 06:00 Intake Total 1487.0 ml Output Total 390 ml Balance 1097.0 ml Laboratory Data Labs 24H Laboratory Tests 2 09/07/20 20:07: Bedside Glucose (Misc Panel) 115 09/08/20 05:47: Immature Granulocyte % (Auto) 1.2, Neutrophils (%) (Auto) 74.0H, Lymphocytes (%) (Auto) 16.9L, Monocytes (%) (Auto) 5.3H, Eosinophils (%) (Auto) 2.4, Basophils (%) (Auto) 0.2, Neutrophils # (Auto) 3.1, Lymphocytes # (Auto) 0.7L, Monocytes # (Auto) 0.2, Eosinophils # (Auto) 0.1, Basophils # (Auto) 0.0, Nucleated Red Blood Cells % (auto) 0.5H, Immature Platelet Fraction 3.7, Anion Gap 12, Glomerular Filtration Rate 11.6L, Calcium Level 8.0L, Magnesium Level 2.7H, Total Bilirubin 6.8H, Aspartate Amino Transf (AST/SGOT) 29, Alanine Aminotransferase (ALT/SGPT) 12, Alkaline Phosphatase 484H, Total Protein 4.9L, Albumin 1.8L, Albumin/Globulin Ratio 0.6L 09/08/20 12:26: Bedside Glucose (Misc Panel) 176H 09/08/20 17:37: Bedside Glucose (Misc Panel) 166H CBC/BMP Laboratory Tests 09/08/20 05:47 Microbiology Microbiology 09/05/20 Blood Culture - Preliminary, Resulted No Growth after 72 hours. All specime... 09/05/20 Blood Culture - Preliminary, Resulted No Growth after 72 hours. All specime... 08/30/20 Blood Fungal Culture, Received Pending Allergies Coded Allergies: minocycline (Verified Allergy, Unknown, hives, 08/17/20) tetracycline (Verified Allergy, Unknown, hives, 08/17/20) aripiprazole (Verified Adverse Reaction, Unknown, psychosis, 08/17/20) Home Medications Scheduled Adalimumab (Humira) 40 Mg/0.8 Ml Syringekit, 40 MG SC QWEEK, (Reported) FRIDAYS Canagliflozin (Invokana) 300 Mg Tab, 300 MG PO DAILY, (Reported) Clozapine (Clozapine) 25 Mg Tab, 50 MG PO QHS, (Reported) TAKES WITH SECOND DOSE OF 100MG FOR 150MG TOTAL Clozapine (Clozapine) 100 Mg Tab, 100 MG PO BID, (Reported) Docusate Sodium (Colace) 100 Mg Cap, 100 MG PO DAILY, (Reported) Gabapentin (Gabapentin) 100 Mg Capsule, 200 MG PO TID, (Reported) Hydroxyzine HCl (Hydroxyzine HCl) 25 Mg Tab, 25 MG PO BID, (Reported) Insulin Glargine,Hum.rec.anlog (Lantus Solostar) 100 Unit/Ml Inj, 50 UNITS SC QAM, (Reported) Insulin Human Lispro (Novolog) 100 U/Ml Inj, 1 DOSE SC AC, (Reported) PER SLIDING SCALE Levothyroxine Sodium (Levothyroxine Sodium) 125 Mcg Tab, 125 MCG PO DAILY, (Reported) Metformin HCl (Metformin HCl ER) 500 Mg Tab.er.24h, 1,000 MG PO BID, (Reported) Sertraline HCl (Sertraline HCl) 100 Mg Tab, 100 MG PO BID, (Reported) Zinc (Zinc) 50 Mg Tab, 50 MG PO DAILY, (Reported) Ziprasidone HCl (Ziprasidone HCl) 60 Mg Cap, 60 MG PO BID, (Reported) Scheduled PRN Acetaminophen (Acetaminophen) 500 Mg Tablet, 500 MG PO Q6H PRN for PAIN, (Reported) Naproxen (Naproxen) 500 Mg Tablet.dr, 500 MG PO BID PRN for PAIN, (Reported) Nystatin (Nystatin) 15 Gm Cream..g., 1 APLCT TOP ASDIRECTED PRN for RASH/ITCHING, (Reported) APPLY UNDER BREASTS AND GROIN AFTER BATHING Polyethylene Glycol 3350 (Miralax) 119 Gm Powder, 17 GM PO DAILY PRN for CONSTIPATION, (Reported) dilute in 8 ounces of water or juice Ivana Cao PA-C Sep 08, 2020 19:32
[2020-09-08] MEDS: cloZAPine 25 MG TAB (S0136) PO SCH (20:11)
[2020-09-08] MEDS: diphenhydrAMINE 25MG CAP PO SCH (20:12)
[2020-09-08] MEDS: ACETAMINOPHEN TAB 650MG DOSE (2X325MG) PO SCH (20:12)
[2020-09-08] MEDS: DEXTROSE IV SCH (21:55)
[2020-09-08] MEDS: [UNRECOGNIZED DRUG - OTHER] IV SCH (21:55)
[2020-09-08 23:09] LABS: CMV QUANT DNA PCR, URINE Negative copies/mL (Negative)
[2020-09-09] VITALS (81 sets, daily range): BP systolic 75–154; BP diastolic 38–63
[2020-09-09] MEDS: IPRATROPIUM 0.5MG/ALBUTEROL 2.5MG INH SOL UD 3ML (DUONEB) NEB SCH ×6 (00:45→18:37)
[2020-09-09] MEDS: NOREPINEPHRINE BITARTRATE 8 MG in D5W 500 ML IV SCH ×2 (02:16→16:57)
[2020-09-09] MEDS: SODIUM CHLORIDE 0.9% INJ 10 ML SYR IV SCH ×2 (05:31→18:30)
[2020-09-09] MEDS: LEVOTHYROXINE 125MCG TABLET (0.125MG) PO SCH ×2 (05:31→05:34)
[2020-09-09] MEDS: SLF 3 ML SYR IV SCH ×3 (05:32→22:00)
[2020-09-09 06:13] LABS: BASO % 0.6 % (0.0-1.0); EOS # 0.1 10^3/uL (0.0-0.5); EOS % 2.6 % (0.0-3.0); HEMATOCRIT 30.5 % (36.0-47.0); HEMOGLOBIN 9.2 g/dl (12.0-15.5); LYMPH # 0.5 10^3/uL (1.5-5.0); LYMPH % 11.4 % (24.0-44.0); MEAN CORPUSCULAR HEMOGLOBIN 24.9 pg (27.0-33.0); MEAN CORPUSCULAR HGB CONC 30.2 g/dl (32.0-36.5); MEAN CORPUSCULAR VOLUME 82.7 fl (80.0-96.0); MONO # 0.1 10^3/uL (0.0-0.8); MONO % 2.2 % (0.0-5.0); NEUTROPHILS # 3.8 10^3/uL (1.5-8.5); RED BLOOD COUNT 3.69 10^6/uL (4.00-5.40); WHITE BLOOD COUNT 4.6 10^3/uL (4.0-10.0)
[2020-09-09 06:39] LABS: ALBUMIN 2.2 GM/DL (3.2-5.2); BILIRUBIN,TOTAL 7.8 MG/DL (0.2-1.0); CALCIUM LEVEL 8.5 MG/DL (8.8-10.2); CREATININE FOR GFR 4.74 MG/DL (0.55-1.30); GLOMERULAR FILTRATION RATE 9.9 (>45)
[2020-09-09 06:56] LABS: PLATELET COUNT, AUTOMATED 74 10^3/uL (150-450)
--- NOTE | 2020-09-09 08:22 | IPNPDOC ---
Text Note Date of Service The patient was seen on 09/09/20. NOTE Subjective: Patient seen and examined this morning at bedside. She is doing very poorly this morning. She received her first dose of amphotericin last evening at 9 PM. This morning she is mumbling and extremely tired looking she is able to answer very basic questions mostly y/n questions but is coherent and replying appropriately. She tells me she feels very exhausted and tired but is not in any pain. Overnight she remained on levofed for blood pressure support. Her urine output is still poor and her kidney function is worsening. Objective: General: Looks lethargic today HEENT: PERRLA, EOMI, sclerae clear Neck: supple, normal ROM, no JVD Respiratory: lungs CTAB, no wheeze, no rales, no crackles CVS: RRR, normal S1, S2 Abdo: soft, BS+, no rebound tenderness, obese. No abdominal pain palpation today Extremities: 1+ LE pitting edema MSK: no joint deformities, normal ROM Neuro: No focal neurological deficits. Diminished lower extremity strength. Appears to have good finger squeeze strength Psych: Cooperative despite her weakness AAO x 2 can tell me her name and where she has but wasn't sure of the date/time Assessment/plan: 65 yo F with a hx of DM2, lumbar stenosis (severe at L4/L5), HLD, presenting to ER with recurrent BLE weakness and frequent falls. Found to have sepsis secondary to Escherichia coli pyelonephritis which was treated. Patient continued to spike fevers of unknown origin almost daily. 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 Patient has been very ill for quite a while now unfortunately her prognosis is guarded given her severe illness. #Disseminated histoplasmosis: This explains her previously FUO. Valcyte stopped and drug of choice will be amphotericin. Liposomal. If possible to reduce nephrotoxicity. She was given her first dose at 9 PM on 09/08/2020. The following morning patient is lethargic and says she is weak. I wonder if this is a side effect of amphotericin. I'll discuss this with Dr. King today and decide whether we will resume or hold treatment. 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 Previously workup included MRCP x 2 no obvious obstruction. Liver US with dopplers showing gallstones, sludge. Hepatomegaly , concern for cirrhosis. Splenomegaly. ERCP on 09/06/20: no pus/obstruction in CBD. duodenal ulcer adjacent to papilla, stent placed. On Protonix 40mg PO daily. #Hepatorenal syndrome: Nephrology consulted. Low sodium diet. Monitor I&O. Hypokalemic. D/w Dr. Kruse. Hold lasix. Hold spironolactone. Kidney function continues to decline and will most likely decline even further after initiation of amphotericin. Patient will likely require dialysis at some point. Patient was willing to try dialysis during her treatment with amphotericin if it is only temporary she's not interested in a long-term dialysis. # Sepsis likely 2/2 E Coli Pyelonephritis: immunocompromised state. Patient has completed 15 days of zosyn for sepsis 2/2 presumed UTI/pyelonephritis and FUO Zosyn is now stopped. #Liver cirrhosis: Per Dr. Alejandre. Liver ultrasound showing findings consistent with hepatocellular disease versus cirrhosis. Normal liver vascular Dopplers. Patient has diminished albumin. Fluid overload, likely contributed to by reducing the pressure. Suspected hepatorenal syndrome. Nephrology consulted, Dr. Kruse.s/p IR liver biopsy 09/06/20. #R humeral mass: reviewed xray, callous from prior fx of prox humerus. Per , patient did have a fall and poss fx but per him it was never surgically repaired. Ortho consult. D/w Dr. Sheppard. Fracture mal-uniuon. DC MRI. No further workup required. # Dyspnea: possibly 2/2 CHF vs intraabdominal process vs AUDRA. Echo EF 60% grade 1DD. CTA/PE negative for PE. D/w Zhang. Severe pulmonary HTN. Will need OP sleep study for CPAP. per Dr Mine iniguez for patient to go home on oxygen. #Sacral pressure ulcers: frequent turning. wound care. clean with vashe. foam dressing. Heel float boots. Seen by wound care Dr Haynes 08/23/2020 - doesn't need ABx. Fu HSV PCR and started on valacyclovir (through 08/31) # Acute encephalopathy: likely 2/2 infection. intermittent AMS, suspect AUDRA. 3L NC. CT head negative x 2. #pneumonia: seen on CXR 08/19, possible developing LLL pna, probaly atelectasis. Ceftriaxone, azithromycin (08/20/20). Completed 15 days of zosyn. COVID negative on 08/17 and 08/24. Incentive spirometry. Pulmonology consulted at that time and do not think there is a pneumonia. #Recurrent falls: advanced and progressing spinal stenosis. PT/OT eval. B12, folate wnl. #severe pulmonary hypertension: sleep study. seen on echo. Assessed by Dr. Holcomb and Dr. Blount. #sinus tachycardia: negative for PE. TSH/FT4 wnl. sinus tach on tele. Cardiology consulted, discussed with Dr. Holcomb. Patient's tachycardia likely related to pulmonary hypertension/AUDRA. Will keep metoprolol 25 mg bid. Patient seen by Dr. Blount, recommended outpatient sleep study. #DM2: ISS, FSBS AC and HS. Hypoglycemic precautions. A1c 9.2. BG 90-150. Reduce levemir to 30 units qam and 20 units qpm. (home dose levemir 50 unts qam). findings. Ordered. PATRICK+, ordered PATRICK titers. Negative anti-mitochondrial ab. Likely hepatic congestion from cor pulmonale 2/2 pulmonary hypertension. #Urinary retention: check bladder scan. straight cath if > 250 cc. #vaginal candidiasis: diflucan 150 mg PO once. miconazole. UA still showing yeast on 09/04/20. Will treat with 3 dose course of diflucan once patient able to take PO, more stable. #Lumbar spinal stenosis; severe at L4/L5. Has been seen by Dr. Mena, and was referred to specialist in [place]. OR delayed given uncontrolled DM2, patient was asked to return this but did not follow up. Reports bilateral LE weakness L > R. Recurrent falls. Absent/minimal rectal tone. Discussed with Dr. Sheppard, assess patient. This is not cauda equina. Progression of spinal rehan nosis. Recommends ongoing outpatient follow up, although patient states that she is happy with her level of mobility. #Schizoid personality disorder,anxiety: continue home meds #Hydradenitis suppurativa: resume home meds. wound care. 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 Needs outpatient sleep study. #Weakness: deconditioned. Needs therapy. Decreased some of her psych meds due to polypharmacy. # DVT prophylaxis: Switched from Lovenox to heparin given worsening renal function Goals of care: Patient considering comfort care measures. She wanted to try treatment with amphotericin first for about a week and see if it's helping before deciding whether or not she wants to be made comfortable only. I will follow-up with her and update him as her case progresses. Her prognosis is guarded and she is not doing well she is very sick with a very severe illness that appears to be progressing. A Brittanie Hospitalist Tony HAGER, I+O VSTony I+O Laboratory Tests 09/09/20 05:30 Vital Signs Date Time Temp Pulse Resp B/P (MAP) Pulse Ox O2 Delivery O2 Flow Rate FiO2 09/09/20 06:00 98 20 89/55 (66) 92 Nasal Cannula 2.0 09/09/20 04:00 97.6 I&O- Last 24 Hours up to 6 AM 09/09/20 06:00 Intake Total 1621.2 ml Output Total 388 ml Balance 1233.2 ml PONCHO LEYVA MD Sep 09, 2020 08:22
[2020-09-09] MEDS: MIRALAX *UNIT DOSE* 17GM PACKET PO SCH (08:58)
[2020-09-09] MEDS: HumaLOG INSULIN (NovoLOG) PER UNIT SC SCH ×4 (08:58→21:00)
[2020-09-09] MEDS: GABAPENTIN 100 MG CAP PO SCH ×3 (08:59→21:00)
[2020-09-09] MEDS: SERTRALINE 100 MG TAB PO SCH ×2 (08:59→21:00)
[2020-09-09] MEDS: METOPROLOL SUCC *XL* 25MG TAB (TopROL *XL*) PO SCH ×2 (08:59→21:00)
[2020-09-09] MEDS: PANTOPRAZOLE 40MG TAB (PROTONIX) PO SCH (08:59)
[2020-09-09] MEDS: HEPARIN SOD (PORCINE) 5000UNITS/ML 1ML VIAL/SYRINGE SQ SCH ×2 (09:00→21:00)
[2020-09-09] MEDS: LEVEMIR (INSULIN DETEMIR) 1 UNITS/0.01ML SC SCH ×2 (09:00→23:25)
[2020-09-09 09:08] LABS: HSV-1 DNA Negative (Negative); HSV-2 DNA Negative (Negative)
--- NOTE | 2020-09-09 11:16 | CR.PDOC ---
General Date of Consultation: Sep 09, 2020 Consultation S:Ros is a 65-year-old female with morbid obesity, recurrent falls, severe lumbar stenosis, who presented to the Emergency Department complaining of bilateral lower extremity weakness. The patient usually is in a wheelchair. She mostly is immobile because she has severe spinal stenosis. She stated she was a poor surgical candidate because of her morbid obesity and schizoaffective disorder. She was last evaluated by Dr. Mena in 2017 when she had an MRI of the spine which showed severe L-4/L-5 lumbar stenosis. The patient also has bilateral neuropathy with decreased sensation in both feet. She also was having some increased shortness of breath on admission. She has been using oxygen. She had a fever on admission. Urine culture was positive for E-coli on 08/19 and with a urinalysis with only 18 white cells. Blood cultures were negative. Respiratory panel was negative. COVID-19 negative. She was treated with Ceftriaxone on 08/20 to 08/24. She had a total of 5 doses and 5 doses of Zithromax to treat for a possible community acquired pneumonia. She also recei torey Vancomycin on 08/20, 08/21, 08/24 and 08/25, a total of 4 days. The patient was switched from Ceftriaxone to IV Zosyn on 08/24 for a recurrent fever. Her only complaint currently is she has back pain which is chronic for her and decubitus ulcers that are painful. She had urinary retention on admission. She denies any nausea, vomiting or diarrhea. She is actually on the constipated side and has been getting Miralax as well as Colace. Patient currently moved to ICU on NC O2 and pressor requirement during hospitalization. She remains febrile. She was started on valganciclovir and Zosyn. The valganciclovir was started for concern for CMV or viral infection that is disseminated given patient on Humira. 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 She has had about an 80% overall response to the Humira and tolerates her injections well. The dosing for Crohn's/HS is every 1 - 2 weeks, she has not had a dose of her medication since late July and was due August 26 per patient. She was tolerating injections well at last office visit. 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 GMS was also consistent with histoplasmosis. Following a long discussion with infectious disease and her family, patient has agreed to proceed with treatment. She was started on liposomal amphotericin at 3-5mg/kg last night, with first dose at 9pm. Today she is in guarded condition, with mental status changes. Her urine output is still poor and her kidney function is worsening. Patient is anticipated to need dialysis and that will be further discussed with Dr. Kruse. O: Patient was evaluated in person this morning by Dr. Curran. Cutaneous issues unchanged. 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 Of note, her bilirubin has been very high (direct). She underwent ERCP two days ago and had prophylactic stent placed at that time. High beta 1,3 glucan and alpha galactomannan tests returned at high levels indicative of disseminated fungal infection. Liver biopsy and GMS, consistent with histoplasmosis. 1. Disseminated histoplasmosis with fever and sepsis: Patient was started on liposomal amphotericin at 3-5mg/kg. Monitor vital signs closely, has needed pressors and IVF in the past. Monitor O2 needs and wean as possible. 2. Acute kidney injury with chronic kidney disease. It has been noted that the patient will require dialysis, which will be discussed and handled by Dr. Kruse. 3. Crohn's cutaneous with hidradenitis suppurativa overlap: Discontinue Humira on discharge paperwork. Future management for patient will consist of wound care with [place], intralesional Kenalog injections, and spironolactone as possibilities but will defer systemic therapy with biologics at this time given current clinical presentation in this hospitalization. 4. Decubitus ulcer lower back to sacrum with irritant dermatitis component: Agree with [employer] for folded areas of body. For sacrum area, would recommend nursing to place Optifoam or Allevyn on area, will need outpatient wound care follow up with Dr. Haynes. Ensure patient is being turned q 2 hours and when possible OOBC or more. Dermatology will continue to follow along with this patient. We can be reached at [phone]. Vital Signs/I&O Vital Signs Date Time Temp Pulse Resp B/P (MAP) Pulse Ox O2 Delivery O2 Flow Rate FiO2 09/09/20 06:00 98 20 89/55 (66) 92 Nasal Cannula 2.0 09/09/20 04:00 97.6 I&O- Last 24 Hours up to 6 AM 09/09/20 06:00 Intake Total 1621.2 ml Output Total 388 ml Balance 1233.2 ml Laboratory Data Labs 24H Laboratory Tests 2 09/08/20 12:26: Bedside Glucose (Misc Panel) 176H 09/08/20 17:37: Bedside Glucose (Misc Panel) 166H 09/08/20 19:45: 09/08/20 19:53: Bedside Glucose (Misc Panel) 113 09/09/20 05:30: Immature Granulocyte % (Auto) 2.2, Neutrophils (%) (Auto) 81.0H, Lymphocytes (%) (Auto) 11.4L, Monocytes (%) (Auto) 2.2, Eosinophils (%) (Auto) 2.6, Basophils (%) (Auto) 0.6, Neutrophils # (Auto) 3.8, Lymphocytes # (Auto) 0.5L, Monocytes # (Auto) 0.1, Eosinophils # (Auto) 0.1, Basophils # (Auto) 0.0, Nucleated Red Blood Cells % (auto) 0.4H, Anion Gap 11, Glomerular Filtration Rate 9.9L, Calcium Level 8.5L, Total Bilirubin 7.8H, Aspartate Amino Transf (AST/SGOT) 30, Alanine Aminotransferase (ALT/SGPT) 9L, Alkaline Phosphatase 482H, Total Protein 5.0L, Albumin 2.2#L, Albumin/Globulin Ratio 0.8L CBC/BMP Laboratory Tests 09/09/20 05:30 Microbiology Microbiology 09/09/20 Blood Fungal Culture, Received Pending 09/05/20 Blood Culture - Preliminary, Resulted No Growth after 72 hours. All specime... 09/05/20 Blood Culture - Preliminary, Resulted No Growth after 72 hours. All specime... 08/30/20 Blood Fungal Culture, Received Pending Allergies Coded Allergies: minocycline (Verified Allergy, Unknown, hives, 08/17/20) tetracycline (Verified Allergy, Unknown, hives, 08/17/20) aripiprazole (Verified Adverse Reaction, Unknown, psychosis, 08/17/20) Home Medications Scheduled Adalimumab (Humira) 40 Mg/0.8 Ml Syringekit, 40 MG SC QWEEK, (Reported) FRIDAYS Canagliflozin (Invokana) 300 Mg Tab, 300 MG PO DAILY, (Reported) Clozapine (Clozapine) 25 Mg Tab, 50 MG PO QHS, (Reported) TAKES WITH SECOND DOSE OF 100MG FOR 150MG TOTAL Clozapine (Clozapine) 100 Mg Tab, 100 MG PO BID, (Reported) Docusate Sodium (Colace) 100 Mg Cap, 100 MG PO DAILY, (Reported) Gabapentin (Gabapentin) 100 Mg Capsule, 200 MG PO TID, (Reported) Hydroxyzine HCl (Hydroxyzine HCl) 25 Mg Tab, 25 MG PO BID, (Reported) Insulin Glargine,Hum.rec.anlog (Lantus Solostar) 100 Unit/Ml Inj, 50 UNITS SC QAM, (Reported) Insulin Human Lispro (Novolog) 100 U/Ml Inj, 1 DOSE SC AC, (Reported) PER SLIDING SCALE Levothyroxine Sodium (Levothyroxine Sodium) 125 Mcg Tab, 125 MCG PO DAILY, (Reported) Metformin HCl (Metformin HCl ER) 500 Mg Tab.er.24h, 1,000 MG PO BID, (Reported) Sertraline HCl (Sertraline HCl) 100 Mg Tab, 100 MG PO BID, (Reported) Zinc (Zinc) 50 Mg Tab, 50 MG PO DAILY, (Reported) Ziprasidone HCl (Ziprasidone HCl) 60 Mg Cap, 60 MG PO BID, (Reported) Scheduled PRN Acetaminophen (Acetaminophen) 500 Mg Tablet, 500 MG PO Q6H PRN for PAIN, (Reported) Naproxen (Naproxen) 500 Mg Tablet.dr, 500 MG PO BID PRN for PAIN, (Reported) Nystatin (Nystatin) 15 Gm Cream..g., 1 APLCT TOP ASDIRECTED PRN for RASH/ITCHING, (Reported) APPLY UNDER BREASTS AND GROIN AFTER BATHING Polyethylene Glycol 3350 (Miralax) 119 Gm Powder, 17 GM PO DAILY PRN for CON STIPATION, (Reported) dilute in 8 ounces of water or juice Ivana Cao PA-C Sep 09, 2020 11:16
[2020-09-09] MEDS: NYSTATIN 100,000 UNITS/GM TOPICAL PWD 15 GM TOP SCH ×2 (13:19→23:26)
--- NOTE | 2020-09-09 15:34 | IPN ---
CRITICAL CARE NOTE DATE: 09/09/2020 SUBJECTIVE: Mr. Toth is seen this morning in the intensive care unit on her bedside. Yesterday, she was awake and able to answer questions. I discussed with her about potential need for dialysis; however, she declined it. Later yesterday, her liver biopsy result came back which revealed histoplasmosis. I received a phone call from Dr. King and we discussed the case and plan for treatment. The patient did consent yesterday for treatment of her condition to Dr. King. Dr. King also explained to her about the need for dialysis. Dr. King also discussed the case with the patient's over the phone and explained to him, and they both agreed for continued care. In any event this morning, the patient's mentation has deteriorated and she was unable to give consent. I called the patient's and discussed with him at length; explained to him about her deterioration and potential need for dialysis. The patient's had several questions, which were answered to his satisfaction and he did consent for femoral catheter replacement and hemodialysis. In any event, the patient remains deeply jaundiced and is quite lethargic today. She was barely able to tell me her name; however, then she was not able to answer anymore questions. Her speech is also somewhat garbled. She has been on Levophed due to hypotension. She remains oliguric due to renal failure. OBJECTIVE: GENERAL APPEARANCE: Edematous and deeply jaundiced middle-aged lady. She is somewhat lethargic though arousable, but not able to have a good conversation. VITAL SIGNS: Her temperature is 99.3 degrees Fahrenheit, heart rate 110 per minute, respiratory rate 18 per minute. Blood pressure 87/50 mmHg and oxygen saturation 93% on 4 liters oxygen. HEENT: She has generalized edema and jaundice. HEART: Sounds are tachycardic. Neck veins are difficult to be assessed. LUNGS: Have diminished breath sounds and she also has poor inspiratory effort today. ABDOMEN: Distended with ascites and somewhat tender. Bowel sounds are hypoactive. EXTREMITIES: Have generalized edema all over her body. NEUROLOGIC: She is more lethargic and not able to answer questions appropriately. LABORATORY DATA: Today's labs show WBC count 4.6, hemoglobin 9.2, hematocrit 30.5, platelets 74,000. Sodium 133, potassium 4.0, CO2 of 23, BUN 97, and creatinine 4.74. Calcium is 8.5 and total bilirubin 7.8. AST 30, ALT 9, alkaline phosphatase 482, total protein 5.0, and albumin 2.2. PROBLEMS: 1. Acute renal failure superimposed on chronic kidney disease. The patient remains oliguric and consent for dialysis has been obtained from the patient's . We will perform continuous renal replacement therapy (CRRT) on her bedside in view of low blood pressure and need for pressors. A dialysis catheter has already been placed in her right femoral vein. CRRT orders are being written. 2. Histoplasmosis. Liver biopsy showed disseminated histoplasmosis and the patient has been started on amphotericin. She is being followed by Dr. King. 3. Septic shock. Blood pressure remains low and she is requiring pressors. We will continue with Levophed and maintain her mean arterial pressure about 65 mmHg during CRRT. 4. Anemia and thrombocytopenia. Her anemia is relatively stable and platelets are declining. We need to monitor her closely. At this point, there is no active bleeding. CRITICAL CARE TIME: 42 minutes spent during which no procedures were performed. This case was discussed with the patient's and other providers. JACQUELYN
--- NOTE | 2020-09-09 16:40 | IPN ---
PROGRESS NOTE DATE: 09/09/2020 Ros is not doing very well today. She is encephalopathic and lethargic. She does respond to her name. She is on continuous renal replacement therapy (CRRT), and her Levophed dose had to be increased. She is mildly hypoxic. Dr. Kruse had a long discussion with her about dialysis and CRRT. He has agreed to do that for the time being. PHYSICAL EXAMINATION: Her speech is garbled. Difficult to understand. She is oliguric, edematous, jaundiced. HEART: Normal S1, S2, tachycardic. LUNGS: Decreased breath sounds at the bases but clear. ABDOMEN: Distended with ascites. Mildly tender in lower quadrant. Bowel sounds are decreased. EXTREMITIES: Pitting edema +2. Pupils equal and reactive, icteric. LABORATORY DATA: White count 4.6, hemoglobin 9.2, hematocrit 30.5, platelets 74, 81% neutrophils, 11% lymphocytes, 2% monocytes. Sodium 133, potassium 4, chloride 99, bicarbonate 23, BUN 97, creatinine 4.7, glucose 108, calcium 8.5. Bilirubin 7.8, AST 30, ALT 9, alkaline phosphatase 482, total protein 5, albumin 2.2. Blood cultures are negative on September 05, two sets. August 27, blood cultures no growth after 5 days. Fungal cultures on August 30 and September 09 are pending. Urine CMV was negative. HSV DNA negative. Histoplasma antigen pending. Liver biopsy, fine needle aspiration, GMS was consistent with fungal organisms suggestive of Histoplasma capsulatum. IMPRESSION: 1. Disseminated histoplasmosis with obstructive liver disease, fever, and acute renal failure with hypotension and shock. The patient is on pressor, continuous renal replacement therapy. She has received amphotericin lipid complex yesterday, 500 mg. Today will be day #2 in part of that. Received 1 day of voriconazole. 2. Acute kidney injury, currently on CRRT and Levophed. Patient is encephalopathic, probably a combination of septic shock and renal encephalopathy. 3. Anemia and thrombocytopenia, likely due to multiple issues, including medications, histoplasma, renal failure. PLAN: Continue intravenous (IV) Abelcet at current dose, 500 mg daily. If not available, could use voriconazole if patient is able to take oral or intravenous (IV) dosing. Will discuss with psychiatry discontinuing clozapine, as it can worsen bone marrow suppression. Case has been discussed with Dr. Kruse and Dr. Ye as well as hospitalist, Dr. Gu.
[2020-09-09 17:07] LABS: CRYPTOCOCCUS ANTIGEN SER Negative (Negative)
[2020-09-09] MEDS: ACETAMINOPHEN TAB 650MG DOSE (2X325MG) PO SCH (20:00)
[2020-09-09] MEDS: diphenhydrAMINE 25MG CAP PO SCH (20:00)
[2020-09-09] MEDS ORDERED: NS 1,000 ML IV STA (21:15)
[2020-09-09 21:26] LABS: INR 1.59; PROTHROMBIN TIME 19.3 SECONDS (12.5-14.3)
[2020-09-09 21:27] LABS: PARTIAL THROMBOPLASTIN TIME 54.9 SECONDS (24.2-38.5)
[2020-09-09 21:35] LABS: HEMATOCRIT 30.2 % (36.0-47.0); HEMOGLOBIN 9.6 g/dl (12.0-15.5); MEAN CORPUSCULAR HGB CONC 31.8 g/dl (32.0-36.5); MEAN CORPUSCULAR VOLUME 81.8 fl (80.0-96.0); RED BLOOD COUNT 3.69 10^6/uL (4.00-5.40); WHITE BLOOD COUNT 6.5 10^3/uL (4.0-10.0)
[2020-09-09 21:40] LABS: PLATELET COUNT, AUTOMATED 82 10^3/uL (150-450)
[2020-09-09 22:00] LABS: POTASSIUM SERUM 3.8 MEQ/L (3.5-5.1)
[2020-09-09 22:01] LABS: CALCIUM LEVEL 7.7 MG/DL (8.8-10.2); MAGNESIUM LEVEL 2.3 MG/DL (1.8-2.4)
[2020-09-09] MEDS ORDERED: KCL 20MEQ IN 100ML SWI (KRUN) 20 MEQ in IV 1 EA IV ONE ×2 (22:30)
[2020-09-09 23:07] LABS: CMV QUANT DNA PCR (PLASMA) Negative (Negative)
[2020-09-09] MEDS: DEXTROSE IV SCH (23:26)
[2020-09-09] MEDS: [UNRECOGNIZED DRUG - OTHER] IV SCH (23:26)
[2020-09-09] MEDS ORDERED: CALCIUM GLUCONATE 1,000 MG in NS 100 ML IV ONE (23:30)
[2020-09-10] VITALS (103 sets, daily range): BP systolic 78–169; BP diastolic 44–80
[2020-09-10] MEDS: SODIUM CHLORIDE 0.9% INJ 10 ML SYR IV SCH ×2 (06:00→18:36)
[2020-09-10] MEDS: SLF 3 ML SYR IV SCH ×3 (06:26→21:47)
[2020-09-10] MEDS: LEVOTHYROXINE 125MCG TABLET (0.125MG) PO SCH (06:27)
[2020-09-10 06:34] LABS: BASO % 0.4 % (0.0-1.0); EOS % 0.6 % (0.0-3.0); HEMATOCRIT 31.4 % (36.0-47.0); LYMPH # 0.5 10^3/uL (1.5-5.0); LYMPH % 8.9 % (24.0-44.0); MEAN CORPUSCULAR HGB CONC 31.8 g/dl (32.0-36.5); MEAN CORPUSCULAR VOLUME 81.8 fl (80.0-96.0); MONO # 0.1 10^3/uL (0.0-0.8); MONO % 2.4 % (0.0-5.0); NEUTROPHILS # 4.6 10^3/uL (1.5-8.5); NEUTROPHILS % 85.7 % (36.0-66.0); PLATELET COUNT, AUTOMATED 76 10^3/uL (150-450); RED BLOOD COUNT 3.84 10^6/uL (4.00-5.40); WHITE BLOOD COUNT 5.4 10^3/uL (4.0-10.0)
[2020-09-10 06:38] LABS: INR 1.74; PROTHROMBIN TIME 20.7 SECONDS (12.5-14.3)
[2020-09-10 06:39] LABS: PARTIAL THROMBOPLASTIN TIME 59.3 SECONDS (24.2-38.5)
[2020-09-10 07:08] LABS: ALBUMIN 1.8 GM/DL (3.2-5.2); BILIRUBIN,TOTAL 8.8 MG/DL (0.2-1.0); CALCIUM LEVEL 7.7 MG/DL (8.8-10.2); CREATININE FOR GFR 2.74 MG/DL (0.55-1.30); GLOMERULAR FILTRATION RATE 18.6 (>45); TOTAL PROTEIN 4.5 GM/DL (6.4-8.2)
[2020-09-10] MEDS: HumaLOG INSULIN (NovoLOG) PER UNIT SC SCH ×4 (07:28→20:49)
[2020-09-10] MEDS: IPRATROPIUM 0.5MG/ALBUTEROL 2.5MG INH SOL UD 3ML (DUONEB) NEB SCH ×5 (08:11→23:27)
--- NOTE | 2020-09-10 08:47 | IPNPDOC ---
Text Note Date of Service The patient was seen on 09/10/20. NOTE Subjective: Patient seen and examined this morning at bedside. She appears to be improved today compared to yesterday. Yesterday she was doing very poorly. Today she is awake afebrile and talking to me responded to all my questions appropriately says she feels better today. There was no overnight acute events. Objective: General: Not lethargic today but still continues to be very weak but able to converse with me HEENT: PERRLA, EOMI, sclerae developing icterus Neck: supple, normal ROM, no JVD Respiratory: lungs CTAB, no wheeze, no rales, no crackles CVS: RRR, normal S1, S2 Abdo: soft, BS+, no rebound tenderness, obese. No abdominal pain palpation today Extremities: 1+ LE pitting edema MSK: no joint deformities, normal ROM Neuro: No focal neurological deficits. Diminished lower extremity strength. Appears to have good finger squeeze strength Psych: Cooperative despite her weakness AAO x 3 Assessment/plan: 65 yo F with a hx of DM2, lumbar stenosis (severe at L4/L5), HLD, presenting to ER with recurrent BLE weakness and frequent falls. Found to have sepsis s econdary to Escherichia coli pyelonephritis which was treated. Patient continued to spike fevers of unknown origin almost daily. 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 Patient has been very ill for quite a while now unfortunately her prognosis is guarded given her severe illness. #Disseminated histoplasmosis: This explains her previously FUO. Valcyte stopped and drug of choice will be amphotericin. Liposomal. If possible to reduce nephrotoxicity. She was given her first dose at 9 PM on 09/08/2020. Appears to be tolerating treatment now that CRRT is started. 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 Previously workup included MRCP x 2 no ob vious obstruction. Liver US with dopplers showing gallstones, sludge. Hepatomegaly , concern for cirrhosis. Splenomegaly. ERCP on 09/06/20: no pus/obstruction in CBD. duodenal ulcer adjacent to papilla, stent placed. On Protonix 40mg PO daily. Bilirubin continues to rise, now has scleral icterus. #Hepatorenal syndrome: Nephrology consulted. Low sodium diet. Monitor I&O. Hypokalemic. D/w Dr. Kruse. Hold lasix. Hold spironolactone. Kidney function continues to decline and will most likely decline even further after initiation of amphotericin. Patient now on CRRT started 09/09/2020. #Liver cirrhosis: Per Dr. Alejandre. Liver ultrasound showing findings consistent with hepatocellular disease versus cirrhosis. Normal liver vascular Dopplers. Patient has diminished albumin. Fluid overload, likely contributed to by reducing the pressure. Suspected hepatorenal syndrome. Nephrology consulted, Dr. Kruse.s/p IR liver biopsy 09/06/20. # Sepsis likely 2/2 E Coli Pyelonephritis: immunocompromised state. Patient has completed 15 days of zosyn for sepsis 2/2 presumed UTI/pyelonephritis and FUO Zosyn is now stopped. #R humeral mass: reviewed xray, callous from prior fx of prox humerus. Per , patient did have a fall and poss fx but per him it was never surgically repaired. Ortho consult. D/w Dr. Sheppard. Fracture mal-uniuon. DC MRI. No further workup required. # Dyspnea: possibly 2/2 CHF vs intraabdominal process vs AUDRA. Echo EF 60% grade 1DD. CTA/PE negative for PE. D/w Zhang. Severe pulmonary HTN. Will need OP sleep study for CPAP. per Dr Mine iniguez for patient to go home on oxygen. #Sacral pressure ulcers: frequent turning. wound care. clean with vashe. foam dressing. Heel float boots. Seen by wound care Dr Haynes 08/23/2020 - doesn't need ABx. Fu HSV PCR and started on valacyclovir (through 08/31) # Acute encephalopathy: likely 2/2 infection. intermittent AMS, suspect AUDRA. 3L NC. CT head negative x 2. #pneumonia: seen on CXR 08/19, possible developing LLL pna, probaly atelectasis. Ceftriaxone, azithromycin (08/20/20). Completed 15 days of zosyn. COVID negative on 08/17 and 08/24. Incentive spirometry. Pulmonology consulted at that time and do not think there is a pneumonia. #Recurrent falls: advanced and progressing spinal stenosis. PT/OT eval. B12, folate wnl. #severe pulmonary hypertension: sleep study. seen on echo. Assessed by Dr. Holcomb and Dr. Blount. #sinus tachycardia: negative for PE. TSH/FT4 wnl. sinus tach on tele. Cardiology consulted, discussed with Dr. Holcomb. Patient's tachycardia likely related to pulmonary hypertension/AUDRA. Will keep metoprolol 25 mg bid. Patient seen by Dr. Blount, recommended outpatient sleep study. #DM2: ISS, FSBS AC and HS. Hypoglycemic precautions. A1c 9.2. BG 90-150. Reduce levemir to 30 units qam and 20 units qpm. (home dose levemir 50 unts qam). findings. Ordered. PATRICK+, ordered PATRICK titers. Negative anti-mitochondrial ab. Likely hepatic congestion from cor pulmonale 2/2 pulmonary hypertension. #Urinary retention: check bladder scan. straight cath if > 250 cc. #vaginal candidiasis: diflucan 150 mg PO once. miconazole. UA still showing yeast on 09/04/20. Will treat with 3 dose course of diflucan once patient able to take PO, more stable. #Lumbar spinal stenosis; severe at L4/L5. Has been seen by Dr. Mena, and was referred to specialist in [place]. OR delayed given uncontrolled DM2, patient was asked to return this but did not follow up. Reports bilateral LE weakness L > R. Recurrent falls. Absent/minimal rectal tone. Discussed with Dr. Sheppard, assess patient. This is not cauda equina. Progression of spinal stenosis. Recommends ongoing outpatient follow up, although patient states that she is happy with her level of mobility. #Schizoid personality disorder,anxiety: continue home meds #Hydradenitis suppurativa: resume home meds. wound care. 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 Needs outpatient sleep study. #Weakness: deconditioned. Needs therapy. Decreased some of her psych meds due to polypharmacy. # DVT prophylaxis: Switched from Lovenox to heparin given worsening renal function Goals of care: Patient considering comfort care measures. She wanted to try treatment with amphotericin first for about a week and see if it's helping before deciding whether or not she wants to be made comfortable only. I will follow-up with her and update him as her case progresses. Her prognosis is guarded and she is not doing well she is very sick with a very severe illness. A [facility] Hospitalist [facility], I+O Tony HAGER I+O Laboratory Tests 09/09/20 21:03 09/10/20 06:18 Vital Signs Date Time Temp Pulse Resp B/P (MAP) Pulse Ox O2 Delivery O2 Flow Rate FiO2 09/10/20 08:30 75 16 102/58 (73) 97 Nasal Cannula 1.0 09/10/20 07:45 96.8 I&O- Last 24 Hours up to 6 AM 09/10/20 06:00 Intake Total 510.9 ml Output Total 1205 ml Balance -694.1 ml PONCHO LEYVA MD Sep 10, 2020 08:47
[2020-09-10] MEDS: SERTRALINE 100 MG TAB PO SCH ×2 (09:00→20:42)
[2020-09-10] MEDS: MIRALAX *UNIT DOSE* 17GM PACKET PO SCH (09:00)
[2020-09-10] MEDS: PANTOPRAZOLE 40MG TAB (PROTONIX) PO SCH (09:00)
[2020-09-10] MEDS: HEPARIN SOD (PORCINE) 5000UNITS/ML 1ML VIAL/SYRINGE SQ SCH ×2 (09:00→20:50)
[2020-09-10] MEDS: GABAPENTIN 100 MG CAP PO SCH ×4 (09:00→20:42)
[2020-09-10] MEDS: METOPROLOL SUCC *XL* 25MG TAB (TopROL *XL*) PO SCH ×2 (09:00→20:51)
[2020-09-10] MEDS: LEVEMIR (INSULIN DETEMIR) 1 UNITS/0.01ML SC SCH ×2 (09:11→20:41)
[2020-09-10] MEDS: NYSTATIN 100,000 UNITS/GM TOPICAL PWD 15 GM TOP SCH ×2 (09:13→20:50)
[2020-09-10 10:11] LABS: HEMATOCRIT 30.4 % (36.0-47.0); HEMOGLOBIN 9.8 g/dl (12.0-15.5); MEAN CORPUSCULAR HEMOGLOBIN 26.4 pg (27.0-33.0); MEAN CORPUSCULAR HGB CONC 32.2 g/dl (32.0-36.5); MEAN CORPUSCULAR VOLUME 81.9 fl (80.0-96.0); RED BLOOD COUNT 3.71 10^6/uL (4.00-5.40); WHITE BLOOD COUNT 4.8 10^3/uL (4.0-10.0)
[2020-09-10 10:12] LABS: PLATELET COUNT, AUTOMATED 78 10^3/uL (150-450)
[2020-09-10] MEDS: NOREPINEPHRINE BITARTRATE 8 MG in D5W 500 ML IV SCH (10:51)
[2020-09-10 10:55] LABS: MAGNESIUM LEVEL 2.4 MG/DL (1.8-2.4); PHOSPHORUS LEVEL 3.4 MG/DL (2.5-4.9)
[2020-09-10] MEDS ORDERED: CALCIUM GLUCONATE 1,000 MG in D5W MINI-BAG PLUS 100 ML IV ONE (11:00)
[2020-09-10] MEDS ORDERED: NS 1,000 ML IV ONE (12:30)
[2020-09-10 16:10] LABS: HEMATOCRIT 30.5 % (36.0-47.0); HEMOGLOBIN 9.4 g/dl (12.0-15.5); MEAN CORPUSCULAR HEMOGLOBIN 25.1 pg (27.0-33.0); MEAN CORPUSCULAR HGB CONC 30.8 g/dl (32.0-36.5); MEAN CORPUSCULAR VOLUME 81.3 fl (80.0-96.0); RED BLOOD COUNT 3.75 10^6/uL (4.00-5.40); WHITE BLOOD COUNT 4.8 10^3/uL (4.0-10.0)
[2020-09-10 16:14] LABS: PLATELET COUNT, AUTOMATED 75 10^3/uL (150-450)
[2020-09-10 16:32] LABS: CALCIUM LEVEL 7.5 MG/DL (8.8-10.2); CREATININE FOR GFR 1.64 MG/DL (0.55-1.30); GLOMERULAR FILTRATION RATE 33.6 (>45); MAGNESIUM LEVEL 2.3 MG/DL (1.8-2.4); PHOSPHORUS LEVEL 2.9 MG/DL (2.5-4.9); POTASSIUM SERUM 3.6 MEQ/L (3.5-5.1)
[2020-09-10] MEDS ORDERED: CALCIUM GLUCONATE 1,000 MG in NS 100 ML IV ONE (17:00)
[2020-09-10] MEDS: ACETAMINOPHEN TAB 650MG DOSE (2X325MG) PO PRN (17:21)
[2020-09-10] MEDS: diphenhydrAMINE 25MG CAP PO SCH (20:41)
[2020-09-10] MEDS: ACETAMINOPHEN TAB 650MG DOSE (2X325MG) PO SCH (20:43)
[2020-09-10] MEDS: DEXTROSE IV SCH (21:46)
[2020-09-10] MEDS: [UNRECOGNIZED DRUG - OTHER] IV SCH (21:46)
[2020-09-10 22:04] LABS: CALCIUM LEVEL 8.5 MG/DL (8.8-10.2); CREATININE FOR GFR 1.68 MG/DL (0.55-1.30); GLOMERULAR FILTRATION RATE 32.7 (>45); MAGNESIUM LEVEL 2.4 MG/DL (1.8-2.4); PHOSPHORUS LEVEL 2.8 MG/DL (2.5-4.9); POTASSIUM SERUM 3.7 MEQ/L (3.5-5.1)
[2020-09-10] MEDS ORDERED: KCL 20MEQ IN 100ML SWI (KRUN) 20 MEQ in IV 1 EA IV ONE ×2 (23:00)
--- NOTE | 2020-09-10 23:01 | IPN ---
NEPHROLOGY PROGRESS NOTE DATE: 09/10/2020 SUBJECTIVE: The patient was seen and examined at the bedside today morning in the ICU. She continues to be on CVVHDF. She is requiring Levophed. Requirement is slightly down today at 6 mcg in the morning. The last 24 hour events are noted. And I was called periodically by the nursing staff during CVVHDF. She needed one liter of normal saline bolus yesterday because of hypertension and a CVP of 7. The patient still looks dry. She continues to be on albumin infusions as well. She continues to be Oliguric and she is tolerating IV Amphotericin B at this time for disseminated histoplasmosis. OBJECTIVE: PHYSICAL EXAMINATION: VITAL SIGNS: Temperature is 96.8 degrees Fahrenheit, blood pressure 94/65, pulse is 80, regular rate and rhythm of 17, saturating 100% on nasal cannula at one liter. INTAKE AND OUTPUT: Urine output recorded as only 91 mL. CRRT ultrafiltration was 1.2 liters by the time I saw her. Weight in the bed scale is not available. GENERAL APPEARANCE: The patient is awake, alert, oriented x2, laying in bed, getting CVVHD. HEAD AND NECK: Pupils are equally round and reactive to light. Mucous membranes are very dry. Neck is supple. There is no jugular venous distention. CARDIOVASCULAR: S1, S2, regular rate. EXTREMITIES: 2+ edema of the bilateral lower extremities. RESPIRATORY: Decreased breath sounds at the bases, otherwise no active rales or rhonchi. ABDOMEN: Distended with mild abdominal wall edema. Positive bowel sounds. GENITOURINARY: She has an indwelling Walters catheter. Dark urine was seen in the bag. MUSCULOSKELETAL: 2+ edema of the extremities. OPTIMIZATION ENGINEER: No focal deficits. Power is 5/5 in bilateral upper extremities. LABORATORY REVIEW: CBC showed a WBC 4.8, hemoglobin is 9.4, platelets are 75. PTT is 61.6. INR was 1.74 today. BMP done today showed sodium 136, potassium 3.6, chloride 104, bicarbonate 26, BUN 35, creatinine is 1.6, calcium is 7.5, ionized calcium is 4.7, magnesium is 2.3. Microbiology: Blood cultures are negative so far. Fungal cultures are pending. IMAGING: No new x-ray available today. CURRENT INPATIENT MEDICATIONS: The patient's medications were all reviewed by myself. 1. She continues to be on Amphotericin B 500 mg IV daily. 2. She is getting IV electrolytes according CVVHDF protocol. 3. She was given one liter normal saline yesterday and another liter was given today morning by myself. 4. She is getting IV albumin infusions. No other significant change in the medications as compared with yesterday. ASSESSMENT AND PLAN: 1. Acute oliguric renal failure - The patient is requiring CVVHDF. No fluid removal for a MAP of less than 75. New CVVHDF orders were written today. 2. Septic shock secondary to disseminated histoplasmosis - The patient is getting Amphotericin B as recommended by Infectious Disease. Dose is adequate at 500 mg. The rest of the management is as per I.D. recommendations. 3. Anemia and thrombocytopenia - hemoglobin is stable at 9.4. I am going to start her on Aranesp once a week. 4. Cholestatic hepatitis it is secondary to disseminated histoplasmosis. Continue the treatment of histoplasma with Amphotericin B. 5. Metabolic encephalopathy it is multifactorial secondary to cholestatic hepatitis, acute renal failure and disseminated histoplasmosis. Continue current management. Mental status is expected to improve over the next few days. 6. Insulin dependent diabetes the patient's glucose levels are within the acceptable range. She has very poor oral intake. Because of the tight glycemic control, I am going to decrease the dose of insulin Levemir. Total critical care time spent in the management of this patient today morning in the ICU excluding all the procedures was 40 minutes.
[2020-09-11] VITALS (97 sets, daily range): BP systolic 76–118; BP diastolic 43–63
[2020-09-11] MEDS: IPRATROPIUM 0.5MG/ALBUTEROL 2.5MG INH SOL UD 3ML (DUONEB) NEB SCH ×5 (04:00→23:31)
[2020-09-11 04:27] LABS: BASO % 0.4 % (0.0-1.0); EOS # 0.1 10^3/uL (0.0-0.5); HEMOGLOBIN 9.3 g/dl (12.0-15.5); LYMPH # 0.8 10^3/uL (1.5-5.0); LYMPH % 13.6 % (24.0-44.0); MEAN CORPUSCULAR HEMOGLOBIN 25.3 pg (27.0-33.0); MEAN CORPUSCULAR VOLUME 81.5 fl (80.0-96.0); MONO # 0.3 10^3/uL (0.0-0.8); MONO % 4.5 % (0.0-5.0); NEUTROPHILS # 4.3 10^3/uL (1.5-8.5); NEUTROPHILS % 77.3 % (36.0-66.0); RED BLOOD COUNT 3.68 10^6/uL (4.00-5.40); WHITE BLOOD COUNT 5.5 10^3/uL (4.0-10.0)
[2020-09-11 04:41] LABS: PLATELET COUNT, AUTOMATED 70 10^3/uL (150-450)
[2020-09-11 04:54] LABS: ALBUMIN 1.6 GM/DL (3.2-5.2); BILIRUBIN,TOTAL 8.9 MG/DL (0.2-1.0); CALCIUM LEVEL 7.5 MG/DL (8.8-10.2); CREATININE FOR GFR 1.36 MG/DL (0.55-1.30); GLOMERULAR FILTRATION RATE 41.7 (>45); POTASSIUM SERUM 3.6 MEQ/L (3.5-5.1); TOTAL PROTEIN 4.2 GM/DL (6.4-8.2)
[2020-09-11 04:55] LABS: MAGNESIUM LEVEL 2.3 MG/DL (1.8-2.4); PHOSPHORUS LEVEL 2.1 MG/DL (2.5-4.9)
[2020-09-11] MEDS ORDERED: KCL 20MEQ IN 100ML SWI (KRUN) 20 MEQ in IV 1 EA IV ONE ×4 (05:15→06:30)
[2020-09-11] MEDS: SODIUM CHLORIDE 0.9% INJ 10 ML SYR IV SCH ×2 (06:00→18:24)
[2020-09-11] MEDS: SLF 3 ML SYR IV SCH ×3 (06:00→21:14)
[2020-09-11] MEDS: LEVOTHYROXINE 125MCG TABLET (0.125MG) PO SCH (06:49)
[2020-09-11] MEDS: NOREPINEPHRINE BITARTRATE 8 MG in D5W 500 ML IV SCH ×5 (06:49→23:30)
[2020-09-11] MEDS ORDERED: CALCIUM GLUCONATE 1,000 MG in NS 100 ML IV ONE ×3 (07:30→19:00)
[2020-09-11] MEDS: HumaLOG INSULIN (NovoLOG) PER UNIT SC SCH ×4 (07:30→20:46)
[2020-09-11] MEDS: DEXTROSE 50% 50 ML SYRINGE IV PRN ×2 (07:34→20:38)
--- NOTE | 2020-09-11 07:51 | IPNPDOC ---
Text Note Date of Service The patient was seen on 09/11/20. NOTE Subjective: Patient seen and examined this morning at bedside. There was no overnight acute events. She is on continuous dialysis. She appears more energetic today. I watched her speak to her for 5 minutes at bedside and she was giving him all her updates. She feels better and stronger. She hasn't been febrile overnight. She's been trying to eat appetite is improving slowly. Objective: General: less weak today. Sick appearing and frail. HEENT: PERRLA, EOMI, scleral icterus Neck: supple, normal ROM, no JVD Respiratory: lungs CTAB, no wheeze, no rales, no crackles CVS: RRR, normal S1, S2 Abdo: soft, BS+, no rebound tenderness, obese. No abdominal pain palpation today Extremities: 1+ LE pitting edema MSK: no joint deformities, normal ROM Neuro: No focal neurological deficits. Diminished lower extremity strength. Psych: Cooperative despite her weakness AAO x 3 Assessment/plan: 65 yo F with a hx of DM2, lumbar stenosis (severe at L4/L5), HLD, presenting to ER with recurrent BLE weakness and frequent falls. Found to have sepsis secondary to Escherichia coli pyelonephritis which was treated. Patient continued to spike fevers of unknown origin almost daily. 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 Patient has been very ill for quite a while now unfortunately her prognosis is guarded given her severe illness. #Disseminated histoplasmosis: This explains her previously FUO. Valcyte stopped and drug of choice will be amphotericin. Liposomal. If possible to reduce nephrotoxicity. She was given her first dose at 9 PM on 09/08/2020. Appears to be tolerating treatment now that CRRT is started. 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 Previously workup included MRCP x 2 no obvious obstruction. Liver US with dopplers showing gallstones, sludge. Hepatomegaly , concern for cirrhosis. Splenomegaly. ERCP on 09/06/20: no pus/obstruction in CBD. duodenal ulcer adjacent to papilla, stent placed. On Pr otonix 40mg PO daily. Bilirubin continues to rise, now has scleral icterus. #Hepatorenal syndrome: Nephrology consulted. Low sodium diet. Monitor I&O. Hypokalemic. D/w Dr. Kruse. Hold lasix. Hold spironolactone. Kidney function continues to decline and will most likely decline even further after initiation of amphotericin. Patient now on CRRT started 09/09/2020. #Liver cirrhosis: Per Dr. Alejandre. Liver ultrasound showing findings consistent with hepatocellular disease versus cirrhosis. Normal liver vascular Dopplers. Patient has diminished albumin. Fluid overload, likely contributed to by reducing the pressure. Suspected hepatorenal syndrome. Nephrology consulted, Dr. Kruse.s/p IR liver biopsy 09/06/20. # Sepsis likely 2/2 E Coli Pyelonephritis: immunocompromised state. Patient has completed 15 days of zosyn for sepsis 2/2 presumed UTI/pyelonephritis and FUO Zosyn is now stopped. #R humeral mass: reviewed xray, callous from prior fx of prox humerus. Per , patient did have a fall and poss fx but per him it was never surgically repaired. Ortho consult. D/w Dr. Sheppard. Fracture mal-uniuon. DC MRI. No further workup required. # Dyspnea: possibly 2/2 CHF vs intraabdominal process vs AUDRA. Echo EF 60% grade 1DD. CTA/PE negative for PE. D/w Zhang. Severe pulmonary HTN. Will need OP sleep study for CPAP. per Dr Blount ok for patient to go home on oxygen. #Sacral pressure ulcers: frequent turning. wound care. clean with vashe. foam dressing. Heel float boots. Seen by wound care Dr Haynes 08/23/2020 - doesn't need ABx. Fu HSV PCR and started on valacyclovir (through 08/31) # Acute encephalopathy: likely 2/2 infection. intermittent AMS, suspect AUDRA. 3L NC. CT head negative x 2. #pneumonia: seen on CXR 08/19, possible developing LLL pna, probaly atelectasis. Ceftriaxone, azithromycin (08/20/20). Completed 15 days of zosyn. COVID negative on 08/17 and 08/24. Incentive spirometry. Pulmonology consulted at that time and do not think there is a pneumonia. #Recurrent falls: advanced and progressing spinal stenosis. PT/OT eval. B12, folate wnl. #severe pulmonary hypertension: sleep study. seen on echo. Assessed by Dr. Holcomb and Dr. Blount. #sinus tachycardia: negative for PE. TSH/FT4 wnl. sinus tach on tele. Cardiology consulted, discussed with Dr. Holcomb. Patient's tachycardia likely related to pulmonary hypertension/AUDRA. Will keep metoprolol 25 mg bid. Patient seen by Dr. Blount, recommended outpatient sleep study. #DM2: ISS, FSBS AC and HS. Hypoglycemic precautions. A1c 9.2. BG 90-150. Reduce levemir to 30 units qam and 20 units qpm. (home dose levemir 50 unts qam). findings. Ordered. PATRICK+, ordered PATIRCK titers. Negative anti-mitochondrial ab. Lik zina hepatic congestion from cor pulmonale 2/2 pulmonary hypertension. #Urinary retention: check bladder scan. straight cath if > 250 cc. #vaginal candidiasis: diflucan 150 mg PO once. miconazole. UA still showing yeast on 09/04/20. Will treat with 3 dose course of diflucan once patient able to take PO, more stable. #Lumbar spinal stenosis; severe at L4/L5. Has been seen by Dr. Mena, and was referred to specialist in [place]. OR delayed given uncontrolled DM2, patient was asked to return this but did not follow up. Reports bilateral LE weakness L > R. Recurrent falls. Absent/minimal rectal tone. Discussed with Dr. Sheppard, assess patient. This is not cauda equina. Progression of spinal stenosis. Recommends ongoing outpatient follow up, although patient states that she is happy with her level of mobility. #Schizoid personality disorder,anxiety: continue home meds #Hydradenitis suppurativa: resume home meds. wound care. 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 Needs outpatient sleep study. #Weakness: deconditioned. Needs therapy. Decreased some of her psych meds due to polypharmacy. # DVT prophylaxis: Switched from Lovenox to heparin given worsening renal f unction Goals of care: Patient considering comfort care measures. She wanted to try treatment with amphotericin first for about a week and see if it's helping before deciding whether or not she wants to be made comfortable only. I will follow-up with her and update him as her case progresses. Her prognosis is guarded and she is not doing well she is very sick with a very severe illness. A [facility] Hospitalist Tony HAGER I+O Tony HAGER I+O Laboratory Tests 09/10/20 09:53 09/10/20 15:47 09/10/20 15:49 09/10/20 21:21 09/11/20 04:07 Vital Signs Date Time Temp Pulse Resp B/P (MAP) Pulse Ox O2 Delivery O2 Flow Rate FiO2 09/11/20 04:15 80 102/58 (73) 93 09/11/20 04:00 1.0 09/11/20 04:00 16 Nasal Cannula 09/11/20 00:00 96.9 I&O- Last 24 Hours up to 6 AM 09/11/20 06:00 Intake Total 1793.7 ml Output Total 259 ml Balance 1534.7 ml PONCHO LEYVA MD Sep 11, 2020 07:51
[2020-09-11] MEDS ORDERED: SODIUM PHOSPHATE INJ 30 MMOL in D5W 250 ML IV ONE ×4 (08:30)
[2020-09-11] MEDS: MIRALAX *UNIT DOSE* 17GM PACKET PO SCH (08:41)
[2020-09-11] MEDS: GABAPENTIN 100 MG CAP PO SCH ×3 (08:52→20:42)
[2020-09-11] MEDS: SERTRALINE 100 MG TAB PO SCH ×2 (08:52→20:42)
[2020-09-11] MEDS: PANTOPRAZOLE 40MG TAB (PROTONIX) PO SCH (08:53)
[2020-09-11] MEDS ORDERED: DARBEPOETIN 100 MCG/0.5 ML *NON-DIALYSIS* SYRINGE (J0881) SC SCH (09:00)
[2020-09-11] MEDS: LEVEMIR (INSULIN DETEMIR) 1 UNITS/0.01ML SC SCH ×2 (09:00→20:47)
[2020-09-11] MEDS: HEPARIN SOD (PORCINE) 5000UNITS/ML 1ML VIAL/SYRINGE SQ SCH (09:00)
[2020-09-11] MEDS: NYSTATIN 100,000 UNITS/GM TOPICAL PWD 15 GM TOP SCH ×2 (10:01→20:43)
[2020-09-11] MEDS ORDERED: SODIUM CHLORIDE 0.9% INJ 10 ML SYR IV PRN (10:30)
--- NOTE | 2020-09-11 11:43 | RO ---
OPERATIVE NOTE DATE OF OPERATION: 09/09/2020 PREPROCEDURE DIAGNOSIS: Acute renal failure and need for dialysis. POSTPROCEDURE DIAGNOSIS: Acute renal failure and urgent need for dialysis. PROCEDURE: Right femoral vein hemodialysis catheter placement. SURGEON: Katarina Kruse MD ANESTHESIA: 1% lidocaine. DESCRIPTION: Informed consent obtained from the patient's over the phone. The patient herself is not able to give consent today due to altered mentation. I discussed with the patient and at length about her condition and he consented for dialysis and for dialysis catheter placement. Right femoral area was cleaned and prepped in the usual sterile fashion and 1% lidocaine used for local anesthesia. First attempt was made to access the femoral vein; however, I did have blood return due to which the needle was withdrawn and digital pressure held for over 5 minutes. Once hemostasis occurred, then we tried again and this time we accessed the femoral vein. 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 On third attempt again femoral vein was accessed and this time guidewire advanced without any difficulty. Small incision made at the guidewire site with a knife and skin and soft tissues dilated with skin dilator. After that, hemodialysis catheter was placed over guidewire without any problem and good venous blood return obtained from both ports. Catheter sutured in place and flushed. The patient tolerated the procedure well. There were other immediate complications.
--- NOTE | 2020-09-11 12:30 | CR.PDOC ---
General Date of Consultation: Sep 11, 2020 Consultation S:Ros is a 65-year-old female with morbid obesity, recurrent falls, severe lumbar stenosis, who presented to the Emergency Department complaining of bilateral lower extremity weakness. The patient usually is in a wheelchair. She mostly is immobile because she has severe spinal stenosis. She stated she was a poor surgical candidate because of her morbid obesity and schizoaffective disorder. She was last evaluated by Dr. Mena in 2017 when she had an MRI of the spine which showed severe L-4/L-5 lumbar stenosis. The patient also has bilateral neuropathy with decreased sensation in both feet. She also was having some increased shortness of breath on admission. She has been using oxygen. She had a fever on admission. Urine culture was positive for E-coli on 08/19 and with a urinalysis with only 18 white cells. Blood cultures were negative. Respiratory panel was negative. COVID-19 negative. She was treated with Ceftriaxone on 08/20 to 08/24. She had a total of 5 doses and 5 doses of Zithromax to treat for a possible community acquired pneumonia. She also recei torey Vancomycin on 08/20, 08/21, 08/24 and 08/25, a total of 4 days. The patient was switched from Ceftriaxone to IV Zosyn on 08/24 for a recurrent fever. Her only complaint currently is she has back pain which is chronic for her and decubitus ulcers that are painful. She had urinary retention on admission. She denies any nausea, vomiting or diarrhea. She is actually on the constipated side and has been getting Miralax as well as Colace. Patient currently moved to ICU on NC O2 and pressor requirement during hospitalization. She remains febrile. She was started on valganciclovir and Zosyn. The valganciclovir was started for concern for CMV or viral infection that is disseminated given patient on Humira. 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 She has had about an 80% overall response to the Humira and tolerates her injections well. The dosing for Crohn's/HS is every 1 - 2 weeks, she has not had a dose of her medication since late July and was due August 26 per patient. She was tolerating injections well at last office visit. 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 GMS was also consistent with histoplasmosis. Following a long discussion with infectious disease and her family on , patient has agreed to proceed with treatment. She was started on Amphotericin B IV three days ago and thus far is tolerating well. Patient has also started CVVHDF two days ago. Mental status has improved in the past 24 hours and she is requiring slightly less Levophed. O: Patient was evaluated in person/bedside. Areas with previous Crohn's/HS - mostly scarred over now; lower back to upper buttocks with moist pink to red eroded plaques with eschar present, and some drainage on bandage noted. A/P: ASSESSMENT/PLAN: 1. Disseminated histoplasmosis with fever and sepsis: Patient was started on liposomal amphotericin at 3-5mg/kg. Monitor vital signs closely, has needed pressors and IVF in the past. Monitor O2 needs and wean as possible. 2. Acute kidney injury with chronic kidney disease. Patient was started on CVVH. 3. Crohn's cutaneous with hidradenitis suppurativa overlap: Discontinue Humira on discharge paperwork. Future management for patient will consist of wound care with Still[place], intralesional Kenalog injections, and spironolactone as po ssibilities but will defer systemic therapy with biologics at this time given current clinical presentation in this hospitalization. 4. Decubitus ulcer lower back to sacrum with irritant dermatitis component: For sacrum area, would recommend Cavilon Advanced Skin protectant which is applied once weekly using the wand applicator. Dermatology will continue to follow along with this patient. We can be reached at [phone]. Vital Signs/I&O Vital Signs Date Time Temp Pulse Resp B/P (MAP) Pulse Ox O2 Delivery O2 Flow Rate FiO2 09/11/20 10:30 77 18 109/57 (74) Nasal Cannula 1.0 09/11/20 10:00 97 09/11/20 08:00 96.9 I&O- Last 24 Hours up to 6 AM 09/11/20 06:00 Intake Total 1793.7 ml Output Total 272 ml Balance 1521.7 ml Laboratory Data Labs 24H Laboratory Tests 2 09/10/20 12:25: Bedside Glucose (Misc Panel) 110 09/10/20 15:47: Activated Partial Thromboplast Time 61.6H, Anion Gap 6L, Glomerular Filtration Rate 33.6L, Calcium Level 7.5L, Whole Blood Ionized Calcium 4.6, Phosphorus Level 2.9, Magnesium Level 2.3 09/10/20 15:49: Nucleated Red Blood Cells % (auto) 0.0 09/10/20 17:11: Bedside Glucose (Misc Panel) 93 09/10/20 20:40: Bedside Glucose (Misc Panel) 101 09/10/20 21:21: Anion Gap 7L, Glomerular Filtration Rate 32.7L, Calcium Level 8.5L, Whole Blood Ionized Calcium 4.7, Phosphorus Level 2.8, Magnesium Level 2.4 09/11/20 04:07: Anion Gap 7L, Glomerular Filtration Rate 41.7L, Calcium Level 7.5L, Whole Blood Ionized Calcium 4.6, Phosphorus Level 2.1#L, Magnesium Level 2.3, Immature Granulocyte % (Auto) 2.2, Neutrophils (%) (Auto) 77.3H, Lymphocytes (%) (Auto) 13.6L, Monocytes (%) (Auto) 4.5, Eosinophils (%) (Auto) 2.0, Basophils (%) (Auto) 0.4, Neutrophils # (Auto) 4.3, Lymphocytes # (Auto) 0.8L, Monocytes # (Auto) 0.3, Eosinophils # (Auto) 0.1, Basophils # (Auto) 0.0, Nucleated Red Blood Cells % (auto) 0.0, Immature Platelet Fraction 7.8, Activated Partial Thromboplast Time 64.0H, Total Bilirubin 8.9H, Aspartate Amino Transf (AST/SGOT) 30, Alanine Aminotransferase (ALT/SGPT) 10L, Alkaline Phosphatase 488H, Total Protein 4.2L, Albumin 1.6L, Albumin/Globulin Ratio 0.6L 09/11/20 07:09: Bedside Glucose (Misc Panel) 46L 09/11/20 07:30: Bedside Glucose (Misc Panel) 46L 09/11/20 08:16: Bedside Glucose (Misc Panel) 78L CBC/BMP Laboratory Tests 09/10/20 15:47 09/10/20 15:49 09/10/20 21:21 09/11/20 04:07 Microbiology Microbiology 09/09/20 Blood Fungal Culture, Received Pending 09/05/20 Blood Culture - Final, Complete NO GROWTH AFTER 5 DAYS 09/05/20 Blood Culture - Final, Complete NO GROWTH AFTER 5 DAYS Allergies Coded Allergies: minocycline (Verified Allergy, Unknown, hives, 08/17/20) tetracycline (Verified Allergy, Unknown, hives, 08/17/20) aripiprazole (Verified Adverse Reaction, Unknown, psychosis, 08/17/20) Home Medications Scheduled Adalimumab (Humira) 40 Mg/0.8 Ml Syringekit, 40 MG SC QWEEK, (Reported) FRIDAYS Canagliflozin (Invokana) 300 Mg Tab, 300 MG PO DAILY, (Reported) Clozapine (Clozapine) 25 Mg Tab, 50 MG PO QHS, (Reported) TAKES WITH SECOND DOSE OF 100MG FOR 150MG TOTAL Clozapine (Clozapine) 100 Mg Tab, 100 MG PO BID, (Reported) Docusate Sodium (Colace) 100 Mg Cap, 100 MG PO DAILY, (Reported) Gabapentin (Gabapentin) 100 Mg Capsule, 200 MG PO TID, (Reported) Hydroxyzine HCl (Hydroxyzine HCl) 25 Mg Tab, 25 MG PO BID, (Reported) Insulin Glargine,Hum.rec.anlog (Lantus Solostar) 100 Unit/Ml Inj, 50 UNITS SC QAM, (Reported) Insulin Human Lispro (Novolog) 100 U/Ml Inj, 1 DOSE SC AC, (Reported) PER SLIDING SCALE Levothyroxine Sodium (Levothyroxine Sodium) 125 Mcg Tab, 125 MCG PO DAILY, (R eported) Metformin HCl (Metformin HCl ER) 500 Mg Tab.er.24h, 1,000 MG PO BID, (Reported) Sertraline HCl (Sertraline HCl) 100 Mg Tab, 100 MG PO BID, (Reported) Zinc (Zinc) 50 Mg Tab, 50 MG PO DAILY, (Reported) Ziprasidone HCl (Ziprasidone HCl) 60 Mg Cap, 60 MG PO BID, (Reported) Scheduled PRN Acetaminophen (Acetaminophen) 500 Mg Tablet, 500 MG PO Q6H PRN for PAIN, (Reported) Naproxen (Naproxen) 500 Mg Tablet.dr, 500 MG PO BID PRN for PAIN, (Reported) Nystatin (Nystatin) 15 Gm Cream..g., 1 APLCT TOP ASDIRECTED PRN for RASH/ITCHING, (Reported) APPLY UNDER BREASTS AND GROIN AFTER BATHING Polyethylene Glycol 3350 (Miralax) 119 Gm Powder, 17 GM PO DAILY PRN for CONSTIPATION, (Reported) dilute in 8 ounces of water or juice Ivana Cao PA-C Sep 11, 2020 12:29
[2020-09-11] MEDS ORDERED: ONDANSETRON 4MG/2ML VIAL As Ordered ONE (12:58)
[2020-09-11] MEDS ORDERED: ONDANSETRON 4MG/2ML VIAL IV ONE (13:00)
[2020-09-11] MEDS: ACETAMINOPHEN TAB 650MG DOSE (2X325MG) PO PRN (13:02)
[2020-09-11 13:44] LABS: CALCIUM LEVEL 7.7 MG/DL (8.8-10.2); CREATININE FOR GFR 1.33 MG/DL (0.55-1.30); GLOMERULAR FILTRATION RATE 42.8 (>45); MAGNESIUM LEVEL 2.2 MG/DL (1.8-2.4); PHOSPHORUS LEVEL 4.1 MG/DL (2.5-4.9)
[2020-09-11 18:26] LABS: HEMOGLOBIN 9.5 g/dl (12.0-15.5); MEAN CORPUSCULAR HGB CONC 31.7 g/dl (32.0-36.5); RED BLOOD COUNT 3.66 10^6/uL (4.00-5.40); WHITE BLOOD COUNT 5.5 10^3/uL (4.0-10.0)
[2020-09-11 18:46] LABS: CREATININE FOR GFR 1.18 MG/DL (0.55-1.30); GLOMERULAR FILTRATION RATE 49.1 (>45)
[2020-09-11 18:47] LABS: CALCIUM LEVEL 7.2 MG/DL (8.8-10.2); MAGNESIUM LEVEL 2.2 MG/DL (1.8-2.4); PHOSPHORUS LEVEL 2.5 MG/DL (2.5-4.9); POTASSIUM SERUM 3.7 MEQ/L (3.5-5.1)
[2020-09-11 18:49] LABS: PLATELET COUNT, AUTOMATED 67 10^3/uL (150-450)
--- NOTE | 2020-09-11 20:40 | IPN ---
PROGRESS NOTE DATE: 09/11/2020 SUBJECTIVE: Patient was seen and examined at the bedside today morning. She was awake and able to communicate with me. I was told by the nursing staff that she was able to eat some of her breakfast today. She continues to be dependent on continuous renal replacement therapy (CRRT). She remains oliguric. No signs of improvement of the renal function so far. She is also dependent on Levophed, currently requiring 8 mcg of Levophed. Antifungal was changed by infectious disease yesterday. OBJECTIVE: Vital signs: Temperature is 96.9 degrees Fahrenheit, blood pressure 94/55, pulse is 78, respiratory rate of 18, saturating 96% on nasal cannula at one liter. Intake and output: Urine output recorded is only 10 mL. CRRT ultrafiltration was 1.3 liters yesterday and only 18 mL so far today since overnight. Weight in the bed scale is 117.6 kg. PHYSICAL EXAMINATION: GENERAL: Patient is awake, alert, oriented times two, laying in bed, getting CRRT. HEAD AND NECK EXAM: Pupils are equally round and reactive to light. Mucous membranes are moist today. Neck is supple. There is no jugular venous distension (JVD). CARDIOVASCULAR: S1, S2, regular rate. 2+ edema of the bilateral lower extremities. RESPIRATORY: Chest is clear to auscultation bilaterally. Bilateral equal air entry. ABDOMEN: Soft, distended, positive abdominal wall edema was noted. Decreased bowel sounds. GENITOURINARY: She has an indwelling Walters catheter, very dark urine in the bag was noted. MUSCULOSKELETAL: 2+ edema of the bilateral lower extremities. CENTRAL NERVOUS SYSTEM (SPOOLING OPERATOR): Patient is awake, able to move extremities, follows commands, and able to communicate. LABORATORY REVIEW: CBC showed WBC of 5.5, hemoglobin 9.3, platelets are 70. Xakof-rg-ktdm glucose was 78 today, she was hypoglycemic. BMP showed sodium 134, potassium 3.6, chloride 101, bicarbonate 26, BUN 23, creatinine is 1.3, calcium 7.5, phosphorous 2.1, magnesium is 2.3. CURRENT INPATIENT MEDICATIONS: Patient's medications were all reviewed by myself. Patient's antifungal has been changed to Fungizone 50 mg IV daily. Abelcet has been stopped. She continues to be on Levophed. No other significant change in the medications today except that I have decreased her insulin dose yesterday and I actually held her morning Levemir because of hypoglycemia. I have stopped her metoprolol now because of hypotension. ASSESSMENT AND PLAN: 1. Acute anuric renal failure. Patient remains dependent on continuous venovenous hemodiafiltration (CVVHDF). She is tolerating it well. Minimal fluid removal because of low blood pressure. New order was placed in the chart and was discussed with the nursing staff. 2. Anemia in renal failure. Patient was started on Aranesp today morning. Hemoglobin level is stable. 3. Disseminated histoplasma infection. Patient is currently on Fungizone. Dose and duration of antifungal is as per infectious disease. 4. Hypoglycemia. Patient was on a higher dose of insulin Levemir and was not eating much. Dose has been decreased. Morning dose of Levemir has been held now. 5. Septic shock secondary to disseminated histoplasmosis. Continue amphotericin B. Continue Levophed. Rest of the cultures are negative. 6. 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 Liver function tests (LFTs) are very slowly improving. Continue amphotericin B. 7. Hypophosphatemia. Patient is getting phosphorous according to the continuous venovenous hemodiafiltration (CVVHDF) orders. 8. Protein calorie malnutrition. I am reluctant to start this patient on total parenteral nutrition (TPN) because of disseminated histoplasma infection. Continue to encourage oral intake. Total critical care time spent in the management of this patient today morning in the intensive care unit (ICU) excluding all the procedures was 45 minutes.
[2020-09-11] MEDS: ACETAMINOPHEN TAB 650MG DOSE (2X325MG) PO SCH (20:42)
[2020-09-11] MEDS: diphenhydrAMINE 25MG CAP PO SCH (20:42)
[2020-09-11] MEDS: [UNRECOGNIZED DRUG - OTHER] IV SCH (21:13)
[2020-09-11] MEDS: DEXTROSE IV SCH (21:13)
[2020-09-12] VITALS (93 sets, daily range): BP systolic 78–103; BP diastolic 37–58
[2020-09-12 00:32] LABS: CALCIUM LEVEL 7.7 MG/DL (8.8-10.2); CREATININE FOR GFR 1.05 MG/DL (0.55-1.30); GLOMERULAR FILTRATION RATE 56.2 (>45); MAGNESIUM LEVEL 2.4 MG/DL (1.8-2.4); PHOSPHORUS LEVEL 2.3 MG/DL (2.5-4.9); POTASSIUM SERUM 3.9 MEQ/L (3.5-5.1)
[2020-09-12] MEDS ORDERED: CALCIUM GLUCONATE 1,000 MG in D5W MINI-BAG PLUS 100 ML IV ONE ×2 (01:45→06:30)
[2020-09-12] MEDS ORDERED: SODIUM PHOSPHATE INJ 30 MMOL in D5W 500 ML IV ONE ×2 (02:45→22:00)
[2020-09-12] MEDS: IPRATROPIUM 0.5MG/ALBUTEROL 2.5MG INH SOL UD 3ML (DUONEB) NEB SCH ×6 (04:00→23:16)
[2020-09-12] MEDS: NOREPINEPHRINE BITARTRATE 8 MG in D5W 500 ML IV SCH ×3 (05:08→21:48)
[2020-09-12] MEDS: SODIUM CHLORIDE 0.9% INJ 10 ML SYR IV SCH ×2 (05:12→17:59)
[2020-09-12] MEDS: LEVOTHYROXINE 125MCG TABLET (0.125MG) PO SCH (05:47)
[2020-09-12] MEDS: SLF 3 ML SYR IV SCH ×3 (05:47→20:20)
[2020-09-12] MEDS: ACETAMINOPHEN TAB 650MG DOSE (2X325MG) PO PRN ×2 (06:07→15:26)
[2020-09-12 06:18] LABS: BASO % 0.6 % (0.0-1.0); EOS # 0.1 10^3/uL (0.0-0.5); EOS % 2.2 % (0.0-3.0); HEMATOCRIT 30.9 % (36.0-47.0); HEMOGLOBIN 9.5 g/dl (12.0-15.5); LYMPH # 0.8 10^3/uL (1.5-5.0); LYMPH % 15.3 % (24.0-44.0); MEAN CORPUSCULAR HEMOGLOBIN 25.2 pg (27.0-33.0); MEAN CORPUSCULAR HGB CONC 30.7 g/dl (32.0-36.5); MONO # 0.3 10^3/uL (0.0-0.8); MONO % 5.9 % (0.0-5.0); RED BLOOD COUNT 3.77 10^6/uL (4.00-5.40); WHITE BLOOD COUNT 5.4 10^3/uL (4.0-10.0)
[2020-09-12 06:32] LABS: PLATELET COUNT, AUTOMATED 71 10^3/uL (150-450)
[2020-09-12 06:40] LABS: ALBUMIN 1.5 GM/DL (3.2-5.2); ALT/SGPT 12 U/L (12-78); BLOOD UREA NITROGEN 10 MG/DL (7-18); CALCIUM LEVEL 7.5 MG/DL (8.8-10.2); CARBON DIOXIDE LEVEL 26 MEQ/L (21-32); CHLORIDE LEVEL 102 MEQ/L (98-107); CREATININE FOR GFR 0.98 MG/DL (0.55-1.30); GLOMERULAR FILTRATION RATE > 60.0 (>45); GLUCOSE, FASTING 108 MG/DL (70-100); POTASSIUM SERUM 3.9 MEQ/L (3.5-5.1); SODIUM LEVEL 134 MEQ/L (136-145)
[2020-09-12 06:51] LABS: MAGNESIUM LEVEL 2.2 MG/DL (1.8-2.4); PHOSPHORUS LEVEL 3.5 MG/DL (2.5-4.9)
[2020-09-12] MEDS: HumaLOG INSULIN (NovoLOG) PER UNIT SC SCH ×4 (07:30→20:00)
[2020-09-12] MEDS: MIRALAX *UNIT DOSE* 17GM PACKET PO SCH (07:39)
--- NOTE | 2020-09-12 07:58 | IPNPDOC ---
Text Note Date of Service The patient was seen on 09/12/20. NOTE Subjective: Patient seen and examined this morning at bedside. There was no overnight acute events. She is on continuous dialysis. She does appear a little bit more sleepy today and more tired but overall improved from prior. She hasn't been febrile overnight. She's been trying to eat appetite is improving slowly. Objective: General: Sick appearing and frail. Still weak HEENT: PERRLA, EOMI, scleral icterus Neck: supple, normal ROM, no JVD Respiratory: lungs CTAB, no wheeze, no rales, no crackles CVS: RRR, normal S1, S2 Abdo: soft, BS+, no rebound tenderness, obese. No abdominal pain palpation today Extremities: 1+ LE pitting edema MSK: no joint deformities, normal ROM Neuro: No focal neurological deficits. Diminished lower extremity strength. Psych: Cooperative despite her weakness AAO x 3 Assessment/plan: 65 yo F with a hx of DM2, lumbar stenosis (severe at L4/L5), HLD, presenting to ER with recurrent BLE weakness and frequent falls. Found to have sepsis secondary to Escherichia coli pyelonephritis which was treated. Patient continued to spike fevers of unknown origin almost daily. 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 She is being treated with amphotericin. #Disseminated histoplasmosis: This explains her previously FUO. Valcyte stopped and drug of choice will be amphotericin. Liposomal. If possible to reduce nephrotoxicity. She was given her first dose at 9 PM on 09/08/2020. On CRRT #Elevated alk phos, hyperbilirubinemia: This can now be explained likely due to disseminated histoplasmosis to liver. Previously workup included MRCP x 2 no obvious obstruction. Liver US with dopplers showing gallstones, sludge. Hepatomegaly , concern for cirrhosis. Splenomegaly. ERCP on 09/06/20: no pus/obstruction in CBD. duodenal ulcer adjacent to papilla, stent placed. On Protonix 40mg PO daily. Bilirubin continues to rise, now has scleral icterus. #Hepatorenal syndrome: Nephrology consulted. Low sodium diet. Monitor I&O. Hypokalemic. D/w Dr. Kruse. Hold lasix. Hold spironolactone. Kidney function continues to decline and will most likely decline even further after initiation of amphotericin. Patient now on CRRT started 09/09/2020. #Liver cirrhosis: Per Dr. Alejandre. Liver ultrasound showing findings consistent with hepatocellular disease versus cirrhosis. Normal liver vascular Dopplers. Patient has diminished albumin. Fluid overload, likely contributed to by reducing the pressure. Suspected hepatorenal syndrome. Nephrology consulted, Dr. Kruse.s/p IR liver biopsy 09/06/20. # Sepsis likely 2/2 E Coli Pyelonephritis: immunocompromised state. Patient has completed 15 days of zosyn for sepsis 2/2 presumed UTI/pyelonephritis and FUO Zosyn is now stopped. #R humeral mass: reviewed xray, callous from prior fx of prox humerus. Per , patient did have a fall and poss fx but per him it was never surgically repaired. Ortho consult. D/w Dr. Sheppard. Fracture mal-uniuon. DC MRI. No further workup required. # Dyspnea: possibly 2/2 CHF vs intraabdominal process vs AUDRA. Echo EF 60% grade 1DD. CTA/PE negative for PE. D/w Zhang. Severe pulmonary HTN. Will need OP sleep study for CPAP. per Dr Blount ok for patient to go home on oxygen. #Sacral pressure ulcers: frequent turning. wound care. clean with vashe. foam dressing. Heel float boots. Seen by wound care Dr Haynes 08/23/2020 - doesn't need ABx. Fu HSV PCR and started on valacyclovir (through 08/31) # Acute encephalopathy: likely 2/2 infection. intermittent AMS, suspect AUDRA. 3L NC. CT head negative x 2. #pneumonia: seen on CXR 08/19, possible developing LLL pna, probaly atelectasis. Ceftriaxone, azithromycin (08/20/20). Completed 15 days of zosyn. COVID negative on 08/17 and 08/24. Incentive spirometry. Pulmonology consulted at that time and do not think there is a pneumonia. #Recurrent falls: advanced and progressing spinal stenosis. PT/OT eval. B12, folate wnl. #severe pulmonary hypertension: sleep study. seen on echo. Assessed by Dr. Holcomb and Dr. Blount. #sinus tachycardia: negative for PE. TSH/FT4 wnl. sinus tach on tele. Cardiology consulted, discussed with Dr. Holcomb. Patient's tachycardia likely related to pulmonary hypertension/AUDRA. Will keep metoprolol 25 mg bid. Patient seen by Dr. Blount, recommended outpatient sleep study. #DM2: ISS, FSBS AC and HS. Hypoglycemic precautions. A1c 9.2. BG 90-150. Reduce levemir to 30 units qam and 20 units qpm. (home dose levemir 50 unts qam). findings. Ordered. PATRICK+, ordered PATRICK titers. Negative anti-mitochondrial ab. Likely hepatic congestion from cor pulmonale 2/2 pulmonary hypertension. #Urinary retention: check bladder scan. straight cath if > 250 cc. #vaginal candidiasis: diflucan 150 mg PO once. miconazole. UA still showing yeast on 09/04/20. Will treat with 3 dose course of diflucan once patient able to take PO, more stable. #Lumbar spinal stenosis; severe at L4/L5. Has been seen by Dr. Mena, and was referred to specialist in [place]. OR delayed given uncontrolled DM2, patient was asked to return this but did not follow up. Reports bilateral LE weakness L > R. Recurrent falls. Absent/minimal rectal tone. Discussed with Dr. Sheppard, assess patient. This is not cauda equina. Progression of spinal stenosis. Recommends ongoing outpatient follow up, although patient states that she is happy with her level of mobility. #Schizoid personality disorder,anxiety: continue home meds #Hydradenitis suppurativa: resume home meds. wound care. 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 Needs outpatient sleep study. #Weakness: deconditioned. Needs therapy. Decreased some of her psych meds due to polypharmacy. # DVT prophylaxis: Switched from Lovenox to heparin given worsening renal fun ction Goals of care: Patient considering comfort care measures. She wanted to try treatment with amphotericin first for about a week and see if it's helping before deciding whether or not she wants to be made comfortable only. I will follow-up with her and update him as her case progresses. Her prognosis is guarded and she is not doing well she is very sick with a very severe illness. A [facility] Tony HAGER, I+O Tony HAGER, I+O Laboratory Tests 09/11/20 12:41 09/11/20 17:58 09/12/20 00:00 09/12/20 06:00 Vital Signs Date Time Temp Pulse Resp B/P (MAP) Pulse Ox O2 Delivery O2 Flow Rate FiO2 09/12/20 06:00 89 18 84/49 (61) 96 Nasal Cannula 1.0 09/12/20 04:00 96.8 09/11/20 18:00 93 I&O- Last 24 Hours up to 6 AM 09/12/20 05:59 Intake Total 3331.3 ml Output Total 126 ml Balance 3205.3 ml PONCHO LEYVA MD Sep 12, 2020 07:58
[2020-09-12] MEDS: GABAPENTIN 100 MG CAP PO SCH ×3 (08:22→19:32)
[2020-09-12] MEDS: SERTRALINE 100 MG TAB PO SCH ×2 (08:23→19:32)
[2020-09-12] MEDS: LEVEMIR (INSULIN DETEMIR) 1 UNITS/0.01ML SC SCH ×2 (08:23→20:05)
[2020-09-12] MEDS: PANTOPRAZOLE 40MG TAB (PROTONIX) PO SCH (08:23)
[2020-09-12] MEDS: NYSTATIN 100,000 UNITS/GM TOPICAL PWD 15 GM TOP SCH ×2 (08:24→21:48)
[2020-09-12] MEDS: HEPARIN SOD (PORCINE) 5000UNITS/ML 1ML VIAL/SYRINGE SQ SCH ×2 (09:00→20:05)
--- NOTE | 2020-09-12 09:23 | CR.PDOC ---
General Date of Consultation: Sep 12, 2020 Consultation S:Ros is a 65-year-old female with morbid obesity, recurrent falls, severe lumbar stenosis, who presented to the Emergency Department complaining of bilateral lower extremity weakness. The patient usually is in a wheelchair. She mostly is immobile because she has severe spinal stenosis. She stated she was a poor surgical candidate because of her morbid obesity and schizoaffective disorder. She was last evaluated by Dr. Mena in 2018 when she had an MRI of the spine which showed severe L-4/L-5 lumbar stenosis. The patient also has bilateral neuropathy with decreased sensation in both feet. She also was having some increased shortness of breath on admission. She has been using oxygen. She had a fever on admission. Urine culture was positive for E-coli on 08/19 and with a urinalysis with only 18 white cells. Blood cultures were negative. Respiratory panel was negative. COVID-19 negative. She was treated with Ceftriaxone on 08/20 to 08/24. She had a total of 5 doses and 5 doses of Zithromax to treat for a possible community acquired pneumonia. She also recei torey Vancomycin on 08/20, 08/21, 08/24 and 08/25, a total of 4 days. The patient was switched from Ceftriaxone to IV Zosyn on 08/24 for a recurrent fever. Her only complaint currently is she has back pain which is chronic for her and decubitus ulcers that are somewhat painful. She had urinary retention on admission. She denies any nausea, vomiting or diarrhea. She is actually on the constipated side and has been getting Miralax as well as Colace. Patient was moved to ICU on NC O2 and pressor requirement during hospitalization. She was started on valganciclovir and Zosyn. The valganciclovir was started for concern for CMV or viral infection that is disseminated given patient on Humira. 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 She has had about an 80% overall response to the Humira and abiodun ates her injections well. The dosing for Crohn's/HS is every 1 - 2 weeks, she has not had a dose of her medication since late July and was due August 26 per patient. She was tolerating injections well at last office visit. 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 GMS was also consistent with histoplasmosis. Following a long discussion with infectious disease and her family on , patient has agreed to proceed with treatment. She was started on Amphotericin B IV four days ago and thus far is tolerating well. Patient has also started CRRT three days ago. Mental status has improved in the past 24 hours and she is requiring slightly less Levophed. O: Patient was evaluated in person/bedside. Areas with previous Crohn's/HS - mostly scarred over now; lower back to upper buttocks with moist pink to red eroded plaques with eschar present, and some drainage on bandage noted. A/P: ASSESSMENT/PLAN: 1. Disseminated histoplasmosis with fever and sepsis: Patient was started on liposomal amphotericin at 3-5mg/kg. Monitor vital signs closely, has needed pressors and IVF in the past. Monitor O2 needs and wean as possible. 2. Acute kidney injury with chronic kidney disease. Patient was started on CRRT. 3. Crohn's cutaneous with hidradenitis suppurativa overlap: Discontinue Humira on discharge paperwork. Future management for patient will consist of wound care with [place], intralesional Kenalog injections, and spironolactone as possibilities but will defer systemic therapy with biologics at this time given current clinical presentation in this hospitalization. 4. Decubitus ulcer lower back to sacrum with irritant dermatitis component: For sacrum area, would recommend Cavilon Advanced Skin protectant which is applied once weekly using the wand applicator. Dermatology will continue to follow along with this patient. We can be reached at [phone]. Vital Signs/I&O Vital Signs Date Time Temp Pulse Resp B/P (MAP) Pulse Ox O2 Delivery O2 Flow Rate FiO2 09/12/20 08:45 91 99/56 (70) 92 09/12/20 08:00 1.0 09/12/20 08:00 97.1 20 Nasal Cannula 09/11/20 18:00 93 I&O- Last 24 Hours up to 6 AM 09/12/20 06:00 Intake Total 3573.8 ml Output Total 114 ml Balance 3459.8 ml Laboratory Data Labs 24H Laboratory Tests 2 09/11/20 12:41: Activated Partial Thromboplast Time 58.0H, Anion Gap 8, Glomerular Filtration Rate 42.8L, Calcium Level 7.7L, Whole Blood Ionized Calcium 4.4L, Phosphorus Level 4.1#, Magnesium Level 2.2 09/11/20 12:47: Bedside Glucose (Misc Panel) 237H 09/11/20 17:58: Activated Partial Thromboplast Time 69.4H, Anion Gap 7L, Glomerular Filtration Rate 49.1, Calcium Level 7.2L, Whole Blood Ionized Calcium 4.5, Phosphorus Level 2.5#, Magnesium Level 2.2, Nucleated Red Blood Cells % (auto) 0.4H 09/11/20 18:03: Bedside Glucose (Misc Panel) 163H 09/11/20 20:33: Bedside Glucose (Misc Panel) 35*L 09/11/20 20:59: Bedside Glucose (Misc Panel) 74L 09/11/20 22:29: Bedside Glucose (Misc Panel) 95 09/11/20 23:53: Bedside Glucose (Misc Panel) 98 09/12/20 00:00: Anion Gap 8, Glomerular Filtration Rate 56.2, Calcium Level 7.7L, Whole Blood Ionized Calcium 4.5, Phosphorus Level 2.3L, Magnesium Level 2.4 09/12/20 06:00: Anion Gap 6L, Glomerular Filtration Rate > 60.0, Calcium Level 7.5L, Whole Blood Ionized Calcium 4.4L, Phosphorus Level 3.5#, Magnesium Level 2.2, Immature Granulocyte % (Auto) 2.0, Neutrophils (%) (Auto) 74.0H, Lymphocytes (%) (Auto) 15.3L, Monocytes (%) (Auto) 5.9H, Eosinophils (%) (Auto) 2.2, Basophils (%) (Auto) 0.6, Neutrophils # (Auto) 4.0, Lymphocytes # (Auto) 0.8L, Monocytes # (Auto) 0.3, Eosinophils # (Auto) 0.1, Basophils # (Auto) 0.0, Nucleated Red Blood Cells % (auto) 0.6H, Immature Platelet Fraction 6.8, Activated Partial Thromboplast Time 69.4H, Total Bilirubin 8.0H, Aspartate Amino Transf (AST/SGOT) 35, Alanine Aminotransferase (ALT/SGPT) 12, Alkaline Phosphatase 529H, Total Protein 4.0L, Albumin 1.5L, Albumin/Globulin Ratio 0.6L CBC/BMP Laboratory Tests 09/11/20 12:41 09/11/20 17:58 09/12/20 00:00 09/12/20 06:00 Microbiology Microbiology 09/09/20 Blood Fungal Culture, Received Pending 09/05/20 Blood Culture - Final, Complete NO GROWTH AFTER 5 DAYS 09/05/20 Blood Culture - Final, Complete NO GROWTH AFTER 5 DAYS Allergies Coded Allergies: minocycline (Verified Allergy, Unknown, hives, 08/17/20) tetracycline (Verified Allergy, Unknown, hives, 08/17/20) aripiprazole (Verified Adverse Reaction, Unknown, psychosis, 08/17/20) Home Medications Scheduled Adalimumab (Humira) 40 Mg/0.8 Ml Syringekit, 40 MG SC QWEEK, (Reported) FRIDAYS Canagliflozin (Invokana) 300 Mg Tab, 300 MG PO DAILY, (Reported) Clozapine (Clozapine) 25 Mg Tab, 50 MG PO QHS, (Reported) TAKES WITH SECOND DOSE OF 100MG FOR 150MG TOTAL Clozapine (Clozapine) 100 Mg Tab, 100 MG PO BID, (Reported) Docusate Sodium (Colace) 100 Mg Cap, 100 MG PO DAILY, (Reported) Gabapentin (Gabapentin) 100 Mg Capsule, 200 MG PO TID, (Reported) Hydroxyzine HCl (Hydroxyzine HCl) 25 Mg Tab, 25 MG PO BID, (Reported) Insulin Glargine,Hum.rec.anlog (Lantus Solostar) 100 Unit/Ml Inj, 50 UNITS SC QAM, (Reported) Insulin Human Lispro (Novolog) 100 U/Ml Inj, 1 DOSE SC AC, (Reported) PER SLIDING SCALE Levothyroxine Sodium (Levothyroxine Sodium) 125 Mcg Tab, 125 MCG PO DAILY, (R eported) Metformin HCl (Metformin HCl ER) 500 Mg Tab.er.24h, 1,000 MG PO BID, (Reported) Sertraline HCl (Sertraline HCl) 100 Mg Tab, 100 MG PO BID, (Reported) Zinc (Zinc) 50 Mg Tab, 50 MG PO DAILY, (Reported) Ziprasidone HCl (Ziprasidone HCl) 60 Mg Cap, 60 MG PO BID, (Reported) Scheduled PRN Acetaminophen (Acetaminophen) 500 Mg Tablet, 500 MG PO Q6H PRN for PAIN, (Reported) Naproxen (Naproxen) 500 Mg Tablet.dr, 500 MG PO BID PRN for PAIN, (Reported) Nystatin (Nystatin) 15 Gm Cream..g., 1 APLCT TOP ASDIRECTED PRN for RASH/ITCHING, (Reported) APPLY UNDER BREASTS AND GROIN AFTER BATHING Polyethylene Glycol 3350 (Miralax) 119 Gm Powder, 17 GM PO DAILY PRN for CONSTIPATION, (Reported) dilute in 8 ounces of water or juice Ivana Cao PA-C Sep 12, 2020 09:23
[2020-09-12] MEDS ORDERED: SODIUM CHLORIDE 0.9% INJ 10 ML SYR IV PRN (11:15)
[2020-09-12] MEDS ORDERED: ONDANSETRON 4MG/2ML VIAL IV ONE (11:30)
[2020-09-12] MEDS ORDERED: CALCIUM GLUCONATE 1,000 MG, VIAL MATE ADAPTER 1 EACH in NS 100 ML IV ONE (12:00)
[2020-09-12 12:23] LABS: BLOOD UREA NITROGEN 10 MG/DL (7-18); CALCIUM LEVEL 7.4 MG/DL (8.8-10.2); CARBON DIOXIDE LEVEL 27 MEQ/L (21-32); CHLORIDE LEVEL 101 MEQ/L (98-107); CREATININE FOR GFR 0.95 MG/DL (0.55-1.30); GLOMERULAR FILTRATION RATE > 60.0 (>45); GLUCOSE, FASTING 121 MG/DL (70-100); MAGNESIUM LEVEL 2.3 MG/DL (1.8-2.4); PHOSPHORUS LEVEL 2.9 MG/DL (2.5-4.9); POTASSIUM SERUM 3.9 MEQ/L (3.5-5.1); SODIUM LEVEL 134 MEQ/L (136-145)
[2020-09-12] MEDS ORDERED: KCL 20MEQ IN 100ML SWI (KRUN) 20 MEQ in IV 1 EA IV ONE ×2 (14:00)
[2020-09-12] MEDS ORDERED: METOCLOPRAMIDE INJ 10MG/2ML VIAL (J2765 PER 1) IV ONE (15:15)
--- NOTE | 2020-09-12 18:31 | CCN ---
CRITICAL CARE NOTE DATE: 08/17/2020 SUBJECTIVE: Ros was seen today in the ICU. She continues to have anorexia and nausea, but she is alert and oriented. She denies any chest pain. She has some mild shortness of breath with bloating, but has been having good bowel movements. She remains hypotensive. Her Levophed needs have increased to 14 mcg, yesterday she was down to 6. She has very minimal urine output. Has not been eating at all. She has not had a fever since 09/08. No chills. OBJECTIVE: GENERAL: Sick looking female in no acute distress. VITAL SIGNS: Temperature 97.7, pulse 99, respirations 20, blood pressure 88/54 on Levophed 16 mcg, O2 saturation 93% on 1 liter nasal cannula. HEART: Normal S1, S2. No murmurs appreciated. Distant. LUNGS: Diminished breath sounds at the bases, but clear with no wheezes, rales, or rhonchi. ABDOMEN: Morbidly obese, soft, nontender, and distended. EXTREMITIES: With +1 pitting edema bilaterally. NEUROLOGIC: Alert, sleepy, but oriented to person and place, and able to make decisions. SKIN: Hidradenitis of the left armpit. No open lesions. LABORATORY DATA: White count 5.4, hemoglobin 9.5, hematocrit 30.9, platelets 71,000, neutrophils 74%, lymphocytes 15%, monocytes 6%. Sodium 139, potassium 3.9, chloride 101, bicarb 27, BUN 10, creatinine 0.95, glucose 191, calcium 7.4. IMPRESSION: 1. Disseminated histoplasmosis with septic shock and acute kidney injury requiring dialysis. The patient is on IV amphotericin. Unfortunately, we have not been able to obtain a liposomal amphotericin. She received two days of Abelcet and now, she has been on amphotericin deoxycholate 50 mg IV every 24 hours, currently day #4. Her fevers have improved, but her kidney function has not. 2. Acute kidney injury on CVVH. 3. Crohn's cutaneous with hidradenitis overlap. The patient has not been on Humira and will not resume Humira. Decubitus ulcer stable. Continue amphotericin currently on amphotericin not liposomal formulation due to not being available. This will affect her kidneys and that is a problem. For the time being, we do not have any choices. Continue Levophed and amphotericin. Continue to monitor liver profile, CBC, CMP, ESR, and CRP. Of note, histoplasma antibodies were positive. Histoplasma urine antigen was not sent and was reordered.
[2020-09-12] MEDS ORDERED: CALCIUM GLUCONATE 1,000 MG, VIAL MATE ADAPTER 1 EACH in NS 100 ML IV SCH (19:00)
[2020-09-12 19:01] LABS: HEMATOCRIT 30.6 % (36.0-47.0); HEMOGLOBIN 9.5 g/dl (12.0-15.5); MEAN CORPUSCULAR HEMOGLOBIN 25.3 pg (27.0-33.0); MEAN CORPUSCULAR VOLUME 81.6 fl (80.0-96.0); RED BLOOD COUNT 3.75 10^6/uL (4.00-5.40); WHITE BLOOD COUNT 6.3 10^3/uL (4.0-10.0)
[2020-09-12 19:10] LABS: PLATELET COUNT, AUTOMATED 76 10^3/uL (150-450)
[2020-09-12 19:24] LABS: BLOOD UREA NITROGEN 9 MG/DL (7-18); CALCIUM LEVEL 7.7 MG/DL (8.8-10.2); CARBON DIOXIDE LEVEL 27 MEQ/L (21-32); CHLORIDE LEVEL 103 MEQ/L (98-107); CREATININE FOR GFR 0.94 MG/DL (0.55-1.30); GLOMERULAR FILTRATION RATE > 60.0 (>45); GLUCOSE, FASTING 141 MG/DL (70-100); MAGNESIUM LEVEL 2.4 MG/DL (1.8-2.4); PHOSPHORUS LEVEL 2.2 MG/DL (2.5-4.9); POTASSIUM SERUM 4.2 MEQ/L (3.5-5.1); SODIUM LEVEL 135 MEQ/L (136-145)
[2020-09-12] MEDS: ACETAMINOPHEN TAB 650MG DOSE (2X325MG) PO SCH (19:31)
[2020-09-12] MEDS: diphenhydrAMINE 25MG CAP PO SCH (19:32)
[2020-09-12] MEDS: [UNRECOGNIZED DRUG - OTHER] IV SCH (21:47)
[2020-09-12] MEDS: DEXTROSE IV SCH (21:47)
--- NOTE | 2020-09-12 22:33 | IPN ---
NEPHROLOGY PROGRESS NOTE DATE: 09/12/2020 SUBJECTIVE: The patient was seen and examined at the bedside today morning in the ICU. She continues to be on CRRT. She is still requiring pressors. Actually her Levophed requirement has increased to 14 mcg today morning. She reports edema and she actually is complaining of bloating of the abdomen and abdominal wall edema. The patient was awake and able to answer a few questions, however I was told by the nursing staff that the patient is eating very little. She is currently not on any TPN or IV fluids. Very little IV fluid is being removed because of low blood pressures and MAP parameters on the CVVHD orders. OBJECTIVE: VITAL SIGNS: Temperature is 97.6 degrees Fahrenheit, blood pressure is 97/51, pulse is 105, respiratory rate of 18, saturating 93% on nasal cannula at one liter. INTAKE AND OUTPUT: There is no urine output recorded. Ultrafiltration with CRRT is only 120 mL. Weight in the bed scale is 121 kg. PHYSICAL EXAMINATION: GENERAL APPEARANCE: The patient is awake, x2, laying in bed, getting CVVHD. HEAD AND NECK: Extraocular muscles intact. Pupils are equally round and reactive to light. Mucous membranes are moist. Neck is supple. There is mildly elevated jugular venous distention. CARDIOVASCULAR: S1, S2, regular rate. EXTREMITIES: 2+ edema of the bilateral lower extremities. RESPIRATORY: Decreased breath sounds bilaterally at the bases. ABDOMEN: Obese, distended, significant abdominal wall edema and ascites is noted. GENITOURINARY: She has an indwelling Walters catheter. No significant amount of urine in the bag is noted. She has a right groin dialysis catheter which is being used for dialysis. MUSCULOSKELETAL: Significant edema of the bilateral lower extremities is noted. OUTDOOR ADVENTURE GUIDES: The patient is awake, able to follow commands and move her extremities. LAB REVIEW: CBC showed a WBC of 6.3, hemoglobin 9.5, platelets are 76. BMP showed sodium 135, potassium 4.2, chloride 103, bicarbonate 27, BUN 9, creatinine is 0.9, calcium 7.7, ionized calcium is 4.4, phosphorous is 2.2. CURRENT INPATIENT MEDICATIONS: The patient's medications were all reviewed by myself. She is getting Fungizone 50 mg IV daily. She continues to be on IV Levophed. Electrolytes are being replaced according to CVVHDF protocol. She continues to be on Levothyroxine 125 mcg p.o. daily. No other change in the medications today as compared with yesterday. ASSESSMENT AND PLAN: 1. Acute anuric renal failure - The patient is dependent on CVVHDF at this time. She will not be able to tolerate regular dialysis because of shock requiring pressors. Continue CVVHDF. However because of significant edema, I am going to start removing some fluid if she tolerates, or we might to increase the Levophed to allow us her fluid removal. 2. Septic shock secondary to disseminated histoplasmosis she continues to be on Levophed and she is getting Fungizone as recommended by Infectious Disease. 3. Electrolytes abnormalities including hypocalcemia, hypophosphatemia - electrolytes are being replaced according to CVVHDF. 4. Anemia secondary to renal failure - hemoglobin level is stable. She is getting once a week Aranesp now. 5. Hypothyroidism I am going to switch the thyroid medication to IV dose. 6. Insulin dependent diabetes her insulin dosages were decreased because of hypoglycemia. Currently glucose levels are within the acceptable range. Total critical care time spent in the management of this patient today morning in the ICU excluding all the procedures was 35 minutes.
[2020-09-13] VITALS (44 sets, daily range): BP systolic 88–115; BP diastolic 49–59
[2020-09-13 01:11] LABS: BLOOD UREA NITROGEN 7 MG/DL (7-18); CALCIUM LEVEL 7.6 MG/DL (8.8-10.2); CARBON DIOXIDE LEVEL 27 MEQ/L (21-32); CHLORIDE LEVEL 101 MEQ/L (98-107); CREATININE FOR GFR 0.97 MG/DL (0.55-1.30); GLOMERULAR FILTRATION RATE > 60.0 (>45); GLUCOSE, FASTING 200 MG/DL (70-100); MAGNESIUM LEVEL 2.3 MG/DL (1.8-2.4); PHOSPHORUS LEVEL 3.2 MG/DL (2.5-4.9); POTASSIUM SERUM 4.1 MEQ/L (3.5-5.1); SODIUM LEVEL 132 MEQ/L (136-145)
[2020-09-13] MEDS: CALCIUM GLUCONATE 1,000 MG in D5W MINI-BAG PLUS 100 ML IV SCH ×4 (01:43→08:13)
[2020-09-13] MEDS ORDERED: ONDANSETRON 4MG/2ML VIAL IV ONE (02:00)
[2020-09-13] MEDS: IPRATROPIUM 0.5MG/ALBUTEROL 2.5MG INH SOL UD 3ML (DUONEB) NEB SCH ×5 (03:32→20:00)
[2020-09-13] MEDS: LEVOTHYROXINE 125MCG TABLET (0.125MG) PO SCH (05:38)
[2020-09-13] MEDS: SODIUM CHLORIDE 0.9% INJ 10 ML SYR IV SCH ×2 (05:44→17:42)
[2020-09-13] MEDS: SLF 3 ML SYR IV SCH ×3 (05:45→22:46)
[2020-09-13] MEDS: NOREPINEPHRINE BITARTRATE 8 MG in D5W 500 ML IV SCH ×3 (06:21)
[2020-09-13 06:31] LABS: BASO % 0.7 % (0.0-1.0); EOS # 0.1 10^3/uL (0.0-0.5); EOS % 1.8 % (0.0-3.0); HEMATOCRIT 29.6 % (36.0-47.0); LYMPH # 1.3 10^3/uL (1.5-5.0); LYMPH % 20.6 % (24.0-44.0); MEAN CORPUSCULAR HGB CONC 30.4 g/dl (32.0-36.5); MEAN CORPUSCULAR VOLUME 82.2 fl (80.0-96.0); MONO # 0.4 10^3/uL (0.0-0.8); NEUTROPHILS # 4.2 10^3/uL (1.5-8.5); NEUTROPHILS % 67.8 % (36.0-66.0); WHITE BLOOD COUNT 6.1 10^3/uL (4.0-10.0)
[2020-09-13 06:34] LABS: PLATELET COUNT, AUTOMATED 70 10^3/uL (150-450)
[2020-09-13 06:51] LABS: ALBUMIN 1.5 GM/DL (3.2-5.2); ALT/SGPT 11 U/L (12-78); BILIRUBIN,TOTAL 7.1 MG/DL (0.2-1.0); BLOOD UREA NITROGEN 7 MG/DL (7-18); CALCIUM LEVEL 7.6 MG/DL (8.8-10.2); CARBON DIOXIDE LEVEL 28 MEQ/L (21-32); CHLORIDE LEVEL 102 MEQ/L (98-107); CREATININE FOR GFR 0.96 MG/DL (0.55-1.30); GLOMERULAR FILTRATION RATE > 60.0 (>45); GLUCOSE, FASTING 178 MG/DL (70-100); SODIUM LEVEL 133 MEQ/L (136-145); TOTAL PROTEIN 3.9 GM/DL (6.4-8.2)
[2020-09-13 06:53] LABS: MAGNESIUM LEVEL 2.3 MG/DL (1.8-2.4)
[2020-09-13] MEDS: HumaLOG INSULIN (NovoLOG) PER UNIT SC SCH ×3 (07:31→17:24)
[2020-09-13] MEDS: MIRALAX *UNIT DOSE* 17GM PACKET PO SCH (08:35)
[2020-09-13] MEDS: GABAPENTIN 100 MG CAP PO SCH ×3 (09:21→20:13)
[2020-09-13] MEDS: NYSTATIN 100,000 UNITS/GM TOPICAL PWD 15 GM TOP SCH ×2 (09:21→20:14)
[2020-09-13] MEDS: PANTOPRAZOLE 40MG TAB (PROTONIX) PO SCH (09:21)
[2020-09-13] MEDS: SERTRALINE 100 MG TAB PO SCH ×2 (09:21→20:14)
[2020-09-13] MEDS: LEVEMIR (INSULIN DETEMIR) 1 UNITS/0.01ML SC SCH (11:11)
[2020-09-13] MEDS ORDERED: SODIUM CHLORIDE 0.9% INJ 10 ML SYR IV PRN (11:30)
[2020-09-13 13:33] LABS: BLOOD UREA NITROGEN 6 MG/DL (7-18); CALCIUM LEVEL 7.7 MG/DL (8.8-10.2); CARBON DIOXIDE LEVEL 27 MEQ/L (21-32); CHLORIDE LEVEL 100 MEQ/L (98-107); CREATININE FOR GFR 0.88 MG/DL (0.55-1.30); GLOMERULAR FILTRATION RATE > 60.0 (>45); GLUCOSE, FASTING 205 MG/DL (70-100); MAGNESIUM LEVEL 2.4 MG/DL (1.8-2.4); PHOSPHORUS LEVEL 2.2 MG/DL (2.5-4.9); POTASSIUM SERUM 3.9 MEQ/L (3.5-5.1); SODIUM LEVEL 131 MEQ/L (136-145)
[2020-09-13] MEDS ORDERED: CALCIUM GLUCONATE 1,000 MG in D5W MINI-BAG PLUS 100 ML IV SCH (14:00)
[2020-09-13] MEDS ORDERED: SODIUM PHOSPHATE INJ 30 MMOL in D5W 500 ML IV ONE (15:00)
[2020-09-13 17:58] LABS: HEMATOCRIT 29.1 % (36.0-47.0); HEMOGLOBIN 8.9 g/dl (12.0-15.5); MEAN CORPUSCULAR HEMOGLOBIN 25.4 pg (27.0-33.0); MEAN CORPUSCULAR HGB CONC 30.6 g/dl (32.0-36.5); MEAN CORPUSCULAR VOLUME 83.1 fl (80.0-96.0); PLATELET COUNT, AUTOMATED 59 10^3/uL (150-450); WHITE BLOOD COUNT 5.9 10^3/uL (4.0-10.0)
[2020-09-13] MEDS ORDERED: CALCIUM GLUCONATE 1,000 MG in NS 100 ML IV ONE (18:00)
[2020-09-13] MEDS ORDERED: FAT EMULSION IV 20% 500 ML IV SCH (18:00)
[2020-09-13] MEDS ORDERED: AMINO AC/ELECTROLYTE/DEX/CALC 2,000 ML IV SCH (18:00)
[2020-09-13 18:22] LABS: BLOOD UREA NITROGEN 6 MG/DL (7-18); CALCIUM LEVEL 7.6 MG/DL (8.8-10.2); CARBON DIOXIDE LEVEL 28 MEQ/L (21-32); CHLORIDE LEVEL 102 MEQ/L (98-107); CREATININE FOR GFR 0.85 MG/DL (0.55-1.30); GLOMERULAR FILTRATION RATE > 60.0 (>45); GLUCOSE, FASTING 135 MG/DL (70-100); MAGNESIUM LEVEL 2.3 MG/DL (1.8-2.4); POTASSIUM SERUM 3.8 MEQ/L (3.5-5.1); SODIUM LEVEL 133 MEQ/L (136-145)
--- NOTE | 2020-09-13 18:29 | IPN ---
PROGRESS NOTE DATE: 09/13/2020 Ros is doing better. She is alert and oriented. She is having some soft stools. She is off Levophed. She has no appetite, just states she is not hungry. She will be started on total parenteral nutrition (TPN) today. She continues on continuous renal replacement therapy (CRRT). She has no complaints except for decreased appetite. She remains afebrile. Temperature is 97.2, pulse 89, respirations 20, blood pressure 90/54, oxygen saturation 98% on 2 liters nasal cannula. HEART: Normal S1, S2, distant. No murmurs appreciated. ABDOMEN: Large, distended, morbidly obese with significant edema and ascites. EXTREMITIES: Pitting edema +2 bilaterally. No clubbing or cyanosis. SKIN: A large decubitus on the sacral area, measuring at least 15 x 10 cm with some necrotic eschar. Right groin dialysis catheter. She is incontinent of stools. MUSCULOSKELETAL: Patient moves both upper extremities with no problem. Lower extremities with weakness. LABORATORY DATA: White count 6.1, hemoglobin 9, hematocrit 29.6, platelets 70, 60% neutrophils, 20% lymphocytes, 7% monocytes. Sodium 131, potassium 3.1, chloride 100, bicarbonate 27, BUN 6, creatinine 0.88, glucose 205, calcium 7.7, phosphorus 2.2, magnesium 2.4. MEDICATIONS: Amphotericin. She is back on Abelcet, which is a liposomal safer, less nephrotoxic amphotericin at a dose of 500 mg every 24 hours. She is currently day #6 out of 14 of amphotericin. Acute kidney injury from septic shock from disseminated aspergillosis and probably nephrotoxicity from amphotericin. Will continue with dialysis. Hypertension has resolved. Patient off pressor. Crohn's with continuous manifestation of hydradenitis. Patient was on Humira. Last dose was over 4 weeks ago. PLAN: Continue with Abelcet at 500 mg every 24 hours. Patient should be monitored for hypokalemia, hypomagnesemia, and hyperchloremic acidosis from toxicity from amphotericin, which increases distant tubular membrane permeability. Anemia also has been reported from amphotericin. End of therapy with amphotericin would be September 22, which would be a total of 2 weeks, and the patient will be switched to itraconazole 200 mg by mouth three times a day. Patient will need treatment for at least a year. Patient will never be placed on tumor necrosis factor (TNF) inhibitors.
[2020-09-13] MEDS ORDERED: KCL 20MEQ IN 100ML SWI (KRUN) 20 MEQ in IV 1 EA IV ONE ×2 (19:00)
--- NOTE | 2020-09-13 19:12 | IPNPDOC ---
Text Note Date of Service The patient was seen on 09/13/20. NOTE Subjective: No any acute events overnight. Objective: GENERAL APPEARANCE: NAD HEENT: no scleral icterus, no JVD, EOMI CARDIOVASCULAR: S1S2 LUNGS: CTA ABDOMEN: soft & not tender w palpitation MUSCULOSKELETAL: +1 nonpitting edema INTEGUMENT: no generalized palor NEUROLOGICAL: cranial nerve function from 2-12 intact intact, follows commands, speech not dysarthric Assessment/plan: 65 yo F with a hx of DM2, lumbar stenosis (severe at L4/L5), HLD, presenting to ER with recurrent BLE weakness and frequent falls. Found to have sepsis secondary to Escherichia coli pyelonephritis which was treated. Patient continued to spike fevers of unknown origin almost daily. 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 She is being treated with amphotericin. Disseminated histoplasmosis c/w amphotericin will monitor BMP End of therapy with amphotericin would be September 22, which would be a total of 2 weeks, and the patient will be switched to itraconazole 200 mg by mouth three times a day. Patient will need treatment for at least a year Elevated alk phos, hyperbilirubinemia Previously workup included MRCP x 2 no obvious obstruction. Liver US with dopplers showing gallstones, sludge. Hepatomegaly, concern for cirrhosis. Splenomegaly. ERCP on 09/06/20: no pus/obstruction in CBD. duodenal ulcer adjacent to papilla, stent placed. On Protonix 40mg PO daily Liver biopsy showed Liver, biopsy: Hepatic parenchyma with granulomatous inflammation associated with intracytoplasmic fungal organisms, suggestive of Histoplasma capsulatum. GMS special stain highlights fungal organisms, supporting the above diagnosis. Slight improvement today Acute anuric renal failure The patient is dependent on CVVHDF at this time Nephrology team follows pt Septic shock Secondary to disseminated histoplasmosis secondary to immunocompromised state Continue Levophed Anemia secondary to renal failure Continue with Aranesp Hepatorenal syndrome Nephrology consulted. Low sodium diet. Monitor I&O. Hypokalemic. D/w Dr. Kruse. Hold lasix. Hold spironolactone. Kidney function continues to decline and will most likely decline even further after initiation of amphotericin. Patient now on CRRT started 09/09/2020 Sepsis likely 2/2 E Coli Pyelonephritis: immunocompromised state Patient completed course of Zosyn Hypothyroidism Continue levothyroxine Dyspnea possibly 2/2 CHF vs intraabdominal process vs AUDRA Echo EF 60% grade 1DD. CTA/PE negative for PE. D/w Holcomb. Severe pulmonary HTN. Will need OP sleep study for CPAP. per Dr Blount ok for patient to go home on oxygen Metabolic encephalopathy Resolved Type 2 diabetes Insulin sliding scale Diabetes is diet Detemir Lumbar spinal stenosis; severe at L4/L5. Has been seen by Dr. Mena, and was referred to specialist in [place]. OR delayed given uncontrolled DM2, patient was asked to return this but did not follow up. Reports bilateral LE weakness L > R. Recurrent falls. Absent/minimal rectal tone. Discussed with Dr. Sheppard, assess patient. This is not cauda equina. Progression of spinal stenosis. Recommends ongoing outpatient follow up, although patient states that she is happy with her level of mobility Schizoid personality disorder,anxiety continue home meds Goals of care: Patient considering comfort care measures. She wanted to try treatment with amphotericin first for about a week and see if it's helping before deciding whether or not she wants to be made comfortable only VS,Benjibone, I+O VS, Fishbone, I+O Laboratory Tests 09/12/20 18:45 09/13/20 00:12 09/13/20 06:00 09/13/20 12:44 09/13/20 17:39 Vital Signs Date Time Temp Pulse Resp B/P (MAP) Pulse Ox O2 Delivery O2 Flow Rate FiO2 09/13/20 18:00 93 20 94/53 (67) 98 Nasal Cannula 2.0 09/13/20 16:00 97.2 09/11/20 18:00 93 I&O- Last 24 Hours up to 6 AM 09/13/20 06:00 Intake Total 3996.0 ml Output Total 597 ml Balance 3399.0 ml ANA MARIA MCCRAY DO Sep 13, 2020 19:12
[2020-09-13] MEDS: [UNRECOGNIZED DRUG - OTHER] IV SCH (20:13)
[2020-09-13] MEDS: DEXTROSE IV SCH (20:13)
[2020-09-13] MEDS: ACETAMINOPHEN TAB 650MG DOSE (2X325MG) PO SCH (20:13)
[2020-09-13] MEDS: diphenhydrAMINE 25MG CAP PO SCH (20:13)
[2020-09-13] MEDS: HEPARIN SOD (PORCINE) 5000UNITS/ML 1ML VIAL/SYRINGE SQ SCH (20:34)
[2020-09-14] VITALS (36 sets, daily range): BP systolic 77–104; BP diastolic 43–62
[2020-09-14] MEDS ORDERED: CALCIUM GLUCONATE 1,000 MG, VIAL MATE ADAPTER 1 EACH in NS 100 ML IV ONE ×3 (00:45→12:30)
[2020-09-14 01:12] LABS: BLOOD UREA NITROGEN 6 MG/DL (7-18); CALCIUM LEVEL 7.3 MG/DL (8.8-10.2); CARBON DIOXIDE LEVEL 27 MEQ/L (21-32); CHLORIDE LEVEL 102 MEQ/L (98-107); CREATININE FOR GFR 0.88 MG/DL (0.55-1.30); GLOMERULAR FILTRATION RATE > 60.0 (>45); GLUCOSE, FASTING 172 MG/DL (70-100); MAGNESIUM LEVEL 2.3 MG/DL (1.8-2.4); PHOSPHORUS LEVEL 2.8 MG/DL (2.5-4.9); POTASSIUM SERUM 4.2 MEQ/L (3.5-5.1); SODIUM LEVEL 134 MEQ/L (136-145)
[2020-09-14] MEDS: HumaLOG INSULIN (NovoLOG) PER UNIT SC SCH ×5 (01:22→23:23)
[2020-09-14] MEDS: IPRATROPIUM 0.5MG/ALBUTEROL 2.5MG INH SOL UD 3ML (DUONEB) NEB SCH ×6 (04:00→20:00)
[2020-09-14] MEDS: SODIUM CHLORIDE 0.9% INJ 10 ML SYR IV SCH ×2 (06:00→17:30)
[2020-09-14] MEDS: SLF 3 ML SYR IV SCH ×3 (06:00→21:38)
[2020-09-14 06:30] LABS: BASO % 0.4 % (0.0-1.0); EOS # 0.1 10^3/uL (0.0-0.5); EOS % 2.3 % (0.0-3.0); HEMATOCRIT 28.8 % (36.0-47.0); HEMOGLOBIN 8.8 g/dl (12.0-15.5); LYMPH # 0.9 10^3/uL (1.5-5.0); LYMPH % 15.5 % (24.0-44.0); MEAN CORPUSCULAR HEMOGLOBIN 25.5 pg (27.0-33.0); MEAN CORPUSCULAR HGB CONC 30.6 g/dl (32.0-36.5); MEAN CORPUSCULAR VOLUME 83.5 fl (80.0-96.0); MONO # 0.2 10^3/uL (0.0-0.8); NEUTROPHILS # 4.3 10^3/uL (1.5-8.5); NEUTROPHILS % 75.3 % (36.0-66.0); RED BLOOD COUNT 3.45 10^6/uL (4.00-5.40); WHITE BLOOD COUNT 5.7 10^3/uL (4.0-10.0)
--- NOTE | 2020-09-14 06:35 | IPNPDOC ---
Subjective Date Seen The patient was seen on 09/14/20 bedside in the ICU. Subjective Chief Complaint/HPI 65 yo F with a hx of DM2, lumbar stenosis (severe at L4/L5), HLD, presenting to ER with recurrent BLE weakness and frequent falls. Found to have sepsis secondary to Escherichia coli pyelonephritis which was treated. Patient c ontinued to spike fevers of unknown origin almost daily. Liver biopsy was done patient was found to have disseminated histoplasmosis deliver which is currently being treated with Abelcet. She has not had an appetite and will be started on TPN today. She will continue with CRRT. Skin symptoms of hidradenitis remain stable with no active lesions. She does have a sacral ulcer which is stable. She notes some abdominal swelling and discomfort on exam. Objective Physical Examination Other physical findings Pt is alert and oriented, skin exam reveals bilateral axillae, abdominal pannus and inguinal with scars secondary to hidradenitis, no active cysts. Assessment /Plan Assessment 1. Acute kidney injury s/p septic shock from disseminated histoplasmosis: switched back to Abelcet which is less nephrotoxic, will be on this until 09/22 and the plan is to switch to PO itraconazole for at least one year as per ID. 2. Crohn's with Hidradenitis suppurativa: currently stable, pt will follow up with dermatology upon discharge to consider treatment options. Pt is no longer a candidate for TNF inhibitors. 3. Decubitus ulcer of the lower back to sacrum: recommend Cavilon Advanced skin protectant applied once weekly. Dermatology will continue to follow along with this patient. Plan/VTE VTE Prophylaxis Ordered?: No VS, I&O, 24H, Fishbone Vital Signs/I&O Vital Signs Date Time Temp Pulse Resp B/P (MAP) Pulse Ox O2 Delivery O2 Flow Rate FiO2 09/14/20 00:00 97.5 93 16 100/50 (67) 97 Nasal Cannula 2.0 09/11/20 18:00 93 I&O- Last 24 Hours up to 6 AM 09/14/20 05:59 Intake Total 2259.5 ml Output Total 1296 ml Balance 963.5 ml Laboratory Data 24H LABS Laboratory Tests 2 09/13/20 11:19: Bedside Glucose (Misc Panel) 134H 09/13/20 12:44: Anion Gap 4L, Glomerular Filtration Rate > 60.0, Calcium Level 7.7L, Whole Blood Ionized Calcium 4.4L, Phosphorus Level 2.2#L, Magnesium Level 2.4 09/13/20 17:23: Bedside Glucose (Misc Panel) 109 09/13/20 17:39: Anion Gap 3L, Glomerular Filtration Rate > 60.0, Calcium Level 7.6L, Whole Blood Ionized Calcium 4.4L, Phosphorus Level 4.0#, Magnesium Level 2.3, Nucleated Red Blood Cells % (auto) 0.3H, Immature Platelet Fraction 6.4, Activated Partial Thromboplast Time 97.4H, C-Reactive Protein, Quantitative 10.20H 09/14/20 00:21: Anion Gap 5L, Glomerular Filtration Rate > 60.0, Calcium Level 7.3L, Whole Blood Ionized Calcium 4.4L, Phosphorus Level 2.8#, Magnesium Level 2.3 09/14/20 01:16: Bedside Glucose (Misc Panel) 156H 09/14/20 05:52: 09/14/20 05:53: Whole Blood Ionized Calcium 4.5 09/14/20 05:59: Bedside Glucose (Misc Panel) 120H CBC/BMP Laboratory Tests 09/13/20 12:44 09/13/20 17:39 09/14/20 00:21 Microbiology Microbiology 09/09/20 Blood Fungal Culture, Received Pending 09/05/20 Blood Culture - Final, Complete NO GROWTH AFTER 5 DAYS 09/05/20 Blood Culture - Final, Complete NO GROWTH AFTER 5 DAYS Nayeli Cabrera PA-C Sep 14, 2020 06:35
[2020-09-14 06:37] LABS: PLATELET COUNT, AUTOMATED 63 10^3/uL (150-450)
[2020-09-14] MEDS: LEVOTHYROXINE 125MCG TABLET (0.125MG) PO SCH (06:49)
[2020-09-14 06:58] LABS: ALBUMIN 1.4 GM/DL (3.2-5.2); ALT/SGPT 14 U/L (12-78); BILIRUBIN,TOTAL 6.3 MG/DL (0.2-1.0); BLOOD UREA NITROGEN 5 MG/DL (7-18); CALCIUM LEVEL 7.4 MG/DL (8.8-10.2); CARBON DIOXIDE LEVEL 27 MEQ/L (21-32); CHLORIDE LEVEL 103 MEQ/L (98-107); CREATININE FOR GFR 0.81 MG/DL (0.55-1.30); GLOMERULAR FILTRATION RATE > 60.0 (>45); GLUCOSE, FASTING 128 MG/DL (70-100); MAGNESIUM LEVEL 2.4 MG/DL (1.8-2.4); PHOSPHORUS LEVEL 2.4 MG/DL (2.5-4.9); POTASSIUM SERUM 4.1 MEQ/L (3.5-5.1); SODIUM LEVEL 135 MEQ/L (136-145); TOTAL PROTEIN 3.9 GM/DL (6.4-8.2)
--- NOTE | 2020-09-14 08:15 | REP ---
INDICATION: SOB COMPARISON: 09/03/2020 TECHNIQUE: Portable AP view of the chest FINDINGS: Right PICC line with tip in the SVC. Stable cardiomegaly. Perihilar and primarily left lower lobe opacities are nonspecific and may represent multifocal pneumonia. Small left pleural effusion cannot be excluded. No pneumothorax. Skeletal structures are grossly intact. IMPRESSION: Perihilar and left lower lobe opacities suggesting multifocal pneumonia and possible small left pleural effusion. <Electronically signed by Ayaz Rodriguez > 09/14/20 [id number]
--- NOTE | 2020-09-14 08:15 | IPN ---
PROGRESS NOTE DATE: 09/13/2020 SUBJECTIVE: The patient was seen and examined at the bedside today morning in the ICU. She remains on CRRT. I was told by the nursing staff that the patient is barely eating anything. Her glucose levels are dropping and they had to hold the Levemir dose. Her Levophed requirement is coming down and we were able to remove some fluid yesterday with CVVHD. Patient remains oliguric. There are no signs of renal recovery. She reports that she is feeling very bloated and she has no appetite. OBJECTIVE: VITAL SIGNS: Temperature is 95.8 degrees Fahrenheit, blood pressure is 94/52, pulse is 91, respiratory rate is 18, saturating 97% on nasal cannula at 2 liters. INTAKE AND OUTPUT: There is no urine output recorded. Ultrafiltration with CVVHD was only 500 ml yesterday. Weight on the bed scale is 124.3 kg. GENERAL: The patient is awake, alert and oriented x3 laying in bed. HEAD AND NECK: Pupils are equally round and reactive to light. Mucous membranes are moist. Neck is supple. There is no JVD. CARDIOVASCULAR: S1 and S2, regular rate, 3+ edema of the bilateral lower extremities. RESPIRATORY: Decreased breath sounds at the bases. ABDOMEN: Obese with a significant amount of abdominal wall edema and ascites was noted. GENITOURINARY: She has an indwelling Walters catheter. MUSCULOSKELETAL: 3+ edema of the bilateral lower extremities. TELECOMMUNICATIONS CLERK: The patient is awake and his able to follow commands and move extremities. LABORATORY DATA: CBC showed a WBC of 5.9, hemoglobin of 8.9, platelets of 59,000. PTT was 97.4. BMP showed a sodium of 133, potassium is 3.8, chloride is 102, bicarbonate 28, BUN 6, creatinine is 0.8. Phosphorus is 4. Magnesium is 2.3. CURRENT INPATIENT MEDICATIONS: The patient's medications were all reviewed by myself. She continues to be on IV Fungizone, liposomal amphotericin B is not available at this time. She is getting the electrolyte replacement. She is still on IV Levophed. Insulin Levemir q.h.s. dose was stopped. She is only getting insulin Levemir 20 units sub q. in the morning. ASSESSMENT AND PLAN: 1. Acute oliguric renal failure. Patient is dependent on CVVHDF. Continue the CVVHDF, however I have changed the fluid removal parameters because of significant anasarca. 2. Anemia in renal failure. Continue current dose of Aranesp. Transfuse p.r.n. for a hemoglobin below 8. 3. Insulin dependent diabetes. She continues to be on Levemir in the morning. I am not going to decrease the dose further because I am going to start the patient on TPN. 4. Protein calorie malnutrition. Patient has been started on TPN. Orders were written today. 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 6. Septic shock. Continue the antifungal treatment as per Infectious Disease recommendations. She continues to be on Levophed. Levophed requirements are slowly coming down. MTDD
[2020-09-14] MEDS: MIRALAX *UNIT DOSE* 17GM PACKET PO SCH (09:00)
[2020-09-14] MEDS: GABAPENTIN 100 MG CAP PO SCH ×3 (09:56→20:09)
[2020-09-14] MEDS: SERTRALINE 100 MG TAB PO SCH ×2 (09:56→20:09)
[2020-09-14] MEDS: LEVEMIR (INSULIN DETEMIR) 1 UNITS/0.01ML SC SCH (09:56)
[2020-09-14] MEDS: PANTOPRAZOLE 40MG TAB (PROTONIX) PO SCH (09:56)
[2020-09-14] MEDS: NYSTATIN 100,000 UNITS/GM TOPICAL PWD 15 GM TOP SCH ×2 (09:57→20:10)
[2020-09-14] MEDS ORDERED: SODIUM PHOSPHATE INJ 15 MMOL in D5W 250 ML IV ONE (10:00)
--- NOTE | 2020-09-14 12:34 | IPNPDOC ---
Text Note Date of Service The patient was seen on 09/14/20. NOTE Subjective: No any acute events overnight. Patient complains of nausea and a bdominal bloating. The prognosis remains very poor. Objective: GENERAL APPEARANCE: NAD HEENT: no scleral icterus, no JVD, EOMI CARDIOVASCULAR: S1S2 LUNGS: Diminished lung sounds bilaterally ABDOMEN: soft & not tender w palpitation MUSCULOSKELETAL: +1 nonpitting edema INTEGUMENT: no generalized palor NEUROLOGICAL: cranial nerve function from 2-12 intact intact, follows commands, speech not dysarthric Assessment/plan: 65 yo F with a hx of DM2, lumbar stenosis (severe at L4/L5), HLD, presenting to ER with recurrent BLE weakness and frequent falls. Found to have sepsis secondary to Escherichia coli pyelonephritis which was treated. Patient continued to spike fevers of unknown origin almost daily. 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 She is being treated with amphotericin. Disseminated histoplasmosis c/w amphotericin will monitor BMP End of therapy with amphotericin would be September 22, which would be a total of 2 weeks, and the patient will be switched to itraconazole 200 mg by mouth three times a day. Patient will need treatment for at least a year Elevated alk phos, hyperbilirubinemia Previously workup included MRCP x 2 no obvious obstruction. Liver US with dopplers showing gallstones, sludge. Hepatomegaly, concern for cirrhosis. Splenomegaly. ERCP on 09/06/20: no pus/obstruction in CBD. duodenal ulcer adjacent to papilla, stent placed. On Protonix 40mg PO daily Liver biopsy showed Liver, biopsy: Hepatic parenchyma with granulomatous inflammation associated with intracytoplasmic fungal organisms, suggestive of Histoplasma capsulatum. GMS special stain highlights fungal organisms, supporting the above diagnosis. 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 Low sodium diet. Monitor I&O. Hypokalemic. D/w Dr. Kruse. Hold lasix. Hold spironolactone. Kidney function continues to decline and will most likely decline even further after initiation of amphotericin. Patient now on CRRT started 09/09/2020 Sepsis likely 2/2 E Coli Pyelonephritis: immunocompromised state Patient completed course of Zosyn Hypothyroidism Continue levothyroxine Dyspnea possibly 2/2 CHF vs intraabdominal process vs AUDRA Echo EF 60% grade 1DD. CTA/PE negative for PE. D/w Holcomb. Severe pulmonary HTN. Will need OP sleep study for CPAP. per Dr Blount ok for patient to go home on oxygen Metabolic encephalopathy Resolved Type 2 diabetes Insulin sliding scale Diabetes is diet Detemir Lumbar spinal stenosis; severe at L4/L5. Has been seen by Dr. Mena, and was referred to specialist in [place]. OR delayed given uncontrolled DM2, patient was asked to return this but did not follow up. Reports bilateral LE wea kness L > R. Recurrent falls. Absent/minimal rectal tone. Discussed with Dr. Sheppard, assess patient. This is not cauda equina. Progression of spinal stenosis. 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 She wanted to try treatment with amphotericin first for about a week and see if it's helping before deciding whether or not she wants to be made comfortable only VS,Fishbone, I+O VS, Fishbone, I+O Laboratory Tests 09/13/20 12:44 09/13/20 17:39 09/14/20 00:21 09/14/20 05:52 09/14/20 05:53 Vital Signs Date Time Temp Pulse Resp B/P (MAP) Pulse Ox O2 Delivery O2 Flow Rate FiO2 09/14/20 12:00 97.0 90 20 99/54 (69) 97 Nasal Cannula 2.0 09/11/20 18:00 93 I&O- Last 24 Hours up to 6 AM 09/14/20 06:00 Intake Total 2600.5 ml Output Total 2346 ml Balance 254.5 ml ANA MARIA MCCRAY DO Sep 14, 2020 12:34
[2020-09-14 12:36] LABS: BLOOD UREA NITROGEN 6 MG/DL (7-18); CALCIUM LEVEL 7.7 MG/DL (8.8-10.2); CARBON DIOXIDE LEVEL 29 MEQ/L (21-32); CHLORIDE LEVEL 101 MEQ/L (98-107); CREATININE FOR GFR 0.84 MG/DL (0.55-1.30); GLOMERULAR FILTRATION RATE > 60.0 (>45); GLUCOSE, FASTING 173 MG/DL (70-100); MAGNESIUM LEVEL 2.4 MG/DL (1.8-2.4); PHOSPHORUS LEVEL 2.4 MG/DL (2.5-4.9); POTASSIUM SERUM 4.1 MEQ/L (3.5-5.1); SODIUM LEVEL 132 MEQ/L (136-145)
[2020-09-14 17:41] LABS: HEMATOCRIT 28.8 % (36.0-47.0); MEAN CORPUSCULAR HEMOGLOBIN 25.9 pg (27.0-33.0); MEAN CORPUSCULAR HGB CONC 31.3 g/dl (32.0-36.5); RED BLOOD COUNT 3.47 10^6/uL (4.00-5.40); WHITE BLOOD COUNT 6.6 10^3/uL (4.0-10.0)
[2020-09-14 17:43] LABS: PLATELET COUNT, AUTOMATED 62 10^3/uL (150-450)
[2020-09-14] MEDS ORDERED: FAT EMULSION IV 20% 500 ML IV SCH (18:00)
[2020-09-14] MEDS ORDERED: CALCIUM GLUCONATE 1,000 MG in NS 100 ML IV ONE (18:00)
[2020-09-14] MEDS ORDERED: MULTIVITAMIN -ADULT INJECTION 10 ML, CR/CU/SE/MN/ZN INJ 1 ML in AMINO AC/ELECTROLYTE/DE... IV SCH (18:00)
[2020-09-14 18:03] LABS: BLOOD UREA NITROGEN 6 MG/DL (7-18); CALCIUM LEVEL 7.6 MG/DL (8.8-10.2); CARBON DIOXIDE LEVEL 27 MEQ/L (21-32); CHLORIDE LEVEL 102 MEQ/L (98-107); GLOMERULAR FILTRATION RATE > 60.0 (>45); GLUCOSE, FASTING 150 MG/DL (70-100); MAGNESIUM LEVEL 2.3 MG/DL (1.8-2.4); PHOSPHORUS LEVEL 2.2 MG/DL (2.5-4.9); SODIUM LEVEL 135 MEQ/L (136-145)
[2020-09-14] MEDS ORDERED: SODIUM PHOSPHATE INJ 30 MMOL in D5W 500 ML IV ONE (19:00)
[2020-09-14] MEDS: [UNRECOGNIZED DRUG - OTHER] IV SCH (20:09)
[2020-09-14] MEDS: DEXTROSE IV SCH (20:09)
[2020-09-14] MEDS: diphenhydrAMINE 25MG CAP PO SCH (20:09)
[2020-09-14] MEDS: ACETAMINOPHEN TAB 650MG DOSE (2X325MG) PO SCH (20:09)
[2020-09-14] MEDS ORDERED: FUROSEMIDE 40MG/4ML VIAL (J1940) IV ONE (21:45)
[2020-09-15] VITALS (60 sets, daily range): BP systolic 70–110; BP diastolic 39–67
[2020-09-15] MEDS ORDERED: CALCIUM GLUCONATE 1,000 MG, VIAL MATE ADAPTER 1 EACH in NS 100 ML IV ONE ×3 (02:45→13:00)
[2020-09-15 02:53] LABS: BLOOD UREA NITROGEN 6 MG/DL (7-18); CALCIUM LEVEL 6.9 MG/DL (8.8-10.2); CARBON DIOXIDE LEVEL 27 MEQ/L (21-32); CHLORIDE LEVEL 103 MEQ/L (98-107); CREATININE FOR GFR 0.76 MG/DL (0.55-1.30); GLOMERULAR FILTRATION RATE > 60.0 (>45); GLUCOSE, FASTING 138 MG/DL (70-100); MAGNESIUM LEVEL 2.4 MG/DL (1.8-2.4); PHOSPHORUS LEVEL 3.1 MG/DL (2.5-4.9); SODIUM LEVEL 135 MEQ/L (136-145)
[2020-09-15] MEDS: ACETAMINOPHEN TAB 650MG DOSE (2X325MG) PO PRN ×3 (03:19→16:39)
[2020-09-15] MEDS: IPRATROPIUM 0.5MG/ALBUTEROL 2.5MG INH SOL UD 3ML (DUONEB) NEB SCH ×6 (04:00→19:20)
[2020-09-15] MEDS: SODIUM CHLORIDE 0.9% INJ 10 ML SYR IV SCH ×2 (06:00→18:32)
[2020-09-15 06:15] LABS: BASO % 0.3 % (0.0-1.0); EOS # 0.1 10^3/uL (0.0-0.5); EOS % 1.7 % (0.0-3.0); HEMATOCRIT 28.4 % (36.0-47.0); HEMOGLOBIN 8.7 g/dl (12.0-15.5); LYMPH # 0.8 10^3/uL (1.5-5.0); LYMPH % 13.6 % (24.0-44.0); MEAN CORPUSCULAR HEMOGLOBIN 25.8 pg (27.0-33.0); MEAN CORPUSCULAR HGB CONC 30.6 g/dl (32.0-36.5); MEAN CORPUSCULAR VOLUME 84.3 fl (80.0-96.0); MONO # 0.3 10^3/uL (0.0-0.8); MONO % 5.1 % (0.0-5.0); NEUTROPHILS # 4.4 10^3/uL (1.5-8.5); NEUTROPHILS % 74.8 % (36.0-66.0); PLATELET COUNT, AUTOMATED 56 10^3/uL (150-450); RED BLOOD COUNT 3.37 10^6/uL (4.00-5.40); WHITE BLOOD COUNT 5.9 10^3/uL (4.0-10.0)
[2020-09-15 06:28] LABS: ALBUMIN 1.5 GM/DL (3.2-5.2); ALT/SGPT 17 U/L (12-78); BILIRUBIN,TOTAL 6.7 MG/DL (0.2-1.0); BLOOD UREA NITROGEN 6 MG/DL (7-18); CALCIUM LEVEL 7.6 MG/DL (8.8-10.2); CARBON DIOXIDE LEVEL 28 MEQ/L (21-32); CHLORIDE LEVEL 102 MEQ/L (98-107); CREATININE FOR GFR 0.77 MG/DL (0.55-1.30); GLOMERULAR FILTRATION RATE > 60.0 (>45); GLUCOSE, FASTING 175 MG/DL (70-100); MAGNESIUM LEVEL 2.3 MG/DL (1.8-2.4); PHOSPHORUS LEVEL 2.7 MG/DL (2.5-4.9); SODIUM LEVEL 135 MEQ/L (136-145)
[2020-09-15] MEDS: HumaLOG INSULIN (NovoLOG) PER UNIT SC SCH ×3 (06:56→18:30)
[2020-09-15] MEDS: LEVOTHYROXINE 125MCG TABLET (0.125MG) PO SCH (06:57)
[2020-09-15] MEDS: SLF 3 ML SYR IV SCH ×3 (07:00→21:15)
[2020-09-15] MEDS: MIRALAX *UNIT DOSE* 17GM PACKET PO SCH (09:00)
--- NOTE | 2020-09-15 09:14 | IPN ---
PROGRESS NOTE DATE: 09/14/2020 SUBJECTIVE: Patient was seen and examined at the bedside today morning in the intensive care unit (ICU). Last 24 hour events were noted. Patient is off of Levophed now, she is not requiring any pressors. She continues to be on continuous venovenous hemodialysis (CVVHD). We are able to remove some fluid during CVVHD. She is also tolerating the IV total parenteral nutrition (TPN) and she has minimal oral intake. She remains anuric. OBJECTIVE: Vital signs: Temperature is 97.3 degrees Fahrenheit, blood pressure is 89/54, pulse is 93, respiratory rate of 18, saturating 97% on nasal cannula at two liters. Intake and output: Urine output recorded is 0 mL. Weight in the bed scale was 124.3 kg yesterday, there is no weight available today. Ultrafiltration fluid removal is 1.8 liters so far. PHYSICAL EXAMINATION: General: Patient is awake, alert, oriented times two, laying in bed. Head and neck exam: Patient has facial puffiness. Mucous membranes are dry. Neck is supple, mildly elevated jugular venous distension (JVD). Cardiovascular: S1, S2, tachycardia was noted. 3+ edema of the bilateral lower extremities. Respiratory: Decreased breath sounds at the bases, otherwise no active rales or rhonchi. Patient is wearing nasal cannula. Abdomen: Soft, obese, positive bowel sounds. Abdominal wall edema was noted and moderate amount of ascites was also noted. Genitourinary: She has an indwelling Walters catheter. Musculoskeletal: She has anasarca, otherwise no clubbing or cyanosis. Central nervous system (CLINICAL PHARMACY SPECIALIST): Patient follows commands. She is able to move extremities when she is awake and able to answer a few questions. Arteriovenous (AV) access: She has a right groin dialysis catheter which is being used for CVVHD. LABORATORY REVIEW: CBC showed WBC 6.6, hemoglobin is 9, platelets are 62. PTT is 50.2. BMP showed sodium 135, potassium 4, chloride 102, bicarbonate 27, BUN is 6, creatinine is 0.80, calcium is 7.6, phosphorous 2.2. IMAGING: A chest x-ray was done today morning which showed perihilar and left lower lobe opacities suggesting multifocal pneumonia and possible small left pleural effusion. CURRENT INPATIENT MEDICATIONS: Patient's medications were all reviewed by myself. She continues to be on IV amphotericin B now liposomal. Levophed is on hold. She is tolerating TPN. No other significant change in the medications today as compared with yesterday. ASSESSMENT AND PLAN: 1. Acute anuric renal failure. Patient is dependent on continuous venovenous hemodialysis (CVVHD). Levophed has been weaned off. I will try to remove more fluid over the next 24 hours and if the blood pressure stays stable I will probably take her off CVVHD and start doing intermittent hemodialysis at bedside. 2. Status post septic shock with disseminated histoplasmosis. Patient's Levophed was weaned off overnight. Continue IV amphotericin B as per infectious disease. Patient also has multifocal infiltrates on the chest x-ray. I am going to get a CT scan. Most likely we are seeing fluid in the x-ray. 3. Protein calorie malnutrition. Continue total parenteral nutrition (TPN). TPN orders were renewed today by myself. 4. Insulin-dependent diabetes. She continues to be on Levemir. With the initiation of TPN her glucose levels are within the acceptable limit now. 5. Anemia in renal failure. Hemoglobin level is stable at 9. She is getting once a week dose of Aranesp. 6. Anasarca. I have changed the fluid removal parameters during CVVHD. I am also going to give a dose of Lasix to the patient to see if we can improve her urine output.
[2020-09-15] MEDS: SERTRALINE 100 MG TAB PO SCH ×2 (09:21→20:20)
[2020-09-15] MEDS: LEVEMIR (INSULIN DETEMIR) 1 UNITS/0.01ML SC SCH (09:22)
[2020-09-15] MEDS: GABAPENTIN 100 MG CAP PO SCH ×3 (09:22→20:19)
[2020-09-15] MEDS: PANTOPRAZOLE 40MG TAB (PROTONIX) PO SCH (09:22)
[2020-09-15] MEDS: NYSTATIN 100,000 UNITS/GM TOPICAL PWD 15 GM TOP SCH ×2 (09:23→21:07)
[2020-09-15] MEDS ORDERED: SODIUM CHLORIDE 0.9% INJ 10 ML SYR IV PRN (11:15)
[2020-09-15 12:32] LABS: BLOOD UREA NITROGEN 6 MG/DL (7-18); CALCIUM LEVEL 7.5 MG/DL (8.8-10.2); CARBON DIOXIDE LEVEL 28 MEQ/L (21-32); CHLORIDE LEVEL 103 MEQ/L (98-107); CREATININE FOR GFR 0.76 MG/DL (0.55-1.30); GLOMERULAR FILTRATION RATE > 60.0 (>45); GLUCOSE, FASTING 216 MG/DL (70-100); MAGNESIUM LEVEL 2.4 MG/DL (1.8-2.4); PHOSPHORUS LEVEL 2.1 MG/DL (2.5-4.9); POTASSIUM SERUM 3.9 MEQ/L (3.5-5.1); SODIUM LEVEL 136 MEQ/L (136-145)
--- NOTE | 2020-09-15 14:22 | IPNPDOC ---
Text Note Date of Service The patient was seen on 09/15/20. NOTE Subjective: No any acute events overnight. Patient stated that she continues to have nausea and no appetite. . Patient is off Levophed Objective: GENERAL APPEARANCE: NAD HEENT: no scleral icterus, no JVD, EOMI CARDIOVASCULAR: S1S2 LUNGS: Diminished lung sounds bilaterally ABDOMEN: soft & not tender w palpitation MUSCULOSKELETAL: +1 nonpitting edema INTEGUMENT: no generalized palor NEUROLOGICAL: cranial nerve function from 2-12 intact intact, follows commands, speech not dysarthric Assessment/plan: 65 yo F with a hx of DM2, lumbar stenosis (severe at L4/L5), HLD, presenting to ER with recurrent BLE weakness and frequent falls. Found to have sepsis secondary to Escherichia coli pyelonephritis which was treated. Patient continued to spike fevers of unknown origin almost daily. 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 She is being treated with amphotericin. 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 Patient will need treatment for at least a year Elevated alk phos, hyperbilirubinemia Previously workup included MRCP x 2 no obvious obstruction. Liver US with dopplers showing gallstones, sludge. Hepatomegaly, concern for cirrhosis. Splenomegaly. ERCP on 09/06/20: no pus/obstruction in CBD. duodenal ulcer adjacent to papilla, stent placed. On Protonix 40mg PO daily Liver biopsy showed Liver, biopsy: Hepatic parenchyma with granulomatous inflammation associated with intracytoplasmic fungal organisms, suggestive of Histoplasma capsulatum. GMS special stain highlights fungal organisms, supporting the above diagnosis. 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 Low sodium diet. Monitor I&O. Hypokalemic. D/w Dr. Kruse. Hold lasix. Hold spironolactone. Kidney function continues to decline and will most likely decline even further after initiation of amphotericin. Patient now on CRRT started 09/09/2020 Sepsis likely 2/2 E Coli Pyelonephritis: immunocompromised state Patient completed course of Zosyn Hypothyroidism Continue levothyroxine Dyspnea possibly 2/2 CHF vs intraabdominal process vs AUDRA Echo EF 60% grade 1DD. CTA/PE negative for PE. D/w Holcomb. Severe pulmonary HTN. Will need OP sleep study for CPAP. per Dr Blount ok for patient to go home on oxygen Chest x-ray was done on 09/15/20 and showed Perihilar and left lower lobe opacities suggesting multifocal pneumonia and possible small left pleural effusion Will do chest CT to differentiate between fluid and bacterial infiltrate. Vignesh zhang afebrile, doesn't have leukocytosis Protein calorie malnutrition Continue TPN Metabolic encephalopathy Resolved Type 2 diabetes Insulin sliding scale Diabetes is diet Detemir Lumbar spinal stenosis; severe at L4/L5. Has been seen by Dr. Mena, and was referred to specialist in [place]. OR delayed given uncontrolled DM2, patient was asked to return this but did not follow up. Reports bilateral LE weakness L > R. Recurrent falls. Absent/minimal rectal tone. Discussed with Dr. Sheppard, assess patient. This is not cauda equina. Progression of spinal stenosis. 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 She wanted to try treatment with amphotericin first for about a week and see if it's helping before deciding whether or not she wants to be made comfortable only VS,Fishbone, I+O VS, Fishbone, I+O Laboratory Tests 09/14/20 17:27 09/15/20 02:08 09/15/20 05:38 09/15/20 05:39 09/15/20 11:50 Vital Signs Date Time Temp Pulse Resp B/P (MAP) Pulse Ox O2 Delivery O2 Flow Rate FiO2 09/15/20 13:45 85 86/51 (63) 93 Room Air 09/15/20 13:30 18 09/15/20 12:00 96.4 09/15/20 05:00 2.0 09/11/20 18:00 93 I&O- Last 24 Hours up to 6 AM 09/15/20 06:00 Intake Total 3325 ml Output Total 3969 ml Balance -644 ml DROZHZHIN,ANA MARIA DO Sep 15, 2020 14:22
[2020-09-15] MEDS ORDERED: D5W IV ONE (15:00)
[2020-09-15] MEDS ORDERED: SODIUM PHOSPHATE IV ONE (15:00)
--- NOTE | 2020-09-15 15:42 | REP ---
INDICATION: pna COMPARISON: None TECHNIQUE: Axial noncontrast images from the thoracic inlet to the upper abdomen with coronal and sagittal reformations. This CT examination was performed using the following dose reduction techniques: Automated exposure control, adjustment of mA and/or kv according to the patient's size, and use of iterative reconstruction technique. FINDINGS: Lung pierce demonstrate pulmonary vascular engorgement, cephalization, increased interstitial markings, ground-glass opacities and areas of linear atelectasis primarily involving the lingula and lower lobes (left greater than right) as well as moderate left and small right pleural effusions. No cardiomegaly or pericardial effusion. No pneumothorax. Mediastinal lymph nodes are nonspecific. Limited upper abdomen demonstrates hepatosplenomegaly and small amount of perihepatic fluid as well as vicarious excretion of contrast into the gallbladder from prior contrast-enhanced CT. IMPRESSION: Findings are nonspecific. Differential diagnosis includes CHF/pulmonary edema along with pneumonia and clinical correlation is required. <Electronically signed by Ayaz Rodriguez > 09/15/20 [id number]
[2020-09-15] MEDS ORDERED: FAT EMULSION IV 20% 500 ML IV SCH (18:00)
[2020-09-15] MEDS ORDERED: AMINO AC/ELECTROLYTE/DEX/CALC 2,000 ML IV SCH (18:00)
[2020-09-15 18:36] LABS: HEMATOCRIT 27.4 % (36.0-47.0); HEMOGLOBIN 8.4 g/dl (12.0-15.5); MEAN CORPUSCULAR HEMOGLOBIN 25.8 pg (27.0-33.0); MEAN CORPUSCULAR HGB CONC 30.7 g/dl (32.0-36.5); RED BLOOD COUNT 3.26 10^6/uL (4.00-5.40); WHITE BLOOD COUNT 6.3 10^3/uL (4.0-10.0)
[2020-09-15 18:37] LABS: PLATELET COUNT, AUTOMATED 66 10^3/uL (150-450)
[2020-09-15 18:55] LABS: BLOOD UREA NITROGEN 7 MG/DL (7-18); CALCIUM LEVEL 7.4 MG/DL (8.8-10.2); CARBON DIOXIDE LEVEL 26 MEQ/L (21-32); CHLORIDE LEVEL 102 MEQ/L (98-107); CREATININE FOR GFR 0.78 MG/DL (0.55-1.30); GLOMERULAR FILTRATION RATE > 60.0 (>45); GLUCOSE, FASTING 171 MG/DL (70-100); MAGNESIUM LEVEL 2.3 MG/DL (1.8-2.4); PHOSPHORUS LEVEL 3.7 MG/DL (2.5-4.9); SODIUM LEVEL 136 MEQ/L (136-145)
[2020-09-15] MEDS: ONDANSETRON 4MG/2ML VIAL IV PRN (20:04)
[2020-09-15] MEDS: CALCIUM GLUCONATE 1,000 MG in NS 100 ML IV SCH ×2 (20:05→21:07)
[2020-09-15] MEDS: diphenhydrAMINE 25MG CAP PO SCH (20:19)
[2020-09-15] MEDS: ACETAMINOPHEN TAB 650MG DOSE (2X325MG) PO SCH (20:19)
[2020-09-15] MEDS: DEXTROSE IV SCH (20:24)
[2020-09-15] MEDS: [UNRECOGNIZED DRUG - OTHER] IV SCH (20:24)
[2020-09-16] VITALS (90 sets, daily range): BP systolic 71–112; BP diastolic 39–65
[2020-09-16] MEDS: HumaLOG INSULIN (NovoLOG) PER UNIT SC SCH ×4 (00:36→18:26)
[2020-09-16 00:46] LABS: BLOOD UREA NITROGEN 6 MG/DL (7-18); CALCIUM LEVEL 7.8 MG/DL (8.8-10.2); CARBON DIOXIDE LEVEL 27 MEQ/L (21-32); CHLORIDE LEVEL 103 MEQ/L (98-107); CREATININE FOR GFR 0.76 MG/DL (0.55-1.30); GLOMERULAR FILTRATION RATE > 60.0 (>45); GLUCOSE, FASTING 176 MG/DL (70-100); MAGNESIUM LEVEL 2.3 MG/DL (1.8-2.4); PHOSPHORUS LEVEL 2.7 MG/DL (2.5-4.9); SODIUM LEVEL 134 MEQ/L (136-145)
[2020-09-16] MEDS ORDERED: CALCIUM GLUCONATE 1,000 MG, VIAL MATE ADAPTER 1 EACH in NS 100 ML IV ONE (01:15)
[2020-09-16] MEDS ORDERED: NOREPINEPHRINE BITARTRATE 8 MG in D5W 500 ML IV SCH (03:00)
[2020-09-16] MEDS: IPRATROPIUM 0.5MG/ALBUTEROL 2.5MG INH SOL UD 3ML (DUONEB) NEB SCH ×6 (04:00→19:38)
[2020-09-16] MEDS: SODIUM CHLORIDE 0.9% INJ 10 ML SYR IV SCH ×2 (06:00→18:25)
[2020-09-16] MEDS: LEVOTHYROXINE 125MCG TABLET (0.125MG) PO SCH (06:02)
[2020-09-16] MEDS: SLF 3 ML SYR IV SCH ×3 (06:03→21:17)
[2020-09-16 06:17] LABS: HEMATOCRIT 29.1 % (36.0-47.0); HEMOGLOBIN 8.9 g/dl (12.0-15.5); MEAN CORPUSCULAR HEMOGLOBIN 26.1 pg (27.0-33.0); MEAN CORPUSCULAR HGB CONC 30.6 g/dl (32.0-36.5); MEAN CORPUSCULAR VOLUME 85.3 fl (80.0-96.0); RED BLOOD COUNT 3.41 10^6/uL (4.00-5.40); WHITE BLOOD COUNT 7.6 10^3/uL (4.0-10.0)
[2020-09-16 06:23] LABS: PLATELET COUNT, AUTOMATED 79 10^3/uL (150-450)
[2020-09-16 06:43] LABS: ALBUMIN 1.5 GM/DL (3.2-5.2); ALT/SGPT 17 U/L (12-78); BILIRUBIN,TOTAL 6.6 MG/DL (0.2-1.0); BLOOD UREA NITROGEN 6 MG/DL (7-18); CALCIUM LEVEL 7.6 MG/DL (8.8-10.2); CARBON DIOXIDE LEVEL 26 MEQ/L (21-32); CHLORIDE LEVEL 101 MEQ/L (98-107); CREATININE FOR GFR 0.71 MG/DL (0.55-1.30); GLOMERULAR FILTRATION RATE > 60.0 (>45); GLUCOSE, FASTING 172 MG/DL (70-100); MAGNESIUM LEVEL 2.4 MG/DL (1.8-2.4); POTASSIUM SERUM 4.1 MEQ/L (3.5-5.1); SODIUM LEVEL 133 MEQ/L (136-145); TOTAL PROTEIN 4.5 GM/DL (6.4-8.2)
[2020-09-16 06:57] LABS: BASOPHILS 2 % (0-1); EOSINOPHILS 2 % (0-3); LYMPHOCYTES 13 % (16-44); METAMYELOCYTES 1 % (0-0); MONOCYTES 7 % (0-5); NEUTROPHILS 73 % (28-66); PLATELET ESTIMATE DECREASED (NORMAL)
[2020-09-16 06:58] LABS: ANISOCYTOSIS 4+
[2020-09-16] MEDS: CALCIUM GLUCONATE 1,000 MG, VIAL MATE ADAPTER 1 EACH in NS 100 ML IV SCH ×2 (07:36→08:05)
[2020-09-16] MEDS: MIRALAX *UNIT DOSE* 17GM PACKET PO SCH ×3 (09:00→09:20)
[2020-09-16] MEDS: LEVEMIR (INSULIN DETEMIR) 1 UNITS/0.01ML SC SCH (09:16)
[2020-09-16] MEDS: NYSTATIN 100,000 UNITS/GM TOPICAL PWD 15 GM TOP SCH ×2 (09:17→21:17)
[2020-09-16] MEDS: SERTRALINE 100 MG TAB PO SCH ×2 (09:18→20:14)
[2020-09-16] MEDS: GABAPENTIN 100 MG CAP PO SCH ×3 (09:18→20:14)
[2020-09-16] MEDS: PANTOPRAZOLE 40MG TAB (PROTONIX) PO SCH (09:18)
[2020-09-16] MEDS: ACETAMINOPHEN TAB 650MG DOSE (2X325MG) PO PRN (09:19)
[2020-09-16] MEDS: ONDANSETRON 4MG/2ML VIAL IV PRN (09:19)
--- NOTE | 2020-09-16 09:27 | IPN ---
NEPHROLOGY PROGRESS NOTE DATE: 09/15/2020 SUBJECTIVE: The patient was seen and examined at the bedside today morning in the ICU. Last 24 hour events were noted. The patient has not required any Levophed since yesterday. She is tolerating the CVVHDF and now we are able to remove some fluid during CVVHDF as well. She has poor oral intake. She continues to be on IV TPN. She was given a dose of IV Lasix yesterday. She has not made much urine with the Lasix. She remains anuric. She continues to be in IV Amphotericin-B for disseminated histoplasmosis. OBJECTIVE: VITAL SIGNS: Temperature is 96.1 degrees Fahrenheit, blood pressure is 93/55, pulse is 93, respiratory rate of 18, saturating 92% on room air. INTAKE AND OUTPUT: Urine output is only 5 mL. CRRT fluid removal was 3.2 liters yesterday and 2.6 liters so far today since overnight. Weight in the bed scale is 123.5 kg which is stable for the last 2 days. PHYSICAL EXAMINATION: GENERAL APPEARANCE: The patient is awake, alert, oriented x2, getting CVVHDF, laying in bed. HEAD AND NECK: She has facial puffiness. Mucous membranes are dry. Neck is supple. Mildly elevated jugular venous distention. CARDIOVASCULAR: S1, S2. EXTREMITIES: 3+ edema of the bilateral lower extremities. RESPIRATORY: Decreased breath sounds bilaterally at the bases, otherwise no active rales or rhonchi. ABDOMEN: Distended. Abdominal wall edema and ascites were noted. GENITOURINARY: She has an indwelling Walters catheter. Very dark urine in the bag was seen, less than 10 mL. MUSCULOSKELETAL: Anasarca is noted. CONTROLS ENGINEER: The patient is awake, able to follow commands and move extremities. LAB REVIEW: CBC showed a WBC of 6.3, hemoglobin 8.4, platelets are 66. BMP showed sodium 136, potassium 4, chloride 102, bicarbonate 26, BUN is 7, creatinine is 0.78, glucose 171, calcium is 7.4. IMAGING: A CT of the chest was done today. It showed nonspecific findings. The official diagnosis includes congestive heart failure and pulmonary edema along with pneumonia. Clinical correlation was advised. CURRENT INPATIENT MEDICATIONS: The patient's medications were all reviewed by myself. She continues to be in IV Amphotericin-B. She continues to be on TPN. No other antibiotics at this time. She is getting electrolyte replacement according to CVVHDF protocol. One dose of IV Lasix was given yesterday. No significant urine output with that. ASSESSMENT AND PLAN: 1. Acute anuric renal failure the patient remains dependent on CVVHDF. She is getting daily fluid and because of that, we need to remove fluid because she has anasarca. I have changed the fluid removal parameters. If she is able to tolerate fluid removal with CVVHDF, I would probably stop her dialysis and start doing intermittent hemodialysis at the bedside every other day. 2. Severe sepsis secondary to disseminated histoplasmosis - The patient is off of Levophed, however blood pressures are still soft. Continue fluid removal. Continue IV Amphotericin-B as per I.D. 3. Protein calorie malnutrition and poor oral intake - The patient is tolerating the TPN. Continue TPN at current rate of 50 mL of climinix with 20 mL of fat emulsion. 4. Anemia and renal failure - hemoglobin is above 8. She is getting Aranesp once a week as well. Transfuse p.r.n. for hemoglobin below 8 only. 5. Anasarca - The patient got a dose of Lasix. She did not respond to IV Lasix. Fluid is being removed with CVVHDF as mentioned above. She is being kept even at this time for a total hourly intake, and if her blood pressure allows, we shall remove more fluid. 6. Infiltrates on the chest x-ray - The patient got a CAT scan done which is nonspecific, most likely the infiltrates that we are seeing, she has pulmonary edema and congestive heart failure because she is in positive fluid balance for the last many days. Total critical care time spent in the management of this patient today morning in the ICU excluding all the procedures was 35 minutes. MTDD
--- NOTE | 2020-09-16 11:30 | IPNPDOC ---
Text Note Date of Service The patient was seen on 09/16/20. NOTE Subjective: Patient developed hypotension overnight requiring Levophed. Objective: GENERAL APPEARANCE: NAD HEENT: no scleral icterus, no JVD, EOMI CARDIOVASCULAR: S1S2 LUNGS: Diminished lung sounds bilaterally ABDOMEN: soft & not tender w palpitation MUSCULOSKELETAL: +1 nonpitting edema INTEGUMENT: no generalized palor NEUROLOGICAL: cranial nerve function from 2-12 intact intact, follows commands, speech not dysarthric Assessment/plan: 65 yo F with a hx of DM2, lumbar stenosis (severe at L4/L5), HLD, presenting to ER with recurrent BLE weakness and frequent falls. Found to have sepsis secondary to Escherichia coli pyelonephritis which was treated. Patient continu ed to spike fevers of unknown origin almost daily. 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 She is being treated with amphotericin. 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 Patient will need treatment for at least a year Elevated alk phos, hyperbilirubinemia Previously workup included MRCP x 2 no obvious obstruction. Liver US with dopplers showing gallstones, sludge. Hepatomegaly, concern for cirrhosis. Splenomegaly. ERCP on 09/06/20: no pus/obstruction in CBD. duodenal ulcer adjacent to papilla, stent placed. On Protonix 40mg PO daily Liver biopsy showed Liver, biopsy: Hepatic parenchyma with granulomatous inflammation associated with intracytoplasmic fungal organisms, suggestive of Histoplasma capsulatum. GMS special stain highlights fungal organisms, supporting the above diagnosis. 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 Low sodium diet. Monitor I&O. Hypokalemic. D/w Dr. Kruse. Hold lasix. Hold spironolactone. Kidney function continues to decline and will most likely decline even further after initiation of amphotericin. Patient now on CRRT started 09/09/2020 Sepsis likely 2/2 E Coli Pyelonephritis and disseminated histoplasmosis: immunocompromised state Patient completed course of Zosyn Hypothyroidism Continue levothyroxine Dyspnea possibly 2/2 CHF vs intraabdominal process vs AUDRA Echo EF 60% grade 1DD. CTA/PE negative for PE. D/w Holcomb. Severe pulmonary HTN. Will need OP sleep study for CPAP. per Dr Mine iniguez for patient to go home on oxygen Chest x-ray was done on 09/15/20 and showed Perihilar and left lower lobe opacities suggesting multifocal pneumonia and possible small left pleural effusi on Chest CT was done on 09/15/20 showed moderate left and small right pleural effusions most likely secondary to volume overload Protein calorie malnutrition Continue TPN Metabolic encephalopathy Resolved Type 2 diabetes Insulin sliding scale Diabetes is diet Detemir Lumbar spinal stenosis; severe at L4/L5. Has been seen by Dr. Mena, and was referred to specialist in [place]. OR delayed given uncontrolled DM2, patient was asked to return this but did not follow up. Reports bilateral LE weakness L > R. Recurrent falls. Absent/minimal rectal tone. Discussed with Dr. Sheppard, assess patient. This is not cauda equina. Progression of spinal stenosis. 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 She wanted to try treatment with amphotericin first for about a week and see if it's helping before deciding whether or not she wants to be made comfortable only VS,Fishbone, I+O VS, Fishbone, I+O Laboratory Tests 09/15/20 11:50 09/15/20 18:06 09/16/20 00:00 09/16/20 05:51 Vital Signs Date Time Temp Pulse Resp B/P (MAP) Pulse Ox O2 Delivery O2 Flow Rate FiO2 09/16/20 09:15 101 99/56 (70) 94 Nasal Cannula 2.0 09/16/20 08:00 96.5 18 09/11/20 18:00 93 I&O- Last 24 Hours up to 6 AM 09/16/20 06:00 Intake Total 3424.2 ml Output Total 2250 ml Balance 1174.2 ml ANA MARIA MCCRAY DO Sep 16, 2020 11:30
[2020-09-16 13:21] LABS: BLOOD UREA NITROGEN 6 MG/DL (7-18); CALCIUM LEVEL 7.9 MG/DL (8.8-10.2); CARBON DIOXIDE LEVEL 28 MEQ/L (21-32); CHLORIDE LEVEL 103 MEQ/L (98-107); CREATININE FOR GFR 0.76 MG/DL (0.55-1.30); GLOMERULAR FILTRATION RATE > 60.0 (>45); GLUCOSE, FASTING 179 MG/DL (70-100); PHOSPHORUS LEVEL 2.1 MG/DL (2.5-4.9); POTASSIUM SERUM 4.1 MEQ/L (3.5-5.1); SODIUM LEVEL 135 MEQ/L (136-145)
[2020-09-16] MEDS ORDERED: NOREPINEPHRINE BITARTRATE 16 MG in D5W 484 ML IV SCH (14:00)
[2020-09-16] MEDS ORDERED: CALCIUM GLUCONATE 1,000 MG in NS 100 ML IV ONE ×2 (14:00→18:45)
[2020-09-16] MEDS ORDERED: SODIUM PHOSPHATE INJ 30 MMOL in D5W 500 ML IV ONE (15:00)
[2020-09-16] MEDS ORDERED: MULTIVITAMIN -ADULT INJECTION 10 ML, CR/CU/SE/MN/ZN INJ 1 ML in AMINO AC/ELECTROLYTE/DE... IV SCH (18:00)
[2020-09-16] MEDS ORDERED: FAT EMULSION IV 20% 500 ML IV SCH (18:00)
[2020-09-16 18:29] LABS: HEMATOCRIT 28.6 % (36.0-47.0); HEMOGLOBIN 8.5 g/dl (12.0-15.5); MEAN CORPUSCULAR HEMOGLOBIN 25.7 pg (27.0-33.0); MEAN CORPUSCULAR HGB CONC 29.7 g/dl (32.0-36.5); MEAN CORPUSCULAR VOLUME 86.4 fl (80.0-96.0); PLATELET COUNT, AUTOMATED 75 10^3/uL (150-450); RED BLOOD COUNT 3.31 10^6/uL (4.00-5.40); WHITE BLOOD COUNT 7.1 10^3/uL (4.0-10.0)
[2020-09-16 18:52] LABS: BLOOD UREA NITROGEN 7 MG/DL (7-18); CALCIUM LEVEL 7.7 MG/DL (8.8-10.2); CARBON DIOXIDE LEVEL 27 MEQ/L (21-32); CHLORIDE LEVEL 102 MEQ/L (98-107); CREATININE FOR GFR 0.84 MG/DL (0.55-1.30); GLOMERULAR FILTRATION RATE > 60.0 (>45); GLUCOSE, FASTING 201 MG/DL (70-100); PHOSPHORUS LEVEL 3.2 MG/DL (2.5-4.9); POTASSIUM SERUM 4.1 MEQ/L (3.5-5.1); SODIUM LEVEL 134 MEQ/L (136-145)
--- NOTE | 2020-09-16 19:53 | IPN ---
NEPHROLOGY PROGRESS NOTE DATE: 09/16/2020 SUBJECTIVE: The patient was seen and examined at the bedside today morning in the ICU. She remains on CVVHDF. Last 24 hour events are noted. The patient was off of Levophed in the morning. We tried to remove some fluid and at nighttime she ended up back on Levophed. She is requiring Levophed at 14 mcg at this time. She remains anuric and currently no fluid is being removed because the patient is hypotensive. The patient continues to be on IV TPN as well. OBJECTIVE: VITAL SIGNS: Temperature is 98.5 degrees Fahrenheit, blood pressure is 92/56, pulse is 97, respiratory rate of 22, saturating 95% on nasal cannula at 2 liters. INTAKE AND OUTPUT: Urine output is zero. Fluid removal with CVVHDF was 2.7 liters yesterday, and it is 2 liters so far today. Weight in the bed scale is not available. PHYSICAL EXAMINATION: GENERAL APPEARANCE: The patient is awake, alert, oriented times one, laying in bed. HEAD AND NECK: Facial puffiness is noted. Mucous membranes are dry. Neck is supple. Mildly elevated jugular venous distention. CARDIOVASCULAR: S1, S2, regular rate. EXTREMITIES: 3+ edema of the bilateral lower extremities. RESPIRATORY: Mildly decreased breath sounds at the bases. Otherwise no active rales or rhonchi. ABDOMEN: Soft, obese. Abdominal wall edema was noted. I could not appreciate any organomegaly. GENITOURINARY: She has an indwelling Walters catheter. MUSCULOSKELETAL: She has anasarca of the extremities. MAINTENANCE TEAM LEADER: The patient is awake and she follows few commands and answers few questions. LAB REVIEW: CBC showed a WBC of 7.6, hemoglobin 8.9, platelets are 79. BMP showed sodium 135, potassium 4.1, chloride 103, bicarbonate 28, BUN 6, creatinine is 0.76, glucose is 179, calcium 7.9, phosphorous is 2.1. CURRENT INPATIENT MEDICATIONS: The patient's medications were all reviewed by myself. She continues to be on IV Amphotericin B. She continues to be on TPN. She is requiring Levophed at 14 mcg. No other significant change in the medications today as compared with yesterday. ASSESSMENT AND PLAN: 1. Septic shock - This patient is requiring Levophed again she has disseminated histoplasmosis. Fluid removal with CVVHDF has been stopped. Titrate Levophed for a MAP of above 60. 2. Acute anuric renal failure the patient is dependent on CVVHDF. Continue the CVVHDF. Fluid removal parameters according to MAP has been changed. 3. Anemia - hemoglobin level is 8.9 which is stable. The patient is being given Aranesp 100 mcg subcutaneously once a week. Continue current dose. 4. Insulin dependent diabetes the patient is getting TPN now. She is on Levemir 20 units subcutaneously daily and insulin sliding scale. Glucose levels are within the acceptable range now. 5. Electrolyte abnormalities including hypocalcemia and hypophosphatemia - The patient is getting electrolyte replacements according to CVVHDF protocol. 6. Cholestatic hepatitis with disseminated histoplasmosis - The patient is receiving IV Amphotericin-B. LFTs remain high. 7. Disposition - The patient is critically ill. She has been on pressors and CVVHDF for a long time. Overall the patient has a poor prognosis. She is DNR/DNI. Total critical care time spent in the management of this patient today morning in the ICU excluding all the procedures was 35 minutes. CHELAD
[2020-09-16] MEDS: diphenhydrAMINE 25MG CAP PO SCH (20:14)
[2020-09-16] MEDS: ACETAMINOPHEN TAB 650MG DOSE (2X325MG) PO SCH (20:14)
[2020-09-16] MEDS: DEXTROSE IV SCH (21:08)
[2020-09-16] MEDS: [UNRECOGNIZED DRUG - OTHER] IV SCH (21:08)
[2020-09-17] VITALS (37 sets, daily range): BP systolic 75–127; BP diastolic 42–73
[2020-09-17] MEDS: HumaLOG INSULIN (NovoLOG) PER UNIT SC SCH ×2 (00:19→06:13)
[2020-09-17 00:25] LABS: HEMATOCRIT 27.5 % (36.0-47.0); HEMOGLOBIN 8.4 g/dl (12.0-15.5); MEAN CORPUSCULAR HEMOGLOBIN 26.3 pg (27.0-33.0); MEAN CORPUSCULAR HGB CONC 30.5 g/dl (32.0-36.5); MEAN CORPUSCULAR VOLUME 86.2 fl (80.0-96.0); RED BLOOD COUNT 3.19 10^6/uL (4.00-5.40); WHITE BLOOD COUNT 7.9 10^3/uL (4.0-10.0)
[2020-09-17 00:29] LABS: BLOOD UREA NITROGEN 7 MG/DL (7-18); CARBON DIOXIDE LEVEL 27 MEQ/L (21-32); CHLORIDE LEVEL 101 MEQ/L (98-107); CREATININE FOR GFR 0.79 MG/DL (0.55-1.30); GLOMERULAR FILTRATION RATE > 60.0 (>45); GLUCOSE, FASTING 214 MG/DL (70-100); MAGNESIUM LEVEL 2.3 MG/DL (1.8-2.4); PHOSPHORUS LEVEL 2.8 MG/DL (2.5-4.9); POTASSIUM SERUM 4.1 MEQ/L (3.5-5.1); SODIUM LEVEL 133 MEQ/L (136-145)
[2020-09-17 00:30] LABS: PLATELET COUNT, AUTOMATED 77 10^3/uL (150-450)
[2020-09-17] MEDS ORDERED: CALCIUM GLUCONATE 1,000 MG, VIAL MATE ADAPTER 1 EACH in NS 100 ML IV ONE (00:45)
[2020-09-17] MEDS: IPRATROPIUM 0.5MG/ALBUTEROL 2.5MG INH SOL UD 3ML (DUONEB) NEB SCH ×3 (03:33→08:01)
[2020-09-17] MEDS: SODIUM CHLORIDE 0.9% INJ 10 ML SYR IV SCH (06:07)
[2020-09-17] MEDS: LEVOTHYROXINE 125MCG TABLET (0.125MG) PO SCH (06:07)
[2020-09-17] MEDS: SLF 3 ML SYR IV SCH (06:07)
[2020-09-17 06:15] LABS: HEMATOCRIT 27.8 % (36.0-47.0); HEMOGLOBIN 8.3 g/dl (12.0-15.5); MEAN CORPUSCULAR HEMOGLOBIN 25.9 pg (27.0-33.0); MEAN CORPUSCULAR HGB CONC 29.9 g/dl (32.0-36.5); MEAN CORPUSCULAR VOLUME 86.9 fl (80.0-96.0)
[2020-09-17 06:19] LABS: PLATELET COUNT, AUTOMATED 71 10^3/uL (150-450)
[2020-09-17 06:38] LABS: ALBUMIN 1.5 GM/DL (3.2-5.2); ALT/SGPT 18 U/L (12-78); BILIRUBIN,TOTAL 5.8 MG/DL (0.2-1.0); BLOOD UREA NITROGEN 7 MG/DL (7-18); CALCIUM LEVEL 7.6 MG/DL (8.8-10.2); CARBON DIOXIDE LEVEL 27 MEQ/L (21-32); CHLORIDE LEVEL 101 MEQ/L (98-107); CREATININE FOR GFR 0.82 MG/DL (0.55-1.30); GLOMERULAR FILTRATION RATE > 60.0 (>45); GLUCOSE, FASTING 189 MG/DL (70-100); MAGNESIUM LEVEL 2.4 MG/DL (1.8-2.4); PHOSPHORUS LEVEL 2.4 MG/DL (2.5-4.9); POTASSIUM SERUM 4.2 MEQ/L (3.5-5.1); SODIUM LEVEL 134 MEQ/L (136-145); TOTAL PROTEIN 4.1 GM/DL (6.4-8.2)
[2020-09-17 06:53] LABS: ANISOCYTOSIS 1+; ATYPICAL LYMPH 2 % (0-5); BASOPHILS 1 % (0-1); LYMPHOCYTES 26 % (16-44); METAMYELOCYTES 2 % (0-0); MONOCYTES 2 % (0-5); NEUTROPHILS 65 % (28-66); PLATELET ESTIMATE DECREASED (NORMAL); POLYCHROMASIA 1+
[2020-09-17] MEDS ORDERED: CALCIUM GLUCONATE 1,000 MG in NS 100 ML IV ONE (08:00)
[2020-09-17] MEDS: SERTRALINE 100 MG TAB PO SCH (08:26)
[2020-09-17] MEDS: GABAPENTIN 100 MG CAP PO SCH (08:26)
[2020-09-17] MEDS: PANTOPRAZOLE 40MG TAB (PROTONIX) PO SCH (08:26)
[2020-09-17] MEDS: NYSTATIN 100,000 UNITS/GM TOPICAL PWD 15 GM TOP SCH (08:27)
[2020-09-17] MEDS: LEVEMIR (INSULIN DETEMIR) 1 UNITS/0.01ML SC SCH (09:35)
[2020-09-17] MEDS ORDERED: SODIUM PHOSPHATE INJ 15 MMOL in D5W 500 ML IV ONE (10:00)
[2020-09-17] MEDS ORDERED: ATROPINE SULFATE 1% OP SOLN 2 ML BTL SL PRN (11:30)
[2020-09-17] MEDS ORDERED: HYOSCYAMINE SULFATE 0.125 MG SUBL TABLET PO PRN (11:30)
[2020-09-17] MEDS ORDERED: FLEET ENEMA PR PRN (11:30)
[2020-09-17] MEDS ORDERED: SCOPOLAMINE 1MG TRANSDERMAL PATCH TOP PRN (11:30)
[2020-09-17] MEDS ORDERED: BISACODYL 10 MG SUPP PR PRN (11:30)
[2020-09-17] MEDS ORDERED: ONDANSETRON 4MG/2ML VIAL IV PRN (11:30)
--- NOTE | 2020-09-17 11:59 | IPNPDOC ---
Text Note Date of Service The patient was seen on 09/17/20. NOTE Subjective: Patient stated that she is tired and she would like to receive SECURITY MANAGER Objective: GENERAL APPEARANCE: NAD HEENT: no scleral icterus, no JVD, EOMI CARDIOVASCULAR: S1S2 LUNGS: Diminished lung sounds bilaterally ABDOMEN: soft & not tender w palpitation MUSCULOSKELETAL: +1 nonpitting edema INTEGUMENT: no generalized palor NEUROLOGICAL: cranial nerve function from 2-12 intact intact, follows commands, speech not dysarthric Assessment/plan: 65 yo F with a hx of DM2, lumbar stenosis (severe at L4/L5), HLD, presenting to ER with recurrent BLE weakness and frequent falls. Found to have sepsis secondary to Escherichia coli pyelonephritis which was treated. Patient c ontinued to spike fevers of unknown origin almost daily. 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 She is being treated with amphotericin. 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 Patient will need treatment for at least a year Elevated alk phos, hyperbilirubinemia Previously workup included MRCP x 2 no obvious obstruction. Liver US with dopplers showing gallstones, sludge. Hepatomegaly, concern for cirrhosis. Splenomegaly. ERCP on 09/06/20: no pus/obstruction in CBD. duodenal ulcer adjacent to papilla, stent placed. On Protonix 40mg PO daily Liver biopsy showed Liver, biopsy: Hepatic parenchyma with granulomatous inflammation associated with intracytoplasmic fungal organisms, suggestive of Histoplasma capsulatum. GMS special stain highlights fungal organisms, supporting the above diagnosis. Palliative care encounter Patient requested SECURITY MANAGER status. 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 Low sodium diet. Monitor I&O. Hypokalemic. D/w Dr. Kruse. Hold lasix. Hold spironolactone. Kidney function continues to decline and will most likely decline even further after initiation of amphotericin. Patient was on CRRT started 09/09/2020. Sepsis likely 2/2 E Coli Pyelonephritis and disseminated histoplasmosis: immunocompromised state Patient completed course of Zosyn Hypothyroidism Dyspnea possibly 2/2 CHF vs intraabdominal process vs AUDRA Echo EF 60% grade 1DD. CTA/PE negative for PE. D/w Holcomb. Severe pulmonary HTN. Will need OP sleep study for CPAP. per Dr Mine iniguez for patient to go home on oxygen Chest x-ray was done on 09/15/20 and showed Perihilar and left lower lobe opacities suggesting multifocal pneumonia and possible small left pleural e ffusion Chest CT was done on 09/15/20 showed moderate left and small right pleural effusions most likely secondary to volume overload Protein calorie malnutrition Metabolic encephalopathy Resolved Type 2 diabetes Diabetes is diet Lumbar spinal stenosis; severe at L4/L5. Has been seen by Dr. Mena, and was referred to specialist in [place]. OR delayed given uncontrolled DM2, patient was asked to return this but did not follow up. Reports bilateral LE weakness L > R. Recurrent falls. Absent/minimal rectal tone. Discussed with Dr. Sheppard, assess patient. This is not cauda equina. Progression of spinal stenosis. Recommends ongoing outpatient follow up, although patient states that she is happy with her level of mobility Schizoid personality disorder,anxiety VS,Toneye, I+O VS, Toneye, I+O Laboratory Tests 09/16/20 12:28 09/16/20 18:08 09/16/20 23:56 09/17/20 06:02 Vital Signs Date Time Temp Pulse Resp B/P (MAP) Pulse Ox O2 Delivery O2 Flow Rate FiO2 09/17/20 09:00 104 99/58 (72) 91 Nasal Cannula 1.0 09/17/20 08:00 97.4 18 09/11/20 18:00 93 I&O- Last 24 Hours up to 6 AM 09/17/20 06:00 Intake Total 3600.8 ml Output Total 3224 ml Balance 376.8 ml ANA MARIA MCCRAY DO Sep 17, 2020 11:59
--- NOTE | 2020-09-17 18:07 | IPN ---
PROGRESS NOTE DATE: 09/17/2020 Mrs. Toth has acute renal failure and is currently being treated for disseminated histoplasmosis. I came to see her this morning; however, nursing staff reports that she has decided to withdraw care and has made herself comfort measures only. She has been on continuous renal replacement therapy (CRRT), which has already been stopped. At this point, patient is comfort measures only, so I am signing off her case.
[2020-09-17] MEDS: MORPHINE SULFATE ORAL SOLN 10 MG/5 ML UD SL PRN (20:40)
[2020-09-18] MEDS: MORPHINE SULFATE ORAL SOLN 10 MG/5 ML UD SL PRN (06:25)
--- NOTE | 2020-09-18 08:07 | IPNPDOC ---
Text Note Date of Service The patient was seen on 09/18/20, evaluated at bedside. She is a 65 yo female with a hx of DM2, lumbar stenosis (severe at L4/L5), HLD, who presented to ER with recurrent BLE weakness and frequent falls. She was found to have sepsis secondary to Escherichia coli pyelonephritis which was treated. Patient continued to spike fevers of unknown origin almost daily. 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 Despite improvement in synthetic liver function and decreasing bilirubin, pt opted to withdraw treatment (her main concern not wanting to continue dialysis) and be placed on comfort care only. Pt was able to communicate and appeared to be in no discomfort on exam. She reiterated that she did not want to proceed with any further treatment. VS,Fishbone, I+O VS, Fishbone, I+O Vital Signs Date Time Temp Pulse Resp B/P (MAP) Pulse Ox O2 Delivery O2 Flow Rate FiO2 09/18/20 06:25 18 09/17/20 20:40 Nasal Cannula 2.0 09/17/20 09:00 104 99/58 (72) 91 09/17/20 08:00 97.4 I&O- Last 24 Hours up to 6 AM 09/18/20 06:00 Intake Total 114 ml Output Total 0 ml Balance 114 ml Nayeli Cabrera PA-C Sep 18, 2020 08:07
[2020-09-18] MEDS: MORPHINE 2 MG/ML 1ML VIAL (J2270) IV PRN ×2 (09:47→18:46)
[2020-09-18] MEDS: LORazepam 1 MG TAB PO PRN (09:47)
[2020-09-19] MEDS: MORPHINE 2 MG/ML 1ML VIAL (J2270) IV PRN (05:25)
[2020-09-19] MEDS: MORPHINE SULFATE ORAL SOLN 10 MG/5 ML UD SL PRN (09:26)
[2020-09-19] MEDS: LORazepam 1 MG TAB PO PRN (09:26)
--- NOTE | 2020-09-19 16:49 | DS.PDOC ---
Discharge Summary General Date of Admission Aug 17, 2020 at 5:30 pm Date of Discharge 09/19/20 Discharge Summary PROCEDURES PERFORMED DURING STAY: [None]. ADMITTING DIAGNOSES: Disseminated histoplasmosis Elevated alk phos, hyperbilirubinemia Palliative care encounter Acute anuric renal failure Septic shock/sepsis Anemia secondary to renal failure Hepatorenal syndrome Acute Pyelonephritis Protein calorie malnutrition Metabolic encephalopathy Type 2 diabetes Lumbar spinal stenosis Schizoid personality disorder,anxiety DISCHARGE DIAGNOSES: Disseminated histoplasmosis Elevated alk phos, hyperbilirubinemia Palliative care encounter Acute anuric renal failure Septic shock/sepsis Anemia secondary to renal failure Hepatorenal syndrome Acute Pyelonephritis Protein calorie malnutrition Metabolic encephalopathy Type 2 diabetes Lumbar spinal stenosis Schizoid personality disorder,anxiety COMPLICATIONS/CHIEF COMPLAINT: Constipation,Physical Deconditioning,Type 2 Diabet. HISTORY OF PRESENT ILLNESS:65 yo F with a hx of DM2, lumbar stenosis (severe at L4/L5), HLD, presenting to ER with recurrent BLE weakness and frequent falls. Found to have sepsis secondary to Escherichia coli pyelonephritis which was treated. Patient continued to spike fevers of unknown origin almost daily. 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 She is being treated with amphotericin. 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 Patient will need treatment for at least a year Elevated alk phos, hyperbilirubinemia Previously workup included MRCP x 2 no obvious obstruction. Liver US with dopplers showing gallstones, sludge. Hepatomegaly, concern for cirrhosis. Splenomegaly. ERCP on 09/06/20: no pus/obstruction in CBD. duodenal ulcer adjacent to papilla, stent placed. On Protonix 40mg PO daily Liver biopsy showed Liver, biopsy: Hepatic parenchyma with granulomatous inflammation associated with intracytoplasmic fungal organisms, suggestive of Histoplasma capsulatum. GMS special stain highlights fungal organisms, supporting the above diagnosis. Palliative care encounter Patient requested DIAL MAKER status. Patient was transferred to 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 Low sodium diet. Monitor I&O. Hypokalemic. D/w Dr. Kruse. Hold lasix. Hold spironolactone. Kidney function continues to decline and will most likely decline even further after initiation of amphotericin. Patient was on CRRT started 09/09/2020. Sepsis likely 2/2 E Coli Pyelonephritis and disseminated histoplasmosis: immunocompromised state Patient completed course of Zosyn Hypothyroidism Dyspnea possibly 2/2 CHF vs intraabdominal process vs AUDRA Echo EF 60% grade 1DD. CTA/PE negative for PE. D/w Holcomb. Severe pulmonary HTN. Will need OP sleep study for CPAP. per Dr Mine iniguez for patient to go home on oxygen Chest x-ray was done on 09/15/20 and showed Perihilar and left lower lobe opacities suggesting multifocal pneumonia and possible small left pleural effusion Chest CT was done on 09/15/20 showed moderate left and small right pleural effusions most likely secondary to volume overload Protein calorie malnutrition Metabolic encephalopathy Resolved Type 2 diabetes Diabetes is diet Lumbar spinal stenosis; severe at L4/L5. Has been seen by Dr. Mena, and was referred to specialist in [place]. OR delayed given uncontrolled DM2, patient was asked to return this but did not follow up. Reports bilateral LE weakness L > R. Recurrent falls. Absent/minimal rectal tone. Discussed with Dr. Sheppard, assess patient. This is not cauda equina. Progression of spinal stenosis. Recommends ongoing outpatient follow up, although patient states that she is happy with her level of mobility Schizoid personality disorder,anxiety Today at 4 PM patient from multiorgan failure. DISCHARGE MEDICATIONS: Please see below. ALLERGIES: Please see below. PHYSICAL EXAMINATION ON DISCHARGE: VITAL SIGNS: Please see below. GENERAL: HEENT: NECK: CARDIOVASCULAR EXAMINATION: RESPIRATORY EXAMINATION: ABDOMINAL EXAMINATION: EXTREMITIES: SKIN: NEUROLOGICAL EXAMINATION: PSYCHIATRIC EXAMINATION: LABORATORY DATA: Please see below. IMAGING: PROGNOSIS: ACTIVITY: [As tolerated]. DIET: DISCHARGE PLAN: DISPOSITION: . DISCHARGE INSTRUCTIONS: 1. . ITEMS TO FOLLOWUP ON ON OUTPATIENT: 1. . DISCHARGE CONDITION: [Stable]. TIME SPENT ON DISCHARGE: Greater than minutes. Vital Signs/I&Os Vital Signs Date Time Temp Pulse Resp B/P (MAP) Pulse Ox O2 Delivery O2 Flow Rate FiO2 09/19/20 09:30 2.0 09/19/20 05:25 22 Nasal Cannula 09/17/20 09:00 104 99/58 (72) 91 09/17/20 08:00 97.4 Microbiology Microbiology 09/09/20 Blood Fungal Culture, Received Pending Discharge Medications Scheduled Adalimumab (Humira) 40 Mg/0.8 Ml Syringekit, 40 MG SC QWEEK, (Reported) FRIDAYS Canagliflozin (Invokana) 300 Mg Tab, 300 MG PO DAILY, (Reported) Clozapine (Clozapine) 25 Mg Tab, 50 MG PO QHS, (Reported) TAKES WITH SECOND DOSE OF 100MG FOR 150MG TOTAL Clozapine (Clozapine) 100 Mg Tab, 100 MG PO BID, (Reported) Docusate Sodium (Colace) 100 Mg Cap, 100 MG PO DAILY, (Reported) Gabapentin (Gabapentin) 100 Mg Capsule, 200 MG PO TID, (Reported) Hydroxyzine HCl (Hydroxyzine HCl) 25 Mg Tab, 25 MG PO BID, (Reported) Insulin Glargine,Hum.rec.anlog (Lantus Solostar) 100 Unit/Ml Inj, 50 UNITS SC QAM, (Reported) Insulin Human Lispro (Novolog) 100 U/Ml Inj, 1 DOSE SC AC, (Reported) PER SLIDING SCALE Levothyroxine Sodium (Levothyroxine Sodium) 125 Mcg Tab, 125 MCG PO DAILY, (Reported) Metformin HCl (Metformin HCl ER) 500 Mg Tab.er.24h, 1,000 MG PO BID, (Reported) Sertraline HCl (Sertraline HCl) 100 Mg Tab, 100 MG PO BID, (Reported) Zinc (Zinc) 50 Mg Tab, 50 MG PO DAILY, (Reported) Ziprasidone HCl (Ziprasidone HCl) 60 Mg Cap, 60 MG PO BID, (Reported) Scheduled PRN Acetaminophen (Acetaminophen) 500 Mg Tablet, 500 MG PO Q6H PRN for PAIN, (Reported) Naproxen (Naproxen) 500 Mg Tablet.dr, 500 MG PO BID PRN for PAIN, (Reported) Nystatin (Nystatin) 15 Gm Cream..g., 1 APLCT TOP ASDIRECTED PRN for RASH/ITCHING, (Reported) APPLY UNDER BREASTS AND GROIN AFTER BATHING Polyethylene Glycol 3350 (Miralax) 119 Gm Powder, 17 GM PO DAILY PRN for CONSTIPATION, (Reported) dilute in 8 ounces of water or juice Allergies Coded Allergies: minocycline (Verified Allergy, Unknown, hives, 08/17/20) tetracycline (Verified Allergy, Unknown, hives, 08/17/20) aripiprazole (Verified Adverse Reaction, Unknown, psychosis, 08/17/20) ANA MARIA MCCRAY DO Sep 19, 2020 4:49 pm
--- NOTE | 2020-09-28 13:53 | CR ---
CONSULTATION DATE: 08/21/2020 ADDENDUM (Report #[id number]) Was missing date of service. It is 08/21/2020. REASON FOR CONSULTATION: Pulmonary hypertension.
== END 2020-09-19 18:15 | disposition expired | DRG 867 ==
LOC: M ED 11:33 → EDBD 11:33 → M ED INP 17:30 → ENRESERV 18:27 → M MSPAV 20:20 → M PCU 08-19 22:17 → M MSPAV 09-17 13:05
PROVIDERS: ADMIT Family Medicine; ATTEND Internal Medicine
DX: B39.9 Histoplasmosis, unspecified (principal); A41.9 Sepsis, unspecified organism; G93.41 Metabolic encephalopathy; J96.01 Acute respiratory failure with hypoxia; R65.21 Severe sepsis with septic shock; J18.9 Pneumonia, unspecified organism; J81.1 Chronic pulmonary edema; R65.10 Systemic inflammatory response syndrome (SIRS) of non-infectious origin without acute organ dysfunction; N39.0 Urinary tract infection, site not specified; G93.40 Encephalopathy, unspecified; R17 Unspecified jaundice; N17.9 Acute kidney failure, unspecified; R29.6 Repeated falls; B37.3 Candidiasis of vulva and vagina; R41.82 Altered mental status, unspecified; Z51.5 Encounter for palliative care; D63.1 Anemia in chronic kidney disease